=== PATIENT | female | born 1940 | race Caucasian/White ===

== ENCOUNTER 2025-09-13 21:57 | Inpatient (IN) | payer MEDICARE, SELFPAY ==
--- NOTE | ~2025-09-13 | XR_ITS ---
EXAMINATION: XR chest 2V, 09/14/2025 12:12 [place] HISTORY: Right lobe opacity, possible pneumonia COMPARISON: No comparisons available. Technique: 2 views obtained. Findings: Mild pulmonary venous congestion. There are small basilar infiltrates and effusions. No pneumothorax. Mild cardiomegaly. Moderate hiatal hernia. Bony thorax no acute abnormality. Impression: CHF. Early basilar pneumonia suspected. The findings appear slightly progressed compared to the previous exam Reviewed, dictated and finalized at location P. MARSHAL Impression: CHF. Early basilar pneumonia suspected. The findings appear slightly progressed compared to the previous exam
--- NOTE | ~2025-09-13 | XR_ITS ---
Examination: XR chest 1V portable Clinical History: cough, weakness Comparison: None Technique: Portable AP Findings: Cardiac silhouette mildly enlarged Subtle patchy airspace opacity right base. Trace blunting right CP angle. No acute bony abnormality. IMPRESSION: 1. Probable airspace disease right lower lobe. Consider PA and lateral films with deep inspiration. Reviewed, dictated and finalized at location R. CER LIEUTENANT IMPRESSION: 1. Probable airspace disease right lower lobe. Consider PA and lateral films w ith deep inspiration.
--- NOTE | ~2025-09-13 | CT_ITS ---
CT HEAD NON-CONTRAST Clinical History: ams Comparison: None Technique: Unenhanced axial images skull base to vertex Coronal, sagittal reformats CT images acquired with automatic exposure control for dose reduction DLP: 605 mGy-cm Findings: Age-related atrophy. Chronic white matter microvascular ischemic changes. Sulci, ventricles: Unremarkable. No intracerebral hemorrhage. No evidence acute territorial infarct. No mass effect, midline shift. Bony calvarium intact. Visualized paranasal sinuses: Small fluid right maxillary. Mastoid air cells: Clear. IMPRESSION: 1. No acute intracranial findings. Reviewed, dictated and finalized at location R. TECH
[2025-09-13 22:06] VITALS: BP 133/111; PULSE 67; RESP 20; TEMP 36.4; O2SAT 98
[2025-09-14] VITALS (12 sets, daily range): BP systolic 118–163; BP diastolic 69–95; PULSE 60–85; RESP 13–20; TEMP 36.7–37.7; O2SAT 95–100; BMI 34.0
--- NOTE | 2025-09-14 00:25 | ECG_ITS ---
Test Date: 2025-09-14 00:51:48 Measurements Intervals [place] Rate: 63 P: 76 MS: 166 QRS: 26 QRSD: 78 T: 49 QT: 402 QTc: 412 Interpretive Statements SINUS RHYTHM WITH SINUS ARRHYTHMIA No previous ECG available for comparison Electronically Signed On 09-14-2025 09:32:41 CHECKING DEPARTMENT SUPERVISOR by Thee Calle M.D.
[2025-09-14 00:48] LABS: Hematocrit 35.7 % (37.0-47.0); Hemoglobin 11.4 g/dL (12.0-15.0); Immature Granulocyte Percent A 0.4 % (0-0.5); Lymphocytes Absolute Auto 0.90 K/mm3 (0.9-3.2); Mean Corpuscular HGB Conc 31.9 g/dl (32-36); Mean Corpuscular Hemoglobin 29.4 pg (26-34); Mean Corpuscular Volume 92.0 fl (80-100); Nucleated Red Blood Cells Absolute Auto 0.000 K/mm3 (0.0-0.012); Nucleated Red Blood Cells Perc 0.0 % (0.0-0.2); Platelet Count Result 287 k/mm3 (150-375); Red Blood Count 3.88 M/mm3 (4.2-5.4); White Blood Count 7.0 K/mm3 (4.5-10.0)
[2025-09-14 01:05] LABS: Alanine Aminotransferase 23 U/L (6-35); Albumin Level 4.1 g/dL (3.5-5.1); Alkaline Phosphatase 65 U/L (38-126); Anion Gap 8 mmol/L (4-12); Aspartate Amino Transferase 27 U/L (14-36); Bilirubin,Total 1.0 mg/dL (0.2-1.3); Blood Urea Nitrogen 18 mg/dL (7-17); Calcium 9.3 mg/dL (8.4-10.2); Carbon Dioxide 27 mmol/L (22-30); Chloride 102 mmol/L (98-107); Estimated Glomerular Filt Rate 59; Glucose 92 mg/dL (65-110); Potassium 3.7 mmol/L (3.4-5.0); Sodium 137 mmol/L (137-145); Total Protein 7.1 g/dL (6.3-8.2)
[2025-09-14 01:21] LABS: Add Urine Microscopic? YES; Appearance Urine Clear (Clear); Glucose Urine UA Negative (Negative); Influenza A QL RT-PCR Negative (Negative); Influenza B QL RT-PCR Negative (Negative); Leukocyte Esterase Ur 1+ LEU/UL (Negative); Need Manual Microscopic Reviewed; Nitrate Urine Negative (Negative); Non Pathogenic Casts 0-2; RSV RNA, RT-PCR Negative (Negative); SARS-CoV-2 RNA PCR Positive (Negative); Specific Grav Ur 1.015 (1.001-1.035)
--- OUTSIDE RECORDS SUMMARY | 2025-09-14 01:29 | XMS_ITS | Data Portability ---
Author Organization [facility] [place] [employer] [facility] Address [address] [place] [address] Assessment No assessment recorded. Plan of Treatment Reminders Order Date Submit Date Provider Last Modified By Organization Details Last Modified Time Details Appointments None recorded. Lab None recorded. Referral None recorded. Procedures None recorded. Surgeries None recorded. Imaging None recorded. Medication Orders ceftriaxon e 1 gram solution for injection 2018 [email or web address] Not available 9 16:32:27 Celestone Soluspan 6 mg/mL suspension for injection 2018 [place] Not available 9 16:32:28 cefuroxime axetil 250 mg tablet 2018 019 INTERFACE [id number], [address], [address], 9 15:01:03 ofloxacin 0.3 % ear drops 2018 019 INTERFACE [id number], [address], [address], 9 15:34:46 Patient TargetsNo targets recorded. Patient Instructions Encounter Date Encounter Id Patient Instructions Last Modified By Organization Details Last Modified Time 11/07/2019 [id number] Rocephin 1 gm IM . Celestone 12 mg IM. Ceftin 250 mg bid x 10 days- start tomorrow. F/u if not better. Not available 11/07/2019 15:01:45 Reason for Referral None Reported. Medical Equipment None Reported. Medications Name Sig Start Date Stop Date Status Note LastModified by Organization Details LastModified Time furosemide 40 mg tablet 11/07 completed Not Available Not Available Not Available atorvastati n 40 mg tablet active Not Available Not Available Not Available cefuroxime axetil 250 mg tablet Take 1 tablet every 12 hours by oral route. 2018 active Not Available Not Available Not Avai lable atorvastati n 20 mg tablet 11/07 completed Not Available Not Available Not Available clindamycin HCl 300 mg capsule 11/07 completed Not Available Not Available Not Available hydrocodone 5 mg-acetamin ophen 325 mg tablet 11/07 completed Not Available Not Available Not Available Celestone Soluspan 6 mg/mL suspension for injection Take 12 mg by injection route. 2018 active Not Available Not Available Not Avai lable ciprofloxac in 500 mg tablet 11/07 completed Not Available Not Available Not Available ceftriaxone 1 gram solution for injection Take 1 g by injection route. 2018 active Not Available Not Available Not Avai lable ofloxacin 0.3 % ear drops INSTILL 5 DROPS INTO AFFECTED EAR(S) BY OTIC ROUTE BID 2018 active Not Available Not Available Not Avai lable levothyroxi ne 150 mcg tablet active Not Available Not Available Not Available omeprazole 20 mg capsule,del ayed release active Not Available Not Available Not Available mupirocin 2 % topical ointment 11/07 completed Not Available Not Available Not Available levofloxaci n 500 mg tablet 11/07 completed Not Available Not Available Not Available letrozole 2.5 mg tablet active Not Available Not Available Not Available celecoxib 100 mg capsule active Not Available Not Available Not Available losartan 100 mg-hydrochl orothiazide 12.5 mg tablet active Not Available Not Available Not Available calcium every day active Not Available Not Av ailable Not Available ferrous sulfate 325 mg every day 11/07 completed Not Available Not Available Not Available Adult Multivitami n (w-lutein) every day active Not Available Not Available Not Available Baxdela 450 mg tablet 11/07 completed Not Available Not Available Not Available Vitals Date Recorded Body weight Body mass index (BMI) Body height Body temperature Heart rate Systolic And Diastolic Provider Name and Address Organization Details Last Updated DateTime 9 09874.9 2 g 35.5 kg/m2 157.48 cm 98.1 [degF] 76 /min 122/76 mm[Hg] Erika Bliss [facility], [facility] 9 14:45:08 Social History None recorded. Functional Status None recorded. Mental Status None recorded. Family History Nothing Reported. Medical History No medical history recorded. Gynecological HistoryNo gynecological history recorded. Obstetrics History GPAL:G 0 P 0 0 0 0 Past Encounters Encounter ID Performer Location Encounter Start Date Encounter Closed Date Diagnosis/Indication Diagnosis SNOMED-CT Code Diagnosis ICD10 Code Diagnosis IMO Codes Diagnosis Note [id number] Sayda gonzalez NP, S Main Office [address] [place] [phone] 11/07/2019 14:11:57 11/17/2019 17:30:27 Upper respiratory infection 01746230 J06.9 Acute uppe r respiratory infection 10760717 J06.9 Health Concerns Section Related Observation LastModified by Organization Detai ls LastModified Time None Recorded Concern Status LastModified by Organization Details LastModified Time None Recorded Advance Directives Directive None Recorded Payers Insurance Date Sequence Insurance Name Policy Number Policy Romano Covered Member ID Romano Member ID Guarantor Name 11/17/2019 2 [employer] (MEDICARE SUPPLEMENT) Aditi Pepe [id number] Aditi Pepe 10/19/2021 1 [place] Aditi Pepe [id number] Aditi Pepe Notes Date Note Type Note Provider Name and Address Organization Details Recorded Time 11/07/2019 text/html Pt c/o cough and congestion for the past few days. Nose is runny. Cough is nonproductive. No fever. Sayda Ibarra NP, [address] [place] [address], [phone], [facility], [facility]. 11/07/2019 15:34:53 OBGyn Episode No OBEpisode recorded.
--- OUTSIDE RECORDS SUMMARY | 2025-09-14 01:29 | XMS_ITS | Data Portability ---
Author Organization MELCHOR ZAMUDIO [facility] Address [address] [place] [address] Care Team Providers Care Cement Handler Name Role Phone JAMES HEARN Primary Care Provider Assessment No assessment recorded. Plan of Treatment Reminders Order Date Submit Date Provider Last Modified By Organization Details Last Modified Time Details Appointments None recorded. Lab None recorded. Referral None recorded. Procedures None recorded. Surgeries None recorded. Imaging None recorded. Medication Orders omeprazole 20 mg capsule,del ayed release 2024 025 [facility], [address] [place] [address], Suite [facility], [place], [place], [id number], 5 11:14:29 ferrous sulfate 325 mg (65 mg iron) tablet,yadira yed release 2024 025 [facility], [address] [place] [address], Suite [facility], [place], [place], [id number], 5 11:14:29 Patient TargetsNo targets recorded. Patient InstructionsNo instructions recorded. Reason for Referral None Reported. Results Created Date Observation Date Name Description Value Unit Range Abnormal Flag Note LastModifiedBy Organization Detail LastModifiedTime Result Notes None recorded. Problems Name Problem SNOMED Code Status Onset Date Resolution Date Notes Provider Name and Address Organization Details Recorded Time History of total knee arthroplast y 7972806192136 Active MELCHOR Azar [facility] & [place] 3 13:28:42 History of surgery [id number] MELCHOR Cazares - [facility] - & [place] 3 13:28:42 Gastroesoph ageal reflux disease 413889104 Active Rosa M Collier null, [place] - [facility] - & [place] 3 13:28:42 Malignant neoplasm of breast 310790457 Active Rosa M Collier null, [place] - [facility] - & [place] 3 13:28:42 Arthritis 8253307 Active Rosa M Collier null, [place] - [facility] - & [place] 3 13:28:42 Hypertensiv e disorder 30501383 Active Rosa M Collier null, [place] - [facility] - & 3 13:28:42 Hypothyroid ism 22001103 Active Rosa M Collier null, [place] - [facility] - & 3 13:28:42 Diabetes mellitus 98506357 Active Rosa M Collier null, [place] - [facility] - & [place] 3 13:28:42 Polyp of colon 19450747 Active 2022 RASHAWN HERNANDEZ NP [address], [address], [place] - [facility] - [facility] & [place] 5 11:07:06 Hiatal hernia 11278567 Active 2022 RASHAWN HERNANDEZ NP [address], [address], [place] - [facility] - [facility] & [place] 5 11:07:42 Iron deficiency anemia 42578528 Active 2022 RASHAWN HERNANDEZ NP [address], [address], [place] - [facility] - [facility] & [place] 5 11:08:02 Pain of right ankle joint 8090226210284 9106 Active 2022 Marcia Gargus null, [place] - [facility] - & [place] 3 10:29:37 Pain in right foot 6161509685650 07 Active 2022 Rosa M Collier null, [place] - [facility] - [facility] & [place] 3 11:30:51 Sprain of shoulder rotator cuff 389249804730 Active 2022 Katie Augustine NP, [address] [place] [address], [address], [place] - [facility] - [place] & [place] 3 11:47:49 Onychomycos is 749169877 Active 2022 Rosa M Collier null, [place] - [facility] - [facility] & [place] 3 12:51:20 Dystrophia unguium 34036430 Active 2022 Rosa M Collier null, [place] - [facility] - [facility] & [place] 3 12:51:20 Foot callus 827766476 Active 2022 Rosa M Collier null, [place] - [facility] - [facility] & [place] 3 12:51:20 Pain of toe of left foot 0440675744430 08 Active 2022 Rosa M Collier null, [place] - [facility] - [facility] & [place] 3 12:51:20 Tenosynovit is of right foot 2609921967286 105 Active 2022 Rosa M Collier null, [place] - [facility] - [facility] & [place] 3 12:51:20 Diverticulo sis of colon without diverticuli tis 589022731 Active 2024 RASHAWN HERNANDEZ NP [facility] [address], [place], [address], [place] - [facility] - [place] & [place] 5 11:07:18 Constipatio n 83379156 Active 2024 RASHAWN HERNANDEZ NP [facility] [address], [address], [place] - [facility] - [place] & [place] 5 11:09:23 Problem Notes Documentation Provider Name and Address Organization Details Recorded Time Consult Note : [place] [address] CONSULTATION NOTE PATIENT: ADITI PEPE ROOM #: N.309-[address]: James Hearn DO UNIT #: [id number] DATE OF ADMISSION: 05/03/[address]: Christophe Clark MD CONSULTING PHYSICIAN: Christophe Clark MD REFERRING PHYSICIAN: Dr. Hearn DATE OF CONSULTATION: 05/04/2025 REASON FOR CONSULTATION: Increased BUN/creatinine. HISTORY OF PRESENT ILLNESS: The patient is an 84-year-old female with past medical history of hypertension and arthritis. The patient is status post fall with change in mental status with acute blood-loss anemia. Hemoglobin down to 6.5 g/dL. LABORATORY DATA: Creatinine 1.3 from 1, baseline creatinine 1 to 1.4 mg/dL. GFR 41 mL/minute by MDRD. CK level of 1541. The patient is confused. SOCIAL HISTORY: No smoking or ethanol use. FAMILY HISTORY: No hypertension or diabetes. REVIEW OF SYSTEMS: Unable. The patient is confused. PHYSICAL EXAMINATION: VITAL SIGNS: Temperature 97.3, heart rate 77, respiratory rate 18, blood pressure 124/77, saturation 97% on room air. HEENT: Normocephalic. Atraumatic. Pupils are equal, round, and reactive to light. Extraocular movements/muscles intact. Lids are normal. Anicteric sclerae. Conjunctivae clear. Nares patent. Oropharynx clear. Moist mucous membranes. Normal dentition. Tympanic membranes are clear. External auditory canals are normal. NECK: Supple, no lymphadenopathy noted. No thyromegaly. No jugular venous distention. LUNGS: Rales and rhonchi bilaterally. CARDIOVASCULAR: Regular rate and rhythm. No S3, no rubs. No carotid bruits. 1/6 systolic murmur in left sternal border. ABDOMEN: Positive bowel sounds. Soft, nontender, nondistended. No masses, hepatosplenomegaly or tenderness. No hernias noted. EXTREMITIES: 2+ pedal pulses. Normal range of motion. No clubbing or PATIENT: ADITI PEPE UNIT #: [id number] cyanosis. Trace edema in bilateral lower extremities. BACK: No costovertebral angle tenderness. SKIN: No rashes, lesions or ulcerations noted. LYMPHATICS: No axillary lymphadenopathy. NEUROLOGIC: No focal deficits. Cranial nerves 2-12 intact. Sensation intact. Deep tendon reflexes intact bilateral lower extremities. Has 5/5 bilateral strength in upper and lower extremities. PSYCHIATRIC: Confused. ASSESSMENT AND PLAN: 1. Acute blood-loss anemia, rule out hematoma. CT of abdomen and pelvis. If needed, surgical evaluation. Transfuse as needed packed red blood cells, tranexamic acid. 2. Rhabdomyolysis. IV fluids. Follow CK level. 3. Inqka-pz-nayuynk renal failure. Close monitoring of renal parameters. If condition worsens, transfer to step-down/ICU. Consult 5. DICTATED BY: Christophe Clark MD EP/MODL /[id number] at 1254 CC'ed Logic: Ordering Provider: SAADIA SALINAS Attending Provider: ARIS BOYLE Consulting Provider: ARIS BOYLE; GADIEL CABRERA; SAADIA SALINAS Admitting Provider: ARIS Damico [place] [facility] 05/05/2025 14:14:12 Strings Teacher Consult Note : [place] [address] CARDIOLOGY CONSULTATION PATIENT: ADITI PEPE DATE OF : 42 UNIT#: [id number] ADMIT DATE: 05/03/25 ATTENDING PHYSICIAN: James Hearn DO DICTATING PROVIDER: Augusta Hidalgo MD SERVICE DATE: 05/05/25 (Please note that portions of this note were completed with a voice recognition program. Efforts were made to edit the dictation but occasionally words are mis-transcribed.) Cardiology Consultation Date of Admission: 05/03/25 Date of Initial Consultation: 05/05/25 Referring Provider: DR. HEARN Reason for Consult: CARDIAC CLEARANCE FOR COLONOSCOPY Source of History: MEDICAL RECORDS History of Present Illness: patient was an 84-year-old female with noted history hypertension dyslipidemia hypothyroidism remote history of anemia degenerative arthritis osteoporosis and remote history of breast cancer. Presents to the hospital for reasons of mental status changes. Apparently sustained a fall subsequent EMS contacted in regard to such was brought to the ER accordingly. Family had visualized that the patient had fallen on camera and subsequently called for EMS services. Timeframe series of events leading up to the rather limited at this time. Cardiac Risk Profile: Yes Hypercholseteremia:, Yes Hypertension: Cardiac Specific Problems: PAROXYSMAL ATRIAL FIBRILLATION HYPERTENSION, HIGH CHOLESTEROL, STRESS, OBESITY Past Medical History: HYPERTENSION, HIGH CHOLESTEROL, STRESS, OBESITY Home Medications: Home Medications: LEVOTHYROXINE (LEVOXYL) 175 MCG PO DAILY OMEPRAZOLE (PRILOSEC) 20 MG PO DAILY ATORVASTATIN (LIPITOR) 40 MG PO DAILY LOSARTAN (COZAAR) 25 MG PO DAILY@0800 FAMOTIDINE (PEPCID) 20 MG PO BID Allergies: Coded Allergies: No Known Allergies (05/05/25) Review of Systems: PLEASE REFER TO THE HISTORY OF PRESENT ILLNESS WHEN I TALKED TO THE PATIENT AND ASK HER QUESTION FOR ALMOST EVERY QUESTION SHE ANSWERS I DO NOT KNOW SO SHE HAS NOT A GOOD HISTORIAN AND I CAN NOT OBTAIN REVIEW OF SYSTEMS Physical Exam: Last Documented Vital Signs: Temp: 97.3 Pulse: 100 Resp: 15 B/P: 126/83 O2 Sat: 97 84-YEAR-OLD FEMALE ALERT AWAKE ORIENTED AND RESPONDS TO ALL QUESTIONS BUT ONLY ANSWER SHE GIVES HIS I DO NOT KNOW HEENT UNREMARKABLE NECK SUPPLE EXAMINATION OF HEART REVEALS S1 AND S2 IRREGULARLY IRREGULAR DO NOT HEAR ANY MURMUR EXAMINATION OF LUNGS REVEALED REDUCED AIR ENTRY EXTREMITIES UNREMARKABLE ON ADMISSION THE RHYTHM STRIP SHOWS SINUS RHYTHM, I DO NOT HAVE THE 12 LEAD EKG IN THE CHART IT WAS PROBABLY DONE IN THE EMERGENCY ROOM TODAY THE RHYTHM STRIP SHOWS ATRIAL FIBRILLATION Lab Results: I have personally reviewed and interpreted the results of the following diagnostic testing. Laboratory Tests: 05/05 Chemistry Sodium (137 - 145 mmol/L) 135 *L Potassium (3.5 - 5.1 mmol/L) 3.0 *L Chloride (98 - 107 mmol/L) 106 Carbon Dioxide (22 - 30 mmol/L) 22 Anion Gap (5.0 - 15.0 mmol/L) 9.4 BUN (7 - 17 mg/dL) 9 Creatinine (0.52 - 1.04 mg/dL) 0.80 Est GFR (CKD-EPI 2020) (mL/min) 73 Whole Blood BUN/Creat (7.0 - 25.0) 11.8 Glucose (74 - 106 mg/dL) 104 Calcium (8.4 - 10.2 mg/dL) 8.2 *L Corrected Calcium (8.4 - 10.2 mg/dL) 8.8 Phosphorus (2.5 - 4.5 mg/dL) 2.3 *L Magnesium (1.6 - 2.3 mg/dL) 1.4 *L Total Bilirubin (0.2 - 1.3 mg/dL) 1.3 AST (14 - 36 UNITS/L) 33 ALT (9 - 52 UNITS/L) 24 Total Alk Phosphatase (53 - 141 UNITS/L) 55 Serum Total Protein (6.3 - 8.2 gm/dL) 6.2 *L Albumin (3.5 - 5.0 g/dL) 3.2 *L Hematology WBC (4.8 - 10.8 X10 3/uL) 8.2 RBC (4.20 - 5.40 x10 6/uL) 4.70 Hgb (12.0 - 16.0 g/dL) 10.4 *L Hct (37.0 - 47.0 %) 33.8 *L MCV (81.0 - 99.0 fL) 71.9 *L MCH (27.0 - 31.0 pg) 22.1 *L MCHC (33.0 - 37.0 g/dL) 30.8 *L RDW (36.4 - 46.3 fL) 56.3 *H Plt Count (130 - 400 x10 3/uL) 356 MPV (7.4 - 10.4 fL) 9.7 [place] % (Auto) (2.0 - 6.0 %) 12.7 *H Eos % (Auto) (2.0 - 3.0 %) 1.9 *L Baso % (Auto) (0.0 - 1.0 %) 0.4 Nucleat RBC Rel Count (0.0 - 0.2 %) 0.0 Neut # (Auto) (1.8 - 7.8 X10 3/uL) 5.82 Lymph # (Auto) (1.0 - 4.8 x10 3/uL) 1.13 [place] # (Auto) (0.0 - 0.8 x10 3/uL) 1.04 *H Eos # (Auto) (0.0 - 0.5 x10 3/uL) 0.16 Baso # (Auto) (0.0 - 0.2 x10 3/uL) 0.03 Absolute Nucleated RBC (0.00 - 0.012 X10 3/uL) 0.00 Immature Gran % (0.0 - 2.0 %) 0.5 Neutrophils % (39.0 - 77.0 %) 70.8 Lymphocytes % (23.0 - 45.0 %) 13.7 *L Immature Gran # (0.00 - 0.10 x10 3/uL) 0.04 Urines Ur Random Creatinine (mg/dL) 30.5 U Random Total Protein (0 - 12 mg/dL) 29 *H Ur Random Sodium (30 - 90 mmol/L) 65 Ur Random Potassium (mmol/L) 12.6 Ur Random Chloride (24 - 255 mmol/L) 77 Ur Random Urea Nitrogn (mg/dL) 293 Imaging Results: WHILE SHE WAS IN SINUS RHYTHM ON ADMISSION PATIENT IS NOW IN ATRIAL FIBRILLATION Assessment: All of the cardiology problems are listed above: However the following specific cardiac problems were addresses and treated during the hospital medical decision making. Cardiac Specific Problem: 1. PAROXYSMAL ATRIAL FIBRILLATION.PATIENT DOES NOT HAVE ANY HISTORY OF ATRIAL FIBRILLATION IN THE PAST. THIS IS A NEW ONSET OF ATRIAL FIBRILLATION 2. HISTORY OF SYNCOPE ETIOLOGY UNCLEAR, PATIENT CAN NOT DESCRIBE ANYTHING 3. ANEMIA 4. PREOP CLEARANCE FOR COLONOSCOPY 5. CURRENTLY PATIENT DOES NOT HAVE ANY SYMPTOMS OF ANGINA, ACUTE HEART FAILURE OR ACUTE CARDIAC ARRHYTHMIA EXCEPT PAROXYSMAL ATRIAL FIBRILLATION WHICH IS EASILY TREATABLE. Discussion/Data Reviewed: Diagnostic/Therapeutic Procedures Ordered: Management Options Selcted: NO CONTRAINDICATION NOTED TO PROCEED WITH COLONOSCOPY I WILL GET A ECHOCARDIOGRAM ON HER I WILL START HER ON BETA BLOCKERS TO SEE IF WE CAN SLOW DOWN AND KEEP HER IN SINUS RHYTHM I WILL FOLLOW HER WITH YOU Level of Service: C4 at 1549 ADITI PEPE : 42 Report #: [id number] CC'ed Logic: Ordering Provider: RUSTAM AKHTAR Attending Provider: ARIS BOYLE Consulting Provider: ARIS BOYLE; GADIEL CABRERA; RUSTAM AKHTAR; SAADIA SALINAS Admitting Provider: [facility] [place] [facility] & [place] 05/06/2025 12:40:44 Roof Shingler Consult Note : [place] [address] CONSULTATION NOTE PATIENT: ADITI PEPE ROOM #: N.309-[address]: James Hearn DO UNIT #: [id number] DATE OF ADMISSION: 05/03/[address]: Jaycee Matthew MD CONSULTING PHYSICIAN: Jaycee Matthew MD REFERRING PHYSICIAN: NONE DATE OF CONSULTATION: 05/04/2025 REASON FOR CONSULTATION: Anemia. HISTORY OF PRESENT ILLNESS: The patient is an 84-year-old female patient who apparently fell at home. Cannot recall if before the fall she felt weak or lightheaded. At the time of consultation, she complains only for neck pain. Otherwise, she feels fine. Denies abdominal pain. Denies nausea or vomiting. Denies difficulty of swallowing or painful swallowing. Denies seeing any blood or black tarry stools recently. PAST MEDICAL HISTORY: Positive for: 1. Breast cancer. 2. Hypothyroidism. 3. Hypertension. 4. Arthritis. 5. GERD. 6. Diabetes mellitus. SURGICAL HISTORY: Positive for right breast lumpectomy and total knee replacement. ALLERGIES: To no known medications. MEDICATIONS: Home medications are atorvastatin, famotidine, levothyroxine, losartan and omeprazole. SOCIAL HISTORY: She does not smoke. VITAL SIGNS: Temperature is 97.5, heart rate 83, respiratory rate 18, blood pressure 126/64 mmHg. REVIEW OF SYSTEMS: GENERAL: Denies lightheadedness and dizziness. VISUAL: Negative for visual changes. PATIENT: ADITI PEPE UNIT #: [id number] HEAD, EARS NOSE AND THROAT: Negative for throat pain and congestion. CARDIAC: Negative for chest pain and palpitation. RESPIRATORY: Negative for shortness of breath and cough. GASTROINTESTINAL: Negative for abdominal pain. Denies coffee-grounds emesis. Denies hematemesis. GENITOURINARY: Negative for burning and frequency upon urination. MUSCULOSKELETAL: Negative for new onset of joint problems. SKIN: Negative for new onset of skin rash. NEUROLOGIC: Negative for new onset of focal weakness and sensory deficits. PHYSICAL EXAMINATION: GENERAL: The patient is comfortably sitting in a chair. HEAD, EARS, NOSE AND THROAT: She has pale anemic conjunctiva. The nostrils are dry. NECK: Supple. Thyroid: is not palpable. CARDIAC: S1, S2 with regular rate and rhythm. LUNGS: Clear. ABDOMEN: Soft, nontender, nondistended. Good bowel sounds. JOINTS: Without deformity. SKIN: Good turgor. PSYCHIATRIC: Awake, alert and oriented x3. LABORATORY DATA: WBC count 10.7, hematocrit 33.5, but her lowest hematocrit was 23.3 requiring 2 unit blood transfusion. Her MCV is low at 73, platelet count 369. INR is 1.6. Sodium is 135, potassium 3.3, BUN of 19 down from 26, creatinine normalized. Her iron level is low at 30, TIBC is normal at 353, ferritin is 12.8, it is low normal level. Liver Enzymes: Total bilirubin is normal. AST is 51, ALT is 27, alkaline phosphatase is 64. BNP is 481, albumin 3.6. Procalcitonin is normal. CRP is elevated. Her Creatine kinase is elevated suggesting the patient has undergoing rhabdomyolysis. For better medications, she is getting tranexamic acid, Lasix, potassium chloride, Protonix, half normal saline and anti-alcohol. Pelvic CT showed stool in the rectum. Lumbar spine showed degenerative changes. Brain CT showed no acute intracranial abnormality. ASSESSMENT AND PLAN: In summary, the patient with anemia, which is iron deficient requiring blood transfusion without obvious evidence of GI tract hemorrhage, but she fell at home and required 2 units of blood transfusion. Right now, she is recovering from rhabdomyolysis. Her kidney functions have been improving with conservative care. I do believe that this patient should undergo an EGD if she would be safe. Her colonoscopy was in 2022, which showed diverticular disease and some colon polyps. In the endoscopy, other than a hiatal hernia, found no further abnormalities. Her pathology showed hyperplastic and tubular adenoma polyps. So in summary, the patient with iron deficiency anemia requiring blood transfusion, recurrent fall recently. We will proceed with an EGD if she is agreeable and cleared by primary care doctor. PATIENT: ADITI PEPE UNIT #: [id number] DICTATED BY: Jaycee Matthew MD AT/MODL /[id number] at 1224 CC'ed Logic: Ordering Provider: ARGELIA LANE Attending Provider: ARIS BOYLE Consulting Provider: ARIS BOYLE; GADIEL CABRERA; RUSTAM AKHTAR; SAADIA SALINAS Admitting Provider: ARIS Mai [facility] & [place] 05/07/2025 16:51:18 Progress Note : [place] [address] PROGRESS NOTE PATIENT: ADITI PEPE DATE OF : 42 UNIT#: [id number] ADMIT DATE: 05/03/25 ATTENDING PHYSICIAN: James Hearn DO DICTATING PROVIDER: Augusta Hidalgo MD SERVICE DATE: 05/08/25 (Please note that portions of this note were completed with a voice recognition program. Efforts were made to edit the dictations but occasionally words are mis-transcribed.) Cardiology Progress Note SUBJECTIVE: The patient is feeling better Cardiac Risk CARDIAC RISK FACTORS: HYPERTENSION, HIGH CHOLESTEROL, STRESS, OBESITY, OTHER Physical Examination VITAL SIGNS: Vital Signs: Result Date Time Pulse Ox 97 05/08 0721 B/P 146/74 05/08 0721 O2 Delivery RA 05/08 0721 Temp 98.3 05/08 0721 Pulse 93 05/08 0721 Resp 18 05/08 0721 CURRENT MEDICATIONS: Current Hospital Medications: Bisacodyl 20 MG 1200 PO (DC) Chlorhexidine Gluconate 1 EACH CHG BATH DAILY TOPICAL Ethyl Alcohol 1 AMP BID NASAL Levothyroxine Sodium 150 MCG 0600 PO Lidocaine HCl 0 .STK-MED ONE .ROUTE (DC) Lidocaine HCl 4 ML .STK-MED ONE INJ (DC) Metoprolol Tartrate 25 MG BID PO Pantoprazole Sodium 40 MG DAILY IV Polyethylene Glycol 255 GM 1400 PO (DC) Polyvinyl Alcohol 1 DROP Q4H PRN PRN EACH EYE (CKD) Propofol 200 MG .STK-MED ONE IV (DC) Ropinirole HCl 0.25 MG BEDTIME PO Tizanidine HCl 2 MG TID PRN PRN PO PHYSICAL EXAM: 84-YEAR-OLD FEMALE ALERT AWAKE ORIENTED AND RESPONDS TO ALL QUESTIONS BUT ONLY ANSWER SHE GIVES HIS I DO NOT KNOW HEENT UNREMARKABLE NECK SUPPLE EXAMINATION OF HEART REVEALS S1 AND S2 IRREGULARLY IRREGULAR DO NOT HEAR ANY MURMUR EXAMINATION OF LUNGS REVEALED REDUCED AIR ENTRY EXTREMITIES UNREMARKABLE ON ADMISSION THE RHYTHM STRIP SHOWS SINUS RHYTHM, I DO NOT HAVE THE 12 LEAD EKG IN THE CHART IT WAS PROBABLY DONE IN THE EMERGENCY ROOM TODAY THE RHYTHM STRIP SHOWS ATRIAL FIBRILLATION TELEMETRY/EKG UNTERPRETATION: Atrial fibrillation LABORATORY DATA: Hematology: 05/08 250 Hematology WBC (4.8 - 10.8 X10 3/uL) 7.1 RBC (4.20 - 5.40 x10 6/uL) 4.88 Hgb (12.0 - 16.0 g/dL) 10.8 *L Hct (37.0 - 47.0 %) 35.5 *L Plt Count (130 - 400 x10 3/uL) 440 *H Chemistry: 05/08 250 Chemistry Sodium (137 - 145 mmol/L) 134 *L Potassium (3.5 - 5.1 mmol/L) 3.5 Chloride (98 - 107 mmol/L) 103 Carbon Dioxide (22 - 30 mmol/L) 22 Anion Gap (5.0 - 15.0 mmol/L) 12.8 BUN (7 - 17 mg/dL) 7 Creatinine (0.52 - 1.04 mg/dL) 0.90 Est GFR (CKD-EPI 2020) (mL/min) 63 Whole Blood BUN/Creat (7.0 - 25.0) 7.5 Glucose (74 - 106 mg/dL) 105 Calcium (8.4 - 10.2 mg/dL) 8.8 Corrected Calcium (8.4 - 10.2 mg/dL) 9.4 Phosphorus (2.5 - 4.5 mg/dL) 3.4 Magnesium (1.6 - 2.3 mg/dL) 1.6 Total Bilirubin (0.2 - 1.3 mg/dL) 0.7 AST (14 - 36 UNITS/L) 25 ALT (9 - 52 UNITS/L) 21 Total Alk Phosphatase (53 - 141 UNITS/L) 65 NT-Pro-B Natriuret Pep (0 - 450 pg/mL) 3230 *H Serum Total Protein (6.3 - 8.2 gm/dL) 6.5 Albumin (3.5 - 5.0 g/dL) 3.2 *L Procalcitonin (0.00 - 0.50 ng/mL) 0.057 DIAGNOSES: 1. PAROXYSMAL ATRIAL FIBRILLATION.PATIENT DOES NOT HAVE ANY HISTORY OF ATRIAL FIBRILLATION IN THE PAST. THIS IS A NEW ONSET OF ATRIAL FIBRILLATION 2. HISTORY OF SYNCOPE ETIOLOGY UNCLEAR, PATIENT CAN NOT DESCRIBE ANYTHING 3. ANEMIA 4. PREOP CLEARANCE FOR COLONOSCOPY 5. CURRENTLY PATIENT DOES NOT HAVE ANY SYMPTOMS OF ANGINA, ACUTE HEART FAILURE OR ACUTE CARDIAC ARRHYTHMIA EXCEPT PAROXYSMAL ATRIAL FIBRILLATION WHICH IS EASILY TREATABLE. CONCLUSIONS RECOMMENDATIONS: Patient is having endoscopy today Since this is the 1st episode of atrial fibrillation and because of GI bleed we cannot give her blood thinners I feel the best approach will be to do a SUSANA cardioversion, especially since he is having a colonoscopy this morning she will be under general anesthesia and need to be easy to do and the cardioversion immediately after endoscopy I have discussed with the patient at length have discussed with her about the reason for cardioversion, I have discussed with her about treatment alternatives of SUSANA and cardioversion she understands and wants to proceed with it I have also called her daughter Marcia her number is [phone] I have also explained to her the reason for cardioversion and also explained to her the risk benefit and alternatives. She also agreed to proceed and the Wellness verbal consent SUSANA and cardioversion will be done after colonoscopy Level of Service Level of Service: v5 at 0958 ADITI PEPE : 42 Report #: [id number] CC'ed Logic: Ordering Provider: RUSTAM AKHTAR Attending Provider: ARIS BOYLE Consulting Provider: ARIS BOYLE; GADIEL CABRERA; RUSTAM AKHTAR; SAADIA SALINAS Admitting [facility]: [facility]/08/2025 16:27:37 [facility] [address] PROGRESS NOTE PATIENT: ADITI PEPE DATE OF : 42 UNIT#: [id number] ADMIT DATE: 05/03/25 ATTENDING PHYSICIAN: James Hearn DO DICTATING PROVIDER: Augusta Hidalgo MD SERVICE DATE: 05/09/25 (Please note that portions of this note were completed with a voice recognition program. Efforts were made to edit the dictations but occasionally words are mis-transcribed.) Cardiology Progress Note SUBJECTIVE: The patient is feeling better Cardiac Risk CARDIAC RISK FACTORS: HYPERTENSION, HIGH CHOLESTEROL, STRESS, OBESITY, OTHER Physical Examination VITAL SIGNS: Vital Signs: Result Date Time B/P 122/69 05/09 0835 Pulse 69 05/09 0835 Pulse Ox 96 05/09 0832 O2 Delivery RA 05/09 0832 Temp 97.7 05/09 0832 Resp 12 05/09 0832 CURRENT MEDICATIONS: Current Hospital Medications: Chlorhexidine Gluconate 1 EACH CHG BATH DAILY TOPICAL Ethyl Alcohol 1 AMP BID NASAL Levothyroxine Sodium 50 MCG 0600 PO (UNV) Levothyroxine Sodium 150 MCG 0600 PO (DC) Metoprolol Tartrate 25 MG BID PO Pantoprazole Sodium 40 MG DAILY IV Polycarbophil 1 TAB BID PO (CKD) Polyvinyl Alcohol 1 DROP Q4H PRN PRN EACH EYE (CKD) Ropinirole HCl 0.25 MG BEDTIME PO Tizanidine HCl 2 MG TID PRN PRN PO PHYSICAL EXAM: GENERAL: well developed and well-nourished, in no amount of generalized distress; is an active participant in this examination HEENT: PERRLA, hearing appears normal, conjunctiva and lids are normal, ears and nose appear normal NECK: no thyromegaly, no JVD, trachea is in the midline CARDIOVASCULAR: PMI is in the left midline clavicular position, normal S1 and S2. No S3 or S4 PULMONARY: No respiratory distress; ABDOMEN: soft, non-tender, no rebound, no hepatomegaly or splenomegaly MUSCULOSKELETAL: prone/supine, digits and nails are without clubbing or cyanosis EXTREMITIES: without clubbing, cyanosis, or edema NEUROLOGICAL: cranial nerves II-XII normal SKIN: turgor normal, no rash PSYCHIATRIC: normal mood and affect, alert and oriented x 3, judgment and insight appear appropriate TELEMETRY/EKG UNTERPRETATION: EKGS REVEALED SINUS RHYTHM LABORATORY DATA: Hematology: 05/09 0245 Hematology WBC (4.8 - 10.8 X10 3/uL) 7.7 RBC (4.20 - 5.40 x10 6/uL) 4.23 Hgb (12.0 - 16.0 g/dL) 9.5 *L Hct (37.0 - 47.0 %) 31.1 *L Plt Count (130 - 400 x10 3/uL) 411 *H Chemistry: 05/09 0245 Chemistry Sodium (137 - 145 mmol/L) 134 *L Potassium (3.5 - 5.1 mmol/L) 3.5 Chloride (98 - 107 mmol/L) 101 Carbon Dioxide (22 - 30 mmol/L) 24 Anion Gap (5.0 - 15.0 mmol/L) 13.1 BUN (7 - 17 mg/dL) 14 Creatinine (0.52 - 1.04 mg/dL) 1.20 *H Est GFR (CKD-EPI 2020) (mL/min) 45 Whole Blood BUN/Creat (7.0 - 25.0) 11.8 Glucose (74 - 106 mg/dL) 138 *H Calcium (8.4 - 10.2 mg/dL) 8.5 Corrected Calcium (8.4 - 10.2 mg/dL) 9.3 Phosphorus (2.5 - 4.5 mg/dL) 3.4 Magnesium (1.6 - 2.3 mg/dL) 1.6 Total Bilirubin (0.2 - 1.3 mg/dL) 0.4 AST (14 - 36 UNITS/L) 20 ALT (9 - 52 UNITS/L) 19 Total Alk Phosphatase (53 - 141 UNITS/L) 55 NT-Pro-B Natriuret Pep (0 - 450 pg/mL) 1220 *H Serum Total Protein (6.3 - 8.2 gm/dL) 6.0 *L Albumin (3.5 - 5.0 g/dL) 3.0 *L Procalcitonin (0.00 - 0.50 ng/mL) 0.077 DIAGNOSES: 1. PAROXYSMAL ATRIAL FIBRILLATION.PATIENT DOES NOT HAVE ANY HISTORY OF ATRIAL FIBRILLATION IN THE PAST. THIS IS A NEW ONSET OF ATRIAL FIBRILLATION 2. HISTORY OF SYNCOPE ETIOLOGY UNCLEAR, PATIENT CAN NOT DESCRIBE ANYTHING 3. ANEMIA 4. PREOP CLEARANCE FOR COLONOSCOPY 5. CURRENTLY PATIENT DOES NOT HAVE ANY SYMPTOMS OF ANGINA, ACUTE HEART FAILURE OR ACUTE CARDIAC ARRHYTHMIA EXCEPT PAROXYSMAL ATRIAL FIBRILLATION WHICH IS EASILY TREATABLE. CONCLUSIONS RECOMMENDATIONS: 1. PATIENT HAD COLONOSCOPY YESTERDAY AND THEN I DID THE CARDIOVERSION AND PATIENT WAS CONVERTED INTO NORMAL SINUS RHYTHM 2. SINCE THIS WAS THE 1ST EPISODE OF ATRIAL FIBRILLATION, I DO NOT FEEL THAT SHE REALLY NEEDS ANTICOAGULATION AT THIS POINT 3. WE WILL FOLLOW HER AN OUTPATIENT AND ON DISCHARGE I WILL PUT A 15 DAY HOLTER MONITOR ON HER. I WILL SEE HER BACK IN OFFICE IN ABOUT 6-8 WEEKS AND THEN IF THERE IS RECURRENT ATRIAL FIBRILLATION THEN WE MAY CONSIDER ELIQUIS 2.5 MG B.I.D. 3. ALSO I FEEL PATIENT IS ON HIGHER THAN NEEDED DOSE OF LEVOTHYROXINE AT 150 MICS PER DAY THIS IS CAUSING HER TSH TO BE SIGNIFICANTLY LOW AND HER T4 LEVELS ARE IN UPPER LIMITS OF NORMAL CLOSE TO 10. IN MY OPINION IF WE CAN KEEP HER SUSANA 4 AROUND 5 THAT IS GOOD ENOUGH HER TSH IS 0.012 THIS IS SIGNIFICANTLY LOW WE CAN KEEP THESE AROUND 3 OR 4 THAT WILL BE OKAY I HAVE DECREASED HER LEVOTHYROXINE FROM 150 MICS DAILY TO 50 MG DAILY AND I AM RECOMMENDING TO FOLLOW HER T4 AND TSH IN 3-4 WEEKS AND THEN NEEDED Level of Service Level of Service: V5 at 1123 ADITI PEPE : 42 Report #: [id number] CC'ed Logic: Ordering Provider: RUSTAM AKHTAR Attending Provider: ARIS BOYLE Consulting Provider: ARIS BOYLE; GADIEL CABRERA; RUSTAM AKHTAR; SAADIA SALINAS Admitting Provider: ARIS Villanueva [facility] 05/11/2025 15:11:29 Progress Note : [place] [address] PROGRESS NOTE PATIENT: ADITI PEPE DATE OF : 42 UNIT#: [id number] ADMIT DATE: 05/03/25 ATTENDING PHYSICIAN: James Hearn DO DICTATING PROVIDER: Augusta Hidalgo MD SERVICE DATE: 05/10/25 (Please note that portions of this note were completed with a voice recognition program. Efforts were made to edit the dictations but occasionally words are mis-transcribed.) Cardiology Progress Note SUBJECTIVE: NO COMPLAINTS Cardiac Risk CARDIAC RISK FACTORS: HYPERTENSION, HIGH CHOLESTEROL, STRESS, OBESITY, OTHER Physical Examination VITAL SIGNS: Vital Signs: Result Date Time B/P 156/84 05/10 0841 Pulse 70 05/10 0841 Pulse Ox 97 05/10 808 O2 Delivery RA 05/10 808 Temp 98.0 05/10 0808 Resp 16 05/10 08 CURRENT MEDICATIONS: Current Hospital Medications: Chlorhexidine Gluconate 1 EACH CHG BATH DAILY TOPICAL Ethyl Alcohol 1 AMP BID NASAL Ferrous Sulfate 325 MG BID PO Levothyroxine Sodium 50 MCG 0600 PO Levothyroxine Sodium 150 MCG 0600 PO (DC) Metoprolol Tartrate 25 MG BID PO Olmesartan 10 MG DAILY PO Pantoprazole Sodium 40 MG DAILY IV Polycarbophil 1 TAB BID PO (CKD) Polyvinyl Alcohol 1 DROP Q4H PRN PRN EACH EYE (CKD) Ropinirole HCl 0.25 MG BEDTIME PO Tizanidine HCl 2 MG TID PRN PRN PO PHYSICAL EXAM: GENERAL: well developed and well-nourished, in no amount of generalized distress; is an active participant in this examination HEENT: PERRLA, hearing appears normal, conjunctiva and lids are normal, ears and nose appear normal NECK: no thyromegaly, no JVD, trachea is in the midline CARDIOVASCULAR: PMI is in the left midline clavicular position, normal S1 and S2. No S3 or S4 PULMONARY: No respiratory distress; ABDOMEN: soft, non-tender, no rebound, no hepatomegaly or splenomegaly MUSCULOSKELETAL: prone/supine, digits and nails are without clubbing or cyanosis EXTREMITIES: without clubbing, cyanosis, or edema NEUROLOGICAL: cranial nerves II-XII normal SKIN: turgor normal, no rash PSYCHIATRIC: normal mood and affect, alert and oriented x 3, judgment and insight appear appropriate TELEMETRY/EKG UNTERPRETATION: NORMAL SINUS RHYTHM LABORATORY DATA: Hematology: 05/10 238 Hematology WBC (4.8 - 10.8 X10 3/uL) 7.8 RBC (4.20 - 5.40 x10 6/uL) 4.20 Hgb (12.0 - 16.0 g/dL) 9.3 *L Hct (37.0 - 47.0 %) 30.8 *L Plt Count (130 - 400 x10 3/uL) 401 *H Chemistry: 05/10 238 Chemistry Sodium (137 - 145 mmol/L) 137 Potassium (3.5 - 5.1 mmol/L) 4.0 Chloride (98 - 107 mmol/L) 104 Carbon Dioxide (22 - 30 mmol/L) 24 Anion Gap (5.0 - 15.0 mmol/L) 12.7 BUN (7 - 17 mg/dL) 15 Creatinine (0.52 - 1.04 mg/dL) 1.10 *H Est GFR (CKD-EPI 2020) (mL/min) 50 Whole Blood BUN/Creat (7.0 - 25.0) 13.0 Glucose (74 - 106 mg/dL) 109 *H Calcium (8.4 - 10.2 mg/dL) 9.0 Corrected Calcium (8.4 - 10.2 mg/dL) 9.7 Phosphorus (2.5 - 4.5 mg/dL) 3.6 Magnesium (1.6 - 2.3 mg/dL) 1.8 Total Bilirubin (0.2 - 1.3 mg/dL) 0.5 AST (14 - 36 UNITS/L) 20 ALT (9 - 52 UNITS/L) 19 Total Alk Phosphatase (53 - 141 UNITS/L) 57 NT-Pro-B Natriuret Pep (0 - 450 pg/mL) 492 *H Serum Total Protein (6.3 - 8.2 gm/dL) 6.2 *L Albumin (3.5 - 5.0 g/dL) 3.1 *L Procalcitonin (0.00 - 0.50 ng/mL) 0.067 DIAGNOSES: 1. PAROXYSMAL ATRIAL FIBRILLATION.PATIENT DOES NOT HAVE ANY HISTORY OF ATRIAL FIBRILLATION IN THE PAST. THIS IS A NEW ONSET OF ATRIAL FIBRILLATION, NOW SHE IS IN NORMAL SINUS RHYTHM AFTER CARDIOVERSION 2. HISTORY OF SYNCOPE ETIOLOGY UNCLEAR, PATIENT CAN NOT DESCRIBE ANYTHING 3. ANEMIA CONCLUSIONS RECOMMENDATIONS: PATIENT IS CLINICALLY STABLE POSSIBLE THERE IS NO NEED FOR ANTICOAGULATION PATIENT CAN BE DISCHARGED FROM CARDIAC POINT OF VIEW WHENEVER OKAY WITH PRIMARY SERVICE Level of Service Level of Service: V4 at ADITI PALACIOS : 41 Report #: [id number] CC'ed Logic: Ordering Provider: RUSTAM AKHTAR Attending Provider: ARIS BOYLE Consulting Provider: ARIS BOYLE; GADIEL CABRERA; RUSTAM AKHTAR; SAADIA SALINAS Admitting Provider: ARIS [facility] & [place] 05/11/2025 15:09:09 Procedures Surgical History Date Name Laterality Status Provider Name and Address Organization Details Recorded Time 5 Nail Debridement completed Jenny Elly [place] [facility] & [place] 06/16/2025 14:30:28 4 Nail Debridement completed Jenny Elly [place] [facility] [place] & [place] 10/23/2024 12:03:19 4 Nail Debridement [place] Jenny Elly [place] [facility] [place] & [place] 07/23/2024 12:07:47 4 Nail Debridement completed Jenny Elly [place] [facility] [place] & [place] 04/23/2024 12:26:36 4 Nail Debridement completed Jenny Elly [place] [facility] [place] & [place] 01/23/2024 12:02:17 3 Nail Debridement completed Rosa M Collier [place] - [facility] - [facility] & [place] 10/24/2023 12:51:17 3 Nail Debridement completed Jenny Elly [place] [facility] & [place] 07/25/2023 12:54:35 3 Colonoscopy completed Paula ROCHE - [facility] - [facility] & [place] 06/15/2023 10:54:35 3 EGD/Endoscopy completed Paula Soto [place] - [facility] - [facility] & [place] 06/15/2023 10:54:42 3 Nail Debridement completed Maribeth Garnica DPM [address], [address], [place] - [facility] - [facility] & [place] 04/24/2023 13:57:06 Colonoscopy completed Paula ROCHE - [facility] - [facility] & [place] 04/02/2023 14:08:27 total knee replacement completed Shaylee ROCHE - [facility] - [facility] & [place] 10/19/2022 09:24:30 ligation of fallopian tube completed Shaylee ROCHE - [facility] - [facility] & [place] 10/19/2022 09:24:39 Cataract Surgery completed Shaylee ROCHE [facility] 10/19/2022 09:24:48 procedure on eyelid completed Shayleeapoorva Daiford [place] [facility] & [place] 10/19/2022 09:24:59 procedure on shoulder completed Shayleeapoorva Daiford [place] & [place] 10/19/2022 09:25:14 Imaging Results None recorded. Procedure Notes None recorded. Medical Equipment None Reported. Allergies No known drug allergies Medications Name Sig Start Date Stop Date Status Note LastModified by Organization Details LastModified Time celecoxib 200 mg capsule 200 mg by oral route. 03/10 completed Not Available Not Available Not Available amoxicillin 500 mg capsule TAKE 4 CAPSULES BY MOUTH 1 HOUR PRIOR TO DENTAL APPOINTME NT 04/02 completed Not Available Not Available Not Available Miralax 17 gram/dose oral powder Take 238 gms in 64 oz Gatorade or other clear sports drink as directed in colonosco py prep instructi ons. 06/15 completed Not Available Not Available Not Available atorvastati n 40 mg tablet 40 mg by oral route. active Not Available Not Available No t Available levothyroxi ne 175 mcg tablet active Not Available Not Available Not Available nystatin 100,000 unit/mL oral suspension SWISH AND SWALLOW 5ML BY MOUTH 4 TIMES A DAY 04/02 completed Not Available Not Available Not Available cefuroxime axetil 250 mg tablet TAKE 1 TABLET BY MOUTH TWICE A DAY 04/02 completed Not Available Not Available Not Available Depo-Medrol 40 mg/mL suspension for injection right subacromi al injection 2022 active Not Available Not Available Not Avai lable hydrocodone 5 mg-acetamin ophen 325 mg tablet 10/19 completed Not Available Not Available Not Available meloxicam 15 mg tablet TAKE 1 TABLET BY MOUTH EVERY DAY active Not Available Not Available No t Available pantoprazol e 20 mg tablet,yadira yed release TAKE 1 TABLET BY MOUTH EVERY DAY 06/10 completed Not Available Not Available Not Available meloxicam 7.5 mg tablet 15 mg by oral route. 03/07 completed Not Available Not Available Not Available famotidine 20 mg tablet 20 mg by oral route. active Not Available Not Available No t Available ropinirole 0.25 mg tablet Take 1 tablet 3 times a day by oral route. active Not Available Not Available No t Available ferrous sulfate 325 mg (65 mg iron) tablet Take 325 mg by oral route. 04/24 completed Not Available Not Available Not Available losartan 25 mg tablet 25 mg by oral route. active Not Available Not Available No t Available omeprazole 20 mg capsule,del ayed release Take 1 capsule by oral route. 2024 active Not Available Not Available Not Avai lable levothyroxi ne 200 mcg tablet TAKE 1 TABLET BY MOUTH EVERY DAY active Not Available Not Available No t Available nystatin 100,000 unit/gram topical powder APPLY 1 APPLICATI ON 4 TIMES A DAY 04/02 completed Not Available Not Available Not Available cefuroxime axetil 500 mg tablet TAKE 1 TABLET BY MOUTH TWICE A DAY 04/02 completed Not Available Not Available Not Available letrozole 2.5 mg tablet Take 2.5 mg by oral route. 07/26 completed Not Available Not Available Not Available methylpredn isolone 4 mg tablets in a dose pack TAKE 6 TABLETS ON DAY 1 DIRECTED ON PACKAGE AND DECREASE BY 1 TAB EACH DAY FOR A TOTAL OF 6 DAYS 10/19 completed Not Available Not Available Not Available ferrous sulfate 325 mg (65 mg iron) tablet,yadira yed release Take 1 tablet by oral route. 2024 active Not Available Not Available Not Avai lable celecoxib 100 mg capsule 100 mg by oral route. 04/02 completed Not Available Not Available Not Available diazepam 5 mg tablet 1 TABLET 1 HOUR PRIOR TO MRI, TAKE 1 TABLET 15 MINS PRIOR TO MRI NEED ACCOUNTS OFFICER 10/19 completed Not Available Not Available Not Available losartan 100 mg-hydrochl orothiazide 12.5 mg tablet 04/02 completed Not Available Not Available Not Available Fiber Laxative (ca polycarbo) active Not Available Not Available N ot Available Tylenol active Not Available Not Avail able Not Available diclofenac 1 % topical gel APPLY 2 GRAMS TO THE AFFECTED AREA(S) BY TOPICAL ROUTE 4 TIMES PER DAY active Not Available Not Available No t Available Vitals Date Recorded Body height Body mass index (BMI) Body weight Systolic And Diastolic Provider Name and Address Organization Details Last Updated DateTime 04/23/2024 162.56 cm 36 kg/m2 50910.4 g 126/74 mm[Hg] [facility] [place] 04/23/2024 12:26:49 Date Recorded Body height Heart rate Systolic And Diastolic Provider Name and Address Organization Details Last Updated DateTime 06/10/2025 162.56 cm 62 /min 123/79 mm[Hg] Farrah Solorio [facility] & [place] 06/10/2025 10:19:34 Date Recorded Body height Systolic And Diastolic Provider Name and Address Organization Details Last Updated DateTime 06/16/2025 162.56 cm 120/68 mm[Hg] Jenny Solorio [facility] & [place] 06/16/2025 14:30:57 Date Recorded Body height Body mass index (BMI) Body weight Systolic And Diastolic Provider Name and Address Organization Details Last Updated DateTime 07/23/2024 162.56 cm 36 kg/m2 20355.4 g 128/72 mm[Hg] Jenny Solorio [facility] & [place] 07/23/2024 12:08:06 Date Recorded Body height Body mass index (BMI) Body weight Systolic And Diastolic Provider Name and Address Organization Details Last Updated DateTime 10/23/2024 162.56 cm 36 kg/m2 98566.4 g 126/72 mm[Hg] Jenny ROCHE [facility] & [place] 10/23/2024 12:03:34 Social History None recorded. Functional Status Question Answer Note LastModified by Organizat ion Details LastModified Time Do you use any illicit or recreational drugs? No [email or web address] Information not available 04/02/2023 What is your level of alcohol consumption? Occasional [email or web address] Information not available 04/02/2023 Mental Status None recorded. Family History Relationship Description Onset Age of this Age Resolved Age Notes LastModified by Organization Details LastModified Time Father Blood coagulation disorder [email or web address] Not available 06/2022 09:23:40 Father Family member [email or web address] Not available 06/2022 09:23:49 Mother Family member [email or web address] Not available 06/2022 09:23:49 Notes:Neg for family HX of R A, lupus, bone tumors, bleeding disorders, or serious anesthesia reactions Medical History Condition Response Hyperlipidemia Y Bleeding Disorder Y Cancer Y Arthritis Y Hypertension Y Hypothyroidism Y GERD/Reflux Y Gynecological HistoryNo gynecological history recorded. Obstetrics History GPAL:G 0 P 0 0 0 0 Immunizations Vaccine Type Date Status Note Provider Carl castillo and Address Organization Details Recorded Time COVID-19, mRNA, LNP-S, PF, 100 mcg/0.5mL dose or 50 mcg/0.25mL dose 01/10/2021 completed Paula kasper, [place] - [facility] - [place] & [place] 04/02/2023 14:07:24 COVID-19, mRNA, LNP-S, PF, 100 mcg/0.5mL dose or 50 mcg/0.25mL dose 09/13/2021 completed Paula kasper [place] - [facility] & [place] 04/02/2023 14:07:28 COVID-19, mRNA, LNP-S, PF, 100 mcg/0.5mL dose or 50 mcg/0.25mL dose 02/08/2021 completed Paula kasper [place] - [facility] & [place] 04/02/2023 14:07:32 Past Encounters Encounter ID Performer Location Encounter Start Date Encounter Closed Date Diagnosis/Indication Diagnosis SNOMED-CT Code Diagnosis ICD10 Code Diagnosis IMO Codes Diagnosis Note [id number] Ck Cruz MD [facility] [address] [place] [address] 10/19/2022 09:02:45 10/19/2022 10:09:12 Closed blow out fracture of orbital floor 85403133 S02.30XA patient examined CT scan of the face was reviewed with her. Patient with minimally displaced right orbital floor fracture no evidence of entrapment no diplopia or other visual disturbanc e patient instructed not to blow nose for another week or so will follow-up as needed Facial laceration 986035 008 S01.81XA patient examined wound is healing nicely sutures removed today [id number] RASHAWN HERNANDEZ NP [facility] [address] [facility] [address] [place] [address] 04/02/2023 14:01:04 04/02/2023 14:38:32 Iron deficiency anemia 81630388 D50.9 The patient to be scheduled for colonoscop y. The risks and benefits were discussed with the patient and a signed consent was obtained. The patient was advised on daily medication management prior to procedure. The patient is to be scheduled for EGD(with possible biopsy and dilatation ). The risks and benefits were discussed with the patient and a signed consent was obtained. The patient was advised on daily medication management prior to procedure. Gastroesop hageal reflux disease without esophagitis 942062546 K21.9 Scheduled for EGDContinu e omeprazole and advised on correct way to take itContinue Pepcid and advised to take at bedtime [id number] OSMANY Velez Dr, DPM [facility] [address] [place] [address] [address] [place] [address] 04/24/2023 11:35:16 04/24/2023 13:02:00 Onychomycosis 554110476 B35.1 Dystrophia unguium 82606 009 L60.3 Pain of to e of right foot 1537709695 57151 M79.674 Pain of to e of left foot 5346285872 73405 M79.675 Foot callus 008154003 L8 4 History of amputation of lesser toe 818408365 Z89.422 Ingrowing nail 940519328 L60.0 [id number] RASHAWN HERNANDEZ NP [facility] [address] [place] [address] [address] [place] [address] 06/15/2023 10:39:45 06/15/2023 11:23:00 Polyp of colon 87049458 K63.5 Repeat colonoscop y in 3 years if health allows Start polyp prevention -handout discussed and given to her today Hiatal hernia 49054349 K 44.9 Advised to avoid eating 2-3 hours before bed and to sleep with head of bed elevated. Iron defic iency anemia 83751687 D50.9 Continue to follow PCP and oncologist Advised if blood counts are not stable may need endoscopic capsule. She verbalized understand ing. [id number] MD Dr [facility] [address] [facility] [address] [place] [address] 07/26/2023 10:48:33 07/26/2023 11:58:16 Sprain of shoulder rotator cuff 8860353163 04 S43.421A I think at minimum she has sprained the rotator cuff. She states it feels like it did when it was torn. I have offered her injection but she would like to proceed with MRI to see if there is a recurrent tear. We will proceed with MRI and go from there. [id number] OSM[address] V[address]z Dr [facility] [address] [place] [address] [address] [place] [address] 07/25/2023 11:31:52 07/25/2023 12:59:06 Onychomycosis 432635376 B35.1 Dystrophia unguium 66877 009 L60.3 Pain of to e of left foot 1055920662 54547 M79.675 Foot callus 418946205 L8 4 History of amputation of lesser toe 999073372 Z89.422 Pain in right foot 79356 64579 33138 M79.671 Tenosynovi tis of right foot 0542633933 790116 M65.[id number] [facility] [address] [place] [address] [address] [place] [address] 08/23/2023 10:45:07 08/23/2023 14:22:05 Strain of rotator cuff of shoulder 381201193 S46.011D [id number] OSMANY Velez Dr [facility] [address] [place] [address] [address] [place] [address] 10/24/2023 12:00:48 10/24/2023 12:55:54 Pain in right foot 0038143893 07049 M79.671 Onychomycosis 736366326 B35.1 Dystrophia unguium 46189 009 L60.3 Pain of to e of left foot 1011612760 05595 M79.675 Foot callus 096301694 L8 4 History of amputation of lesser toe 763708480 Z89.422 [id number] Munira Bobo, BUSINESS PROCESS REPRESENTATIVE, S Dr Maribeth Garnica [facility] [address] [place] [address] [address] [place] [address] 01/23/2024 11:58:10 01/23/2024 12:25:59 Onychomycosis 381078585 B35.1 Debridemen t of nails 1-5 bilateral in length and thickness was performed today without incident using nail nippers. Pt tolerated well. Nails were then filed with an electric ink grinder to smooth all edges. Pain in right foot 70566 79047 08878 M79.671 Pain of to e of left foot 9114328338 69000 M79.675 Foot callus 399679575 L8 4 Debridemen t of lesion per exam was performed using a 15 blade. Removal of callus and epidermis was performed. Pt tolerated well. History of amputation of lesser toe 390461759 Z89.963 [id number] Munira Bobo NP, S Dr Maribeth Garnica [facility] [address] [place] [address] 04/23/2024 11:59:56 04/23/2024 12:49:51 Onychomycosis 618859016 B35.1 Debridemen t of nails 1-5 bilateral in length and thickness was performed today without incident using nail nippers. Pt tolerated well. Nails were then filed with an electric ink grinder to smooth all edges. Pain in right foot 58584 28470 33406 M79.671 Pain of to e of left foot 1850840516 29788 M79.675 Foot callus 114466827 L8 4 Debridemen t of lesion per exam was performed using a 15 blade. Removal of callus and epidermis was performed. Pt tolerated well. History of amputation of lesser toe 864720244 Z89.354 [id number] Munira Bobo NP, S Dr Maribeth Garnica [facility] [address] [place] [address] 07/23/2024 11:59:03 07/23/2024 12:30:29 Onychomycosis 678014617 B35.1 Debridemen t of nails 1-5 bilateral in length and thickness was performed today without incident using nail nippers. Pt tolerated well. Nails were then filed with an electric ink grinder to smooth all edges. Pain in right foot 38535 25802 78726 M79.671 Pain of to e of left foot 4815967788 97039 M79.675 Foot callus 390834232 L8 4 Debridemen t of lesion per exam was performed using a 15 blade. Removal of callus and epidermis was performed. Pt tolerated well. History of amputation of lesser toe 530918414 Z89.916 [id number] Munira Bobo NP, S Dr Maribeth Garnica D[facility] [address] [facility] [address] [place] [address] 10/23/2024 11:48:42 10/23/2024 12:50:28 Onychomycosis 434646730 B35.1 Debridemen t of nails 1-5 bilateral in length and thickness was performed today without incident using nail nippers. Pt tolerated well. Nails were then filed with an electric ink grinder to smooth all edges. Pain in right foot 02276 16422 05188 M79.671 Pain of to e of left foot 7400084971 66170 M79.675 Foot callus 810795531 L8 4 Debridemen t of lesion per exam was performed using a 15 blade. Removal of callus and epidermis was performed. Pt tolerated well. metatarsal pad placed in shoe for callus offloading History of amputation of lesser toe 076021581 Z89.993 [id number] RASHAWN HERNANDEZ NP [facility] [address] [facility] [address] [place] [address] 06/10/2025 10:03:30 06/10/2025 11:10:11 Polyp of colon 33110850 K63.5 44673807 Advised d/t age no need for repeat colonoscop y screenings but if symptoms arise another one may be needed at that time Diverticul osis of colon without diverticulitis 424635004 K57.30 8826 Orders written to stop fiber tablet and start fiber powder 1 Tbsp daily in am Hiatal hernia 47994524 K 44.9 [id number] Orders written to continue omeprazole and on correct way to take it Iron defic iency anemia 94537904 D50.9 [id number] Orders written to monitor H&H per PCP's recommenda tions If blood counts drop/no stable may need to consider endoscopic capsule F/U here as needed Constipation 05124575 K5 9.00 [id number] Orders written to stop fiber tablet and start fiber powder 1 Tbsp daily in am Orders written to give miralax 1 capful daily in pm as needed [id number] Munira Bobo, BUSINESS PROCESS REPRESENTATIVE, S Dr Maribeth Garnica D[facility] [address] [place] [address] 06/16/2025 14:10:14 06/16/2025 14:46:25 Onychomycosis 851276574 B35.1 Debridemen t of nails 1-5 right, 1, 3,5 left in length and thickness was performed today without incident using nail nippers. Pt tolerated well. Nails were then filed with an electric ink grinder to smooth all edges. Pain in right foot 22048 29700 06036 M79.671 Pain of to e of left foot 5675094189 73741 M79.675 Foot callus [id number] L8 4 Debridemen t of lesion per exam was performed using a 15 blade. Removal of callus and epidermis was performed. Pt tolerated well. metatarsal pad placed in shoe for callus offloading History of amputation of lesser toe [id number] Z89.422 Peripheral vascular disease [id number] I73.9 [id number] Continue to inspect feet daily, don't walk barefoot around the house and wear good supportive shoes, pt understand s Health Concerns Section Related Observation LastModified by Organization Detai ls LastModified Time None Recorded Concern Status LastModified by Organization Details LastModified Time None Recorded Advance Directives Directive None Recorded Payers Insurance Date Sequence Insurance Name Policy Number Policy Romano Covered Member ID Romano Member ID Guarantor Name 05/07/2025 1 [employer] (MEDICARE REPLACEMENT/A DVANTAGE - HMO) [id number] Aditi Pepe [id number] Aditi Pepe 05/23/2023 2 [employer] F Aditi Pepe [id number] Aditi Pepe 05/11/2023 1 [employer] (MEDICARE REPLACEMENT/A DVANTAGE - HMO) [id number] Aditi Pepe [id number] Aditi Pepe 06/21/2025 1 [employer] (MEDICARE REPLACEMENT/A DVANTAGE - O) Aditi Pepe [id number] Aditi Pepe 05/06/2025 1 [place] Aditi Pepe [id number] Aditi ePpe 05/06/2025 2 [place] (MEDICARE SUPPLEMENT) Aditi Pepe [id number] Aditi Pepe 05/06/2025 1 [employer] (MEDICARE REPLACEMENT/A DVANTAGE - PPO) Aditi Pepe [id number] Aditi Pepe 06/10/2025 2 *SELF PAY* Aditi Pepe [id number] Aditi Pepe 04/23/2024 1 UNSPECIFIED REMIT PAYOR Aditi Pepe Notes Date Note Type Note Provider Name and Address Organization Details Recorded Time 04/23/2024 text/html Ms. Pepe is here today for her 3 month nail care and callus follow up. She complains of elongated thickened toenails with mild pain from her shoes. Her last PCP visit was 4 weeks ago. She would like to discuss treatment today. Munira Bobo NP, [address] [place] [address], [phone], [facility] [place] 04/24/2024 15:31:24 07/23/2024 text/html Ms. Pepe is here today for her 3 month nail care and callus follow up. She complains of elongated thickened toenails with mild pain from her shoes. Her last PCP visit was 2 days ago. Munira Bobo NP, [address] [place] [address], [place], [phone], [facility] [place] 07/23/2024 12:35:16 10/23/2024 text/html Ms. Pepe is here today for her 3 month nail care and callus follow up. She complains of elongated thickened toenails with mild pain from her shoes. Her last PCP visit was 2 months ago. Munira Bobo NP, [address] [place] [address], [phone], [facility] [place] 10/23/2024 15:33:48 06/10/2025 text/html Ms. Pepe presents for hospital f/u. She was hospitalized from 05/03/25-05/11/25 and seen in consultation by Dr. Matthew for anemia. Her hgb dropped to 6.5 and she had to have 2 units of blood and hgb improved to 10.1. Hgb was 9.7 and hct 32.4 at time of discharge(05/11/25). She resides at [facility] and records sent with her today show on 06/01/25 hgb was 10.0 and hct 38.9. She had an EGD while in the hospital(05/05/25) that found large hiatal hernia with superficial ulcers but no active bleeding was evident; no biopsies taken d/t elevated INR. She had a colonoscopy on 05/08/25 that found multiple colon polyp that were removed, diverticulosis without evidence of diverticulitis, internal hemorrhoids and skin tags but no active bleeding evident; path c/w tubular adenoma and hyperplastic polyps. She notes today that she is well and denies any GI c/o other than some constipation that she has had for a long time. RASHAWN HERNANDEZ NP [address], [phone], [facility] [place] 06/10/2025 11:15:16 06/16/2025 text/html Ms. Pepe is here today for a nail care/ toenail fungus and callus appointment. She complains of elongated and thickened toenails with mild pain from her shoes. She complains of pain with her left callus today. Her last PCP visit was 2-3 weeks ago. Munira Bobo NP, [address] [address], [place], [phone], [facility] [place] 06/16/2025 15:11:08 OBGyn Episode No OBEpisode recorded.
[2025-09-14] MEDS: LACTATED RINGERS 1,000 ML 999 ML IV CONT (01:32)
--- NOTE | 2025-09-14 02:04 | ED_ITS ---
HPI - General Adult General Chief complaint: Urogenital-Female Stated complaint: DECREASED URINARY OUTPUT,COUGH URI Time Seen by Provider: 09/14/25 01:10 History of Present Illness HPI narrative: 84-year-old female with history of hypertension, hypothyroidism on levothyroxine. Patient presents to the emergency department with generalized weakness altered mental status and decreased urinary output. Patient lives at a assisted living/memory care facility and has been there for quite some time after being hospitalized in [place] for acute anemia being treated with iron infusions. Patient presents to the emergency department today accompanied by her daughter. Daughter found the patient altered at the rehab facility not and answering questions appropriately and had a foul-smelling urine. She was not having any slurred speech or lateralizing deficits but was barely able to walk as she was so weak. This quickly got better according to the daughter who is at bedside and now she is able to answer questions appropriately but still profoundly weak. No speech deficits, lateralizing deficits of nausea, vomiting but she did endorse a headache. Unclear last known well but she states that she has not been feeling well these last few days with a cough, weakness and concern for decreased urinary output recently. Related Data Home Medications ?Medication ?Instructions ?Recorded ?Confirmed ?Last Taken ?Type acetaminophen 325 mg capsule 650 mg PO Q6H PRN fever o r pain 09/14/25 09/14/25 Unknown History atorvastatin 40 mg tablet (Lipitor) 40 mg PO HS 09/14/25 Unknown History diclofenac sodium 1 % topical gel 1 g topical TID PRN pain 09/14/25 09/14/25 Unknown History famotidine 20 mg tablet 20 mg PO BID 09/14/25 Unknown History ferrous sulfate 325 mg (65 mg 325 mg PO BID 09/14/25 1 11/14/24 Unknown History iron) tablet (FeroSul) guaifenesin 100 mg/5 mL oral 200 mg PO Q6H PRN cough 1 11/14/24 09/14/25 Unknown History liquid (Mucus-Chest Congestion) levothyroxine 50 mcg tablet 50 mcg PO DAILY 09/14/25 1 11/14/24 Unknown History (Levo-T) metoprolol tartrate 25 mg tablet 25 mg PO BID 09/14/25 09/14/25 Unknown History olmesartan 5 mg tablet 10 mg PO DAILY 09/14/2525 Unknown History omeprazole 20 mg capsule,delayed 20 mg PO DAILY 09/14/25 Unknown History release ondansetron 4 mg disintegrating 4 mg PO Q6H PRN nausea and vomiting 09/14/25 09/14/25 Unknown History tablet polyethylene glycol 3350 17 17 g PO HS PRN constipatio n 09/14/25 09/14/25 Unknown History gram/dose oral powder (ClearLax) ropinirole 0.25 mg tablet 0.25 mg PO HS 09/14/2509/14 Unknown History Allergies Allergy/AdvReac Type Severity Reaction Status Date / Time No Known Allergies Allergy Verified 09/14/25 04:26 Review of Systems 2 Review of Systems: As reviewed above in [facility] Family History Family History (Updated 09/14/25 @ 04:48 by Josephine Hawthorne RN) Mother Dementia Breast cancer Cerebrovascular accident Father Pulmonary embolism Son FRANCISCO (obstructive sleep apnea) Daughter FRANCISCO (obstructive sleep apnea) Social History Social History Smoking status: Never smoker Alcohol intake: never Substance use: never Spiritual care concerns: No Exam 2 Narrative: GENERAL: Global weakness appreciated and requiring significant assistance to move in the stretcher and into the bed. Awake and answering questions without any slurring. HEAD: Normocephalic and atraumatic EYES: [PERRLA and EOMI.] ENT: Nares clear, no rhinorrhea or epistaxis. Mucous membranes moist. NECK: Supple. CHEST: [Clear to auscultation. No respiratory distress.] HEART: [Regular rate and rhythm]. No murmur heard. [Normal peripheral pulses.] ABDOMEN: [Soft, nondistended], [nontender], [No rigidity or guarding] EXTREMITIES: Normal range of motion. No extremity edema SKIN: Warm, dry, no rash. No decubitus ulcers. NEURO: Global weakness appreciated but she is moving all extremities equally without any lateralizing deficits. No facial asymmetry or slurring speech. Answering all questions appropriately awake alert oriented x3. Sensation intact throughout face arms and legs. No ataxia. PSYCH: [Normal mood and affect.] Course Vital Signs Vital signs: Vital Signs Temperature 36.4 C 09/13/25 22:06 Pulse Rate 67 09/13/25 22:06 Respiratory Rate 20 09/13/25 22:06 Blood Pressure 133/111 H 09/13/25 22:06 Pulse Oximetry 98 09/13/25 22:06 Temperature 36.9 C 09/14/25 05:52 Pulse Rate 75 09/14/25 05:52 Respiratory Rate 18 09/14/25 05:52 Blood Pressure 118/84 09/14/25 05:52 Pulse Oximetry 98 09/14/25 05:52 Medical Decision Making MDM Narrative Medical decision making narrative: 84-year-old female with history of hypertension, hypothyroidism on levothyroxine. Patient presents to the emergency department with generalized weakness altered mental status and decreased urinary output. Patient lives at a assisted living/memory care facility and has been there for quite some time after being hospitalized in [place] for acute anemia being treated with iron infusions. Patient presents to the emergency department today accompanied by her daughter. Daughter found the patient altered at the rehab facility not and answering questions appropriately and had a foul-smelling urine. She was not having any slurred speech or lateralizing deficits but was barely able to walk as she was so weak. This quickly got better according to the daughter who is at bedside and now she is able to answer questions appropriately but still profoundly weak. No speech deficits, lateralizing deficits of nausea, vomiting but she did endorse a headache. Unclear last known well but she states that she has not been feeling well these last few days with a cough, weakness and concern for decreased urinary output recently. Global weakness appreciated but she is moving all extremities equally without any lateralizing deficits. No facial asymmetry or slurring speech. Answering all questions appropriately awake alert oriented x3. Sensation intact throughout face arms and legs. Patient is hemodynamically stable without any tachycardia, fever, hypoxemia. She is warm to the touch however. Normal blood pressure. Patient is profoundly weak requiring significant assistance to get around in the stretcher from the wheelchair and even rolling her for examination and placing and external urinary catheter. Coughing infrequently throughout the examination. Suspicion presently is for urinary tract infection, dehydration with decreased urinary output, electrolyte imbalances, kidney injury, infectious pathology such as pneumonia or COVID. Laboratory studies, urinalysis obtained, CT of the head and chest x-ray obtained. Patient given fluids. Laboratory studies reveal several things including COVID positive, evidence of UTI with 4+ bacteria, elevated BUN likely dehydrated she has had minimal output with even L of fluid she has had minimal output. States she feels dehydrated. CT of the head unremarkable. Chest x-ray rather unremarkable. Vital signs are hemodynamically stable. Discussed options with the family given her profound weakness and 2 different infections that she would benefit from admission overnight with fluids antibiotics and PT and OT evaluation for safe disposition home. Patient's family comfortable with the plan and I spoke to the hospitalist who is in agreement. Patient placed on a [facility] bed at this time. Medical Records Medical records reviewed: Yes I reviewed the external patient's medical records. Vital Signs Vital Signs: Vital Signs Temperature 36.4 C 09/13/25 22:06 Pulse Rate 67 09/13/25 22:06 Respiratory Rate 20 09/13/25 22:06 Blood Pressure 133/111 H 09/13/25 22:06 Pulse Oximetry 98 09/13/25 22:06 Temperature 36.9 C 09/14/25 05:52 Pulse Rate 75 09/14/25 05:52 Respiratory Rate 18 09/14/25 05:52 Blood Pressure 118/84 09/14/25 05:52 Pulse Oximetry 98 09/14/25 05:52 Lab Data Lab results reviewed: Yes I reviewed the patient's lab results. 09/14/25 00:35 09/14/25 00:35 Labs: Lab Results 09/14/25 Range/Units 00:35 WBC 7.0 (4.5-10.0) K/mm3 RBC 3.88 L (4.2-5.4) M/mm3 Hgb 11.4 L (12.0-15.0) g/dL Hct 35.7 L (37.0-47.0) % MCV 92.0 (80-100) fl MCH 29.4 (26-34) pg MCHC 31.9 L (32-36) g/dl RDW 17.2 H (11.5-14.5) % Plt Count 287 (150-375) k/mm3 MPV 9.7 (7.4-10.4) fl Immature Gran % (Auto) 0.4 (0-0.5) % Neut % (Auto) 70.3 (45.5-73.1) % Lymph % (Auto) 12.9 L (18.3-44.2) % [place] % (Auto) 15.3 H (2.6-8.5) % Eos % (Auto) 0.7 (0-4.4) % Baso % (Auto) 0.4 (0.2-1.2) % Lymph # (Auto) 0.90 (0.9-3.2) K/mm3 [place] # (Auto) 1.1 H (0.1-0.6) K/mm3 Eos # (Auto) 0.1 (0-0.3) K/mm3 Baso # (Auto) 0.0 (0.0-0.1) K/mm3 Abs Immat Gran (auto) 0.03 (0.00-0.031) K/mm3 Absolute Neuts (auto) 4.9 (1.3-6.7) K/mm3 Absolute Nucleated RBC 0.000 (0.0-0.012) K/mm3 Nucleated RBC % 0.0 (0.0-0.2) % Sodium 137 (137-145) mmol/L Potassium 3.7 (3.4-5.0) mmol/L Chloride 102 (98-107) mmol/L Carbon Dioxide 27 (22-30) mmol/L Anion Gap 8 (4-12) mmol/L BUN 18 H (7-17) mg/dL Creatinine 0.91 (0.7-1.0) mg/dL Estim Creat Clear Calc Not Reportable Estimated GFR 59 (59 - ) Glucose 92 (65-110) mg/dL Calcium 9.3 (8.4-10.2) mg/dL Total Bilirubin 1.0 (0.2-1.3) mg/dL AST 27 (14-36) U/L ALT 23 (6-35) U/L Alkaline Phosphatase 65 (38-126) U/L Total Protein 7.1 (6.3-8.2) g/dL Albumin 4.1 (3.5-5.1) g/dL Urine Color Yellow (Yellow) Urine Appearance Clear (Clear) Urine pH 6.0 (5.0-9.0) Ur Specific [place] 1.015 (1.001-1.035) Urine Protein Negative (Negative) mg/dL Urine Glucose (UA) Negative (Negative) mg/dL Urine Ketones Negative (Negative) mg/dL Ur Blood (Man) Negative (Negative) Urine Nitrate Negative (Negative) Urine Bilirubin Negative (Negative) Urine Urobilinogen 1.0 (<2.0) mg/dL Add Ur Microanalysis Reviewed Leukocyte Esterase Rfl 1+ H (Negative) KARL/UL Urine RBC 0-2 (0-2) /hpf Urine WBC 0-5 (0-3) /hpf Ur Squamous Epith Cells None seen (Few) /hpf Urine Bacteria 4+ H /hpf Urine Casts 0-2 Influenza A (RT-PCR) Negative (Negative) Influenza B (RT-PCR) Negative (Negative) RSV (RT-PCR) Negative (Negative) SARS-CoV-2 RNA (RT-PCR) Positive A (Negative) Imaging Data Attestation: I personally reviewed and interpreted this imaging study as follows: My impression: No acute intracranial findings. Discharge Plan Discharge Clinical Impression: Urinary tract infection, COVID, Generalized weakness, Dehydration Patient Disposition: Still a Patient Condition: Stable Time of Disposition: 02:36
[2025-09-14] MEDS: cefTRIAXone 1 GM in SODIUM CHLORIDE 0.9% IV 50 ML 100 ML IVPB (02:51)
[2025-09-14] MEDS: REMDESIVIR 200 MG/NS 250 ML 200 MG/250 ML BAG 250 MG IVPB (03:49)
[2025-09-14] MEDS: LACTATED RINGERS 1,000 ML 125 ML IV CONT (03:50)
--- NOTE | 2025-09-14 04:02 | ADMGEN ---
This patient, Aditi Pepe, was admitted to [facility] Surg Room 329-01. Patient/family oriented to hospital policies and general routines including ID bracelet, bed and alarms, visiting hours, pain management, procedures, bathroom and other care routines, personal items, smoking policy, room service/diet, and visiting hours. Information on how to activate the Rapid Response Team has been discussed. Patient/Family are encouraged to report perceived risks to care and to ask questions if they do not understand what they are told or what they should do.
--- NOTE | 2025-09-14 06:19 | PM.IMHP ---
H&P: HPI History of Present Illness Date/Time: 09/14/25 06:19 Chief Complaint: Weakness Narrative: 84-year-old female with PMH hypertension, hypothyroidism, who resides at [facility] locally brought in by EMS to [facility] ER on 09/13/2025. Family states the patient has been very weak for a day, has had low urine output. Daughter thinks she may have a UTI. Patient reports she has had a dry cough for about 3-4 days. ER evaluation demonstrates a profoundly weak female with hemodynamic stability without any lateralizing or focal deficits. Hemoglobin 11.4, serum creatinine 0.91. COVID PCR positive. Urinalysis abnormal with leukocyte esterase positive in 4+ bacteria. Chest x-ray with probable airspace disease and right lower lobe. CT head without any acute findings. Patient was given ceftriaxone 1 g IV x1, remdesivir 200 mg IV x1, lactated Ringer's 1 L. Review of Systems Review of Systems: All systems reviewed & are unremarkable except as noted in HPI and below (Subjective) [facility] Family History Family History (Updated 09/14/25 @ 04:48 by Josephine Hawthorne RN) Mother Dementia Breast cancer Cerebrovascular accident Father Pulmonary embolism Son FRANCISCO (obstructive sleep apnea) Daughter FRANCISCO (obstructive sleep apnea) Social History Social History Smoking status: Never smoker Alcohol intake: never Substance use: never Spiritual care concerns: No Meds Home Medications and Allergies Home Medications ?Medication ?Instructions ?Recorded ?Confirmed ?Type acetaminophen 325 mg capsule 650 mg PO Q6H PRN fever or pain 09/14/25 09/14/25 History atorvastatin 40 mg tablet (Lipitor) 40 mg PO HS 09/14/25 09/14/25 History diclofenac sodium 1 % topical gel 1 g topical TID PRN pain 09/14/25 09/14/25 History famotidine 20 mg tablet 20 mg PO BID 09/14/25 09/14/25 History ferrous sulfate 325 mg (65 mg 325 mg PO BID 09/14/25 09/14/25 History iron) tablet (FeroSul) guaifenesin 100 mg/5 mL oral 200 mg PO Q6H PRN cough 09/14/25 09/14/25 History liquid (Mucus-Chest Congestion) levothyroxine 50 mcg tablet 50 mcg PO DAILY 09/14/25 09/14/25 History (Levo-T) metoprolol tartrate 25 mg tablet 25 mg PO BID 09/14/25 09/14/25 History olmesartan 5 mg tablet 10 mg PO DAILY 09/14/25 09/14/25 History omeprazole 20 mg capsule,delayed 20 mg PO DAILY 09/14/25 09/14/25 History release ondansetron 4 mg disintegrating 4 mg PO Q6H PRN nausea and vomiting 09/14/25 09/14/25 History tablet polyethylene glycol 3350 17 17 g PO HS PRN constipation 09/14/25 09/14/25 History gram/dose oral powder (ClearLax) ropinirole 0.25 mg tablet 0.25 mg PO HS 09/14/25 09/14/25 History Allergies Allergy/AdvReac Type Severity Reaction Status Date / Time No Known Allergies Allergy Verified 09/14/25 04:26 Vital Signs Vital Signs - 24 hr 09/13/25 22:06 09/14/25 00:07 09/14/25 00:15 Temperature 97.6 F Pulse Rate 67 73 66 Respiratory Rate 20 20 15 Blood Pressure 133/111 H 139/86 154/69 H Pulse Oximetry 98 100 99 09/14/25 00:48 09/14/25 01:32 09/14/25 01:45 Temperature Pulse Rate 62 60 Respiratory Rate 20 18 13 Blood Pressure 156/72 H 163/95 H Pulse Oximetry 97 97 09/14/25 02:37 09/14/25 05:52 Temperature 98.5 F Pulse Rate 72 75 Respiratory Rate 18 18 Blood Pressure 149/80 H 118/84 Pulse Oximetry 97 98 Exam Const: General: comfortable and no acute distress Other: Appears fatigued, A&O x2, reported to be baseline. Eyes: Pupils: Equal, round and reactive pupils present Neck: Neck: supple Resp: Effort & Inspection: normal respiratory effort Auscultation: clear to auscultation bilaterally Other: Actively coughing no sputum production Cardio: Rate: regular rate Rhythm: regular rhythm GI: Inspection: non-distended GI Palp: Yes Soft to palpation Neuro: Motor exam (neuro): 5/5 motor strength present throughout Extrem: General: no edema H&P: Results Labs Labs: Short CBC 09/14/25 Range/Units 00:35 WBC 7.0 (4.5-10.0) K/mm3 Hgb 11.4 L (12.0-15.0) g/dL Hct 35.7 L (37.0-47.0) % Plt Count 287 (150-375) k/mm3 BMP 09/14/25 00:35 Sodium 137 Potassium 3.7 Chloride 102 Carbon Dioxide 27 BUN 18 H Creatinine 0.91 Glucose 92 Calcium 9.3 Liver Function 09/14/25 Range/Units 00:35 Total Bilirubin 1.0 (0.2-1.3) mg/dL AST 27 (14-36) U/L ALT 23 (6-35) U/L Alkaline Phosphatase 65 (38-126) U/L Albumin 4.1 (3.5-5.1) g/dL Urine 09/14/25 Range/Units 00:35 Urine Color Yellow (Yellow) Urine Appearance Clear (Clear) Urine pH 6.0 (5.0-9.0) Ur Specific [place] 1.015 (1.001-1.035) Urine Protein Negative (Negative) mg/dL Urine Glucose (UA) Negative (Negative) mg/dL Assessment and Plan Assessment and plan (1) COVID: Code(s): U07.1 - COVID-19 Status: Acute (2) Generalized weakness: Code(s): R53.1 - Weakness Status: Acute (3) Urinary tract infection: Code(s): N39.0 - Urinary tract infection, site not specified Status: Acute (4) Dehydration: Code(s): E86.0 - Dehydration Status: Acute Plan Patient presents with profound weakness due to UTI and COVID pneumonia/bronchitis. PT/OT evaluations. Maintenance fluids. Fall precautions, ambulate with assistance. Received ceftriaxone. Follow urine culture. In the setting of COVID pneumonia/bronchitis and immobility, start Lovenox 40 mg subQ Q 24 hours. Monitor for progression of COVID syndrome. She has dry cough. Saturating well on room air. Droplet precautions. Remdesivir protocol. We discussed the risks versus benefits of medications and adverse effects. Chest x-ray demonstrates probable airspace disease in the right lower lobe. Will obtain a two view chest x-ray to get a better picture of focal pneumonia need for further investigation and antibiotics in addition to ceftriaxone. Patient wishes to be full code. Hospitalist MIPS Advance Care Plan I have confirmed that the patient's Advanced Care Plan is present, code status is documented, or surrogate decision maker is listed in patient medical record.: Yes Medication Reconciliation I have utilized all available resources to obtain, update and review the patients current medications (includes all prescriptions, OTC, herbals, cannabis, and nutritional supplements).: Yes
[2025-09-14] MEDS: ENOXAPARIN 40 MG/0.4 ML SYRINGE SUB-Q (08:17)
--- NOTE | 2025-09-14 09:04 | PM.IMPN ---
Progress Note: A&P Assessment and Plan (1) COVID: Code(s): U07.1 - COVID-19 Status: Acute Assessment and Plan: Patient presents with profound weakness due to UTI and COVID pneumonia/bronchitis. Monitor for progression of COVID syndrome. She has dry cough. Saturating well on room air. Droplet precautions. Remdesivir protocol. We discussed the risks versus benefits of medications and adverse effects. Chest x-ray demonstrates probable airspace disease in the right lower lobe. Will obtain a two view chest x-ray to get a better picture of focal pneumonia need for further investigation and antibiotics in addition to ceftriaxone. 11.3: CXR 2V: Confirms CHF & basilar PNA: Impression: CHF. Early basilar pneumonia suspected. The findings appear slightly progressed compared to the previous exam (2) Generalized weakness: Code(s): R53.1 - Weakness Status: Acute Assessment and Plan: Potentially due to COVID / PNA (3) Urinary tract infection: Code(s): N39.0 - Urinary tract infection, site not specified Status: Acute Assessment and Plan: Received ceftriaxone. Follow urine culture. (4) Dehydration: Code(s): E86.0 - Dehydration Status: Acute Assessment and Plan: IVF 75ml/hr (5) Community acquired bilateral lower lobe pneumonia: Code(s): J18.9 - Pneumonia, unspecified organism Status: Acute Assessment and Plan: Confirms CHF & basilar PNA: Impression: CHF. Early basilar pneumonia suspected. The findings appear slightly progressed compared to the previous exam -Pt already on ceftriaxone for UTI, started Azithromycin today -Lungs sound clear -IS ordered Plan PT/OT evaluations. Maintenance fluids 75ml/hr. Fall precautions, ambulate with assistance. In the setting of COVID pneumonia/bronchitis and immobility, start Lovenox 40 mg subQ Q 24 hours. Patient wishes to be full code. Time Spent With Patient Time: 35 Subjective Date/time seen: 09/14/25 1242 Interval history: Pt lying comfortably in bed upon my arrival to her room. Pt is oriented x4 today which mild difficulty telling me the name of the facility that she resides at. She denies weakness however does report a constant dry cough. Denies any urinary sx. Review of Systems Review of Systems: All systems reviewed & are unremarkable except as noted in HPI and below (Subjective) Exam Const: General: comfortable and no acute distress Other: A&O x4, reported baseline is oriented x2 Eyes: Pupils: Equal, round and reactive pupils present Neck: Neck: supple Resp: Effort & Inspection: normal respiratory effort Auscultation: clear to auscultation bilaterally Other: No cough upon my exam with deep breathing Cardio: Rate: regular rate Rhythm: regular rhythm GI: Inspection: non-distended Neuro: Cranial nerves: Yes Equal, round and reactive pupils present Motor exam (neuro): Normal motor muscle tone present throughout Sensory Exam: normal sensation Extrem: General: edema (trace) Psych: Mental Status: mental status grossly normal Affect: normal affect Objective Data Vital Signs Vital Signs: Vital Signs - 24 hr 09/13/25 22:06 09/14/25 00:07 09/14/25 00:15 Temperature 97.6 F Pulse Rate 67 73 66 Respiratory Rate 20 20 15 Blood Pressure 133/111 H 139/86 154/69 H Pulse Oximetry 98 100 99 Oxygen Delivery 09/14/25 00:48 09/14/25 01:32 09/14/25 01:45 Temperature Pulse Rate 62 60 Respiratory Rate 20 18 13 Blood Pressure 156/72 H 163/95 H Pulse Oximetry 97 97 Oxygen Delivery 09/14/25 02:37 09/14/25 04:30 09/14/25 05:52 Temperature 98.5 F Pulse Rate 72 75 Respiratory Rate 18 18 Blood Pressure 149/80 H 118/84 Pulse Oximetry 97 98 Oxygen Delivery Room Air Intake/Output Intake/Output: Intake & Output 09/11/25 09/12/25 09/13/25 09/14/25 23:59 23:59 22:59 23:59 Intake Total 1050 Output Total 50 Balance 1000 Meds/Results Medications: Active Medications Generic Name Dose Route Start Last Admin Trade Name Freq PRN Reason Stop Dose Admin Acetaminophen 650 mg 09/14/25 02:37 Acetaminophen 325 Mg Tablet PO Q4H PRN Mild Pain (1-3) or Fever Enoxaparin Sodium 40 mg 09/14/25 09:00 09/14/25 08:17 Enoxaparin 40 Mg/0.4 Ml Syringe SUB-Q 40 mg DAILY SILVIO Administration Lactated Ringer's 1,000 mls @ 125 mls/hr 09/14/25 02:40 09/14/25 03:50 Lr - Lactated Ringers Iv IV CONT 125 mls/hr .Q8H SILVIO Administration Remdesivir 100 mg in 250 mls @ 250 mls/hr 09/15/25 10:00 IVPB 09/18/25 10:59 Q24H SILVIO Ondansetron HCl 4 mg 09/14/25 02:37 Ondansetron Inj 4 Mg/2 Ml Vial IV PUSH Q4H PRN Nausea Radiology Results: ITS Impressions Chest X-Ray 09/14/25 05:55 IMPRESSION: 1. Probable airspace disease right lower lobe. Consider PA and lateral films with deep inspiration. Head CT 09/14/25 05:56 IMPRESSION: 1. No acute intracranial findings. Labs Labs: Laboratory Results - last 24 hr 09/14/25 00:35 WBC 7.0 RBC 3.88 L Hgb 11.4 L Hct 35.7 L MCV 92.0 MCH 29.4 MCHC 31.9 L RDW 17.2 H Plt Count 287 MPV 9.7 Immature Gran % (Auto) 0.4 Neut % (Auto) 70.3 Lymph % (Auto) 12.9 L [place] % (Auto) 15.3 H Eos % (Auto) 0.7 Baso % (Auto) 0.4 Lymph # (Auto) 0.90 [place] # (Auto) 1.1 H Eos # (Auto) 0.1 Baso # (Auto) 0.0 Abs Immat Gran (auto) 0.03 Absolute Neuts (auto) 4.9 Absolute Nucleated RBC 0.000 Nucleated RBC % 0.0 Sodium 137 Potassium 3.7 Chloride 102 Carbon Dioxide 27 Anion Gap 8 BUN 18 H Creatinine 0.91 Estim Creat Clear Calc Not Reportable Estimated GFR 59 Glucose 92 Calcium 9.3 Total Bilirubin 1.0 AST 27 ALT 23 Alkaline Phosphatase 65 Total Protein 7.1 Albumin 4.1 Urine Color Yellow Urine Appearance Clear Urine pH 6.0 Ur Specific [place] 1.015 Urine Protein Negative Urine Glucose (UA) Negative Urine Ketones Negative Ur Blood (Man) Negative Urine Nitrate Negative Urine Bilirubin Negative Urine Urobilinogen 1.0 Add Ur Microanalysis Reviewed Leukocyte Esterase Rfl 1+ H Urine RBC 0-2 Urine WBC 0-5 Ur Squamous Epith Cells None seen Urine Bacteria 4+ H Urine Casts 0-2 Influenza A (RT-PCR) Negative Influenza B (RT-PCR) Negative RSV (RT-PCR) Negative SARS-CoV-2 RNA (RT-PCR) Positive A Quality VTE Prophylaxis VTE prophylaxis: pharmacologic ordered
[2025-09-14] MEDS: METOPROLOL TARTRATE 25 MG TABLET PO ×2 (11:18→20:57)
[2025-09-14] MEDS: OLMESARTAN MEDOXOMIL 10 MG TABLET PO (11:18)
[2025-09-14] MEDS: PANTOPRAZOLE 40 MG TABLET PO (11:28)
[2025-09-14] MEDS: AZITHROMYCIN IV 500 MG in SODIUM CHLORIDE 0.9% IV 250 ML IVPB (14:04)
[2025-09-14] MEDS: LACTATED RINGERS 1,000 ML 75 ML IV CONT (14:05)
[2025-09-14] MEDS: ACETAMINOPHEN 325 MG TABLET 650 MG PO (14:05)
[2025-09-14] MEDS: FERROUS SULFATE 325 MG TABLET BY MOUTH (16:04)
[2025-09-14] MEDS: ATORVASTATIN 40 MG TABLET PO (20:57)
[2025-09-14] MEDS: FAMOTIDINE 20 MG TABLET PO (20:58)
[2025-09-15] VITALS (7 sets, daily range): BP systolic 145–166; BP diastolic 62–74; PULSE 67–73; RESP 16–18; TEMP 36.3–36.7; O2SAT 96–99
[2025-09-15] MEDS: LACTATED RINGERS 1,000 ML 75 ML IV CONT ×2 (02:22→17:37)
[2025-09-15 05:56] LABS: Hematocrit 32.8 % (37.0-47.0); Hemoglobin 10.2 g/dL (12.0-15.0); Mean Corpuscular HGB Conc 31.1 g/dl (32-36); Mean Corpuscular Hemoglobin 29.1 pg (26-34); Mean Corpuscular Volume 93.7 fl (80-100); Platelet Count Result 245 k/mm3 (150-375); Red Blood Count 3.50 M/mm3 (4.2-5.4); White Blood Count 3.5 K/mm3 (4.5-10.0)
[2025-09-15] MEDS: LEVOTHYROXINE SODIUM 88 MCG TABLET PO (05:58)
[2025-09-15 06:26] LABS: Alanine Aminotransferase 21 U/L (6-35); Albumin Level 3.4 g/dL (3.5-5.1); Alkaline Phosphatase 48 U/L (38-126); Anion Gap 5 mmol/L (4-12); Aspartate Amino Transferase 28 U/L (14-36); Bilirubin,Total 0.7 mg/dL (0.2-1.3); Blood Urea Nitrogen 16 mg/dL (7-17); Calcium 8.4 mg/dL (8.4-10.2); Carbon Dioxide 25 mmol/L (22-30); Chloride 105 mmol/L (98-107); Estimated CRCL calculation 47 ml/min; Estimated Glomerular Filt Rate > 60; Glucose 81 mg/dL (65-110); Potassium 3.4 mmol/L (3.4-5.0); Sodium 135 mmol/L (137-145); Total Protein 6.3 g/dL (6.3-8.2)
[2025-09-15 06:38] LABS: Anisocytosis 1+; Band Neutrophils Percent 3 % (0-6); Basophils Absolute Manual 0.03 K/mm3 (0.0-0.1); Basophils Percent Manual 1 % (0-1); Burr Cells 2+; Eosinophils Absolute Manual 0.03 K/mm3 (0.02-0.50); Eosinophils Percent Manual 1 % (0-4); Lymphocytes Absolute Manual 0.84 K/mm3 (1.1-4.5); Lymphocytes Percent Manual 24 % (18-44); Monocytes Absolute Manual 0.35 K/mm3 (0.1-0.90); Monocytes Percent Manual 10 % (3-9); Neutrophils Absolute Manual 2.24 K/mm3 (1.3-6.7); Neutrophils Percent Manual 61 % (46-73); Schistocytes None Seen; Smudge Cells PRESENT; Total Cells Counted 100
--- NOTE | 2025-09-15 07:53 | P.PNIM_ITS ---
Progress Note: A&P Assessment and Plan (1) COVID: Code(s): U07.1 - COVID-19 Status: Acute Assessment and Plan: Patient presents with profound weakness due to UTI and COVID pneumonia/bronchitis. Monitor for progression of COVID syndrome. She has dry cough. Saturating well on room air. Droplet precautions. Remdesivir protocol. We discussed the risks versus benefits of medications and adverse effects. Chest x-ray demonstrates probable airspace disease in the right lower lobe. Will obtain a two view chest x-ray to get a better picture of focal pneumonia need for further investigation and antibiotics in addition to ceftriaxone. 09/14: CXR 2V: Confirms CHF & basilar PNA: Impression: CHF. Early basilar pneumonia suspected. The findings appear slightly progressed compared to the previous exam 09/15: Continues to deny weakness, SOB -Continue Remdesivir (2) Generalized weakness: Code(s): R53.1 - Weakness Status: Acute Assessment and Plan: Potentially due to COVID / PNA 09/15: Pt continues to deny weakness -Continue to work with PT/OT (3) Urinary tract infection: Code(s): N39.0 - Urinary tract infection, site not specified Status: Acute Assessment and Plan: Received ceftriaxone. Follow urine culture. (4) Dehydration: Code(s): E86.0 - Dehydration Status: Acute Assessment and Plan: IVF 75ml/hr, continue to encourage pt to eat and drink (5) Community acquired bilateral lower lobe pneumonia: Code(s): J18.9 - Pneumonia, unspecified organism Status: Acute Assessment and Plan: 09/14: Confirms CHF & basilar PNA: Impression: CHF. Early basilar pneumonia suspected. The findings appear slightly progressed compared to the previous exam -Pt already on ceftriaxone for UTI, started Azithromycin today -Lungs sound clear -IS ordered 09/15: Continues to deny SOB, CP. Continues to report dry cough. -No leukocytosis, will continue to monitor -Continue abx -IS at the bedside. Plan PT/OT evaluations. Maintenance fluids 75ml/hr. Fall precautions, ambulate with assistance. In the setting of COVID pneumonia/bronchitis and immobility, start Lovenox 40 mg subQ Q 24 hours. Patient wishes to be full code. Time Spent With Patient Time: 35 Subjective Date/time seen: 09/15/25 1017 Interval history: Pt lying comfortably in bed upon my arrival to her room. 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 Continues to deny weakness, SOB, or any other issues besides the dry cough that she has had. Pt resides in a memory care unit. Review of Systems Review of Systems: All systems reviewed & are unremarkable except as noted in HPI and below (Subjective) ROS unobtainable: Yes unobtainable due to mental status Exam Const: General: comfortable and no acute distress Other: A&O x2, cooperative HENMT: Face/Nose/Sinus: Normal nares present Mouth: Yes moist mucous membranes Eyes: General: appearance normal, both eyes and all related structures Sc nina: sclerae normal Neck: Neck: supple Resp: Effort & Inspection: normal respiratory effort Auscultation: clear to auscultation bilaterally Other: No cough upon my exam with deep breathing Cardio: Rate: regular rate Rhythm: regular rhythm GI: Inspection: non-distended Skin: General skin exam: normal color and no rashes or lesions noted Neuro: Motor exam (neuro): Normal motor muscle tone present throughout Sensory Exam: normal sensation Extrem: General: edema (trace) Psych: Mental Status: mental status grossly normal Affect: normal affect Objective Data Vital Signs Vital Signs: Vital Signs - 24 hr 09/14/25 11:18 09/14/25 13:03 09/14/25 13:23 Temperature Pulse Rate 80 Respiratory Rate Blood Pressure Pulse Oximetry Oxygen Delivery Room Air Room Air Fraction of Inspired Oxygen 09/14/25 14:00 09/14/25 14:15 09/14/25 20:56 Temperature 98.1 F 99.8 F H Pulse Rate 85 80 68 Respiratory Rate 18 14 Blood Pressure 128/79 162/95 H Pulse Oximetry 99 98 95 Oxygen Delivery Autopap Fraction of Inspired Oxygen 21 09/14/25 20:57 09/15/25 05:00 Temperature 98.1 F Pulse Rate 68 67 Respiratory Rate 18 Blood Pressure 154/74 H Pulse Oximetry 99 Oxygen Delivery Fraction of Inspired Oxygen Intake/Output Intake/Output: Intake & Output 09/12/25 09/13/25 09/14/25 09/15/25 23:59 22:59 23:59 23:59 Intake Total 2780 921.2 Output Total 50 Balance 2730 921.2 Meds/Results Medications: Active Medications Generic Name Dose Route Start Last Admin Trade Name Freq PRN Reason Stop Dose Admin Acetaminophen 650 mg 09/14/25 09:55 09/14/25 14:05 Acetaminophen 325 Mg Tablet PO 650 mg Q6H PRN Administration fever or pain Atorvastatin Calcium 40 mg 09/14/25 21:00 09/14/25 20:57 Atorvastatin 40 Mg Tablet PO 40 mg HS SILVIO Administration Diclofenac Sodium 1 applic 09/14/25 09:55 Diclofenac Sodium 1% 100 Gm Gel (*Bkc) TOPICAL TID PRN Pain Enoxaparin Sodium 40 mg 09/14/25 09:00 09/14/25 08:17 Enoxaparin 40 Mg/0.4 Ml Syringe SUB-Q 40 mg DAILY SILVIO Administration Famotidine 20 mg 09/14/25 21:00 09/14/25 20:58 Famotidine 20 Mg Tablet PO 20 mg Q12HR SILVIO Administration Ferrous Sulfate 325 mg 09/15/25 09:00 Ferrous Sulfate 325 Mg Tablet PO DAILY SILVIO Guaifenesin 200 mg 09/14/25 09:55 Guaifenesin 200 Mg/10 Ml Udc PO Q6H PRN Cough Lactated Ringer's 1,000 mls @ 75 mls/hr 09/14/25 02:40 09/15/25 02:22 Lr - Lactated Ringers Iv IV CONT 75 mls/hr .[id number] SILVIO Administration Remdesivir 100 mg in 250 mls @ 250 mls/hr 09/15/25 10:00 IVPB 09/18/25 10:59 Q24H SILVIO Azithromycin 500 mg/ Sodium 250 mls @ 250 mls/hr 09/14/25 14:00 09/14/25 15:04 Chloride IVPB 09/18/25 14:59 Infused Q24H SILVIO Infusion Ibuprofen 600 mg 09/14/25 15:35 Ibuprofen 600 Mg Tablet PO Q6H PRN Cramping Levothyroxine Sodium 88 mcg 09/15/25 06:30 09/15/25 05:58 Levothyroxine Sodium 88 Mcg Tablet PO 88 mcg DAILY@0630 SILVIO Administration Metoprolol Tartrate 25 mg 09/14/25 11:00 09/14/25 20:57 Metoprolol Tartrate 25 Mg Tablet PO 25 mg Q12HR SILVIO Administration Olmesartan 10 mg 09/14/25 11:00 09/14/25 11:18 Olmesartan Medoxomil 10 Mg Tablet PO 10 mg DAILY SILVIO Administration Ondansetron HCl 4 mg 09/14/25 02:37 Ondansetron Inj 4 Mg/2 Ml Vial IV PUSH Q4H PRN Nausea Ondansetron HCl 4 mg 09/14/25 09:55 Ondansetron Hcl Odt 4 Mg Tablet PO Q6H PRN Nausea And Vomiting Pantoprazole Sodium 40 mg 09/14/25 09:00 09/14/25 11:28 Pantoprazole 40 Mg Tablet PO 40 mg QAM SILVIO Administration Polyethylene Glycol 17 gm 09/14/25 09:55 Polyethylene Glycol 3350 17 Gm Powd.Pack PO HS PRN Constipation Ropinirole HCl 0.25 mg 09/14/25 21:00 09/14/25 20:57 Ropinirole Hcl 0.25 Mg Tablet PO 0.25 mg HS SILVIO Administration Radiology Results: ITS Impressions Head CT 09/14/25 05:56 IMPRESSION: 1. No acute intracranial findings. Chest X-Ray 09/14/25 12:22 Impression: CHF. Early basilar pneumonia suspected. The findings appear slightly progressed compared to the previous exam Labs Labs: Laboratory Results - last 24 hr 09/15/25 05:31 WBC 3.5 L RBC 3.50 L Hgb 10.2 L Hct 32.8 L MCV 93.7 MCH 29.1 MCHC 31.1 L RDW 17.2 H Plt Count 245 MPV 9.7 Immature Gran % (Auto) Not Reportable Neut % (Auto) Not Reportable Lymph % (Auto) Not Reportable [place] % (Auto) Not Reportable Eos % (Auto) Not Reportable Baso % (Auto) Not Reportable Lymph # (Auto) Not Reportable [place] # (Auto) Not Reportable Eos # (Auto) Not Reportable Baso # (Auto) Not Reportable Abs Immat Gran (auto) Not Reportable Absolute Neuts (auto) Not Reportable Absolute Nucleated RBC Not Reportable Total Counted 100 Neutrophils % (Manual) 61 Band Neutrophils % 3 Lymphocytes % (Manual) 24 Monocytes % (Manual) 10 H Eosinophils % (Manual) 1 Basophils % (Manual) 1 Nucleated RBC % Not Reportable Abs Neuts (Manual) 2.24 Abs Lymphs (Manual) 0.84 L Abs Monocytes (Manual) 0.35 Absolute Eos (Manual) 0.03 Abs Basophils (Manual) 0.03 Atypical Lymphocytes Present Smudge Cells Present Platelet Estimate Adequate Anisocytosis 1+ [place] Cells 2+ Schistocytes None seen Sodium 135 L Potassium 3.4 Chloride 105 Carbon Dioxide 25 Anion Gap 5 BUN 16 Creatinine 0.82 Estim Creat Clear Calc 47 Estimated GFR > 60 Glucose 81 Calcium 8.4 Total Bilirubin 0.7 AST 28 ALT 21 Alkaline Phosphatase 48 Total Protein 6.3 Albumin 3.4 L Quality VTE Prophylaxis VTE prophylaxis: pharmacologic ordered
[2025-09-15] MEDS: ENOXAPARIN 40 MG/0.4 ML SYRINGE SUB-Q (08:49)
[2025-09-15] MEDS: OLMESARTAN MEDOXOMIL 10 MG TABLET PO (08:50)
[2025-09-15] MEDS: PANTOPRAZOLE 40 MG TABLET PO (08:50)
[2025-09-15] MEDS: FAMOTIDINE 20 MG TABLET PO ×2 (08:50→21:33)
[2025-09-15] MEDS: METOPROLOL TARTRATE 25 MG TABLET PO ×2 (08:50→21:33)
[2025-09-15] MEDS: FERROUS SULFATE 325 MG TABLET PO (08:50)
[2025-09-15] MEDS: REMDESIVIR 100 MG/NS 250 ML 100 MG/250 ML BAG 250 MG IVPB (10:09)
[2025-09-15] MEDS: AZITHROMYCIN IV 500 MG in SODIUM CHLORIDE 0.9% IV 250 ML IVPB (13:39)
[2025-09-15] MEDS: ATORVASTATIN 40 MG TABLET PO (21:33)
[2025-09-16] VITALS (7 sets, daily range): BP systolic 146–180; BP diastolic 68–120; PULSE 67–80; RESP 16; TEMP 36.2–37.2; O2SAT 95–99
[2025-09-16] MEDS: LEVOTHYROXINE SODIUM 88 MCG TABLET PO (06:00)
[2025-09-16] MEDS: ONDANSETRON INJ 4 MG/2 ML VIAL IV PUSH (06:22)
[2025-09-16 06:37] LABS: Hematocrit 33.3 % (37.0-47.0); Hemoglobin 10.8 g/dL (12.0-15.0); Immature Granulocyte Percent A 0.4 % (0-0.5); Lymphocytes Absolute Auto 1.14 K/mm3 (0.9-3.2); Mean Corpuscular HGB Conc 32.4 g/dl (32-36); Mean Corpuscular Hemoglobin 29.4 pg (26-34); Mean Corpuscular Volume 90.7 fl (80-100); Nucleated Red Blood Cells Absolute Auto 0.000 K/mm3 (0.0-0.012); Nucleated Red Blood Cells Perc 0.0 % (0.0-0.2); Platelet Count Result 268 k/mm3 (150-375); Red Blood Count 3.67 M/mm3 (4.2-5.4); White Blood Count 5.1 K/mm3 (4.5-10.0)
[2025-09-16 06:48] LABS: INR 1.3; Prothrombin Time 16.6 Seconds (11.1-14.7)
[2025-09-16 07:00] LABS: Alanine Aminotransferase 18 U/L (6-35); Albumin Level 3.6 g/dL (3.5-5.1); Alkaline Phosphatase 51 U/L (38-126); Anion Gap 7 mmol/L (4-12); Aspartate Amino Transferase 27 U/L (14-36); Bilirubin,Total 0.6 mg/dL (0.2-1.3); Blood Urea Nitrogen 16 mg/dL (7-17); Calcium 8.6 mg/dL (8.4-10.2); Carbon Dioxide 25 mmol/L (22-30); Chloride 104 mmol/L (98-107); Estimated CRCL calculation 46 ml/min; Estimated Glomerular Filt Rate > 60; Glucose 94 mg/dL (65-110); Potassium 3.7 mmol/L (3.4-5.0); Sodium 136 mmol/L (137-145); Total Protein 6.5 g/dL (6.3-8.2)
[2025-09-16] MEDS: OLMESARTAN MEDOXOMIL 10 MG TABLET PO (08:43)
[2025-09-16] MEDS: FAMOTIDINE 20 MG TABLET PO ×2 (08:43→21:04)
[2025-09-16] MEDS: PANTOPRAZOLE 40 MG TABLET PO (08:43)
[2025-09-16] MEDS: ENOXAPARIN 40 MG/0.4 ML SYRINGE SUB-Q (08:44)
[2025-09-16] MEDS: METOPROLOL TARTRATE 25 MG TABLET PO ×2 (08:44→21:04)
[2025-09-16] MEDS: LACTATED RINGERS 1,000 ML 75 ML IV CONT (08:45)
[2025-09-16] MEDS: FERROUS SULFATE 325 MG TABLET PO (08:46)
[2025-09-16] MEDS: REMDESIVIR 100 MG/NS 250 ML 100 MG/250 ML BAG 250 MG IVPB (10:07)
--- NOTE | 2025-09-16 11:45 | PCOTNOTE ---
Attempted to see Patient, with PT at this time. Will try back at a later time.
--- NOTE | 2025-09-16 13:00 | PCOTNOTE ---
Atempted again this P.M. Patient states, not feeling well today, did therapy already, no more today.
[2025-09-16] MEDS: AZITHROMYCIN IV 500 MG in SODIUM CHLORIDE 0.9% IV 250 ML IVPB (13:31)
--- NOTE | 2025-09-16 13:41 | PM.IMPN ---
Progress Note: A&P Assessment and Plan (1) COVID: Code(s): U07.1 - COVID-19 Status: Acute Assessment and Plan: Patient presents with profound weakness due to UTI and COVID pneumonia/bronchitis. Monitor for progression of COVID syndrome. She has dry cough. Saturating well on room air. Droplet precautions. Remdesivir protocol. We discussed the risks versus benefits of medications and adverse effects. Chest x-ray demonstrates probable airspace disease in the right lower lobe. Will obtain a two view chest x-ray to get a better picture of focal pneumonia need for further investigation and antibiotics in addition to ceftriaxone. 09/14: CXR 2V: Confirms CHF & basilar PNA: Impression: CHF. Early basilar pneumonia suspected. The findings appear slightly progressed compared to the previous exam 09/15: Continues to deny weakness, SOB -Continue Remdesivir 09/16 Discontinue the remdesivir Not currently on any oxygen Saturations 95 and above Trend saturations (2) Generalized weakness: Code(s): R53.1 - Weakness Status: Acute Assessment and Plan: Potentially due to COVID / PNA 09/15: Pt continues to deny weakness -Continue to work with PT/OT 09/16 Continue to work with PT and OT Likely need staff on discharge (3) Urinary tract infection: Code(s): N39.0 - Urinary tract infection, site not specified Status: Acute Assessment and Plan: Received ceftriaxone. Follow urine culture. Growth noted on culture results Change antibiotics to susceptibilities (4) Dehydration: Code(s): E86.0 - Dehydration Status: Acute Assessment and Plan: IVF 75ml/hr, continue to encourage pt to eat and drink BUN creatinine 16/0.84 To most likely discontinue fluids (5) Community acquired bilateral lower lobe pneumonia: Code(s): J18.9 - Pneumonia, unspecified organism Status: Acute Assessment and Plan: 09/14: Confirms CHF & basilar PNA: Impression: CHF. Early basilar pneumonia suspected. The findings appear slightly progressed compared to the previous exam -Pt already on ceftriaxone for UTI, started Azithromycin today -Lungs sound clear -IS ordered 09/15: Continues to deny SOB, CP. Continues to report dry cough. -No leukocytosis, will continue to monitor -Continue abx -IS at the bedside. 09/16 Continue azithromycin at this time with the ceftriaxone Breathing status is stable Trend saturation Adjust therapy as indicated Plan PT and OT to evaluate Full code Time Spent With Patient Time: 53 minutes Subjective Date/time seen: 09/16/25 13:41 Interval history: 09/16/2025 Currently patient is lying in bed. Patient states she is in her she feels today. She is eating her breakfast and doing okay. She just states she is short of breath and she also states she has had a cough which she states the cough is been pretty significant 09/15/2025 Pt lying comfortably in bed upon my arrival to her room. 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 Continues to deny weakness, SOB, or any other issues besides the dry cough that she has had. 09/14/2025 84-year-old female with PMH hypertension, hypothyroidism, who resides at [facility] locally brought [facility] 09[facility]. Family states the patient has been very weak for a day, has had low urine output. Daughter thinks she may have a UTI. Patient reports she has had a dry cough for about 3-4 days. ER evaluation demonstrates a profoundly weak female with hemodynamic stability without any lateralizing or focal deficits. Hemoglobin 11.4, serum creatinine 0.91. COVID PCR positive. Urinalysis abnormal with leukocyte esterase positive in 4+ bacteria. Chest x-ray with probable airspace disease and right lower lobe. CT head without any acute findings. Patient was given ceftriaxone 1 g IV x1, remdesivir 200 mg IV x1, lactated Ringer's 1 L. Review of Systems Review of Systems: All systems reviewed & are unremarkable except as noted in HPI and below Exam Narrative: Const: General: comfortab le and no acute di stress Other: A &O x2, cooperative HENMT: Face/Nose/Sinus: N ormal nares presen t Mouth: Yes mois t mucous membranes Eyes: General: appearanc e normal, both eye s and all related structures Sclera : sclerae normal Neck: Neck: supple Resp: Effort & Inspectio n: normal respirat ory effort Auscul tation: clear to a uscultation bilate rally Other: No cough upon my exa m with deep breath ing Cardio: Rate: regular rate Rhythm: regular rhythm GI: Inspection: non-di stended Skin: General skin exam: normal color and no rashes or lesio ns noted Neuro: Motor exam (neuro) : Normal motor mus marvin tone present t hroughout Sensory Exam: normal sens ation Extrem: General: edema (tr ponce) Psych: Mental Status: men peter status grossly normal Affect: n ormal affect Objective Data Vital Signs Vital Signs: Vital Signs - 24 hr 09/15/25 14:00 09/15/25 20:00 09/15/25 20:49 Temperature 97.3 F L 97.6 F Pulse Rate 73 69 69 Respiratory Rate 16 18 18 Blood Pressure 145/71 H 166/62 H Pulse Oximetry 99 98 98 Oxygen Delivery Room Air Fraction of Inspired Oxygen 21 09/15/25 21:33 09/16/25 06:00 09/16/25 06:29 Temperature 98.9 F Pulse Rate 69 77 Respiratory Rate Blood Pressure 180/120 H 160/90 H Pulse Oximetry 96 Oxygen Delivery Fraction of Inspired Oxygen 09/16/25 08:44 Temperature Pulse Rate 80 Respiratory Rate Blood Pressure Pulse Oximetry Oxygen Delivery Fraction of Inspired Oxygen Intake/Output Intake/Output: Intake & Output 09/13/25 09/14/25 09/15/25 09/16/25 22:59 23:59 23:59 23:59 Intake Total 2780 3428.7 1559 Output Total 50 1600 1300 Balance 2730 1828.7 259 Meds/Results Medications: Active Medications Generic Name Dose Route Start Last Admin Trade Name Freq PRN Reason Stop Dose Admin Acetaminophen 650 mg 09/14/25 09:55 09/14/25 14:05 Acetaminophen 325 Mg Tablet PO 650 mg Q6H PRN Administration fever or pain Atorvastatin Calcium 40 mg 09/14/25 21:00 09/15/25 21:33 Atorvastatin 40 Mg Tablet PO 40 mg HS SILVIO Administration Diclofenac Sodium 1 applic 09/14/25 09:55 Diclofenac Sodium 1% 100 Gm Gel (*Bkc) TOPICAL TID PRN Pain Enoxaparin Sodium 40 mg 09/14/25 09:00 09/16/25 08:44 Enoxaparin 40 Mg/0.4 Ml Syringe SUB-Q 40 mg DAILY SILVIO Administration Famotidine 20 mg 09/14/25 21:00 09/16/25 08:43 Famotidine 20 Mg Tablet PO 20 mg Q12HR SILVIO Administration Ferrous Sulfate 325 mg 09/15/25 09:00 09/16/25 08:46 Ferrous Sulfate 325 Mg Tablet PO 325 mg DAILY SILVIO Administration Guaifenesin 200 mg 09/14/25 09:55 Guaifenesin 200 Mg/10 Ml Udc PO Q6H PRN Cough Lactated Ringer's 1,000 mls @ 75 mls/hr 09/14/25 02:40 09/16/25 08:45 Lr - Lactated Ringers Iv IV CONT 75 mls/hr .[id number] SILVIO Administration Remdesivir 100 mg in 250 mls @ 250 mls/hr 09/15/25 10:00 09/16/25 10:07 IVPB 09/18/25 10:59 250 mls/hr Q24H SILVIO Administration Azithromycin 500 mg/ Sodium 250 mls @ 250 mls/hr 09/14/25 14:00 09/16/25 13:31 Chloride IVPB 09/18/25 14:59 250 mls/hr Q24H SILVIO Administration Ibuprofen 600 mg 09/14/25 15:35 Ibuprofen 600 Mg Tablet PO Q6H PRN Cramping Levothyroxine Sodium 88 mcg 09/15/25 06:30 09/16/25 06:00 Levothyroxine Sodium 88 Mcg Tablet PO 88 mcg DAILY@0630 SILVIO Administration Metoprolol Tartrate 25 mg 09/14/25 11:00 09/16/25 08:44 Metoprolol Tartrate 25 Mg Tablet PO 25 mg Q12HR SILVIO Administration Olmesartan 10 mg 09/14/25 11:00 09/16/25 08:43 Olmesartan Medoxomil 10 Mg Tablet PO 10 mg DAILY SILVIO Administration Ondansetron HCl 4 mg 09/14/25 02:37 09/16/25 06:22 Ondansetron Inj 4 Mg/2 Ml Vial IV PUSH 4 mg Q4H PRN Administration Nausea Ondansetron HCl 4 mg 09/14/25 09:55 Ondansetron Hcl Odt 4 Mg Tablet PO Q6H PRN Nausea And Vomiting Pantoprazole Sodium 40 mg 09/14/25 09:00 09/16/25 08:43 Pantoprazole 40 Mg Tablet PO 40 mg QAM SILVIO Administration Polyethylene Glycol 17 gm 09/14/25 09:55 Polyethylene Glycol 3350 17 Gm Powd.Pack PO HS PRN Constipation Ropinirole HCl 0.25 mg 09/14/25 21:00 09/15/25 21:33 Ropinirole Hcl 0.25 Mg Tablet PO 0.25 mg HS SILVIO Administration Radiology Results: ITS Impressions Head CT 09/14/25 05:56 IMPRESSION: 1. No acute intracranial findings. Chest X-Ray 09/14/25 12:22 Impression: CHF. Early basilar pneumonia suspected. The findings appear slightly progressed compared to the previous exam Labs Labs: Laboratory Results - last 24 hr 09/16/25 06:19 WBC 5.1 RBC 3.67 L Hgb 10.8 L Hct 33.3 L MCV 90.7 MCH 29.4 MCHC 32.4 RDW 16.8 H Plt Count 268 MPV 9.9 Immature Gran % (Auto) 0.4 Neut % (Auto) 60.5 Lymph % (Auto) 22.4 [place] % (Auto) 11.8 H Eos % (Auto) 4.3 Baso % (Auto) 0.6 Lymph # (Auto) 1.14 [place] # (Auto) 0.6 Eos # (Auto) 0.2 Baso # (Auto) 0.0 Abs Immat Gran (auto) 0.02 Absolute Neuts (auto) 3.1 Absolute Nucleated RBC 0.000 Nucleated RBC % 0.0 PT 16.6 H INR 1.3 Sodium 136 L Potassium 3.7 Chloride 104 Carbon Dioxide 25 Anion Gap 7 BUN 16 Creatinine 0.84 Estim Creat Clear Calc 46 Estimated GFR > 60 Glucose 94 Calcium 8.6 Total Bilirubin 0.6 AST 27 ALT 18 Alkaline Phosphatase 51 Total Protein 6.5 Albumin 3.6 Quality VTE Prophylaxis VTE prophylaxis: pharmacologic ordered Hospitalist MIPS Advance Care Plan I have confirmed that the patient's Advanced Care Plan is present, code status is documented, or surrogate decision maker is listed in patient medical record.: Yes
[2025-09-16] MEDS: ATORVASTATIN 40 MG TABLET PO (21:04)
[2025-09-17 06:00] VITALS: BP 177/67; PULSE 66; RESP 16; TEMP 37; O2SAT 93
[2025-09-17] MEDS: LEVOTHYROXINE SODIUM 88 MCG TABLET PO (06:30)
[2025-09-17 06:32] LABS: Hematocrit 36.3 % (37.0-47.0); Hemoglobin 11.3 g/dL (12.0-15.0); Immature Granulocyte Percent A 0.2 % (0-0.5); Lymphocytes Absolute Auto 1.09 K/mm3 (0.9-3.2); Mean Corpuscular HGB Conc 31.1 g/dl (32-36); Mean Corpuscular Hemoglobin 29.0 pg (26-34); Mean Corpuscular Volume 93.1 fl (80-100); Nucleated Red Blood Cells Absolute Auto 0.000 K/mm3 (0.0-0.012); Nucleated Red Blood Cells Perc 0.0 % (0.0-0.2); Platelet Count Result 250 k/mm3 (150-375); Red Blood Count 3.90 M/mm3 (4.2-5.4); White Blood Count 4.7 K/mm3 (4.5-10.0)
[2025-09-17 07:00] LABS: Alanine Aminotransferase 15 U/L (6-35); Albumin Level 3.5 g/dL (3.5-5.1); Alkaline Phosphatase 51 U/L (38-126); Anion Gap 8 mmol/L (4-12); Aspartate Amino Transferase 23 U/L (14-36); Bilirubin,Total 0.7 mg/dL (0.2-1.3); Blood Urea Nitrogen 13 mg/dL (7-17); Calcium 8.8 mg/dL (8.4-10.2); Carbon Dioxide 24 mmol/L (22-30); Chloride 104 mmol/L (98-107); Estimated CRCL calculation 47 ml/min; Estimated Glomerular Filt Rate > 60; Glucose 89 mg/dL (65-110); Magnesium 1.8 mg/dL (1.6-2.3); Potassium 4.1 mmol/L (3.4-5.0); Sodium 136 mmol/L (137-145); Total Protein 6.3 g/dL (6.3-8.2)
--- NOTE | 2025-09-17 09:02 | P.PNIM_ITS ---
Progress Note: A&P Assessment and Plan (1) Community acquired bilateral lower lobe pneumonia: Code(s): J18.9 - Pneumonia, unspecified organism Status: Acute Assessment and Plan: 09/14: Confirms CHF & basilar PNA: Antibiotics de-escalated to Augmentin and azithromycin (2) COVID: Code(s): U07.1 - COVID-19 Status: Acute Assessment and Plan: Monitor for progression of COVID syndrome. Droplet precautions. Remdesivir protocol. . Chest x-ray demonstrates probable airspace disease in the right lower lobe. . Confirms CHF & basilar PNA: Discontinue the remdesivir Not currently on any oxygen Saturations 95 and above Trend saturations (3) Generalized weakness: Code(s): R53.1 - Weakness Status: Acute Assessment and Plan: Potentially due to COVID / PNA Continue to work with PT and OT Case management working on discharge plan (4) Urinary tract infection: Code(s): N39.0 - Urinary tract infection, site not specified Status: Acute Assessment and Plan: Received ceftriaxone. Follow urine culture. Growth noted on culture results On oral Augmentin and azithromycin (5) Dehydration: Code(s): E86.0 - Dehydration Status: Acute Assessment and Plan: Improved Discontinue fluids Encourage oral intake Plan PT and OT to evaluate Full code Lab holiday Time Spent With Patient Time with patient: Greater than 35 minutes Subjective Date/time seen: 09/17/25 09:02 Interval history: 84-year-old female with PMH hypertension, hypothyroidism, who resides at [facility] locally brought in by EMS to [facility] ER on 09/13/2025 presents with extreme weakness found to have a UTI COVID. Patient has a complaints at this time she is medically ready for discharge, case management updated Review of Systems Review of Systems: 12 systems were reviewed and are negativ e except for as per HPI. Exam Narrative: General: well appearing, appears stated age. HEENT: normocephalic, atraumatic. Mucous membranes moist. EOMI, PERRLA, bilateral sclera anicteric, no conjunctival injection. Neck supple without JVD, lymphadenopathy, or bruit. Respiratory: clear bilaterally. No rales/rhonic/wheezes. Cardiovascular: Regular rate and rhythm, normal S1-S2. No murmurs, rubs, or clicks. PMI is nondisplaced, capillary refill less than 3 second. Abdomen: Soft, round, no pulsatile masses, nondistended and nontender. No rebound, no guarding. Bowel sounds present to all four quadrants. No high pitch or tinkling sounds, resonant to percussion. Extremities: No cyanosis, clubbing, or edema present. Pulses are palpable 2/2. Active ROM to all four extremities. Neuro: Alert and orientated x 4. PERRLA. Cranial nerves 2-12 intact without focal deficit. Skin: Warm, dry, and intact, without rash, erythema, or lesion. Psych: pleasant, cooperative, normal speech, normal affect, no hallucinations, no dysarthia Objective Data Vital Signs Vital Signs: Vital Signs - 24 hr 09/16/25 14:00 09/16/25 20:00 09/16/25 21:04 Temperature 97.2 F L Pulse Rate 74 67 69 Respiratory Rate 16 16 Blood Pressure 149/78 H Pulse Oximetry 99 95 Oxygen Delivery Room Air Fraction of Inspired Oxygen 21 09/16/25 22:00 09/17/25 06:00 Temperature 97.9 F 98.6 F Pulse Rate 67 66 Respiratory Rate 16 16 Blood Pressure 146/68 H 177/67 H Pulse Oximetry 95 93 Oxygen Delivery Fraction of Inspired Oxygen Intake/Output Intake/Output: Intake & Output 09/14/25 09/15/25 09/16/25 09/17/25 23:59 23:59 23:59 23:59 Intake Total 2780 3428.7 2353 270 Output Total 50 1600 1550 1225 Balance 2730 1828.7 803 -955 Meds/Results Medications: Active Medications Generic Name Dose Route Start Last Admin Trade Name Freq PRN Reason Stop Dose Admin Acetaminophen 650 mg 09/14/25 09:55 09/14/25 14:05 Acetaminophen 325 Mg Tablet PO 650 mg Q6H PRN Administration fever or pain Amoxicillin/Clavulanate Potassium 1 tablet 09/16/25 21:00 09/16/25 21:04 Amoxicillin/Clavulanate K 875-125 Mg Tab PO 09/21/25 09:01 1 tablet Q12HR SILVIO Administration Atorvastatin Calcium 40 mg 09/14/25 21:00 09/16/25 21:04 Atorvastatin 40 Mg Tablet PO 40 mg HS SILVIO Administration Azithromycin 500 mg 09/17/25 09:00 Azithromycin 500 Mg Tablet PO 09/18/25 09:01 DAILY SILVIO Diclofenac Sodium 1 applic 09/14/25 09:55 Diclofenac Sodium 1% 100 Gm Gel (*Bkc) TOPICAL TID PRN Pain Enoxaparin Sodium 40 mg 09/14/25 09:00 09/16/25 08:44 Enoxaparin 40 Mg/0.4 Ml Syringe SUB-Q 40 mg DAILY SILVIO Administration Famotidine 20 mg 09/14/25 21:00 09/16/25 21:04 Famotidine 20 Mg Tablet PO 20 mg Q12HR SILVIO Administration Ferrous Sulfate 325 mg 09/15/25 09:00 09/16/25 08:46 Ferrous Sulfate 325 Mg Tablet PO 325 mg DAILY SILVIO Administration Guaifenesin 200 mg 09/14/25 09:55 Guaifenesin 200 Mg/10 Ml Udc PO Q6H PRN Cough Ibuprofen 600 mg 09/14/25 15:35 Ibuprofen 600 Mg Tablet PO Q6H PRN Cramping Levothyroxine Sodium 88 mcg 09/15/25 06:30 09/17/25 06:30 Levothyroxine Sodium 88 Mcg Tablet PO 88 mcg DAILY@0630 SILVIO Administration Metoprolol Tartrate 25 mg 09/14/25 11:00 09/16/25 21:04 Metoprolol Tartrate 25 Mg Tablet PO 25 mg Q12HR SILVIO Administration Olmesartan 10 mg 09/14/25 11:00 09/16/25 08:43 Olmesartan Medoxomil 10 Mg Tablet PO 10 mg DAILY SILVIO Administration Ondansetron HCl 4 mg 09/14/25 02:37 09/16/25 06:22 Ondansetron Inj 4 Mg/2 Ml Vial IV PUSH 4 mg Q4H PRN Administration Nausea Ondansetron HCl 4 mg 09/14/25 09:55 Ondansetron Hcl Odt 4 Mg Tablet PO Q6H PRN Nausea And Vomiting Pantoprazole Sodium 40 mg 09/14/25 09:00 09/16/25 08:43 Pantoprazole 40 Mg Tablet PO 40 mg QAM SILVIO Administration Polyethylene Glycol 17 gm 09/14/25 09:55 Polyethylene Glycol 3350 17 Gm Powd.Pack PO HS PRN Constipation Ropinirole HCl 0.25 mg 09/14/25 21:00 09/16/25 21:04 Ropinirole Hcl 0.25 Mg Tablet PO 0.25 mg HS SILVIO Administration Radiology Results: ITS Impressions Head CT 09/14/25 05:56 IMPRESSION: 1. No acute intracranial findings. Chest X-Ray 09/14/25 12:22 Impression: CHF. Early basilar pneumonia suspected. The findings appear slightly progressed compared to the previous exam Labs Labs: Laboratory Results - last 24 hr 09/17/25 06:03 WBC 4.7 RBC 3.90 L Hgb 11.3 L Hct 36.3 L MCV 93.1 MCH 29.0 MCHC 31.1 L RDW 16.6 H Plt Count 250 MPV 9.8 Immature Gran % (Auto) 0.2 Neut % (Auto) 57.7 Lymph % (Auto) 23.4 [place] % (Auto) 12.7 H Eos % (Auto) 5.4 H Baso % (Auto) 0.6 Lymph # (Auto) 1.09 [place] # (Auto) 0.6 Eos # (Auto) 0.3 Baso # (Auto) 0.0 Abs Immat Gran (auto) 0.01 Absolute Neuts (auto) 2.7 Absolute Nucleated RBC 0.000 Nucleated RBC % 0.0 Sodium 136 L Potassium 4.1 Chloride 104 Carbon Dioxide 24 Anion Gap 8 BUN 13 Creatinine 0.82 Estim Creat Clear Calc 47 Estimated GFR > 60 Glucose 89 Calcium 8.8 Magnesium 1.8 Total Bilirubin 0.7 AST 23 ALT 15 Alkaline Phosphatase 51 Total Protein 6.3 Albumin 3.5 Quality VTE Prophylaxis VTE prophylaxis: pharmacologic ordered
[2025-09-17 09:09] VITALS: PULSE 82
[2025-09-17] MEDS: AZITHROMYCIN 500 MG TABLET PO (09:09)
[2025-09-17] MEDS: METOPROLOL TARTRATE 25 MG TABLET PO ×2 (09:09→22:11)
[2025-09-17] MEDS: FERROUS SULFATE 325 MG TABLET PO (09:10)
[2025-09-17] MEDS: OLMESARTAN MEDOXOMIL 10 MG TABLET PO (09:10)
[2025-09-17] MEDS: ENOXAPARIN 40 MG/0.4 ML SYRINGE SUB-Q (09:10)
[2025-09-17] MEDS: PANTOPRAZOLE 40 MG TABLET PO (09:10)
[2025-09-17] MEDS: FAMOTIDINE 20 MG TABLET PO ×2 (09:11→22:11)
[2025-09-17 13:49] VITALS: BP 141/82; PULSE 61; RESP 16; TEMP 36.7; O2SAT 96
[2025-09-17 21:22] VITALS: BP 161/68; PULSE 72; RESP 16; TEMP 36.5; O2SAT 95
[2025-09-17 22:11] VITALS: PULSE 74
[2025-09-17] MEDS: ATORVASTATIN 40 MG TABLET PO (22:11)
[2025-09-18 06:00] VITALS: BP 141/85; PULSE 89; RESP 16; TEMP 36.6; O2SAT 94
[2025-09-18] MEDS: LEVOTHYROXINE SODIUM 88 MCG TABLET PO (06:17)
[2025-09-18 07:46] LABS: Hematocrit 41.4 % (37.0-47.0); Hemoglobin 13.2 g/dL (12.0-15.0); Immature Granulocyte Percent A 0.2 % (0-0.5); Lymphocytes Absolute Auto 1.30 K/mm3 (0.9-3.2); Mean Corpuscular HGB Conc 31.9 g/dl (32-36); Mean Corpuscular Hemoglobin 28.8 pg (26-34); Mean Corpuscular Volume 90.4 fl (80-100); Nucleated Red Blood Cells Absolute Auto 0.000 K/mm3 (0.0-0.012); Nucleated Red Blood Cells Perc 0.0 % (0.0-0.2); Platelet Count Result 325 k/mm3 (150-375); Red Blood Count 4.58 M/mm3 (4.2-5.4); White Blood Count 5.4 K/mm3 (4.5-10.0)
--- NOTE | 2025-09-18 07:55 | P.PNIM_ITS ---
Progress Note: A&P Assessment and Plan (1) Community acquired bilateral lower lobe pneumonia: Code(s): J18.9 - Pneumonia, unspecified organism Status: Acute Assessment and Plan: 09/14: Confirms CHF & basilar PNA: Antibiotics de-escalated to Augmentin and azithromycin (2) COVID: Code(s): U07.1 - COVID-19 Status: Acute Assessment and Plan: Monitor for progression of COVID syndrome. Droplet precautions. Remdesivir protocol. . Chest x-ray demonstrates probable airspace disease in the right lower lobe. . Confirms CHF & basilar PNA: Discontinue the remdesivir Not currently on any oxygen Saturations 95 and above Trend saturations (3) Generalized weakness: Code(s): R53.1 - Weakness Status: Acute Assessment and Plan: Potentially due to COVID / PNA Continue to work with PT and OT Case management working on discharge plan (4) Urinary tract infection: Code(s): N39.0 - Urinary tract infection, site not specified Status: Acute Assessment and Plan: Received ceftriaxone. Follow urine culture. Growth noted on culture results On oral Augmentin and azithromycin (5) Dehydration: Code(s): E86.0 - Dehydration Status: Acute Assessment and Plan: Improved Discontinue fluids Encourage oral intake Plan 84-year-old female with PMH hypertension, hypothyroidism, who resides at [facility] locally brought in by EMS to [facility] ER on 09/13/2025 presents with extreme weakness found to have a UTI COVID. Patient has a complaints at this time she is medically ready for discharge, case management working on discharge plan with family Full code Time Spent With Patient Time: 53 minutes Subjective Date/time seen: 09/18/25 13:10 Interval history: VSS. Feeling ok. Urine culture grew Aerococcus urinae Discharge pending placement REASON FOR HOSPITALIZATION 84-year-old female with PMH hypertension, hypothyroidism, who resides at [facility] locally brought in by EMS to [facility] ER on 09/13/2025 presents with extreme weakness found to have a UTI COVID. Patient has a complaints at this time she is medically ready for discharge, case management updated Review of Systems Review of Systems: 12 systems were reviewed and are negativ e except for as per HPI. All systems reviewed & are unremarkable except as noted in HPI and below ROS unobtainable: Yes unobtainable due to mental status Exam Narrative: General: well appearing, appears stated age. HEENT: normocephalic, atraumatic. Mucous membranes moist. EOMI, PERRLA, bi lateral sclera anicteric, no conjunctival injection. Neck supple without JVD, lymphadenopathy, or bruit. Respiratory: clear bilaterally. No rales/rhonic/wheezes. Cardiovascular: Regular rate and rhythm, normal S1-S2. No murmurs, rubs, or clicks. PMI is nondisplaced, capillary refill less than 3 second. Abdomen: Soft, round, no pulsatile masses, nondistended and nontender. No rebound, no guarding. Bowel sounds present to all four quadrants. No high pitch or tinkling sounds, resonant to percussion. Extremities: No cyanosis, clubbing, or edema present. Pulses are palpable 2/2. Active ROM to all four extremities. Neuro: Alert and orientated x 4. PERRLA. Cranial nerves 2-12 intact without focal deficit. Skin: Warm, dry, and intact, without rash, erythema, or lesion. Psych: pleasant, cooperative, normal speech, normal affect, no hallucinations, no dysarthia Objective Data Vital Signs Vital Signs: Vital Signs - 24 hr 09/17/25 09:09 09/17/25 13:49 09/17/25 21:22 Temperature 98.1 F 97.7 F Pulse Rate 82 61 72 Respiratory Rate 16 16 Blood Pressure 141/82 H 161/68 H Pulse Oximetry 96 95 09/17/25 22:11 09/18/25 06:00 Temperature 97.8 F Pulse Rate 74 89 Respiratory Rate 16 Blood Pressure 141/85 H Pulse Oximetry 94 Intake/Output Intake/Output: Intake & Output 09/15/25 09/16/25 09/17/25 09/18/25 23:59 23:59 23:59 23:59 Intake Total 3428.7 2353 1730 100 Output Total 1600 1550 2625 1950 Balance 1828.7 803 895 1850 Meds/Results Medications: Active Medications Generic Name Dose Route Start Last Admin Trade Name Jaradq PRN Reason Stop Dose Admin Acetaminophen 650 mg 09/14/25 09:55 09/14/25 14:05 Acetaminophen 325 Mg Tablet PO 650 mg Q6H PRN Administration fever or pain Amoxicillin/Clavulanate Potassium 1 tablet 09/16/25 21:00 09/17/25 22:11 Amoxicillin/Clavulanate K 875-125 Mg Tab PO 09/21/25 09:01 1 tablet Q12HR SILVIO Administration Atorvastatin Calcium 40 mg 09/14/25 21:00 09/17/25 22:11 Atorvastatin 40 Mg Tablet PO 40 mg HS SILVIO Administration Azithromycin 500 mg 09/17/25 09:00 09/17/25 09:09 Azithromycin 500 Mg Tablet PO 09/18/25 09:01 500 mg DAILY SILVIO Administration Diclofenac Sodium 1 applic 09/14/25 09:55 Diclofenac Sodium 1% 100 Gm Gel (*Bkc) TOPICAL TID PRN Pain Enoxaparin Sodium 40 mg 09/14/25 09:00 09/17/25 09:10 Enoxaparin 40 Mg/0.4 Ml Syringe SUB-Q 40 mg DAILY SILVIO Administration Famotidine 20 mg 09/14/25 21:00 09/17/25 22:11 Famotidine 20 Mg Tablet PO 20 mg Q12HR SILVIO Administration Ferrous Sulfate 325 mg 09/15/25 09:00 09/17/25 09:10 Ferrous Sulfate 325 Mg Tablet PO 325 mg DAILY SILVIO Administration Guaifenesin 200 mg 09/14/25 09:55 Guaifenesin 200 Mg/10 Ml Udc PO Q6H PRN Cough Ibuprofen 600 mg 09/14/25 15:35 Ibuprofen 600 Mg Tablet PO Q6H PRN Cramping Levothyroxine Sodium 88 mcg 09/15/25 06:30 09/18/25 06:17 Levothyroxine Sodium 88 Mcg Tablet PO 88 mcg DAILY@0630 [facility] Administration Metoprolol Tartrate 25 mg 09/14/25 11:00 09/17/25 22:11 Metoprolol Tartrate 25 Mg Tablet PO 25 mg Q12HR SILVIO Administration Olmesartan 10 mg 09/14/25 11:00 09/17/25 09:10 Olmesartan Medoxomil 10 Mg Tablet PO 10 mg DAILY [facility] Administration Ondansetron HCl 4 mg 09/14/25 02:37 09/16/25 06:22 Ondansetron Inj 4 Mg/2 Ml Vial IV PUSH 4 mg Q4H PRN Administration Nausea Ondansetron HCl 4 mg 09/14/25 09:55 Ondansetron Hcl Odt 4 Mg Tablet PO Q6H PRN Nausea And Vomiting Pantoprazole Sodium 40 mg 09/14/25 09:00 09/17/25 09:10 Pantoprazole 40 Mg Tablet PO 40 mg QAM SILVIO Administration Polyethylene Glycol 17 gm 09/14/25 09:55 Polyethylene Glycol 3350 17 Gm Powd.Pack PO HS PRN Constipation Ropinirole HCl 0.25 mg 09/14/25 21:00 09/17/25 22:12 Ropinirole Hcl 0.25 Mg Tablet PO 0.25 mg HS SILVIO Administration Radiology Results: ITS Impressions Head CT 09/14/25 05:56 IMPRESSION: 1. No acute intracranial findings. Chest X-Ray 09/14/25 12:22 Impression: CHF. Early basilar pneumonia suspected. The findings appear slightly progressed compared to the previous exam Quality VTE Prophylaxis VTE prophylaxis: pharmacologic ordered
[2025-09-18 08:06] LABS: Alanine Aminotransferase 17 U/L (6-35); Albumin Level 3.9 g/dL (3.5-5.1); Alkaline Phosphatase 63 U/L (38-126); Anion Gap 7 mmol/L (4-12); Aspartate Amino Transferase 25 U/L (14-36); Bilirubin,Total 0.7 mg/dL (0.2-1.3); Blood Urea Nitrogen 9 mg/dL (7-17); Calcium 8.8 mg/dL (8.4-10.2); Carbon Dioxide 25 mmol/L (22-30); Chloride 104 mmol/L (98-107); Estimated CRCL calculation 50 ml/min; Estimated Glomerular Filt Rate > 60; Glucose 99 mg/dL (65-110); Potassium 3.4 mmol/L (3.4-5.0); Sodium 136 mmol/L (137-145); Total Protein 7.3 g/dL (6.3-8.2)
[2025-09-18 08:30] LABS: INR 1.3; Prothrombin Time 16.0 Seconds (11.1-14.7)
[2025-09-18] MEDS: FERROUS SULFATE 325 MG TABLET PO (09:35)
[2025-09-18] MEDS: METOPROLOL TARTRATE 25 MG TABLET PO ×2 (09:35→21:14)
[2025-09-18] MEDS: OLMESARTAN MEDOXOMIL 10 MG TABLET PO (09:35)
[2025-09-18] MEDS: ENOXAPARIN 40 MG/0.4 ML SYRINGE SUB-Q (09:35)
[2025-09-18] MEDS: FAMOTIDINE 20 MG TABLET PO ×2 (09:35→21:14)
[2025-09-18] MEDS: PANTOPRAZOLE 40 MG TABLET PO (09:35)
[2025-09-18] MEDS: AZITHROMYCIN 500 MG TABLET PO (09:35)
[2025-09-18 14:00] VITALS: BP 139/91; PULSE 87; RESP 19; TEMP 36.3; O2SAT 97
[2025-09-18] MEDS: ATORVASTATIN 40 MG TABLET PO (21:13)
[2025-09-18 21:14] VITALS: PULSE 68
[2025-09-18 22:00] VITALS: BP 164/87; PULSE 76; RESP 18; TEMP 36.5; O2SAT 93
[2025-09-19] MEDS: LEVOTHYROXINE SODIUM 88 MCG TABLET PO (05:38)
[2025-09-19 06:00] VITALS: BP 150/76; PULSE 67; RESP 16; TEMP 36.6; O2SAT 94
[2025-09-19 07:47] LABS: Hematocrit 37.6 % (37.0-47.0); Hemoglobin 11.8 g/dL (12.0-15.0); Immature Granulocyte Percent A 0.2 % (0-0.5); Lymphocytes Absolute Auto 1.29 K/mm3 (0.9-3.2); Mean Corpuscular HGB Conc 31.4 g/dl (32-36); Mean Corpuscular Hemoglobin 28.5 pg (26-34); Mean Corpuscular Volume 90.8 fl (80-100); Nucleated Red Blood Cells Absolute Auto 0.000 K/mm3 (0.0-0.012); Nucleated Red Blood Cells Perc 0.0 % (0.0-0.2); Platelet Count Result 319 k/mm3 (150-375); Red Blood Count 4.14 M/mm3 (4.2-5.4); White Blood Count 5.0 K/mm3 (4.5-10.0)
[2025-09-19 08:06] LABS: Alanine Aminotransferase 16 U/L (6-35); Albumin Level 3.5 g/dL (3.5-5.1); Alkaline Phosphatase 60 U/L (38-126); Anion Gap 8 mmol/L (4-12); Aspartate Amino Transferase 22 U/L (14-36); Bilirubin,Total 0.7 mg/dL (0.2-1.3); Blood Urea Nitrogen 19 mg/dL (7-17); Calcium 8.7 mg/dL (8.4-10.2); Carbon Dioxide 26 mmol/L (22-30); Chloride 104 mmol/L (98-107); Estimated CRCL calculation 42 ml/min; Estimated Glomerular Filt Rate 58; Glucose 93 mg/dL (65-110); Potassium 3.3 mmol/L (3.4-5.0); Sodium 138 mmol/L (137-145); Total Protein 6.5 g/dL (6.3-8.2)
[2025-09-19 08:32] VITALS: PULSE 70
[2025-09-19] MEDS: METOPROLOL TARTRATE 25 MG TABLET PO ×2 (08:32→20:00)
[2025-09-19] MEDS: FAMOTIDINE 20 MG TABLET PO ×2 (08:32→19:59)
[2025-09-19] MEDS: FERROUS SULFATE 325 MG TABLET PO (08:33)
[2025-09-19] MEDS: PANTOPRAZOLE 40 MG TABLET PO (08:33)
[2025-09-19] MEDS: OLMESARTAN MEDOXOMIL 10 MG TABLET PO (08:33)
[2025-09-19] MEDS: ENOXAPARIN 40 MG/0.4 ML SYRINGE SUB-Q (08:36)
--- NOTE | 2025-09-19 10:07 | P.PNIM_ITS ---
Progress Note: A&P Assessment and Plan (1) Community acquired bilateral lower lobe pneumonia: Code(s): J18.9 - Pneumonia, unspecified organism Status: Acute Assessment and Plan: 09/14: Confirms CHF & basilar PNA: Antibiotics de-escalated to Augmentin and azithromycin (2) COVID: Code(s): U07.1 - COVID-19 Status: Acute Assessment and Plan: Monitor for progression of COVID syndrome. Droplet precautions. Remdesivir protocol. . Chest x-ray demonstrates probable airspace disease in the right lower lobe. . Confirms CHF & basilar PNA: Discontinue the remdesivir Not currently on any oxygen Saturations 95 and above Trend saturations (3) Generalized weakness: Code(s): R53.1 - Weakness Status: Acute Assessment and Plan: Potentially due to COVID / PNA Continue to work with PT and OT Case management working on discharge plan (4) Urinary tract infection: Code(s): N39.0 - Urinary tract infection, site not specified Status: Acute Assessment and Plan: Received ceftriaxone. Follow urine culture. Growth noted on culture results On oral Augmentin and azithromycin (5) Dehydration: Code(s): E86.0 - Dehydration Status: Acute Assessment and Plan: Improved Discontinue fluids Encourage oral intake Plan 84-year-old female with PMH hypertension, hypothyroidism, who resides at [facility] locally brought in by EMS to [facility] ER on 09/13/2025 presents with extreme weakness found to have a UTI COVID. Patient has a complaints at this time she is medically ready for discharge, case management working on discharge plan with family Full code Time Spent With Patient Time: 49 minutes Subjective Date/time seen: 09/19/25 10:07 Interval history: VSS. Potassium 20meq for 3.3 No new complaints. Discharge pending placement REASON FOR HOSPITALIZATION 84-year-old female with PMH hypertension, hypothyroidism, who resides at [facility] locally brought in by EMS to [facility] ER on 09/13/2025 presents with extreme weakness found to a UTI COVID. Patient has a complaints at this time she is medically ready for discharge, case management updated Exam Narrative: General: well appearing, appears stated age. HEENT: normocephalic, atraumatic. Mucous membranes moist. EOMI, PERRLA, bilateral sclera anicteric, no conjunctival injection. Neck supple without JVD, lymphadenopathy, or bruit. Respiratory: clear bilaterally. No rales/rhonic/wheezes. Cardiovascular: Regular rate and rhythm, normal S1-S2. No murmurs, rubs, or clicks. PMI is nondisplaced, capillary refill less than 3 second. Abdomen: Soft, round, no pulsatile masses, nondistended and nontender. No rebound, no guarding. Bowel sounds present to all four quadrants. No high pitch or tinkling sounds, resonant to percussion. Extremities: No cyanosis, clubbing, or edema present. Pulses are palpable 2/2. Active ROM to all four extremities. Neuro: Alert and orientated x 4. PERRLA. Cranial nerves 2-12 intact without focal deficit. Skin: Warm, dry, and intact, without rash, erythema, or lesion. Psych: pleasant, cooperative, normal speech, normal affect, no hallucinations, no dysarthia Objective Data Vital Signs Vital Signs: Vital Signs - 24 hr 09/18/25 14:00 09/18/25 20:00 09/18/25 21:14 Temperature 97.3 F L Pulse Rate 87 68 Respiratory Rate 19 Blood Pressure 139/91 H Pulse Oximetry 97 Oxygen Delivery Room Air Fraction of Inspired Oxygen 09/18/25 22:00 09/19/25 06:00 09/19/25 08:32 Temperature 97.7 F 97.9 F Pulse Rate 76 67 70 Respiratory Rate 18 16 Blood Pressure 164/87 H 150/76 H Pulse Oximetry 93 94 Oxygen Delivery Fraction of Inspired Oxygen 09/19/25 08:45 Temperature Pulse Rate Respiratory Rate Blood Pressure Pulse Oximetry Oxygen Delivery Room Air Fraction of Inspired Oxygen 21 Intake/Output Intake/Output: Intake & Output 09/16/25 09/17/25 09/18/25 09/19/25 23:59 23:59 23:59 23:59 Intake Total 2353 1730 700 210 Output Total 1550 2625 1950 Balance 803 -895 -1250 210 Meds/Results Medications: Active Medications Generic Name Dose Route Start Last Admin Trade Name Freq PRN Reason Stop Dose Admin Acetaminophen 650 mg 09/14/25 09:55 09/14/25 14:05 Acetaminophen 325 Mg Tablet PO 650 mg Q6H PRN Administration fever or pain Amoxicillin/Clavulanate Potassium 1 tablet 09/16/25 21:00 09/19/25 08:36 Amoxicillin/Clavulanate K 875-125 Mg Tab PO 09/21/25 09:01 1 tablet Q12HR SILVIO Administration Atorvastatin Calcium 40 mg 09/14/25 21:00 09/18/25 21:13 Atorvastatin 40 Mg Tablet PO 40 mg HS SILVIO Administration Diclofenac Sodium 1 applic 09/14/25 09:55 Diclofenac Sodium 1% 100 Gm Gel (*Bkc) TOPICAL TID PRN Pain Enoxaparin Sodium 40 mg 09/14/25 09:00 09/19/25 08:36 Enoxaparin 40 Mg/0.4 Ml Syringe SUB-Q 40 mg DAILY SILVIO Administration Famotidine 20 mg 09/14/25 21:00 09/19/25 08:32 Famotidine 20 Mg Tablet PO 20 mg Q12HR SILVIO Administration Ferrous Sulfate 325 mg 09/15/25 09:00 09/19/25 08:33 Ferrous Sulfate 325 Mg Tablet PO 325 mg DAILY SILVIO Administration Guaifenesin 200 mg 09/14/25 09:55 Guaifenesin 200 Mg/10 Ml Udc PO Q6H PRN Cough Ibuprofen 600 mg 09/14/25 15:35 Ibuprofen 600 Mg Tablet PO Q6H PRN Cramping Levothyroxine Sodium 88 mcg 09/15/25 06:30 09/19/25 05:38 Levothyroxine Sodium 88 Mcg Tablet PO 88 mcg DAILY@0630 SILVIO Administration Metoprolol Tartrate 25 mg 09/14/25 11:00 09/19/25 08:32 Metoprolol Tartrate 25 Mg Tablet PO 25 mg Q12HR SILVIO Administration Olmesartan 10 mg 09/14/25 11:00 09/19/25 08:33 Olmesartan Medoxomil 10 Mg Tablet PO 10 mg DAILY [facility] Administration Ondansetron HCl 4 mg 09/14/25 02:37 09/16/25 06:22 Ondansetron Inj 4 Mg/2 Ml Vial IV PUSH 4 mg Q4H PRN Administration Nausea Ondansetron HCl 4 mg 09/14/25 09:55 Ondansetron Hcl Odt 4 Mg Tablet PO Q6H PRN Nausea And Vomiting Pantoprazole Sodium 40 mg 09/14/25 09:00 09/19/25 08:33 Pantoprazole 40 Mg Tablet PO 40 mg QAM SILVIO Administration Polyethylene Glycol 17 gm 09/14/25 09:55 Polyethylene Glycol 3350 17 Gm Powd.Pack PO HS PRN Constipation Ropinirole HCl 0.25 mg 09/14/25 21:00 09/18/25 21:14 Ropinirole Hcl 0.25 Mg Tablet PO 0.25 mg HS SILVIO Administration Radiology Results: ITS Impressions Head CT 09/14/25 05:56 IMPRESSION: 1. No acute intracranial findings. Chest X-Ray 09/14/25 12:22 Impression: CHF. Early basilar pneumonia suspected. The findings appear slightly progressed compared to the previous exam Labs Labs: Laboratory Results - last 24 hr 09/19/25 06:40 WBC 5.0 RBC 4.14 L Hgb 11.8 L Hct 37.6 MCV 90.8 MCH 28.5 MCHC 31.4 L RDW 16.0 H Plt Count 319 MPV 10.2 Immature Gran % (Auto) 0.2 Neut % (Auto) 57.2 Lymph % (Auto) 25.7 [place] % (Auto) 12.7 H Eos % (Auto) 3.6 Baso % (Auto) 0.6 Lymph # (Auto) 1.29 [place] # (Auto) 0.6 Eos # (Auto) 0.2 Baso # (Auto) 0.0 Abs Immat Gran (auto) 0.01 Absolute Neuts (auto) 2.9 Absolute Nucleated RBC 0.000 Nucleated RBC % 0.0 Sodium 138 Potassium 3.3 L Chloride 104 Carbon Dioxide 26 Anion Gap 8 BUN 19 H D Creatinine 0.93 Estim Creat Clear Calc 42 Estimated GFR 58 L Glucose 93 Calcium 8.7 Total Bilirubin 0.7 AST 22 ALT 16 Alkaline Phosphatase 60 Total Protein 6.5 Albumin 3.5 Hospitalist MIPS Advance Care Plan I have confirmed that the patient's Advanced Care Plan is present, code status is documented, or surrogate decision maker is listed in patient medical record.: Yes Medication Reconciliation I have utilized all available resources to obtain, update and review the patients current medications (includes all prescriptions, OTC, herbals, cannabis, and nutritional supplements).: Yes
[2025-09-19] MEDS: POTASSIUM CHLORIDE 20 MEQ ER TABLET PO (10:50)
[2025-09-19 14:00] VITALS: BP 147/85; PULSE 75; RESP 17; TEMP 36.2; O2SAT 94
[2025-09-19 19:53] VITALS: BP 147/91; PULSE 74; RESP 16; TEMP 36.1; O2SAT 93
[2025-09-19] MEDS: ATORVASTATIN 40 MG TABLET PO (19:59)
[2025-09-19] MEDS: ACETAMINOPHEN 325 MG TABLET 650 MG PO (20:00)
[2025-09-20] MEDS: LEVOTHYROXINE SODIUM 88 MCG TABLET PO (05:38)
[2025-09-20 06:00] VITALS: BP 161/73; PULSE 60; RESP 14; TEMP 36.5; O2SAT 96
[2025-09-20 07:26] LABS: Hematocrit 37.9 % (37.0-47.0); Hemoglobin 11.9 g/dL (12.0-15.0); Immature Granulocyte Percent A 0.2 % (0-0.5); Lymphocytes Absolute Auto 1.44 K/mm3 (0.9-3.2); Mean Corpuscular HGB Conc 31.4 g/dl (32-36); Mean Corpuscular Hemoglobin 28.5 pg (26-34); Mean Corpuscular Volume 90.7 fl (80-100); Nucleated Red Blood Cells Absolute Auto 0.000 K/mm3 (0.0-0.012); Nucleated Red Blood Cells Perc 0.0 % (0.0-0.2); Platelet Count Result 328 k/mm3 (150-375); Red Blood Count 4.18 M/mm3 (4.2-5.4); White Blood Count 5.4 K/mm3 (4.5-10.0)
[2025-09-20 07:46] LABS: Alanine Aminotransferase 16 U/L (6-35); Albumin Level 3.6 g/dL (3.5-5.1); Alkaline Phosphatase 60 U/L (38-126); Anion Gap 6 mmol/L (4-12); Aspartate Amino Transferase 24 U/L (14-36); Bilirubin,Total 0.6 mg/dL (0.2-1.3); Blood Urea Nitrogen 19 mg/dL (7-17); Calcium 8.6 mg/dL (8.4-10.2); Carbon Dioxide 24 mmol/L (22-30); Chloride 107 mmol/L (98-107); Estimated CRCL calculation 43 ml/min; Estimated Glomerular Filt Rate 59; Glucose 94 mg/dL (65-110); Potassium 3.4 mmol/L (3.4-5.0); Sodium 137 mmol/L (137-145); Total Protein 6.7 g/dL (6.3-8.2)
[2025-09-20 08:51] VITALS: PULSE 76
[2025-09-20] MEDS: FAMOTIDINE 20 MG TABLET PO ×2 (08:51→21:48)
[2025-09-20] MEDS: PANTOPRAZOLE 40 MG TABLET PO (08:51)
[2025-09-20] MEDS: METOPROLOL TARTRATE 25 MG TABLET PO ×2 (08:51→21:48)
[2025-09-20] MEDS: FERROUS SULFATE 325 MG TABLET PO (08:51)
[2025-09-20] MEDS: ENOXAPARIN 40 MG/0.4 ML SYRINGE SUB-Q (08:51)
[2025-09-20] MEDS: OLMESARTAN MEDOXOMIL 10 MG TABLET PO (08:51)
[2025-09-20 14:00] VITALS: BP 132/80; PULSE 66; RESP 17; TEMP 36.3; O2SAT 97
[2025-09-20] MEDS: ATORVASTATIN 40 MG TABLET PO (21:48)
[2025-09-20 21:54] VITALS: BP 147/77; PULSE 82; RESP 18; TEMP 36.2; O2SAT 96
[2025-09-21 04:55] VITALS: BP 151/69; PULSE 78; RESP 16; TEMP 36.3; O2SAT 98
[2025-09-21] MEDS: LEVOTHYROXINE SODIUM 88 MCG TABLET PO (06:05)
[2025-09-21 06:47] LABS: Hematocrit 39.3 % (37.0-47.0); Hemoglobin 12.1 g/dL (12.0-15.0); Immature Granulocyte Percent A 0.4 % (0-0.5); Lymphocytes Absolute Auto 1.43 K/mm3 (0.9-3.2); Mean Corpuscular HGB Conc 30.8 g/dl (32-36); Mean Corpuscular Hemoglobin 28.1 pg (26-34); Mean Corpuscular Volume 91.2 fl (80-100); Nucleated Red Blood Cells Absolute Auto 0.000 K/mm3 (0.0-0.012); Nucleated Red Blood Cells Perc 0.0 % (0.0-0.2); Platelet Count Result 360 k/mm3 (150-375); Red Blood Count 4.31 M/mm3 (4.2-5.4); White Blood Count 6.7 K/mm3 (4.5-10.0)
[2025-09-21 07:11] LABS: Alanine Aminotransferase 16 U/L (6-35); Albumin Level 3.7 g/dL (3.5-5.1); Alkaline Phosphatase 63 U/L (38-126); Anion Gap 7 mmol/L (4-12); Aspartate Amino Transferase 31 U/L (14-36); Bilirubin,Total 0.7 mg/dL (0.2-1.3); Blood Urea Nitrogen 18 mg/dL (7-17); Calcium 8.9 mg/dL (8.4-10.2); Carbon Dioxide 24 mmol/L (22-30); Chloride 104 mmol/L (98-107); Estimated CRCL calculation 42 ml/min; Estimated Glomerular Filt Rate 57; Glucose 89 mg/dL (65-110); Potassium 3.7 mmol/L (3.4-5.0); Sodium 135 mmol/L (137-145); Total Protein 6.8 g/dL (6.3-8.2)
[2025-09-21 09:07] VITALS: PULSE 76
[2025-09-21] MEDS: FERROUS SULFATE 325 MG TABLET PO (09:07)
[2025-09-21] MEDS: PANTOPRAZOLE 40 MG TABLET PO (09:07)
[2025-09-21] MEDS: METOPROLOL TARTRATE 25 MG TABLET PO ×2 (09:07→21:14)
[2025-09-21] MEDS: FAMOTIDINE 20 MG TABLET PO ×2 (09:07→21:14)
[2025-09-21] MEDS: ENOXAPARIN 40 MG/0.4 ML SYRINGE SUB-Q (09:07)
[2025-09-21] MEDS: OLMESARTAN MEDOXOMIL 10 MG TABLET PO (09:07)
--- NOTE | 2025-09-21 11:15 | PCOTNOTE ---
Attempted, Thien refused to participate at this time. Patient verbalized not right now, maybe later , I don't feel good.
--- NOTE | 2025-09-21 13:06 | P.PNIM_ITS ---
Progress Note: A&P Assessment and Plan (1) Community acquired bilateral lower lobe pneumonia: Code(s): J18.9 - Pneumonia, unspecified organism Status: Acute Assessment and Plan: 09/14: Confirms CHF & basilar PNA: Antibiotics de-escalated to Augmentin and azithromycin completed azithromyacin. Today is last dose for augmentin. (2) COVID: Code(s): U07.1 - COVID-19 Status: Acute Assessment and Plan: Monitor for progression of COVID syndrome. Droplet precautions. Remdesivir protocol. . Chest x-ray demonstrates probable airspace disease in the right lower lobe. . Confirms CHF & basilar PNA: Discontinue the remdesivir Not currently on any oxygen Saturations 95 and above Trend saturations remains on ra (3) Generalized weakness: Code(s): R53.1 - Weakness Status: Acute Assessment and Plan: Potentially due to COVID / PNA Continue to work with PT and OT Case management working on discharge plan working with PT/OT (4) Urinary tract infection: Code(s): N39.0 - Urinary tract infection, site not specified Status: Acute Assessment and Plan: Received ceftriaxone. Follow urine culture. Growth noted on culture results On oral Augmentin and azithromycin completed antibiotics (5) Dehydration: Code(s): E86.0 - Dehydration Status: Acute Assessment and Plan: Improved Discontinue fluids Encourage oral intake Plan 84-year-old female with PMH hypertension, hypothyroidism, who resides at [facility] locally brought in by EMS to [facility] ER on 09/13/2025 presents with extreme weakness found to have a UTI COVID. Patient has a complaints at this time she is medically ready for discharge, case management working on discharge plan with family Full code Subjective Date/time seen: 09/21/25 13:06 Interval history: REASON FOR HOSPITALIZATION 84-year-old female with PMH hypertension, hypothyroidism, who resides at [facility] locally brought in by EMS to [facility] ER on 09/13/2025 presents with extreme weakness found to a UTI COVID. Patient has a complaints at this time she is medically ready for discharge, case management following. NO chest pain, no n/d. Remains pleasantly confused Review of Systems Review of Systems: 12 systems were reviewed and are negativ e except for as per HPI. All systems reviewed & are unremarkable except as noted in HPI and below ROS unobtainable: Yes unobtainable due to mental status Exam Narrative: General: well appearing, appears stated age. HEENT: normocephalic, atraumatic. Mucous membranes moist. EOMI, PERRLA, bilateral sclera anicteric, no conjunctival injection. Neck supple without JVD, lymphadenopathy, or bruit. Respiratory: clear bilaterally. No rales/rhonic/wheezes. Cardiovascular: Regular rate and rhythm, normal S1-S2. No murmurs, rubs, or cl icks. PMI is nondisplaced, capillary refill less than 3 second. Abdomen: Soft, round, no pulsatile masses, nondistended and nontender. No rebound, no guarding. Bowel sounds present to all four quadrants. No high pitch or tinkling sounds, resonant to percussion. Extremities: No cyanosis, clubbing, or edema present. Pulses are palpable 2/2. Active ROM to all four extremities. Neuro: Alert and orientated x 4. PERRLA. Cranial nerves 2-12 intact without focal deficit. Skin: Warm, dry, and intact, without rash, erythema, or lesion. Psych: pleasant, cooperative, normal speech, normal affect, no hallucinations, no dysarthia Const: General: comfortable and no acute distress Other: A&O x2, cooperative HENMT: Face/Nose/Sinus: Normal nares present Mouth: Yes moist mucous membranes Eyes: General: appearance normal, both eyes and all related structures Sclera: sclerae normal Pupils: Equal, round and reactive pupils present Neck: Neck: supple Resp: Effort & Inspection: normal respiratory effort Auscultation: clear to auscultation bilaterally Other: No cough upon my exam with deep breathing Cardio: Rate: regular rate Rhythm: regular rhythm GI: Inspection: non-distended Skin: General skin exam: normal color and no rashes or lesions noted Neuro: Cranial nerves: Yes Equal, round and reactive pupils present Motor exam (neuro): 5/5 motor strength present throughout and Normal motor muscle tone present throughout Sensory Exam: normal sensation Extrem: General: edema (trace) Psych: Mental Status: mental status grossly normal Affect: normal affect Objective Data Vital Signs Vital Signs: Vital Signs - 24 hr 09/20/25 14:00 09/20/25 21:54 09/21/25 04:55 Temperature 97.3 F L 97.1 F L 97.3 F L Pulse Rate 66 82 78 Respiratory Rate 17 18 16 Blood Pressure 132/80 147/77 H 151/69 H Pulse Oximetry 97 96 98 09/21/25 09:07 Temperature Pulse Rate 76 Respiratory Rate Blood Pressure Pulse Oximetry Intake/Output Intake/Output: Intake & Output 09/18/25 09/19/25 09/20/25 09/21/25 23:59 23:59 23:59 23:59 Intake Total 011 936 5087 120 Output Total 1950 950 100 Balance -1250 450 670 20 Meds/Results Medications: Active Medications Generic Name Dose Route Start Last Admin Trade Name Freq PRN Reason Stop Dose Admin Acetaminophen 650 mg 09/14/25 09:55 09/19/25 20:00 Acetaminophen 325 Mg Tablet PO 650 mg Q6H PRN Administration fever or pain Atorvastatin Calcium 40 mg 09/14/25 21:00 09/20/25 21:48 Atorvastatin 40 Mg Tablet PO 40 mg HS SILVIO Administration Diclofenac Sodium 1 applic 09/14/25 09:55 Diclofenac Sodium 1% 100 Gm Gel (*Bkc) TOPICAL TID PRN Pain Enoxaparin Sodium 40 mg 09/14/25 09:00 09/21/25 09:07 Enoxaparin 40 Mg/0.4 Ml Syringe SUB-Q 40 mg DAILY SILVIO Administration Famotidine 20 mg 09/14/25 21:00 09/21/25 09:07 Famotidine 20 Mg Tablet PO 20 mg Q12HR SILVIO Administration Ferrous Sulfate 325 mg 09/15/25 09:00 09/21/25 09:07 Ferrous Sulfate 325 Mg Tablet PO 325 mg DAILY SILVIO Administration Guaifenesin 200 mg 09/14/25 09:55 Guaifenesin 200 Mg/10 Ml Udc PO Q6H PRN Cough Ibuprofen 600 mg 09/14/25 15:35 Ibuprofen 600 Mg Tablet PO Q6H PRN Cramping Levothyroxine Sodium 88 mcg 09/15/25 06:30 09/21/25 06:05 Levothyroxine Sodium 88 Mcg Tablet PO 88 mcg DAILY@0630 SILVIO Administration Metoprolol Tartrate 25 mg 09/14/25 11:00 09/21/25 09:07 Metoprolol Tartrate 25 Mg Tablet PO 25 mg Q12HR SILVIO Administration Olmesartan 10 mg 09/14/25 11:00 09/21/25 09:07 Olmesartan Medoxomil 10 Mg Tablet PO 10 mg DAILY SILVIO Administration Ondansetron HCl 4 mg 09/14/25 02:37 09/16/25 06:22 Ondansetron Inj 4 Mg/2 Ml Vial IV PUSH 4 mg Q4H PRN Administration Nausea Ondansetron HCl 4 mg 09/14/25 09:55 Ondansetron Hcl Odt 4 Mg Tablet PO Q6H PRN Nausea And Vomiting Pantoprazole Sodium 40 mg 09/14/25 09:00 09/21/25 09:07 Pantoprazole 40 Mg Tablet PO 40 mg QAM SILVIO Administration Polyethylene Glycol 17 gm 09/14/25 09:55 Polyethylene Glycol 3350 17 Gm Powd.Pack PO HS PRN Constipation Ropinirole HCl 0.25 mg 09/14/25 21:00 09/20/25 21:48 Ropinirole Hcl 0.25 Mg Tablet PO 0.25 mg HS SILVIO Administration Radiology Results: ITS Impressions Head CT 09/14/25 05:56 IMPRESSION: 1. No acute intracranial findings. Chest X-Ray 09/14/25 12:22 Impression: CHF. Early basilar pneumonia suspected. The findings appear slightly progressed compared to the previous exam Labs Labs: Laboratory Results - last 24 hr 09/21/25 05:54 WBC 6.7 RBC 4.31 Hgb 12.1 Hct 39.3 MCV 91.2 MCH 28.1 MCHC 30.8 L RDW 15.7 H Plt Count 360 MPV 9.7 Immature Gran % (Auto) 0.4 Neut % (Auto) 61.2 Lymph % (Auto) 21.4 [place] % (Auto) 11.8 H Eos % (Auto) 4.8 H Baso % (Auto) 0.4 Lymph # (Auto) 1.43 [place] # (Auto) 0.8 H Eos # (Auto) 0.3 Baso # (Auto) 0.0 Abs Immat Gran (auto) 0.03 Absolute Neuts (auto) 4.1 Absolute Nucleated RBC 0.000 Nucleated RBC % 0.0 Sodium 135 L Potassium 3.7 Chloride 104 Carbon Dioxide 24 Anion Gap 7 BUN 18 H Creatinine 0.94 Estim Creat Clear Calc 42 Estimated GFR 57 L Glucose 89 Calcium 8.9 Total Bilirubin 0.7 AST 31 ALT 16 Alkaline Phosphatase 63 Total Protein 6.8 Albumin 3.7 Quality VTE Prophylaxis VTE prophylaxis: pharmacologic ordered
--- NOTE | 2025-09-21 13:10 | P.PNIM_ITS ---
Progress Note: A&P Assessment and Plan (1) Community acquired bilateral lower lobe pneumonia: Code(s): J18.9 - Pneumonia, unspecified organism Status: Acute Assessment and Plan: 09/14: Confirms CHF & basilar PNA: Antibiotics de-escalated to Augmentin and azithromycin (2) COVID: Code(s): U07.1 - COVID-19 Status: Acute Assessment and Plan: Monitor for progression of COVID syndrome. Droplet precautions. Remdesivir protocol. Chest x-ray demonstrates probable airspace disease in the right lower lobe. . Confirms CHF & basilar PNA: Discontinue the remdesivir Not currently on any oxygen Saturations 95 and above Trend saturations (3) Generalized weakness: Code(s): R53.1 - Weakness Status: Acute Assessment and Plan: Potentially due to COVID / PNA Continue to work with PT and OT Case management working on discharge plan (4) Urinary tract infection: Code(s): N39.0 - Urinary tract infection, site not specified Status: Acute Assessment and Plan: Received ceftriaxone. Follow urine culture. Growth noted on culture results On oral Augmentin and azithromycin (5) Dehydration: Code(s): E86.0 - Dehydration Status: Acute Assessment and Plan: Improved Discontinue fluids Encourage oral intake Plan 84-year-old female with PMH hypertension, hypothyroidism, who resides at [facility] locally brought in by EMS to [facility] ER on 09/13/2025 presents with extreme weakness found to have a UTI COVID. Patient has a complaints at this time she is medically ready for discharge, case management working on discharge plan with family Full code Time Spent With Patient Time: 36 minutes Subjective Date/time seen: 09/20/25 17:35 Interval history: VSS. No overnight events or changes. Discharge pending placement Pleasantly confused. REASON FOR HOSPITALIZATION 84-year-old female with PMH hypertension, hypothyroidism, who resides at [facility] locally brought in by EMS to [facility] ER on 09/13/2025 presents with extreme weakness found to a UTI COVID. Patient has a complaints at this time she is medically ready for discharge, pending case management Review of Systems Review of Systems: 12 systems were reviewed and are negativ e except for as per HPI. All systems reviewed & are unremarkable except as noted in HPI and below ROS unobtainable: Yes unobtainable due to mental status Exam Narrative: General: well appearing, appears stated age. HEENT: normocephalic, atraumatic. Mucous membranes moist. EOMI, PERRLA, bilateral sclera anicteric, no conjunctival injection. Neck supple without JVD, lymphadenopathy, or bruit. Respiratory: clear bilaterally. No rales/rhonic/wheezes. Cardiovascular: Regular rate and rhythm, normal S1-S2. No murmurs, rubs, or clicks. PMI is nondisplaced, capillary refill less than 3 second. Abdomen: Soft, round, no pulsatile masses, nondistended and nontender. No rebound, no guarding. Bowel sounds present to all four quadrants. No high pitch or tinkling sounds, resonant to percussion. Extremities: No cyanosis, clubbing, or edema present. Pulses are palpable 2/2. Active ROM to all four extremities. Neuro: Alert and orientated x 1. PERRLA. Cranial nerves 2-12 intact without focal deficit. Skin: Warm, dry, and intact, without rash, erythema, or lesion. Psych: pleasant, cooperative, normal speech, normal affect, no hallucinations, no dysarthia Objective Data Vital Signs Vital Signs: Vital Signs - 24 hr 09/20/25 14:00 09/20/25 21:54 09/21/25 04:55 Temperature 97.3 F L 97.1 F L 97.3 F L Pulse Rate 66 82 78 Respiratory Rate 17 18 16 Blood Pressure 132/80 147/77 H 151/69 H Pulse Oximetry 97 96 98 09/21/25 09:07 Temperature Pulse Rate 76 Respiratory Rate Blood Pressure Pulse Oximetry Intake/Output Intake/Output: Intake & Output 09/18/25 09/19/25 09/20/25 09/21/25 23:59 23:59 23:59 23:59 Intake Total 908 467 2915 120 Output Total 1950 950 100 Balance -1250 450 670 20 Meds/Results Medications: Active Medications Generic Name Dose Route Start Last Admin Trade Name Freq PRN Reason Stop Dose Admin Acetaminophen 650 mg 09/14/25 09:55 09/19/25 20:00 Acetaminophen 325 Mg Tablet PO 650 mg Q6H PRN Administration fever or pain Atorvastatin Calcium 40 mg 09/14/25 21:00 09/20/25 21:48 Atorvastatin 40 Mg Tablet PO 40 mg HS SILVIO Administration Diclofenac Sodium 1 applic 09/14/25 09:55 Diclofenac Sodium 1% 100 Gm Gel (*Bkc) TOPICAL TID PRN Pain Enoxaparin Sodium 40 mg 09/14/25 09:00 09/21/25 09:07 Enoxaparin 40 Mg/0.4 Ml Syringe SUB-Q 40 mg DAILY SILVIO Administration Famotidine 20 mg 09/14/25 21:00 09/21/25 09:07 Famotidine 20 Mg Tablet PO 20 mg Q12HR SILVIO Administration Ferrous Sulfate 325 mg 09/15/25 09:00 09/21/25 09:07 Ferrous Sulfate 325 Mg Tablet PO 325 mg DAILY SILVIO Administration Guaifenesin 200 mg 09/14/25 09:55 Guaifenesin 200 Mg/10 Ml Udc PO Q6H PRN Cough Ibuprofen 600 mg 09/14/25 15:35 Ibuprofen 600 Mg Tablet PO Q6H PRN Cramping Levothyroxine Sodium 88 mcg 09/15/25 06:30 09/21/25 06:05 Levothyroxine Sodium 88 Mcg Tablet PO 88 mcg DAILY@0630 SILVIO Administration Metoprolol Tartrate 25 mg 09/14/25 11:00 09/21/25 09:07 Metoprolol Tartrate 25 Mg Tablet PO 25 mg Q12HR SILVIO Administration Olmesartan 10 mg 09/14/25 11:00 09/21/25 09:07 Olmesartan Medoxomil 10 Mg Tablet PO 10 mg DAILY SILVIO Administration Ondansetron HCl 4 mg 09/14/25 02:37 09/16/25 06:22 Ondansetron Inj 4 Mg/2 Ml Vial IV PUSH 4 mg Q4H PRN Administration Nausea Ondansetron HCl 4 mg 09/14/25 09:55 Ondansetron Hcl Odt 4 Mg Tablet PO Q6H PRN Nausea And Vomiting Pantoprazole Sodium 40 mg 09/14/25 09:00 09/21/25 09:07 Pantoprazole 40 Mg Tablet PO 40 mg QAM SILVIO Administration Polyethylene Glycol 17 gm 09/14/25 09:55 Polyethylene Glycol 3350 17 Gm Powd.Pack PO HS PRN Constipation Ropinirole HCl 0.25 mg 09/14/25 21:00 09/20/25 21:48 Ropinirole Hcl 0.25 Mg Tablet PO 0.25 mg HS SILVIO Administration Radiology Results: ITS Impressions Head CT 09/14/25 05:56 IMPRESSION: 1. No acute intracranial findings. Chest X-Ray 09/14/25 12:22 Impression: CHF. Early basilar pneumonia suspected. The findings appear slightly progressed compared to the previous exam Labs Labs: Laboratory Results - last 24 hr 09/21/25 05:54 WBC 6.7 RBC 4.31 Hgb 12.1 Hct 39.3 MCV 91.2 MCH 28.1 MCHC 30.8 L RDW 15.7 H Plt Count 360 MPV 9.7 Immature Gran % (Auto) 0.4 Neut % (Auto) 61.2 Lymph % (Auto) 21.4 [place] % (Auto) 11.8 H Eos % (Auto) 4.8 H Baso % (Auto) 0.4 Lymph # (Auto) 1.43 [place] # (Auto) 0.8 H Eos # (Auto) 0.3 Baso # (Auto) 0.0 Abs Immat Gran (auto) 0.03 Absolute Neuts (auto) 4.1 Absolute Nucleated RBC 0.000 Nucleated RBC % 0.0 Sodium 135 L Potassium 3.7 Chloride 104 Carbon Dioxide 24 Anion Gap 7 BUN 18 H Creatinine 0.94 Estim Creat Clear Calc 42 Estimated GFR 57 L Glucose 89 Calcium 8.9 Total Bilirubin 0.7 AST 31 ALT 16 Alkaline Phosphatase 63 Total Protein 6.8 Albumin 3.7 Quality VTE Prophylaxis VTE prophylaxis: pharmacologic ordered Hospitalist MIPS Advance Care Plan I have confirmed that the patient's Advanced Care Plan is present, code status is documented, or surrogate decision maker is listed in patient medical record.: Yes Medication Reconciliation I have utilized all available resources to obtain, update and review the patients current medications (includes all prescriptions, OTC, herbals, cannabis, and nutritional supplements).: Yes
--- NOTE | 2025-09-21 13:47 | PCNWS ---
Weekly nutritional screen. Patient is tolerating current regular diet with adequate intake at 50-75%. No weight loss reported. No nutritional recommendations at this time.
[2025-09-21 14:42] VITALS: BP 135/68; PULSE 69; RESP 16; TEMP 36.2; O2SAT 97
[2025-09-21 20:00] VITALS: PULSE 69; RESP 16; O2SAT 97
[2025-09-21 20:55] VITALS: BP 148/70; PULSE 67; RESP 16; TEMP 36.3; O2SAT 100
[2025-09-21] MEDS: ATORVASTATIN 40 MG TABLET PO (21:14)
[2025-09-22 05:20] VITALS: BP 150/67; PULSE 66; RESP 16; TEMP 36.6; O2SAT 99
[2025-09-22] MEDS: LEVOTHYROXINE SODIUM 88 MCG TABLET PO (05:32)
[2025-09-22 06:07] LABS: Hematocrit 40.7 % (37.0-47.0); Hemoglobin 12.9 g/dL (12.0-15.0); Immature Granulocyte Percent A 0.3 % (0-0.5); Lymphocytes Absolute Auto 1.43 K/mm3 (0.9-3.2); Mean Corpuscular HGB Conc 31.7 g/dl (32-36); Mean Corpuscular Hemoglobin 28.5 pg (26-34); Mean Corpuscular Volume 89.8 fl (80-100); Nucleated Red Blood Cells Absolute Auto 0.000 K/mm3 (0.0-0.012); Nucleated Red Blood Cells Perc 0.0 % (0.0-0.2); Platelet Count Result 366 k/mm3 (150-375); Red Blood Count 4.53 M/mm3 (4.2-5.4); White Blood Count 7.5 K/mm3 (4.5-10.0)
[2025-09-22 06:33] LABS: Alanine Aminotransferase 15 U/L (6-35); Albumin Level 3.9 g/dL (3.5-5.1); Alkaline Phosphatase 74 U/L (38-126); Anion Gap 7 mmol/L (4-12); Aspartate Amino Transferase 23 U/L (14-36); Bilirubin,Total 0.9 mg/dL (0.2-1.3); Blood Urea Nitrogen 16 mg/dL (7-17); Calcium 9.1 mg/dL (8.4-10.2); Carbon Dioxide 25 mmol/L (22-30); Chloride 102 mmol/L (98-107); Estimated CRCL calculation 39 ml/min; Estimated Glomerular Filt Rate 53; Glucose 91 mg/dL (65-110); Potassium 3.9 mmol/L (3.4-5.0); Sodium 134 mmol/L (137-145); Total Protein 7.3 g/dL (6.3-8.2)
[2025-09-22 09:51] VITALS: PULSE 76
[2025-09-22] MEDS: FAMOTIDINE 20 MG TABLET PO ×2 (09:51→20:35)
[2025-09-22] MEDS: OLMESARTAN MEDOXOMIL 10 MG TABLET PO (09:51)
[2025-09-22] MEDS: FERROUS SULFATE 325 MG TABLET PO (09:51)
[2025-09-22] MEDS: METOPROLOL TARTRATE 25 MG TABLET PO ×2 (09:51→20:35)
[2025-09-22] MEDS: PANTOPRAZOLE 40 MG TABLET PO (09:51)
[2025-09-22] MEDS: ENOXAPARIN 40 MG/0.4 ML SYRINGE SUB-Q (09:51)
--- NOTE | 2025-09-22 13:27 | P.PNIM_ITS ---
Progress Note: A&P Assessment and Plan (1) Community acquired bilateral lower lobe pneumonia: Code(s): J18.9 - Pneumonia, unspecified organism Status: Acute (2) COVID: Code(s): U07.1 - COVID-19 Status: Acute Plan Community-acquired pneumonia -patient bibasilar pneumonia -chest x-ray showing bibasilar pneumonia 09/14/25 -antibiotics completed Augmentin azithromycin --PT/OT consulted for debility COVID-19 -off remdesivir, continue supportive care -off isolation Chronic conditions -dementia: Lives in Memory Care Unit awaiting disposition -RLS: requip -bowel regimen: miralax -GERD: Protonix, Pepcid -essential hypertension: olmesartan, metoprolol -hypothyroidism: levothyroxine -HLD: statin -supplements: Ferrous sulfate Diet: Regular diet DVT prophylaxis: Lovenox Code status: full code Disposition: Memory care unit? Patient medically stable for discharge Time Spent With Patient Time: 35 minutes Subjective Date/time seen: 09/22/25 13:27 Interval history: Patient seen examined. She is doing well no new complaints. Patient has fever, chills, nausea vomiting, diarrhea. We are awaiting discharge to memory care unit. She is medically stable. Review of Systems Review of Systems: 10 point ROS complete, negative other th an what is specified in HPI. Exam Narrative: - GENERAL: Pleasant elderly woman in No acute distress. Well-nourished. - EYES: EOMI. Anicteric. - HENT: Moist mucous membranes. Edentul ous - LUNGS: Clear to auscultation bilateral ly, no wheezing, rhonchi, or rales. - CARDIOVASCULAR: Regular rate and rhyth m. - ABDOMEN: Soft, non-tender and non-dist ended. - EXTREMITIES: No edema. Peripheral puls es 2+. - NEUROLOGIC: No focal neurological defi cits. CN II-XII grossly intact. - PSYCHIATRIC: Awake, Alert. Appropriate mood and affect. Objective Data Vital Signs Vital Signs: Vital Signs - 24 hr 09/21/25 14:42 09/21/25 20:00 09/21/25 20:55 Temperature 36.2 C L 36.3 C L Pulse Rate 69 69 67 Respiratory Rate 16 16 16 Blood Pressure 135/68 148/70 H Pulse Oximetry 97 97 100 Oxygen Delivery Room Air Fraction of Inspired Oxygen 21 11/25 05:20 09/22/25 09:51 09/22/25 09:51 Temperature 36.6 C Pulse Rate 66 76 Respiratory Rate 16 Blood Pressure 150/67 H Pulse Oximetry 99 Oxygen Delivery Room Air Fraction of Inspired Oxygen Intake/Output Intake/Output: Intake & Output 09/19/25 09/20/25 09/21/25 09/22/25 23:59 23:59 23:59 23:59 Intake Total 450 1620 1060 360 Output Total 950 1000 200 Balance 450 670 60 160 Meds/Results Medications: Active Medications Generic Name Dose Route Start Last Admin Trade Name Freq PRN Reason Stop Dose Admin Acetaminophen 650 mg 09/14/25 09:55 09/19/25 20:00 Acetaminophen 325 Mg Tablet PO 650 mg Q6H PRN Administration fever or pain Atorvastatin Calcium 40 mg 09/14/25 21:00 09/21/25 21:14 Atorvastatin 40 Mg Tablet PO 40 mg HS SILVIO Administration Diclofenac Sodium 1 applic 09/14/25 09:55 Diclofenac Sodium 1% 100 Gm Gel (*Bkc) TOPICAL TID PRN Pain Enoxaparin Sodium 40 mg 09/14/25 09:00 09/22/25 09:51 Enoxaparin 40 Mg/0.4 Ml Syringe SUB-Q 40 mg DAILY SILVIO Administration Famotidine 20 mg 09/14/25 21:00 09/22/25 09:51 Famotidine 20 Mg Tablet PO 20 mg Q12HR SILVIO Administration Ferrous Sulfate 325 mg 09/15/25 09:00 09/22/25 09:51 Ferrous Sulfate 325 Mg Tablet PO 325 mg DAILY SILVIO Administration Guaifenesin 200 mg 09/14/25 09:55 Guaifenesin 200 Mg/10 Ml Udc PO Q6H PRN Cough Ibuprofen 600 mg 09/14/25 15:35 Ibuprofen 600 Mg Tablet PO Q6H PRN Cramping Levothyroxine Sodium 88 mcg 09/15/25 06:30 09/22/25 05:32 Levothyroxine Sodium 88 Mcg Tablet PO 88 mcg DAILY@0630 SILVIO Administration Metoprolol Tartrate 25 mg 09/14/25 11:00 09/22/25 09:51 Metoprolol Tartrate 25 Mg Tablet PO 25 mg Q12HR SILVIO Administration Olmesartan 10 mg 09/14/25 11:00 09/22/25 09:51 Olmesartan Medoxomil 10 Mg Tablet PO 10 mg DAILY SILVIO Administration Ondansetron HCl 4 mg 09/14/25 02:37 09/16/25 06:22 Ondansetron Inj 4 Mg/2 Ml Vial IV PUSH 4 mg Q4H PRN Administration Nausea Ondansetron HCl 4 mg 09/14/25 09:55 Ondansetron Hcl Odt 4 Mg Tablet PO Q6H PRN Nausea And Vomiting Pantoprazole Sodium 40 mg 09/14/25 09:00 09/22/25 09:51 Pantoprazole 40 Mg Tablet PO 40 mg QAM SILVIO Administration Polyethylene Glycol 17 gm 09/14/25 09:55 Polyethylene Glycol 3350 17 Gm Powd.Pack PO HS PRN Constipation Ropinirole HCl 0.25 mg 09/14/25 21:00 09/21/25 21:14 Ropinirole Hcl 0.25 Mg Tablet PO 0.25 mg HS SILVIO Administration Radiology Results: ITS Impressions Head CT 09/14/25 05:56 IMPRESSION: 1. No acute intracranial findings. Chest X-Ray 09/14/25 12:22 Impression: CHF. Early basilar pneumonia suspected. The findings appear slightly progressed compared to the previous exam Labs Labs: Laboratory Results - last 24 hr 09/22/25 05:28 WBC 7.5 RBC 4.53 Hgb 12.9 Hct 40.7 MCV 89.8 MCH 28.5 MCHC 31.7 L RDW 15.3 H Plt Count 366 MPV 9.8 Immature Gran % (Auto) 0.3 Neut % (Auto) 66.0 Lymph % (Auto) 19.1 [place] % (Auto) 10.9 H Eos % (Auto) 3.2 Baso % (Auto) 0.5 Lymph # (Auto) 1.43 [place] # (Auto) 0.8 H Eos # (Auto) 0.2 Baso # (Auto) 0.0 Abs Immat Gran (auto) 0.02 Absolute Neuts (auto) 5.0 Absolute Nucleated RBC 0.000 Nucleated RBC % 0.0 Sodium 134 L Potassium 3.9 Chloride 102 Carbon Dioxide 25 Anion Gap 7 BUN 16 Creatinine 1.00 Estim Creat Clear Calc 39 Estimated GFR 53 L Glucose 91 Calcium 9.1 Total Bilirubin 0.9 AST 23 ALT 15 Alkaline Phosphatase 74 Total Protein 7.3 Albumin 3.9 Hospitalist [facility] Advance Care Plan I have confirmed that the patient's Advanced Care Plan is present, code status is documented, or surrogate decision maker is listed in patient medical record.: Yes Medication Reconciliation I have utilized all available resources to obtain, update and review the patients current medications (includes all prescriptions, OTC, herbals, cannabis, and nutritional supplements).: Yes
[2025-09-22 14:00] VITALS: BP 106/83; PULSE 75; RESP 16; TEMP 35.9; O2SAT 96
[2025-09-22] MEDS: ACETAMINOPHEN 325 MG TABLET 650 MG PO (17:22)
--- NOTE | 2025-09-22 17:59 | PC.NURSE ---
Daughter at bedside requesting another Head CT as she feels patient is leaning to the right in the bed. RN assessed patient. 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 RN called hospitalist Davy and told him about the families request and RN's assessment. Davy stated we will continue to monitor as patient worked with therapy today and lab work is normal.
[2025-09-22 20:35] VITALS: BP 116/49; PULSE 79; RESP 16; TEMP 36.2; O2SAT 98
[2025-09-22] MEDS: ATORVASTATIN 40 MG TABLET PO (20:35)
[2025-09-23] VITALS (7 sets, daily range): BP systolic 112–138; BP diastolic 42–111; PULSE 63–94; RESP 14–17; TEMP 36.2–36.6; O2SAT 95–98
[2025-09-23] MEDS: LEVOTHYROXINE SODIUM 88 MCG TABLET PO (05:09)
[2025-09-23] MEDS: FERROUS SULFATE 325 MG TABLET PO (09:42)
[2025-09-23] MEDS: OLMESARTAN MEDOXOMIL 10 MG TABLET PO (09:42)
[2025-09-23] MEDS: PANTOPRAZOLE 40 MG TABLET PO (09:43)
[2025-09-23] MEDS: FAMOTIDINE 20 MG TABLET PO ×2 (09:43→21:50)
[2025-09-23] MEDS: METOPROLOL TARTRATE 25 MG TABLET PO ×2 (09:47→21:49)
[2025-09-23] MEDS: ENOXAPARIN 40 MG/0.4 ML SYRINGE SUB-Q (09:48)
[2025-09-23] MEDS: ACETAMINOPHEN 325 MG TABLET 650 MG PO (11:22)
--- NOTE | 2025-09-23 13:01 | P.PNIM_ITS ---
Progress Note: A&P Assessment and Plan (1) Generalized weakness: Code(s): R53.1 - Weakness Status: Acute Plan Community-acquired pneumonia -patient bibasilar pneumonia -chest x-ray showing bibasilar pneumonia 09/14/25 -antibiotics completed Augmentin azithromycin -PT/OT consulted for debility COVID-19 -off remdesivir, continue supportive care -off isolation Chronic conditions -dementia: Lives in Memory Care Unit awaiting disposition -RLS: requip -bowel regimen: miralax -GERD: Protonix, Pepcid -essential hypertension: olmesartan, metoprolol -hypothyroidism: levothyroxine -HLD: statin -supplements: Ferrous sulfate Diet: Regular diet DVT prophylaxis: Lovenox Code status: full code Disposition: Memory care unit previously, Patient medically stable for discharge. plan to send to swing bed Time Spent With Patient Time: 35 minutes Subjective Date/time seen: 09/23/25 13:01 Interval history: Patient seen examined. She is doing well no new complaints. Patient has fever, chills, nausea vomiting diarrhea. She appears to be more awake today than yeste rday. Still awaiting discharge. Review of Systems Review of Systems: 10 point ROS complete, negative other th an what is specified in HPI. Exam Narrative: - GENERAL: Pleasant elderly woman in no acute distress - EYES: EOMI. Anicteric. - HENT: Moist mucous membranes. Edentul ous - LUNGS: Clear to auscultation bilateral ly - CARDIOVASCULAR: Regular rate and rhyth m. - EXTREMITIES: No edema. Peripheral puls es 2+. - NEUROLOGIC: No focal neurological defi cits. CN II-XII grossly intact. - PSYCHIATRIC: Awake, Alert. Appropriate mood and flat affect. Objective Data Vital Signs Vital Signs: Vital Signs - 24 hr 09/22/25 14:00 09/22/25 20:00 09/22/25 20:35 Temperature 35.9 C L 36.2 C L Pulse Rate 75 79 Respiratory Rate 16 16 Blood Pressure 106/83 116/49 L Pulse Oximetry 96 98 Oxygen Delivery Room Air 09/23/25 05:09 09/23/25 08:30 09/23/25 09:47 Temperature 36.4 C Pulse Rate 63 88 Respiratory Rate 14 Blood Pressure 132/60 Pulse Oximetry 95 Oxygen Delivery Room Air Intake/Output Intake/Output: Intake & Output 09/20/25 09/21/25 09/22/25 09/23/25 23:59 23:59 23:59 23:59 Intake Total 1620 1060 960 240 Output Total 950 1000 600 250 Balance 670 60 360 -10 Meds/Results Medications: Active Medications Generic Name Dose Route Start Last Admin Trade Name Freq PRN Reason Stop Dose Admin Acetaminophen 650 mg 09/14/25 09:55 09/23/25 11:22 Acetaminophen 325 Mg Tablet PO 650 mg Q6H PRN Administration fever or pain Atorvastatin Calcium 40 mg 09/14/25 21:00 09/22/25 20:35 Atorvastatin 40 Mg Tablet PO 40 mg HS SILVIO Administration Diclofenac Sodium 1 applic 09/14/25 09:55 Diclofenac Sodium 1% 100 Gm Gel (*Bkc) TOPICAL TID PRN Pain Enoxaparin Sodium 40 mg 09/14/25 09:00 09/23/25 09:48 Enoxaparin 40 Mg/0.4 Ml Syringe SUB-Q 40 mg DAILY SILVIO Administration Famotidine 20 mg 09/14/25 21:00 09/23/25 09:43 Famotidine 20 Mg Tablet PO 20 mg Q12HR SILVIO Administration Ferrous Sulfate 325 mg 09/15/25 09:00 09/23/25 09:42 Ferrous Sulfate 325 Mg Tablet PO 325 mg DAILY SILVIO Administration Guaifenesin 200 mg 09/14/25 09:55 Guaifenesin 200 Mg/10 Ml Udc PO Q6H PRN Cough Ibuprofen 600 mg 09/14/25 15:35 Ibuprofen 600 Mg Tablet PO Q6H PRN Cramping Levothyroxine Sodium 88 mcg 09/15/25 06:30 09/23/25 05:09 Levothyroxine Sodium 88 Mcg Tablet PO 88 mcg DAILY@0630 SILVIO Administration Metoprolol Tartrate 25 mg 09/14/25 11:00 09/23/25 09:47 Metoprolol Tartrate 25 Mg Tablet PO 25 mg Q12HR SILVIO Administration Olmesartan 10 mg 09/14/25 11:00 09/23/25 09:42 Olmesartan Medoxomil 10 Mg Tablet PO 10 mg DAILY SILVIO Administration Ondansetron HCl 4 mg 09/14/25 02:37 09/16/25 06:22 Ondansetron Inj 4 Mg/2 Ml Vial IV PUSH 4 mg Q4H PRN Administration Nausea Ondansetron HCl 4 mg 09/14/25 09:55 Ondansetron Hcl Odt 4 Mg Tablet PO Q6H PRN Nausea And Vomiting Pantoprazole Sodium 40 mg 09/14/25 09:00 09/23/25 09:43 Pantoprazole 40 Mg Tablet PO 40 mg QAM SILVIO Administration Polyethylene Glycol 17 gm 09/14/25 09:55 Polyethylene Glycol 3350 17 Gm Powd.Pack PO HS PRN Constipation Ropinirole HCl 0.25 mg 09/14/25 21:00 09/22/25 20:35 Ropinirole Hcl 0.25 Mg Tablet PO 0.25 mg HS SILVIO Administration Radiology Results: ITS Impressions Head CT 09/14/25 05:56 IMPRESSION: 1. No acute intracranial findings. Chest X-Ray 09/14/25 12:22 Impression: CHF. Early basilar pneumonia suspected. The findings appear slightly progressed compared to the previous exam
[2025-09-23] MEDS: ATORVASTATIN 40 MG TABLET PO (21:49)
[2025-09-24 05:33] VITALS: BP 145/76; PULSE 66; RESP 17; TEMP 35.7; O2SAT 97
[2025-09-24] MEDS: LEVOTHYROXINE SODIUM 88 MCG TABLET PO (06:02)
[2025-09-24 08:25] VITALS: PULSE 74
[2025-09-24] MEDS: FERROUS SULFATE 325 MG TABLET PO (08:25)
[2025-09-24] MEDS: ENOXAPARIN 40 MG/0.4 ML SYRINGE SUB-Q (08:25)
[2025-09-24] MEDS: PANTOPRAZOLE 40 MG TABLET PO (08:25)
[2025-09-24] MEDS: OLMESARTAN MEDOXOMIL 10 MG TABLET PO (08:25)
[2025-09-24] MEDS: METOPROLOL TARTRATE 25 MG TABLET PO ×2 (08:25→21:12)
[2025-09-24] MEDS: FAMOTIDINE 20 MG TABLET PO ×2 (08:26→21:12)
--- NOTE | 2025-09-24 11:40 | P.PNIM_ITS ---
Progress Note: A&P Assessment and Plan (1) Generalized weakness: Code(s): R53.1 - Weakness Status: Acute Plan Community-acquired pneumonia -patient bibasilar pneumonia -chest x-ray showing bibasilar pneumonia 09/14/25 -antibiotics completed Augmentin azithromycin -PT/OT consulted for debility COVID-19 -off remdesivir, continue supportive care -off isolation Chronic conditions -dementia: Lives in Memory Care Unit awaiting disposition -RLS: requip -bowel regimen: miralax -GERD: Protonix, Pepcid -essential hypertension: olmesartan, metoprolol -hypothyroidism: levothyroxine -HLD: statin -supplements: Ferrous sulfate Diet: Regular diet DVT prophylaxis: Lovenox Code status: full code Disposition: Memory care unit previously, Patient medically stable for discharge. plan to send to swing bed. no change to plan awaiting insurance authorization Time Spent With Patient Time: 20 minutes Subjective Date/time seen: 09/24/25 11:40 Interval history: Patient seen examined patient is doing well no new complaints. Patient is fever, chills, nausea vomiting diarrhea. Awaiting placement. Medically stable for discharge. Review of Systems Review of Systems: 10 point ROS complete, negative other th an what is specified in HPI. Exam Narrative: - GENERAL: Pleasant elderly woman in no acute distress - EYES: EOMI. Anicteric. - HENT: Moist mucous membranes. Edentul ous - LUNGS: Clear to auscultation bilateral ly - CARDIOVASCULAR: Regular rate and rhyth m. - NEUROLOGIC: No focal neurological defi cits. - PSYCHIATRIC: Appropriate mood and flat affect. Objective Data Vital Signs Vital Signs: Vital Signs - 24 hr 09/23/25 14:00 09/23/25 20:00 09/23/25 20:30 Temperature 36.2 C L 36.6 C Pulse Rate 72 89 94 Respiratory Rate 16 17 17 Blood Pressure 112/42 L 138/111 H Pulse Oximetry 98 98 98 Oxygen Delivery Room Air Fraction of Inspired Oxygen 21 09/23/25 21:49 09/23/25 22:18 09/24/25 05:33 Temperature 35.7 C L Pulse Rate 89 66 Respiratory Rate 17 Blood Pressure 132/99 H 145/76 H Pulse Oximetry 97 Oxygen Delivery Fraction of Inspired Oxygen 09/24/25 08:25 Temperature Pulse Rate 74 Respiratory Rate Blood Pressure Pulse Oximetry Oxygen Delivery Fraction of Inspired Oxygen Intake/Output Intake/Output: Intake & Output 09/21/25 09/22/25 09/23/25 09/24/25 23:59 23:59 23:59 23:59 Intake Total 1060 960 970 468 Output Total 1000 600 400 650 Balance 60 360 570 -182 Meds/Results Medications: Active Medications Generic Name Dose Route Start Last Admin Trade Name Freq PRN Reason Stop Dose Admin Acetaminophen 650 mg 09/14/25 09:55 09/23/25 11:22 Acetaminophen 325 Mg Tablet PO 650 mg Q6H PRN Administration fever or pain Atorvastatin Calcium 40 mg 09/14/25 21:00 09/23/25 21:49 Atorvastatin 40 Mg Tablet PO 40 mg HS SILVIO Administration Diclofenac Sodium 1 applic 09/14/25 09:55 Diclofenac Sodium 1% 100 Gm Gel (*Bkc) TOPICAL TID PRN Pain Enoxaparin Sodium 40 mg 09/14/25 09:00 09/24/25 08:25 Enoxaparin 40 Mg/0.4 Ml Syringe SUB-Q 40 mg DAILY SILVIO Administration Famotidine 20 mg 09/14/25 21:00 09/24/25 08:26 Famotidine 20 Mg Tablet PO 20 mg Q12HR SILVIO Administration Ferrous Sulfate 325 mg 09/15/25 09:00 09/24/25 08:25 Ferrous Sulfate 325 Mg Tablet PO 325 mg DAILY SILVIO Administration Guaifenesin 200 mg 09/14/25 09:55 Guaifenesin 200 Mg/10 Ml Udc PO Q6H PRN Cough Ibuprofen 600 mg 09/14/25 15:35 Ibuprofen 600 Mg Tablet PO Q6H PRN Cramping Levothyroxine Sodium 88 mcg 09/15/25 06:30 09/24/25 06:02 Levothyroxine Sodium 88 Mcg Tablet PO 88 mcg DAILY@0630 SILVIO Administration Metoprolol Tartrate 25 mg 09/14/25 11:00 09/24/25 08:25 Metoprolol Tartrate 25 Mg Tablet PO 25 mg Q12HR SILVIO Administration Olmesartan 10 mg 09/14/25 11:00 09/24/25 08:25 Olmesartan Medoxomil 10 Mg Tablet PO 10 mg DAILY SILVIO Administration Ondansetron HCl 4 mg 09/14/25 02:37 09/16/25 06:22 Ondansetron Inj 4 Mg/2 Ml Vial IV PUSH 4 mg Q4H PRN Administration Nausea Ondansetron HCl 4 mg 09/14/25 09:55 Ondansetron Hcl Odt 4 Mg Tablet PO Q6H PRN Nausea And Vomiting Pantoprazole Sodium 40 mg 09/14/25 09:00 09/24/25 08:25 Pantoprazole 40 Mg Tablet PO 40 mg QAM SILVIO Administration Polyethylene Glycol 17 gm 09/14/25 09:55 Polyethylene Glycol 3350 17 Gm Powd.Pack PO HS PRN Constipation Ropinirole HCl 0.25 mg 09/14/25 21:00 09/23/25 21:50 Ropinirole Hcl 0.25 Mg Tablet PO 0.25 mg HS SILVIO Administration Radiology Results: ITS Impressions Head CT 09/14/25 05:56 IMPRESSION: 1. No acute intracranial findings. Chest X-Ray 09/14/25 12:22 Impression: CHF. Early basilar pneumonia suspected. The findings appear slightly progressed compared to the previous exam
[2025-09-24 14:00] VITALS: BP 108/62; PULSE 74; RESP 18; TEMP 36.6; O2SAT 97
[2025-09-24] MEDS: ACETAMINOPHEN 325 MG TABLET 650 MG PO (19:32)
[2025-09-24 20:08] VITALS: BP 109/53; PULSE 74; RESP 16; TEMP 36.2; O2SAT 96
[2025-09-24] MEDS: ATORVASTATIN 40 MG TABLET PO (21:12)
[2025-09-25 04:21] VITALS: BP 114/47; PULSE 61; RESP 16; TEMP 36.2; O2SAT 95
[2025-09-25] MEDS: LEVOTHYROXINE SODIUM 88 MCG TABLET PO (06:21)
[2025-09-25 08:45] VITALS: PULSE 67
[2025-09-25] MEDS: METOPROLOL TARTRATE 25 MG TABLET PO ×2 (08:45→21:28)
[2025-09-25] MEDS: ENOXAPARIN 40 MG/0.4 ML SYRINGE SUB-Q (08:45)
[2025-09-25] MEDS: PANTOPRAZOLE 40 MG TABLET PO (08:47)
[2025-09-25] MEDS: FAMOTIDINE 20 MG TABLET PO ×2 (08:47→21:28)
[2025-09-25] MEDS: FERROUS SULFATE 325 MG TABLET PO (08:47)
[2025-09-25] MEDS: OLMESARTAN MEDOXOMIL 10 MG TABLET PO (08:57)
[2025-09-25 09:00] VITALS: BP 114/53
--- NOTE | 2025-09-25 12:21 | P.PNIM_ITS ---
Progress Note: A&P Assessment and Plan (1) Generalized weakness: Code(s): R53.1 - Weakness Status: Acute Plan Community-acquired pneumonia -patient bibasilar pneumonia -chest x-ray showing bibasilar pneumonia 09/14/25 -antibiotics completed Augmentin azithromycin -PT/OT consulted for debility Straw colored urine -will check UA -will encourage to drink water COVID-19 -off remdesivir, continue supportive care -off isolation Chronic conditions -dementia: Lives in Memory Care Unit awaiting disposition -RLS: requip -bowel regimen: miralax -GERD: Protonix, Pepcid -essential hypertension: olmesartan, metoprolol -hypothyroidism: levothyroxine (family states she is due to have it rechecked to adjust her dose, checking TSH) -HLD: statin -supplements: Ferrous sulfate Diet: Regular diet DVT prophylaxis: Lovenox Code status: full code Disposition: Memory care unit previously, Patient medically stable for discharge. plan to send to swing bed. no change to plan awaiting insurance au thorization Social: Daughter Maude Time Spent With Patient Time: 35 minutes Subjective Date/time seen: 09/25/25 12:21 Review of Systems Review of Systems: 10 point ROS complete, negative other th an what is specified in HPI. Exam Narrative: - GENERAL: Pleasant elderly woman in no acute distress - EYES: EOMI - HENT: Moist mucous membranes. Edentul ous - LUNGS: Clear to auscultation bilateral ly - CARDIOVASCULAR: Regular rate and rhyth m. - NEUROLOGIC: No focal neurological defi cits. - PSYCHIATRIC: Appropriate mood and flat affect. Objective Data Vital Signs Vital Signs: Vital Signs - 24 hr 09/24/25 14:00 09/24/25 20:00 09/24/25 20:08 Temperature 36.6 C 36.2 C L Pulse Rate 74 74 Respiratory Rate 18 16 Blood Pressure 108/62 109/53 L Pulse Oximetry 97 96 Oxygen Delivery Room Air 09/25/25 04:21 09/25/25 08:00 09/25/25 08:45 Temperature 36.2 C L Pulse Rate 61 67 Respiratory Rate 16 Blood Pressure 114/47 L Pulse Oximetry 95 Oxygen Delivery Room Air 09/25/25 09:00 Temperature Pulse Rate Respiratory Rate Blood Pressure 114/53 L Pulse Oximetry Oxygen Delivery Intake/Output Intake/Output: Intake & Output 09/22/25 09/23/25 09/24/25 09/25/25 23:59 23:59 23:59 23:59 Intake Total 960 970 926 758 Output Total 600 400 730 200 Balance 360 570 196 558 Meds/Results Medications: Active Medications Generic Name Dose Route Start Last Admin Trade Name Freq PRN Reason Stop Dose Admin Acetaminophen 650 mg 09/14/25 09:55 09/24/25 19:32 Acetaminophen 325 Mg Tablet PO 650 mg Q6H PRN Administration fever or pain Atorvastatin Calcium 40 mg 09/14/25 21:00 09/24/25 21:12 Atorvastatin 40 Mg Tablet PO 40 mg HS SILVIO Administration Diclofenac Sodium 1 applic 09/14/25 09:55 Diclofenac Sodium 1% 100 Gm Gel (*Bkc) TOPICAL TID PRN Pain Enoxaparin Sodium 40 mg 09/14/25 09:00 09/25/25 08:45 Enoxaparin 40 Mg/0.4 Ml Syringe SUB-Q 40 mg DAILY SILVIO Administration Famotidine 20 mg 09/14/25 21:00 09/25/25 08:47 Famotidine 20 Mg Tablet PO 20 mg Q12HR SILVIO Administration Ferrous Sulfate 325 mg 09/15/25 09:00 09/25/25 08:47 Ferrous Sulfate 325 Mg Tablet PO 325 mg DAILY SILVIO Administration Guaifenesin 200 mg 09/14/25 09:55 Guaifenesin 200 Mg/10 Ml Udc PO Q6H PRN Cough Ibuprofen 600 mg 09/14/25 15:35 Ibuprofen 600 Mg Tablet PO Q6H PRN Cramping Levothyroxine Sodium 88 mcg 09/15/25 06:30 09/25/25 06:21 Levothyroxine Sodium 88 Mcg Tablet PO 88 mcg DAILY@0630 SILVIO Administration Metoprolol Tartrate 25 mg 09/14/25 11:00 09/25/25 08:45 Metoprolol Tartrate 25 Mg Tablet PO 25 mg Q12HR SILVIO Administration Olmesartan 10 mg 09/14/25 11:00 09/25/25 08:57 Olmesartan Medoxomil 10 Mg Tablet PO 10 mg DAILY SILVIO Administration Ondansetron HCl 4 mg 09/14/25 02:37 09/16/25 06:22 Ondansetron Inj 4 Mg/2 Ml Vial IV PUSH 4 mg Q4H PRN Administration Nausea Ondansetron HCl 4 mg 09/14/25 09:55 Ondansetron Hcl Odt 4 Mg Tablet PO Q6H PRN Nausea And Vomiting Pantoprazole Sodium 40 mg 09/14/25 09:00 09/25/25 08:47 Pantoprazole 40 Mg Tablet PO 40 mg QAM SILVIO Administration Polyethylene Glycol 17 gm 09/14/25 09:55 Polyethylene Glycol 3350 17 Gm Powd.Pack PO HS PRN Constipation Ropinirole HCl 0.25 mg 09/14/25 21:00 09/24/25 21:12 Ropinirole Hcl 0.25 Mg Tablet PO 0.25 mg HS SILVIO Administration Radiology Results: ITS Impressions Head CT 09/14/25 05:56 IMPRESSION: 1. No acute intracranial findings. Chest X-Ray 09/14/25 12:22 Impression: CHF. Early basilar pneumonia suspected. The findings appear slightly progressed compared to the previous exam
[2025-09-25] MEDS: ACETAMINOPHEN 325 MG TABLET 650 MG PO (13:11)
[2025-09-25 13:59] VITALS: BP 114/59; PULSE 69; RESP 19; TEMP 36.2; O2SAT 98
--- NOTE | 2025-09-25 18:52 | PC.NURSE ---
This RN, Edwina Johnson, has reviewed documentation by LISA Kent, for [id number] 09/25/25 and agree with the findings.
[2025-09-25 20:23] VITALS: BP 145/61; PULSE 69; RESP 18; TEMP 36.3; O2SAT 97
[2025-09-25] MEDS: ATORVASTATIN 40 MG TABLET PO (21:28)
[2025-09-26 04:37] VITALS: BP 123/47; PULSE 75; RESP 14; TEMP 36.6; O2SAT 96
[2025-09-26] MEDS: LEVOTHYROXINE SODIUM 88 MCG TABLET PO (05:37)
[2025-09-26 08:14] LABS: Add Urine Microscopic? YES; Appearance Urine Cloudy (Clear); Glucose Urine UA Negative (Negative); Leukocyte Esterase Ur 2+ LEU/UL (Negative); Need Manual Microscopic Reviewed; Nitrate Urine Negative (Negative); Non Pathogenic Casts 0-2; Specific Grav Ur 1.023 (1.001-1.035)
[2025-09-26 08:38] LABS: Hematocrit 39.3 % (37.0-47.0); Hemoglobin 12.5 g/dL (12.0-15.0); Immature Granulocyte Percent A 0.2 % (0-0.5); Lymphocytes Absolute Auto 1.50 K/mm3 (0.9-3.2); Mean Corpuscular HGB Conc 31.8 g/dl (32-36); Mean Corpuscular Hemoglobin 28.9 pg (26-34); Mean Corpuscular Volume 90.8 fl (80-100); Nucleated Red Blood Cells Absolute Auto 0.000 K/mm3 (0.0-0.012); Nucleated Red Blood Cells Perc 0.0 % (0.0-0.2); Platelet Count Result 400 k/mm3 (150-375); Red Blood Count 4.33 M/mm3 (4.2-5.4); White Blood Count 10.5 K/mm3 (4.5-10.0)
[2025-09-26 08:57] LABS: Alanine Aminotransferase 12 U/L (6-35); Albumin Level 3.8 g/dL (3.5-5.1); Alkaline Phosphatase 74 U/L (38-126); Anion Gap 3 mmol/L (4-12); Aspartate Amino Transferase 22 U/L (14-36); Bilirubin,Total 0.7 mg/dL (0.2-1.3); Blood Urea Nitrogen 21 mg/dL (7-17); Calcium 9.3 mg/dL (8.4-10.2); Carbon Dioxide 25 mmol/L (22-30); Chloride 105 mmol/L (98-107); Estimated CRCL calculation 39 ml/min; Estimated Glomerular Filt Rate 52; Glucose 92 mg/dL (65-110); Potassium 4.5 mmol/L (3.4-5.0); Sodium 133 mmol/L (137-145); Total Protein 7.2 g/dL (6.3-8.2)
[2025-09-26 09:28] LABS: Thyroid Stimulating Hormone Reflex 3.330 uIU/mL (0.465-4.68)
[2025-09-26 09:41] VITALS: PULSE 75
[2025-09-26] MEDS: METOPROLOL TARTRATE 25 MG TABLET PO ×2 (09:41→20:40)
[2025-09-26] MEDS: OLMESARTAN MEDOXOMIL 10 MG TABLET PO (09:41)
[2025-09-26] MEDS: PANTOPRAZOLE 40 MG TABLET PO (09:41)
[2025-09-26] MEDS: FERROUS SULFATE 325 MG TABLET PO (09:41)
[2025-09-26] MEDS: ENOXAPARIN 40 MG/0.4 ML SYRINGE SUB-Q (09:41)
[2025-09-26] MEDS: FAMOTIDINE 20 MG TABLET PO ×2 (09:41→20:40)
--- NOTE | 2025-09-26 11:13 | P.PNIM_ITS ---
Progress Note: A&P Assessment and Plan (1) Generalized weakness: Code(s): R53.1 - Weakness Status: Acute (2) Failure to thrive: Status: Acute Plan Failure to thrive in adult -patient has poor p.o. intake and creatinine slowly up trending from 0.94 to 1.02 -patient encouraged to drink water -using IV fluids to maintain renal function is not appropriate long-term plan -patient is failing to thrive and hospice is likely appropriate considering her dementia. she is decompensating with her poor PO intake, she does not have energy for activity Asymptomatic bacteriuria -urinalysis with 4+ bacteria. Patient had already completed a course of antibiotics. 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 -patient denies any frequency, dysuria, any urinary symptoms at all -will encourage to drink water COVID-19 -off remdesivir, continue supportive care -off isolation Community-acquired pneumonia, resolved -patient bibasilar pneumonia -chest x-ray showing bibasilar pneumonia 09/14/25 -antibiotics completed Augmentin azithromycin -PT/OT consulted for debility Chronic conditions -dementia: Lives in Memory Care Unit awaiting disposition -RLS: requip -bowel regimen: miralax -GERD: Protonix, Pepcid -essential hypertension: olmesartan, metoprolol -hypothyroidism: levothyroxine -HLD: statin -supplements: Ferrous sulfate Diet: Regular diet DVT prophylaxis: Lovenox Code status: full code Disposition: Memory care unit previously, Patient medically stable for discharge. plan to send to swing bed. no change to plan awaiting insurance authorization Social: Shiv Santoro Time Spent With Patient Time: 35 minutes Subjective Date/time seen: 09/26/25 11:13 Interval history: Patient seen examined. She is asymptomatic. Patient denies fever, chills, nausea vomiting and diarrhea. Labs are stable. Patient has poor p.o. intake. Urinalysis with bacteria, recently completed antibiotic course with augmentin and azithromycin. She is likely has bacteria colonized in bladder. Patient is afebrile and does not appear to have any acute infection. Her p.o. intake is minimal which is likely leading to her failure to thrive and cloudy urine. Signs of dehydration with rising Cr and urine become straw colored. Review of Systems Review of Systems: 10 point ROS complete, negative other th an what is specified in HPI. Exam Narrative: - GENERAL: Pleasant elderly woman in no acute distress - EYES: EOMI - HENT: Moist mucous membranes. Edentul ous - LUNGS: Clear to auscultation bilateral ly - CARDIOVASCULAR: Regular rate and rhyth m. - NEUROLOGIC: No focal neurological defi cits. - PSYCHIATRIC: Appropriate mood and flat affect. Objective Data Vital Signs Vital Signs: Vital Signs - 24 hr 09/25/25 13:59 09/25/25 20:23 09/26/25 04:37 Temperature 36.2 C L 36.3 C L 36.6 C Pulse Rate 69 69 75 Respiratory Rate 19 18 14 Blood Pressure 114/59 L 145/61 H 123/47 L Pulse Oximetry 98 97 96 09/26/25 09:41 Temperature Pulse Rate 75 Respiratory Rate Blood Pressure Pulse Oximetry Intake/Output Intake/Output: Intake & Output 09/23/25 09/24/25 09/25/25 09/26/25 23:59 23:59 23:59 23:59 Intake Total 970 926 958 478 Output Total 400 730 500 400 Balance 570 196 458 78 Meds/Results Medications: Active Medications Generic Name Dose Route Start Last Admin Trade Name Freq PRN Reason Stop Dose Admin Acetaminophen 650 mg 09/14/25 09:55 09/25/25 13:11 Acetaminophen 325 Mg Tablet PO 650 mg Q6H PRN Administration fever or pain Atorvastatin Calcium 40 mg 09/14/25 21:00 09/25/25 21:28 Atorvastatin 40 Mg Tablet PO 40 mg HS SILVIO Administration Diclofenac Sodium 1 applic 09/14/25 09:55 Diclofenac Sodium 1% 100 Gm Gel (*Bkc) TOPICAL TID PRN Pain Enoxaparin Sodium 40 mg 09/14/25 09:00 09/26/25 09:41 Enoxaparin 40 Mg/0.4 Ml Syringe SUB-Q 40 mg DAILY SILVIO Administration Famotidine 20 mg 09/14/25 21:00 09/26/25 09:41 Famotidine 20 Mg Tablet PO 20 mg Q12HR SILVIO Administration Ferrous Sulfate 325 mg 09/15/25 09:00 09/26/25 09:41 Ferrous Sulfate 325 Mg Tablet PO 325 mg DAILY SILVIO Administration Guaifenesin 200 mg 09/14/25 09:55 Guaifenesin 200 Mg/10 Ml Udc PO Q6H PRN Cough Ibuprofen 600 mg 09/14/25 15:35 Ibuprofen 600 Mg Tablet PO Q6H PRN Cramping Levothyroxine Sodium 88 mcg 09/15/25 06:30 09/26/25 05:37 Levothyroxine Sodium 88 Mcg Tablet PO 88 mcg DAILY@0630 SILVIO Administration Metoprolol Tartrate 25 mg 09/14/25 11:00 09/26/25 09:41 Metoprolol Tartrate 25 Mg Tablet PO 25 mg Q12HR SILVIO Administration Olmesartan 10 mg 09/14/25 11:00 09/26/25 09:41 Olmesartan Medoxomil 10 Mg Tablet PO 10 mg DAILY SILVIO Administration Ondansetron HCl 4 mg 09/14/25 02:37 09/16/25 06:22 Ondansetron Inj 4 Mg/2 Ml Vial IV PUSH 4 mg Q4H PRN Administration Nausea Ondansetron HCl 4 mg 09/14/25 09:55 Ondansetron Hcl Odt 4 Mg Tablet PO Q6H PRN Nausea And Vomiting Pantoprazole Sodium 40 mg 09/14/25 09:00 09/26/25 09:41 Pantoprazole 40 Mg Tablet PO 40 mg QAM SILVIO Administration Polyethylene Glycol 17 gm 09/14/25 09:55 Polyethylene Glycol 3350 17 Gm Powd.Pack PO HS PRN Constipation Ropinirole HCl 0.25 mg 09/14/25 21:00 09/25/25 21:28 Ropinirole Hcl 0.25 Mg Tablet PO 0.25 mg HS SILVIO Administration Radiology Results: ITS Impressions Head CT 09/14/25 05:56 IMPRESSION: 1. No acute intracranial findings. Chest X-Ray 09/14/25 12:22 Impression: CHF. Early basilar pneumonia suspected. The findings appear slightly progressed compared to the previous exam Labs Labs: Laboratory Results - last 24 hr 09/26/25 09/26/25 07:29 08:28 WBC 10.5 H RBC 4.33 Hgb 12.5 Hct 39.3 MCV 90.8 MCH 28.9 MCHC 31.8 L RDW 14.7 H Plt Count 400 H MPV 9.6 Immature Gran % (Auto) 0.2 Neut % (Auto) 73.8 H Lymph % (Auto) 14.3 L [place] % (Auto) 9.0 H Eos % (Auto) 2.1 Baso % (Auto) 0.6 Lymph # (Auto) 1.50 [place] # (Auto) 0.9 H Eos # (Auto) 0.2 Baso # (Auto) 0.1 Abs Immat Gran (auto) 0.02 Absolute Neuts (auto) 7.7 H Absolute Nucleated RBC 0.000 Nucleated RBC % 0.0 Sodium 133 L Potassium 4.5 Chloride 105 Carbon Dioxide 25 Anion Gap 3 L BUN 21 H Creatinine 1.02 H Estim Creat Clear Calc 39 Estimated GFR 52 L Glucose 92 Calcium 9.3 Total Bilirubin 0.7 AST 22 ALT 12 Alkaline Phosphatase 74 Total Protein 7.2 Albumin 3.8 TSH (Reflex) 3.330 Urine Color Yellow Urine Appearance Cloudy H Urine pH 6.5 Ur Specific Dresser 1.023 Urine Protein Negative Urine Glucose (UA) Negative Urine Ketones Negative Ur Blood (Man) 2+ H Urine Nitrate Negative Urine Bilirubin Negative Urine Urobilinogen 1.0 Ur Leukocyte Esterase 2+ H Add Ur Microanalysis Reviewed Urine RBC 51-100 H Urine WBC 6-10 H Ur Squamous Epith Cells Occasional Urine Bacteria 4+ H Urine Casts 0-2 Urine Mucus Present
[2025-09-26 13:44] VITALS: BMI 10.0
[2025-09-26 14:00] VITALS: BP 139/63; PULSE 71; RESP 14; TEMP 36.2; O2SAT 100
[2025-09-26 19:57] VITALS: BP 147/71; PULSE 85; RESP 16; TEMP 36.6; O2SAT 95
[2025-09-26] MEDS: ATORVASTATIN 40 MG TABLET PO (20:40)
[2025-09-26] MEDS: ACETAMINOPHEN 325 MG TABLET 650 MG PO (20:41)
[2025-09-27 04:47] VITALS: BP 141/77; PULSE 61; RESP 16; TEMP 36.2; O2SAT 98
[2025-09-27] MEDS: LEVOTHYROXINE SODIUM 88 MCG TABLET PO (06:15)
[2025-09-27] MEDS: PANTOPRAZOLE 40 MG TABLET PO (08:39)
[2025-09-27 08:40] VITALS: BP 125/62; PULSE 74; O2SAT 99
[2025-09-27] MEDS: METOPROLOL TARTRATE 25 MG TABLET PO ×2 (08:40→20:56)
[2025-09-27] MEDS: FERROUS SULFATE 325 MG TABLET PO (08:43)
[2025-09-27] MEDS: ENOXAPARIN 40 MG/0.4 ML SYRINGE SUB-Q (08:43)
[2025-09-27] MEDS: OLMESARTAN MEDOXOMIL 10 MG TABLET PO (08:43)
[2025-09-27] MEDS: FAMOTIDINE 20 MG TABLET PO ×2 (08:43→20:56)
--- NOTE | 2025-09-27 12:43 | P.PNIM_ITS ---
Progress Note: A&P Assessment and Plan (1) Generalized weakness: Code(s): R53.1 - Weakness Status: Acute (2) Failure to thrive: Status: Acute Plan Failure to thrive in adult -patient has poor p.o. intake and creatinine slowly up trending from 0.94 to 1.02 -patient encouraged to drink water -using IV fluids to maintain renal function is not appropriate long-term plan -patient is failing to thrive and hospice is likely appropriate considering her dementia. she is decompensating with her poor PO intake, she does not have energy for activity. She is in good spirits with family, more awake and alert Asymptomatic bacteriuria -urinalysis with 4+ bacteria. Patient had already completed a course of antibiotics. 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 -patient denies any frequency, dysuria, any urinary symptoms at all -will encourage to drink water -no antibiotics indicated COVID-19 -off remdesivir, continue supportive care -off isolation -asymptomatic Community-acquired pneumonia, resolved -patient bibasilar pneumonia -chest x-ray showing bibasilar pneumonia 09/14/25 -antibiotics completed Augmentin azithromycin -PT/OT consulted for debility Chronic conditions -dementia: Lives in Memory Care Unit awaiting disposition -RLS: requip -bowel regimen: miralax -GERD: Protonix, Pepcid -essential hypertension: olmesartan, metoprolol -hypothyroidism: levothyroxine -HLD: statin -supplements: Ferrous sulfate Diet: Regular diet DVT prophylaxis: Lovenox Code status: full code Disposition: Memory care unit previously, Patient medically stable for discharge. plan to send to swing bed. no change to plan awaiting insurance authorization Social: Daughter Maude Time Spent With Patient Time: 35 minutes Subjective Date/time seen: 09/27/25 12:43 Interval history: Patient seen and examined. She is in good spirits with family bedside. Patient denies fever, chills, nausea vomiting diarrhea. Urine is appearing more clear despite no antibiotics. Urine culture pending. Review of Systems Review of Systems: 10 point ROS complete, negative other th an what is specified in HPI. Exam Narrative: - GENERAL: Pleasant elderly woman in no acute distress - EYES: EOMI - HENT: Moist mucous membranes. Edentul ous - LUNGS: Clear to auscultation bilateral ly - CARDIOVASCULAR: Regular rate and rhyth m. - NEUROLOGIC: No focal neurological defi cits. - PSYCHIATRIC: Appropriate mood and flat affect. Objective Data Vital Signs Vital Signs: Vital Signs - 24 hr 09/26/25 14:00 09/26/25 19:57 09/26/25 20:00 Temperature 36.2 C L 36.6 C Pulse Rate 71 85 Respiratory Rate 14 16 Blood Pressure 139/63 147/71 H Pulse Oximetry 100 95 Oxygen Delivery Room Air 09/27/25 04:47 09/27/25 08:40 09/27/25 08:40 Temperature 36.2 C L Pulse Rate 61 74 Respiratory Rate 16 Blood Pressure 141/77 H Pulse Oximetry 98 Oxygen Delivery Room Air 09/27/25 08:40 Temperature Pulse Rate 74 Respiratory Rate Blood Pressure 125/62 Pulse Oximetry 99 Oxygen Delivery Intake/Output Intake/Output: Intake & Output 09/24/25 09/25/25 09/26/25 09/27/25 23:59 23:59 23:59 23:59 Intake Total 926 958 598 240 Output Total 730 500 400 700 Balance 196 458 198 -460 Meds/Results Medications: Active Medications Generic Name Dose Route Start Last Admin Trade Name Freq PRN Reason Stop Dose Admin Acetaminophen 650 mg 09/14/25 09:55 09/26/25 20:41 Acetaminophen 325 Mg Tablet PO 650 mg Q6H PRN Administration fever or pain Atorvastatin Calcium 40 mg 09/14/25 21:00 09/26/25 20:40 Atorvastatin 40 Mg Tablet PO 40 mg HS SILVIO Administration Diclofenac Sodium 1 applic 09/14/25 09:55 Diclofenac Sodium 1% 100 Gm Gel (*Bkc) TOPICAL TID PRN Pain Enoxaparin Sodium 40 mg 09/14/25 09:00 09/27/25 08:43 Enoxaparin 40 Mg/0.4 Ml Syringe SUB-Q 40 mg DAILY SILVIO Administration Famotidine 20 mg 09/14/25 21:00 09/27/25 08:43 Famotidine 20 Mg Tablet PO 20 mg Q12HR SILVIO Administration Ferrous Sulfate 325 mg 09/15/25 09:00 09/27/25 08:43 Ferrous Sulfate 325 Mg Tablet PO 325 mg DAILY SILVIO Administration Guaifenesin 200 mg 09/14/25 09:55 Guaifenesin 200 Mg/10 Ml Udc PO Q6H PRN Cough Ibuprofen 600 mg 09/14/25 15:35 Ibuprofen 600 Mg Tablet PO Q6H PRN Cramping Levothyroxine Sodium 88 mcg 09/15/25 06:30 09/27/25 06:15 Levothyroxine Sodium 88 Mcg Tablet PO 88 mcg DAILY@0630 SILVIO Administration Metoprolol Tartrate 25 mg 09/14/25 11:00 09/27/25 08:40 Metoprolol Tartrate 25 Mg Tablet PO 25 mg Q12HR SILVIO Administration Olmesartan 10 mg 09/14/25 11:00 09/27/25 08:43 Olmesartan Medoxomil 10 Mg Tablet PO 10 mg DAILY SILVIO Administration Ondansetron HCl 4 mg 09/14/25 02:37 09/16/25 06:22 Ondansetron Inj 4 Mg/2 Ml Vial IV PUSH 4 mg Q4H PRN Administration Nausea Ondansetron HCl 4 mg 09/14/25 09:55 Ondansetron Hcl Odt 4 Mg Tablet PO Q6H PRN Nausea And Vomiting Pantoprazole Sodium 40 mg 09/14/25 09:00 09/27/25 08:39 Pantoprazole 40 Mg Tablet PO 40 mg QAM SILVIO Administration Polyethylene Glycol 17 gm 09/14/25 09:55 Polyethylene Glycol 3350 17 Gm Powd.Pack PO HS PRN Constipation Ropinirole HCl 0.25 mg 09/14/25 21:00 09/26/25 20:41 Ropinirole Hcl 0.25 Mg Tablet PO 0.25 mg HS SILVIO Administration Radiology Results: ITS Impressions Head CT 09/14/25 05:56 IMPRESSION: 1. No acute intracranial findings. Chest X-Ray 09/14/25 12:22 Impression: CHF. Early basilar pneumonia suspected. The findings appear slightly progressed compared to the previous exam
[2025-09-27 14:00] VITALS: BP 123/82; PULSE 78; RESP 16; TEMP 36.4; O2SAT 97
[2025-09-27] MEDS: ACETAMINOPHEN 325 MG TABLET 650 MG PO (20:55)
[2025-09-27] MEDS: ATORVASTATIN 40 MG TABLET PO (20:56)
[2025-09-27 21:03] VITALS: BP 126/56; PULSE 80; RESP 18; TEMP 36.6; O2SAT 95
[2025-09-28 05:13] VITALS: BP 131/62; PULSE 68; RESP 18; TEMP 36.1; O2SAT 98
[2025-09-28] MEDS: LEVOTHYROXINE SODIUM 88 MCG TABLET PO (05:58)
[2025-09-28 09:21] VITALS: PULSE 68
[2025-09-28] MEDS: METOPROLOL TARTRATE 25 MG TABLET PO ×2 (09:21→20:30)
[2025-09-28] MEDS: ENOXAPARIN 40 MG/0.4 ML SYRINGE SUB-Q (09:21)
[2025-09-28] MEDS: OLMESARTAN MEDOXOMIL 10 MG TABLET PO (09:22)
[2025-09-28] MEDS: FERROUS SULFATE 325 MG TABLET PO (09:22)
[2025-09-28] MEDS: PANTOPRAZOLE 40 MG TABLET PO (09:22)
[2025-09-28] MEDS: FAMOTIDINE 20 MG TABLET PO ×2 (09:22→20:30)
--- NOTE | 2025-09-28 10:26 | P.PNIM_ITS ---
Progress Note: A&P Assessment and Plan (1) Generalized weakness: Code(s): R53.1 - Weakness Status: Acute (2) Failure to thrive: Status: Acute Plan Failure to thrive in adult -patient has poor p.o. intake and creatinine slowly up trending from 0.94 to 1.02 -patient encouraged to drink water, urine is getting darker -using IV fluids to maintain renal function is not appropriate long-term plan, will hydrate by PO intake -patient is failing to thrive and hospice is appropriate considering her dementia, patient and family are not ready for hospice. She is in good spirits with family, more awake and alert. patient will benefit from more physical therapy to get back to her functional status a month ago. Asymptomatic bacteriuria -urinalysis with 4+ bacteria. Patient had already completed a course of antibiotics. 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 -patient denies any frequency, dysuria, any urinary symptoms at all -no antibiotics indicated COVID-19 -off remdesivir, continue supportive care -off isolation -asymptomatic Community-acquired pneumonia, resolved -patient bibasilar pneumonia -chest x-ray showing bibasilar pneumonia 09/14/25 -antibiotics completed Augmentin azithromycin -PT/OT consulted for debility Chronic conditions -dementia: Lives in Memory Care Unit awaiting disposition -RLS: requip -bowel regimen: miralax -GERD: Protonix, Pepcid -essential hypertension: olmesartan, metoprolol -hypothyroidism: levothyroxine -HLD: statin -supplements: Ferrous sulfate Diet: Regular diet DVT prophylaxis: Lovenox Code status: full code Disposition: Memory care unit previously, Patient medically stable for discharge. plan to send to swing bed. no change to plan awaiting insurance authorization Social: Daughter Maude Time Spent With Patient Time: 20 minutes Subjective Date/time seen: 09/28/25 10:26 Interval history: Patient seen and examined. She is doing well with no new complaints. Patient denies fever, chills, nausea vomiting diarrhea. Family bedside. Review of Systems Review of Systems: 10 point ROS complete, negative other th an what is specified in HPI. Exam Narrative: - GENERAL: Pleasant elderly woman in no acute distress - EYES: EOMI - HENT: Moist mucous membranes. Edentul ous - LUNGS: Clear to auscultation bilateral ly - CARDIOVASCULAR: Regular rate and rhyth m. - : purewick on, urine is yellow but d arker - NEUROLOGIC: No focal neurological defi cits. - PSYCHIATRIC: Appropriate mood and flat affect. Objective Data Vital Signs Vital Signs: Vital Signs - 24 hr 09/27/25 14:00 09/27/25 20:00 09/27/25 21:03 Temperature 36.4 C L 36.6 C Pulse Rate 78 80 Respiratory Rate 16 18 Blood Pressure 123/82 126/56 L Pulse Oximetry 97 95 Oxygen Delivery Room Air 09/28/25 05:13 09/28/25 09:21 Temperature 36.1 C L Pulse Rate 68 68 Respiratory Rate 18 Blood Pressure 131/62 Pulse Oximetry 98 Oxygen Delivery Intake/Output Intake/Output: Intake & Output 09/25/25 09/26/25 09/27/25 09/28/25 23:59 23:59 23:59 23:59 Intake Total 958 598 718 120 Output Total 500 400 900 300 Balance 458 198 -182 -180 Meds/Results Medications: Active Medications Generic Name Dose Route Start Last Admin Trade Name Freq PRN Reason Stop Dose Admin Acetaminophen 650 mg 09/14/25 09:55 09/27/25 20:55 Acetaminophen 325 Mg Tablet PO 650 mg Q6H PRN Administration fever or pain Atorvastatin Calcium 40 mg 09/14/25 21:00 09/27/25 20:56 Atorvastatin 40 Mg Tablet PO 40 mg HS SILVIO Administration Diclofenac Sodium 1 applic 09/14/25 09:55 Diclofenac Sodium 1% 100 Gm Gel (*Bkc) TOPICAL TID PRN Pain Enoxaparin Sodium 40 mg 09/14/25 09:00 09/28/25 09:21 Enoxaparin 40 Mg/0.4 Ml Syringe SUB-Q 40 mg DAILY SILVIO Administration Famotidine 20 mg 09/14/25 21:00 09/28/25 09:22 Famotidine 20 Mg Tablet PO 20 mg Q12HR SILVIO Administration Ferrous Sulfate 325 mg 09/15/25 09:00 09/28/25 09:22 Ferrous Sulfate 325 Mg Tablet PO 325 mg DAILY SILVIO Administration Guaifenesin 200 mg 09/14/25 09:55 Guaifenesin 200 Mg/10 Ml Udc PO Q6H PRN Cough Ibuprofen 600 mg 09/14/25 15:35 Ibuprofen 600 Mg Tablet PO Q6H PRN Cramping Levothyroxine Sodium 88 mcg 09/15/25 06:30 09/28/25 05:58 Levothyroxine Sodium 88 Mcg Tablet PO 88 mcg DAILY@0630 SILVIO Administration Metoprolol Tartrate 25 mg 09/14/25 11:00 09/28/25 09:21 Metoprolol Tartrate 25 Mg Tablet PO 25 mg Q12HR SILVIO Administration Olmesartan 10 mg 09/14/25 11:00 09/28/25 09:22 Olmesartan Medoxomil 10 Mg Tablet PO 10 mg DAILY SILVIO Administration Ondansetron HCl 4 mg 09/14/25 02:37 09/16/25 06:22 Ondansetron Inj 4 Mg/2 Ml Vial IV PUSH 4 mg Q4H PRN Administration Nausea Ondansetron HCl 4 mg 09/14/25 09:55 Ondansetron Hcl Odt 4 Mg Tablet PO Q6H PRN Nausea And Vomiting Pantoprazole Sodium 40 mg 09/14/25 09:00 09/28/25 09:22 Pantoprazole 40 Mg Tablet PO 40 mg QAM SILVIO Administration Polyethylene Glycol 17 gm 09/14/25 09:55 Polyethylene Glycol 3350 17 Gm Powd.Pack PO HS PRN Constipation Ropinirole HCl 0.25 mg 09/14/25 21:00 09/27/25 20:56 Ropinirole Hcl 0.25 Mg Tablet PO 0.25 mg HS SILVIO Administration Radiology Results: ITS Impressions Head CT 09/14/25 05:56 IMPRESSION: 1. No acute intracranial findings. Chest X-Ray 09/14/25 12:22 Impression: CHF. Early basilar pneumonia suspected. The findings appear slightly progressed compared to the previous exam
--- NOTE | 2025-09-28 11:27 | PCNWS ---
Weekly nutritional screen. Patient is tolerating current Regular diet with adequate intake 50-75% most all meals. No weight loss reported. No nutritional recommendations at this time.
[2025-09-28 14:00] VITALS: BP 119/55; PULSE 72; RESP 16; TEMP 36.6; O2SAT 97
[2025-09-28 20:19] VITALS: BP 109/43; PULSE 73; RESP 18; TEMP 36.9; O2SAT 98
[2025-09-28 20:30] VITALS: PULSE 66
[2025-09-28] MEDS: ATORVASTATIN 40 MG TABLET PO (20:30)
[2025-09-28] MEDS: ACETAMINOPHEN 325 MG TABLET 650 MG PO (20:40)
[2025-09-29 04:56] VITALS: BP 153/88; PULSE 71; RESP 16; TEMP 36.6; O2SAT 95
[2025-09-29] MEDS: LEVOTHYROXINE SODIUM 88 MCG TABLET PO (06:01)
[2025-09-29 08:55] VITALS: PULSE 76
[2025-09-29] MEDS: PANTOPRAZOLE 40 MG TABLET PO (08:55)
[2025-09-29] MEDS: METOPROLOL TARTRATE 25 MG TABLET PO ×2 (08:55→20:58)
[2025-09-29] MEDS: FERROUS SULFATE 325 MG TABLET PO (08:55)
[2025-09-29] MEDS: OLMESARTAN MEDOXOMIL 10 MG TABLET PO (08:55)
[2025-09-29] MEDS: FAMOTIDINE 20 MG TABLET PO ×2 (08:55→20:58)
[2025-09-29] MEDS: ENOXAPARIN 40 MG/0.4 ML SYRINGE SUB-Q (08:55)
--- NOTE | 2025-09-29 13:24 | P.PNIM_ITS ---
Progress Note: A&P Assessment and Plan (1) Generalized weakness: Code(s): R53.1 - Weakness Status: Acute (2) Failure to thrive: Status: Acute Plan Failure to thrive in adult -patient has poor p.o. intake and creatinine slowly up trending from 0.94 to 1.02 -patient encouraged to drink water, urine is getting darker -using IV fluids to maintain renal function is not appropriate long-term plan, will hydrate by PO intake -patient is failing to thrive and hospice is appropriate considering her dementia, patient and family are not ready for hospice. She is in good spirits with family, more awake and alert. patient will benefit from more physical therapy to get back to her functional status a month ago. Asymptomatic bacteriuria -urinalysis with 4+ bacteria. Patient had already completed a course of antibiotics. 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 -patient denies any frequency, dysuria, any urinary symptoms at all -no antibiotics indicated COVID-19 -off remdesivir, continue supportive care -off isolation -asymptomatic Community-acquired pneumonia, resolved -patient bibasilar pneumonia -chest x-ray showing bibasilar pneumonia 09/14/25 -antibiotics completed Augmentin azithromycin -PT/OT consulted for debility Chronic conditions -dementia: Lives in Memory Care Unit awaiting disposition -RLS: requip -bowel regimen: miralax -GERD: Protonix, Pepcid -essential hypertension: olmesartan, metoprolol -hypothyroidism: levothyroxine -HLD: statin -supplements: Ferrous sulfate Diet: Regular diet DVT prophylaxis: Lovenox Code status: full code Disposition: Memory care unit previously, Patient medically stable for discharge. plan to send to swing bed. no change to plan awaiting insurance authorization Social: Shiv Santoro Subjective Date/time seen: 09/29/25 13:24 Interval history: No acute events overnight. Resting well Review of Systems Review of Systems: 10 point ROS complete, negative other th an what is specified in HPI. All systems reviewed & are unremarkable except as noted in HPI and below ROS unobtainable: Yes unobtainable due to mental status Exam Narrative: - GENERAL: Pleasant elderly woman in no acute distress - EYES: EOMI - HENT: Moist mucous membranes. Edentul ous - LUNGS: Clear to auscultation bilateral ly - CARDIOVASCULAR: Regular rate and rhyth m. - : purewick on, urine is yellow but d arker - NEUROLOGIC: No focal neurological defi cits. - PSYCHIATRIC: Appropriate mood and flat affect. Const: General: comfortable and no acute distress Other: A&O x2, cooperative HENMT: Face/Nose/Sinus: Normal nares present Mouth: Yes moist mucous membranes Eyes: General: appearance normal, both eyes and all related structures Sclera: sclerae normal Pupils: Equal, round and reactive pupils present Neck: Neck: supple Resp: Effort & Inspection: normal respiratory effort Auscultation: clear to auscultation bilaterally Other: No cough upon my exam with deep breathing Cardio: Rate: regular rate Rhythm: regular rhythm GI: Inspection: non-distended Skin: General skin exam: normal color and no rashes or lesions noted Neuro: Cranial nerves: Yes Equal, round and reactive pupils present Motor exam (neuro): 5/5 motor strength present throughout and Normal motor muscle tone present throughout Sensory Exam: normal sensation Extrem: General: edema (trace) Psych: Mental Status: mental status grossly normal Affect: normal affect Objective Data Vital Signs Vital Signs: Vital Signs - 24 hr 09/28/25 13:39 09/28/25 14:00 09/28/25 20:00 Temperature 97.9 F Pulse Rate 72 Respiratory Rate 16 Blood Pressure 119/55 L Pulse Oximetry 97 Oxygen Delivery Room Air Room Air 09/28/25 20:19 09/28/25 20:30 09/29/25 04:56 Temperature 98.5 F 97.8 F Pulse Rate 73 66 71 Respiratory Rate 18 16 Blood Pressure 109/43 L 153/88 H Pulse Oximetry 98 95 Oxygen Delivery 09/29/25 08:55 Temperature Pulse Rate 76 Respiratory Rate Blood Pressure Pulse Oximetry Oxygen Delivery Intake/Output Intake/Output: Intake & Output 09/26/25 09/27/25 09/28/25 09/29/25 23:59 23:59 23:59 23:59 Intake Total 397 074 2089 180 Output Total 117 161 1980 450 Balance 198 -182 188 -270 Meds/Results Medications: Active Medications Generic Name Dose Route Start Last Admin Trade Name Freq PRN Reason Stop Dose Admin Acetaminophen 650 mg 09/14/25 09:55 09/28/25 20:40 Acetaminophen 325 Mg Tablet PO 650 mg Q6H PRN Administration fever or pain Atorvastatin Calcium 40 mg 09/14/25 21:00 09/28/25 20:30 Atorvastatin 40 Mg Tablet PO 40 mg HS SILVIO Administration Diclofenac Sodium 1 applic 09/14/25 09:55 Diclofenac Sodium 1% 100 Gm Gel (*Bkc) TOPICAL TID PRN Pain Enoxaparin Sodium 40 mg 09/14/25 09:00 09/29/25 08:55 Enoxaparin 40 Mg/0.4 Ml Syringe SUB-Q 40 mg DAILY SILVIO Administration Famotidine 20 mg 09/14/25 21:00 09/29/25 08:55 Famotidine 20 Mg Tablet PO 20 mg Q12HR SILVIO Administration Ferrous Sulfate 325 mg 09/15/25 09:00 09/29/25 08:55 Ferrous Sulfate 325 Mg Tablet PO 325 mg DAILY SILVIO Administration Guaifenesin 200 mg 09/14/25 09:55 Guaifenesin 200 Mg/10 Ml Udc PO Q6H PRN Cough Ibuprofen 600 mg 09/14/25 15:35 Ibuprofen 600 Mg Tablet PO Q6H PRN Cramping Levothyroxine Sodium 88 mcg 09/15/25 06:30 09/29/25 06:01 Levothyroxine Sodium 88 Mcg Tablet PO 88 mcg DAILY@0630 [facility] Administration Metoprolol Tartrate 25 mg 09/14/25 11:00 09/29/25 08:55 Metoprolol Tartrate 25 Mg Tablet PO 25 mg Q12HR SILVIO Administration Olmesartan 10 mg 09/14/25 11:00 09/29/25 08:55 Olmesartan Medoxomil 10 Mg Tablet PO 10 mg DAILY SILVIO Administration Ondansetron HCl 4 mg 09/14/25 02:37 09/16/25 06:22 Ondansetron Inj 4 Mg/2 Ml Vial IV PUSH 4 mg Q4H PRN Administration Nausea Ondansetron HCl 4 mg 09/14/25 09:55 Ondansetron Hcl Odt 4 Mg Tablet PO Q6H PRN Nausea And Vomiting Pantoprazole Sodium 40 mg 09/14/25 09:00 09/29/25 08:55 Pantoprazole 40 Mg Tablet PO 40 mg QAM SILVIO Administration Polyethylene Glycol 17 gm 09/14/25 09:55 Polyethylene Glycol 3350 17 Gm Powd.Pack PO HS PRN Constipation Ropinirole HCl 0.25 mg 09/14/25 21:00 09/28/25 20:31 Ropinirole Hcl 0.25 Mg Tablet PO 0.25 mg HS SILVIO Administration Radiology Results: ITS Impressions Head CT 09/14/25 05:56 IMPRESSION: 1. No acute intracranial findings. Chest X-Ray 09/14/25 12:22 Impression: CHF. Early basilar pneumonia suspected. The findings appear slightly progressed compared to the previous exam Quality VTE Prophylaxis VTE prophylaxis: pharmacologic ordered Hospitalist [facility] Advance Care Plan I have confirmed that the patient's Advanced Care Plan is present, code status is documented, or surrogate decision maker is listed in patient medical record.: Yes Medication Reconciliation I have utilized all available resources to obtain, update and review the patients current medications (includes all prescriptions, OTC, herbals, cannabis, and nutritional supplements).: Yes
[2025-09-29 13:42] LABS: Hematocrit 40.1 % (37.0-47.0); Hemoglobin 12.7 g/dL (12.0-15.0); Mean Corpuscular HGB Conc 31.7 g/dl (32-36); Mean Corpuscular Hemoglobin 29.1 pg (26-34); Mean Corpuscular Volume 92.0 fl (80-100); Platelet Count Result 421 k/mm3 (150-375); Red Blood Count 4.36 M/mm3 (4.2-5.4); White Blood Count 5.6 K/mm3 (4.5-10.0)
[2025-09-29 13:53] LABS: Alanine Aminotransferase 16 U/L (6-35); Albumin Level 4.0 g/dL (3.5-5.1); Alkaline Phosphatase 74 U/L (38-126); Anion Gap 8 mmol/L (4-12); Aspartate Amino Transferase 26 U/L (14-36); Bilirubin,Total 0.3 mg/dL (0.2-1.3); Blood Urea Nitrogen 22 mg/dL (7-17); Calcium 9.3 mg/dL (8.4-10.2); Carbon Dioxide 25 mmol/L (22-30); Chloride 102 mmol/L (98-107); Estimated CRCL calculation 34 ml/min; Estimated Glomerular Filt Rate 44; Glucose 120 mg/dL (65-110); Potassium 4.8 mmol/L (3.4-5.0); Sodium 135 mmol/L (137-145); Total Protein 7.5 g/dL (6.3-8.2)
[2025-09-29 13:57] VITALS: BP 118/66; PULSE 75; RESP 18; TEMP 36.5; O2SAT 98
[2025-09-29 20:00] VITALS: PULSE 82; RESP 16; O2SAT 97
[2025-09-29 20:25] VITALS: BP 125/62; PULSE 82; RESP 16; TEMP 36.7; O2SAT 97
[2025-09-29 20:58] VITALS: PULSE 82
[2025-09-29] MEDS: ATORVASTATIN 40 MG TABLET PO (21:19)
[2025-09-30 05:51] VITALS: BP 127/75; PULSE 70; RESP 16; TEMP 36.5; O2SAT 98
[2025-09-30] MEDS: LEVOTHYROXINE SODIUM 88 MCG TABLET PO (05:58)
[2025-09-30 08:18] LABS: Hematocrit 40.2 % (37.0-47.0); Hemoglobin 12.8 g/dL (12.0-15.0); Mean Corpuscular HGB Conc 31.8 g/dl (32-36); Mean Corpuscular Hemoglobin 28.7 pg (26-34); Mean Corpuscular Volume 90.1 fl (80-100); Platelet Count Result 435 k/mm3 (150-375); Red Blood Count 4.46 M/mm3 (4.2-5.4); White Blood Count 4.9 K/mm3 (4.5-10.0)
[2025-09-30 08:34] VITALS: PULSE 84
[2025-09-30] MEDS: FERROUS SULFATE 325 MG TABLET PO (08:34)
[2025-09-30] MEDS: FAMOTIDINE 20 MG TABLET PO (08:34)
[2025-09-30] MEDS: ENOXAPARIN 40 MG/0.4 ML SYRINGE SUB-Q (08:34)
[2025-09-30] MEDS: METOPROLOL TARTRATE 25 MG TABLET PO (08:34)
[2025-09-30] MEDS: OLMESARTAN MEDOXOMIL 10 MG TABLET PO (08:34)
[2025-09-30] MEDS: PANTOPRAZOLE 40 MG TABLET PO (08:34)
[2025-09-30 09:00] LABS: Alanine Aminotransferase 16 U/L (6-35); Albumin Level 3.9 g/dL (3.5-5.1); Alkaline Phosphatase 67 U/L (38-126); Anion Gap 9 mmol/L (4-12); Aspartate Amino Transferase 26 U/L (14-36); Bilirubin,Total 0.5 mg/dL (0.2-1.3); Blood Urea Nitrogen 30 mg/dL (7-17); Calcium 9.3 mg/dL (8.4-10.2); Carbon Dioxide 23 mmol/L (22-30); Chloride 102 mmol/L (98-107); Estimated CRCL calculation 39 ml/min; Estimated Glomerular Filt Rate 52; Glucose 91 mg/dL (65-110); Potassium 4.6 mmol/L (3.4-5.0); Sodium 134 mmol/L (137-145); Total Protein 7.3 g/dL (6.3-8.2)
--- NOTE | 2025-09-30 09:03 | P.PNIM_ITS ---
Progress Note: A&P Assessment and Plan (1) Generalized weakness: Code(s): R53.1 - Weakness Status: Acute (2) Failure to thrive: Status: Acute Plan Failure to thrive in adult -patient has poor p.o. intake and creatinine slowly up trending from 0.94 to 1.02 -patient encouraged to drink water, urine is getting darker -using IV fluids to maintain renal function is not appropriate long-term plan, will hydrate by PO intake -patient is failing to thrive and hospice is appropriate considering her dementia, patient and family are not ready for hospice. She is in good spirits with family, more awake and alert. patient will benefit from more physical therapy to get back to her functional status a month ago. Asymptomatic bacteriuria -urinalysis with 4+ bacteria. Patient had already completed a course of antibiotics. 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 -patient denies any frequency, dysuria, any urinary symptoms at all -no antibiotics indicated COVID-19 -off remdesivir, continue supportive care -off isolation -asymptomatic Community-acquired pneumonia, resolved -patient bibasilar pneumonia -chest x-ray showing bibasilar pneumonia 09/14/25 -antibiotics completed Augmentin azithromycin -PT/OT consulted for debility Chronic conditions -dementia: Lives in Memory Care Unit awaiting disposition -RLS: requip -bowel regimen: miralax -GERD: Protonix, Pepcid -essential hypertension: olmesartan, metoprolol -hypothyroidism: levothyroxine -HLD: statin -supplements: Ferrous sulfate Diet: Regular diet DVT prophylaxis: Lovenox Code status: full code Disposition: Memory care unit previously, Patient medically stable for discharge. plan to send to swing bed. no change to plan awaiting insurance authorization Social: Shiv Santoro Subjective Date/time seen: 09/30/25 09:03 Interval history: Acute events overnight. Review of Systems Review of Systems: 10 point ROS complete, negative other th an what is specified in HPI. All systems reviewed & are unremarkable except as noted in HPI and below ROS unobtainable: Yes unobtainable due to mental status Exam Narrative: - GENERAL: Pleasant elderly woman in no acute distress - EYES: EOMI - HENT: Moist mucous membranes. Edentul ous - LUNGS: Clear to auscultation bilateral ly - CARDIOVASCULAR: Regular rate and rhyth m. - : purewick on, urine is yellow but d arker - NEUROLOGIC: No focal neurological defi cits. - PSYCHIATRIC: Appropriate mood and flat affect. Const: General: comfortable and no acute distress Other: A&O x2, cooperative HENMT: Face/Nose/Sinus: Normal nares present Mouth: Yes moist mucous me mbranes Eyes: General: appearance normal, both eyes and all related structures Sclera: sclerae normal Pupils: Equal, round and reactive pupils present Neck: Neck: supple Resp: Effort & Inspection: normal respiratory effort Auscultation: clear to auscultation bilaterally Other: No cough upon my exam with deep breathing Cardio: Rate: regular rate Rhythm: regular rhythm GI: Inspection: non-distended Skin: General skin exam: normal color and no rashes or lesions noted Neuro: Cranial nerves: Yes Equal, round and reactive pupils present Motor exam (neuro): 5/5 motor strength present throughout and Normal motor muscle tone present throughout Sensory Exam: normal sensation Extrem: General: edema (trace) Psych: Mental Status: mental status grossly normal Affect: normal affect Objective Data Vital Signs Vital Signs: Vital Signs - 24 hr 09/29/25 13:57 09/29/25 20:00 09/29/25 20:25 Temperature 97.7 F 98.0 F Pulse Rate 75 82 82 Respiratory Rate 18 16 16 Blood Pressure 118/66 125/62 Pulse Oximetry 98 97 97 Oxygen Delivery Room Air Fraction of Inspired Oxygen 21 09/29/25 20:58 09/30/25 05:51 09/30/25 08:34 Temperature 97.7 F Pulse Rate 82 70 84 Respiratory Rate 16 Blood Pressure 127/75 Pulse Oximetry 98 Oxygen Delivery Fraction of Inspired Oxygen Intake/Output Intake/Output: Intake & Output 09/27/25 09/28/25 09/29/25 09/30/25 23:59 23:59 23:59 23:59 Intake Total 718 1288 037 554 Output Total 900 2697 263 700 Balance -182 438 -928 -702 Meds/Results Medications: Active Medications Generic Name Dose Route Start Last Admin Trade Name Freq PRN Reason Stop Dose Admin Acetaminophen 650 mg 09/14/25 09:55 09/28/25 20:40 Acetaminophen 325 Mg Tablet PO 650 mg Q6H PRN Administration fever or pain Atorvastatin Calcium 40 mg 09/14/25 21:00 09/29/25 21:19 Atorvastatin 40 Mg Tablet PO 40 mg HS SILVIO Administration Diclofenac Sodium 1 applic 09/14/25 09:55 Diclofenac Sodium 1% 100 Gm Gel (*Bkc) TOPICAL TID PRN Pain Enoxaparin Sodium 40 mg 09/14/25 09:00 09/30/25 08:34 Enoxaparin 40 Mg/0.4 Ml Syringe SUB-Q 40 mg DAILY SILVIO Administration Famotidine 20 mg 09/14/25 21:00 09/30/25 08:34 Famotidine 20 Mg Tablet PO 20 mg Q12HR SILVIO Administration Ferrous Sulfate 325 mg 09/15/25 09:00 09/30/25 08:34 Ferrous Sulfate 325 Mg Tablet PO 325 mg DAILY SILVIO Administration Guaifenesin 200 mg 09/14/25 09:55 Guaifenesin 200 Mg/10 Ml Udc PO Q6H PRN Cough Ibuprofen 600 mg 09/14/25 15:35 Ibuprofen 600 Mg Tablet PO Q6H PRN Cramping Levothyroxine Sodium 88 mcg 09/15/25 06:30 09/30/25 05:58 Levothyroxine Sodium 88 Mcg Tablet PO 88 mcg DAILY@0630 SILVIO Administration Metoprolol Tartrate 25 mg 09/14/25 11:00 09/30/25 08:34 Metoprolol Tartrate 25 Mg Tablet PO 25 mg Q12HR SILVIO Administration Olmesartan 10 mg 09/14/25 11:00 09/30/25 08:34 Olmesartan Medoxomil 10 Mg Tablet PO 10 mg DAILY SILVIO Administration Ondansetron HCl 4 mg 09/14/25 02:37 09/16/25 06:22 Ondansetron Inj 4 Mg/2 Ml Vial IV PUSH 4 mg Q4H PRN Administration Nausea Ondansetron HCl 4 mg 09/14/25 09:55 Ondansetron Hcl Odt 4 Mg Tablet PO Q6H PRN Nausea And Vomiting Pantoprazole Sodium 40 mg 09/14/25 09:00 09/30/25 08:34 Pantoprazole 40 Mg Tablet PO 40 mg QAM SILVIO Administration Polyethylene Glycol 17 gm 09/14/25 09:55 Polyethylene Glycol 3350 17 Gm Powd.Pack PO HS PRN Constipation Ropinirole HCl 0.25 mg 09/14/25 21:00 09/29/25 20:58 Ropinirole Hcl 0.25 Mg Tablet PO 0.25 mg HS SILVIO Administration Radiology Results: ITS Impressions Head CT 09/14/25 05:56 IMPRESSION: 1. No acute intracranial findings. Chest X-Ray 09/14/25 12:22 Impression: CHF. Early basilar pneumonia suspected. The findings appear slightly progressed compared to the previous exam Labs Labs: Laboratory Results - last 24 hr 09/29/25 09/30/25 13:37 07:41 WBC 5.6 4.9 RBC 4.36 4.46 Hgb 12.7 12.8 Hct 40.1 40.2 MCV 92.0 90.1 MCH 29.1 28.7 MCHC 31.7 L 31.8 L RDW 14.5 14.4 Plt Count 421 H 435 H MPV 9.2 9.6 Sodium 135 L 134 L Potassium 4.8 4.6 Chloride 102 102 Carbon Dioxide 25 23 Anion Gap 8 9 BUN 22 H 30 H Creatinine 1.17 H 1.02 H Estim Creat Clear Calc 34 39 Estimated GFR 44 L 52 L Glucose 120 H 91 Calcium 9.3 9.3 Total Bilirubin 0.3 0.5 AST 26 26 ALT 16 16 Alkaline Phosphatase 74 67 Total Protein 7.5 7.3 Albumin 4.0 3.9 Quality VTE Prophylaxis VTE prophylaxis: pharmacologic ordered Hospitalist [facility] Advance Care Plan I have confirmed that the patient's Advanced Care Plan is present, code status is documented, or surrogate decision maker is listed in patient medical record.: Yes Medication Reconciliation I have utilized all available resources to obtain, update and review the patients current medications (includes all prescriptions, OTC, herbals, cannabis, and nutritional supplements).: Yes
[2025-09-30] MEDS: ACETAMINOPHEN 325 MG TABLET 650 MG PO (13:02)
[2025-09-30 14:00] VITALS: BP 105/56; PULSE 72; RESP 16; TEMP 35.9; O2SAT 100
--- NOTE | 2025-09-30 18:10 | P.DS_ITS ---
DS: Admitting Diagnosis Discharge Date 09/30/2025 Admitting Diagnosis Weakness DS: Discharge Diagnosis Discharge Diagnosis (1) Generalized weakness: Code(s): R53.1 - Weakness Status: Acute (2) Failure to thrive: Status: Acute Plan Please refer to hospital course for brief summary DS: Summary Hospital Course Hospital Course: 84-year-old female with PMH hypertension, hypothyroidism, who resides at Memory Care Unit locally brought in by EMS to [facility] ER on 09/13/2025. Family states the patient has been very weak for a day, has had low urine output. Patient had a prolonged hospitalization. I assumed care 09/29/2025 Patient has been treated for following conditionFailure to thrive in adult -patient has poor p.o. intake and creatinine slowly up trending from 0.94 to 1.02 -patient encouraged to drink water, urine is getting darker -encouraged oral hydration -patient is failing to thrive and hospice is appropriate considering her dementia, patient and family are not ready for hospice. She is in good spirits with family, more awake and alert. patient will benefit from more physical therapy to get back to her functional status a month ago. Asymptomatic bacteriuria -urinalysis with 4+ bacteria. Patient had already completed a course of antibiotics. 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 -patient denies any frequency, dysuria, any urinary symptoms at all -no antibiotics indicated COVID-19 -off remdesivir, continue supportive care -off isolation -asymptomatic Community-acquired pneumonia, resolved -patient bibasilar pneumonia -chest x-ray showing bibasilar pneumonia 09/14/25 -antibiotics completed Augmentin azithromycin -PT/OT consulted for debility Chronic conditions -dementia: Lives in Memory Care Unit awaiting disposition -RLS: requip -bowel regimen: miralax -GERD: Protonix, Pepcid -essential hypertension: olmesartan, metoprolol -hypothyroidism: levothyroxine -HLD: statin -supplements: Ferrous sulfate On the day of discharge, the patient was seen and examined. Vital signs were stable. Physical exam were stable and labs were reviewed at length. Discharge instructions, medications, and follow-up appointments were discussed with the patient at length and all day questions were answered. ER warnings were given. Status at Discharge Cognitive/behavioral status at discharge: Stable Time Spent with Patient Time attestation: Total time spent providing and/or coordinating discharge services: 45 minute Exam Narrative: - GENERAL: Pleasant elderly woman in no acute distress - EYES: EOMI - HENT: Moist mucous membranes. Edentul ous - LUNGS: Clear to auscultation bilateral ly - CARDIOVASCULAR: Regular rate and rhyth m. - : purewick on, urine is yellow but d arker - NEUROLOGIC: No focal neurological defi cits. - PSYCHIATRIC: Appropriate mood and flat affect. Const: General: comfortable and no acute distress Other: A&O x2, cooperative HENMT: Face/Nose/Sinus: Normal nares present Mouth: Yes moist mucous membranes Eyes: General: appearance normal, both eyes and all related structures Sclera: sclerae normal Pupils: Equal, round and reactive pupils present Neck: Neck: supple Resp: Effort & Inspection: normal respiratory effort Auscultation: clear to auscultation bilaterally Other: No cough upon my exam with deep breathing Cardio: Rate: regular rate Rhythm: regular rhythm GI: Inspection: non-distended Skin: General skin exam: normal color and no rashes or lesions noted Neuro: Cranial nerves: Yes Equal, round and reactive pupils present Motor exam (neuro): 5/5 motor strength present throughout and Normal motor muscle tone present throughout Sensory Exam: normal sensation Extrem: General: edema (trace) Psych: Mental Status: mental status grossly normal Affect: normal affect DS: Data Data Completed and Pending Labs on day of discharge: Labs from last 24 hours 09/30/25 07:41 WBC 4.9 RBC 4.46 Hgb 12.8 Hct 40.2 MCV 90.1 MCH 28.7 MCHC 31.8 L RDW 14.4 Plt Count 435 H MPV 9.6 Sodium 134 L Potassium 4.6 Chloride 102 Carbon Dioxide 23 Anion Gap 9 BUN 30 H Creatinine 1.02 H Estim Creat Clear Calc 39 Estimated GFR 52 L Glucose 91 Calcium 9.3 Total Bilirubin 0.5 AST 26 ALT 16 Alkaline Phosphatase 67 Total Protein 7.3 Albumin 3.9 Preliminary micro results at discharge 09/26/25 07:29 Urine Culture - Preliminary Urine Clean Catch Escherichia Coli Imaging Radiologist's impression: ITS Impressions Chest X-Ray 09/14/25 05:55 IMPRESSION: 1. Probable airspace disease right lower lobe. Consider PA and lateral films with deep inspiration. Head CT 09/14/25 05:56 IMPRESSION: 1. No acute intracranial findings. Chest X-Ray 09/14/25 12:22 Impression: CHF. Early basilar pneumonia suspected. The findings appear slightly progressed compared to the previous exam Discharge Plan Discharge Attending physician on discharge: Dhaval Horn Consulting providers: Marcia Barakat; Omayra Mcclendon Discharging Clinician: Dhaval Horn Anticipated Discharge Date/Time: 09/30/25 18:14 Patient Disposition: NH Detention/Asst Living Activity: as tolerated Diet: as tolerated Discharge Instructions: Care Coordination: Patient to have [facility] resume services at discharge. They can be reached at [phone] if you have any questions; they will contact you to schedule their visits. RN Please fax discharge instructions to [phone]. Patient Instructions: Antibiotic Form Patient Language: Malawian Stand Alone Forms: General Discharge Information Follow-up/Referrals: UNKNOWN,DOCTOR [Primary Care Provider] Discharge Medications: Continued acetaminophen 325 mg capsule 650 mg PO Q6H PRN (Reason: fever or pain) ropinirole 0.25 mg tablet 0.25 mg PO HS ondansetron 4 mg tablet,disintegrating 4 mg PO Q6H PRN (Reason: nausea and vomiting) omeprazole 20 mg capsule,delayed release(DR/EC) 20 mg PO DAILY olmesartan 5 mg tablet 10 mg PO DAILY polyethylene glycol 3350 [ClearLax] 17 gram/dose powder 17 g PO HS PRN (Reason: constipation) metoprolol tartrate 25 mg tablet 25 mg PO BID levothyroxine [Levo-T] 50 mcg tablet 88 mcg PO DAILY ferrous sulfate [FeroSul] 325 mg (65 mg iron) tablet 325 mg PO BID famotidine 20 mg tablet 20 mg PO BID atorvastatin [Lipitor] 40 mg tablet 40 mg PO HS guaifenesin [Mucus-Chest Congestion] 100 mg/5 mL liquid 200 mg PO Q6H PRN (Reason: cough) diclofenac sodium 1 % gel 1 g topical TID PRN (Reason: pain) Rx Instructions: apply to single elbow, wrist or hand; for hand includes palm/fingers/back of hand Date of admission: 09/15/25 10:17 Primary Care Provider: UNKNOWN,DOCTOR Admitting Provider: Rosa Caal Attending physician on admission: Rosa Caal Condition: Stable
== END 2025-09-30 18:23 | disposition swing bed (61) | DRG 177 ==
LOC: ANHED 09-14 02:36 → ANH3MEDSUR 09-14 03:38
PROVIDERS: Registered Nurse; Student in an Organized Health Care Education/Training Program; Admitting Provider General Practice; Emergency Provider Student in an Organized Health Care Education/Training Program; Visit Provider General Practice
DX: U07.1 COVID-19 (principal); J18.9 Pneumonia, unspecified organism; N39.0 Urinary tract infection, site not specified; D50.9 Iron deficiency anemia, unspecified; E03.9 Hypothyroidism, unspecified; E86.0 Dehydration; I50.9 Heart failure, unspecified; I11.0 Hypertensive heart disease with heart failure; F03.90 Unspecified dementia, unspecified severity, without behavioral disturbance, psychotic disturbance, mood disturbance, and anxiety; G25.81 Restless legs syndrome; K21.9 Gastro-esophageal reflux disease without esophagitis; E78.5 Hyperlipidemia, unspecified; R62.7 Adult failure to thrive; B96.89 Other specified bacterial agents as the cause of diseases classified elsewhere; Z68.34 Body mass index [BMI] 34.0-34.9, adult
CPT/HCPCS: 36415; 70450; 71045; 71046; 80053; 81001; 83735; 84443; 85025; 85027; 85610; 87086; 87186; 87637; 93005; 96361; 96365; 96367; 96372; 97110; 97116; 97162; 97164; 97166; 97168; 97530; 97535; 99285; A9270; G0378; J0248; J0360; J0456; J0696; J1644; J1650; J2405; J7050; J7120

== ENCOUNTER 2025-09-30 19:16 | Inpatient (IN) | payer MEDICARE, SELFPAY ==
--- OUTSIDE RECORDS SUMMARY | 2018-01-10 06:05 | XMS_ITS | Encounter Summary ---
[facility] Address [address] [place] [address] Care Team Providers Care Degreasing Solution Reclaimer Name Role Phone Darrin Post MD PhD Primary Care Provider Jose Guadalupe segura Encounter Details Date Type Department Care Team (Late st Contact Info) Description 01/10/2018 6:05 AM ACCOUNTING INTERN Hospital Encounter [facility] [address] [place] [phone] Social History Tobacco Use Types Packs/Day Years Used Date Smoking Tobacco: Never Smokeless Tobacco: Never Alcohol Use Standard Drinks/Week Comments No 0 (1 standard drink = 0.6 oz pur e alcohol) PHQ-2 Answer Date Recorded Retired PHQ-9: Brief Depression Severity Measure Score 0 05/02/2023 Abuse Screen Answer Date Recorded Unsafe at Home or Work/School Not on file Feels Threatened by Someone? Not on file Does Anyone Keep You from Co ntacting Others or Doint Things Outside the Home? Not on file 05/02/2024 Physical Sign of Abuse Present Not on file 0 05/02/2024 Housing Stability Answer Date Recorded Current Living Arrangements Not on file 08/12 Potentially Unsafe Housing Conditions Not on dain e 08/22/2023 Family and Community Support Answer Ankit e Recorded Help with Day-to-Day Activities Not on file 08/22/2023 Lonely or Isolated Not on file 08/22/2023 Employment Answer Date Recorded Do you want help finding or keeping work or a brandon b? Not on file 08/22/2023 Disabilities Answer Date Recorded Concentrating, Remembering, or Making Decisions Difficulty Not on file 08/22/2023 Doing Errands Independently Difficulty Not on fi le 08/22/2023 Education Answer Date Recorded Help with school or training? Not on file Preferred Language Not on file 08/22/2023 PHQ-2 Answer Date Recorded Retired PHQ-9: Brief Depression Severity Measure Score 0 05/02/2023 Comments No Sex and Gender Information Value Date Recorded Sex Assigned at Not on file Legal Sex Female 8:09 AM EDT Gender Identity Not on file Sexual Orientation Not on file documented as of this encounter Plan of Treatment Not on file documented as of this encounter Visit Diagnoses Not on filedocumented in this encounter Additional Health Concerns Infection Onset Date Last Indicated Resolved Time COVID Screen (preop/placement) 07/13/2020 07/19/2020 07/20/2020 7:27 AM EDT COVID Screen (preop/placement) 11/17/2020 11/20/2020 11/20/2020 5:30 PM EST COVID Screen (preop/placement) 03/02/2021 03/07/2021 03/07/2021 4:09 PM EDT documented as of this encounter Care Teams Degreasing Solution Reclaimer Relationship Specialty Start Date End Date Darrin Post MD PhD PCP - General Endocrinology 11/23/17 05/09/22 documented as of this encounter
--- OUTSIDE RECORDS SUMMARY | 2018-02-11 10:58 | XMS_ITS | Encounter Summary ---
[facility] [address] [place] [address] Care Team Providers Care Instrument And Controls Technician Name Role Phone Darrin Post MD PhD Primary Care Provider Jose Guadalupe segura Encounter Details Date Type Department Care Team (Late st Contact Info) Description 02/11/2018 11:58 AM CDT Hospital Encounter [facility] RAD ONC [address] [place] [phone] Social History Tobacco Use Types Packs/Day [...] documented as of this encounter Care Teams Instrument And Controls Technician Relationship Specialty Start Date End Date Darrin Post MD PhD PCP - General Endocrinology 11/23/17 05/09/22 documented as of this encounter
--- OUTSIDE RECORDS SUMMARY | 2018-04-12 05:10 | XMS_ITS | Encounter Summary ---
[facility] [address] [place] [address] Care Team Providers Care Nail Technician Name Role Phone Darrin Post MD PhD Primary Care Provider Jose Guadalupe segura Encounter Details Date Type Department Care Team (Late st Contact Info) Description 04/12/2018 6:10 AM CDT Hospital Encounter [facility] RAD ONC [address] [place] [phone] Social History Tobacco Use Types Packs/Day [...] documented as of this encounter Care Teams Nail Technician Relationship Specialty Start Date End Date Darrin Post MD PhD PCP - General Endocrinology 11/23/17 05/09/22 documented as of this encounter
--- OUTSIDE RECORDS SUMMARY | 2018-10-17 08:28 | XMS_ITS | Encounter Summary ---
[facility] [address] [place] [address] Care Team Providers Care Trip Motor Operator Name Role Phone Darrin Post MD PhD Primary Care Provider Jose Guadalupe segura Encounter Details Date Type Department Care Team (Late st Contact Info) Description 10/17/2018 8:28 AM EARTH SCIENCE TEACHER Hospital Encounter [facility] RAD ONC [address] [place] [phone] Social History Tobacco Use Types Packs/Day [...] documented as of this encounter Care Teams Trip Motor Operator Relationship Specialty Start Date End Date Darrin Post MD PhD PCP - General Endocrinology 11/23/17 05/09/22 documented as of this encounter
--- OUTSIDE RECORDS SUMMARY | 2019-04-17 05:05 | XMS_ITS | Encounter Summary ---
[facility] [address] [place] [address] Care Team Providers Care Retort Condenser Attendant Name Role Phone Darrin Post MD PhD Primary Care Provider Jose Guadalupe segura Encounter Details Date Type Department Care Team (Late st Contact Info) Description 04/17/2019 6:05 AM CDT Hospital Encounter [facility] RAD ONC [address] [place] [phone] Social History Tobacco Use Types Packs/Day [...] documented as of this encounter Care Teams Retort Condenser Attendant Relationship Specialty Start Date End Date Darrin Post MD PhD PCP - General Endocrinology 11/23/17 05/09/22 documented as of this encounter
--- OUTSIDE RECORDS SUMMARY | 2020-04-15 05:30 | XMS_ITS | Encounter Summary ---
[facility] [address] [place] [address] Care Team Providers Care Graphic Production Artist Name Role Phone Darrin Post MD PhD Primary Care Provider Jose Guadalupe segura Encounter Details Date Type Department Care Team (Late st Contact Info) Description 04/15/2020 6:30 AM CDT Hospital Encounter [facility] RAD ONC [address] [place] [phone] Social History Tobacco Use Types Packs/Day [...] documented as of this encounter Care Teams Graphic Production Artist Relationship Specialty Start Date End Date Darrin Post MD PhD PCP - General Endocrinology 11/23/17 05/09/22 documented as of this encounter
[2025-09-30 19:35] VITALS: BMI 31.3
--- NOTE | 2025-09-30 19:43 | ADMGEN ---
This patient, Aditi Pepe, was admitted to 2nd Floor Room 207-1. Patient/family oriented to hospital policies and general routines including ID bracelet, bed and alarms, visiting hours, pain management, procedures, bathroom and other care routines, personal items, smoking policy, room service/diet, and visiting hours. Information on how to activate the Rapid Response Team has been discussed. Patient/Family are encouraged to report perceived risks to care and to ask questions if they do not understand what they are told or what they should do.
[2025-09-30 19:44] VITALS: O2SAT 96
[2025-09-30] MEDS: ATORVASTATIN 40 MG TABLET PO (21:42)
[2025-09-30 23:23] VITALS: BP 93/42; PULSE 74; RESP 18; TEMP 36.9; O2SAT 96
--- OUTSIDE RECORDS SUMMARY | 2025-10-01 01:46 | XMS_ITS | Encounter Summary ---
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
--- OUTSIDE RECORDS SUMMARY | 2025-10-01 01:46 | XMS_ITS | Encounter Summary ---
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
--- OUTSIDE RECORDS SUMMARY | 2025-10-01 01:46 | XMS_ITS | Patient Health Record ---
Author Organization [facility] Address [address] [place] [id number] Care Team Providers Care Nutritional Services Director Name Role Phone MRS. [place] Primary Care Provider [phone] DR. LORA HAAS Unavailable [phone] EMMA STOVALL Unavailable [phone] Allergies No Known Allergies Reason For Referral Reason Cognitive decline Diagnosis 1 Cognitive decline (R 41.89) Referral Organization [facility] Referring Provider First Name EMMA Referring Provider Last Name WILMAN Referring Provider Speciality Family Med icine Referred Provider Specialty Speech and l roslynge therapist Referral Priority Routine Medications Medication SIG (Take, Route, Frequency, Duration) Notes Start Date End Date Status Olmesartan Medoxomil 5 MG Tablet 1 tablet Orally daily Active Ondansetron HCl 4 MG Tablet 1 tablet Orally every 8 hours; Duration: 30 days As needed 07/31/2025 Active Omeprazole 20 MG Capsule Delayed Release 1 capsule 1/2 to 1 hour before morning meal Orally Once a day Active rOPINIRole HCl 0.25 MG Tablet 1 tablet 1 to 3 hours before bedtime Orally Once a day Active Atorvastatin Calcium 40 MG Tablet 1 tablet Orally Once a day Active Iron 325 MG Tablet 1 tablet Orally at bedtime; Duration: 30 days 08/17/2025 Active ClearLax 17 GM/SCOOP Powder as directed Orally daily Active Acetaminophen 325 MG Tablet 2 tablet as needed Orally every 6 hrs Active Ferrous Sulfate 325 (65 Fe) MG Tablet 1 tablet Orally twice a day Active Diclofenac Sodium 1 % Gel as directed Externally 3 times a day As needed Active Brianda-Tussin 100 MG/5ML Syrup 10 mL as ne eded Orally every 6 hours Active Fiber 625 MG Tablet 1 tablet Orally twic e a day Active Metoprolol Tartrate 25 MG Tablet 1 tablet with food Orally Twice a day Active Levothyroxine Sodium 88 MCG Tablet 1 tablet in the morning on an empty stomach Orally Once a day; Duration: 30 days Active Immunizations Vaccine Route Administration Date Status Comme nts Influenza, unspecified formulation Unknown 08/12/2025 A dministered Social History Tobacco Use: Social History Observation Description Date Details (start date - stop date) Former Smoker NA - NA Social History Drug/Alcohol: Social Info Question Answer Notes Drugs Have you used drugs other than those for medical reasons in the past 12 months? No AUDIT-C (Standard) Did you have a drink containing alcohol in the past year? No Points 0 Interpretation Negative Tobacco Use: Social Info Question Answer Notes Tobacco Control (Standard) Tobacco use: Former smoker Problems Problem Type SNOMED Code ICD Code Onset Dates Problem Status W/U Status Risk Notes Problem Iron deficiency anemia (40704078) Iron deficiency anemia, unspecified (D50.9) Active confirmed Problem Hypothyroidism (99491344) Hypothyroidism, unspecified (E03.9) Active confirmed Problem Osteoarthritis (545232965) Osteoarthritis, unspecified osteoarthritis type, unspecified site (M19.90) Active confirmed Problem Hyperlipidemia (96717366) Hyperlipidemia (E78.5) Active confirmed Problem Gastroesophageal reflux disease (008533988) GERD without esophagitis (K21.9) Active confirmed Problem Restless legs syndrome (93046522) Restless leg syndrome (G25.81) Active confirmed Problem Essential hypertension (46701645) Hypertension, unspecified type (I10) Active confirmed Problem Constipation (22813891) Constipation (K59.00) Active confirmed Vital Signs Heart Rate 64 /min 07/30/2025 Temperature 97.6 degrees Fahrenheit 07/30/2025 Respiratory Rate 18 /min 07/30/2025 Oximetry 95 % 07/30/2025 Blood pressure diastolic 66 mm Hg 07/30/2025 Blood pressure systolic 126 mm Hg 07/30/2025 Encounters Encounter Location Date Provider Diagnosis [facility] [address] [place] [address] 07/30/2025 EMMA WILMAN Hyperlipidemia E78.5 ; Cognitive decline R41.89 ; Hypertension, unspecified type I10 ; Iron deficiency anemia, unspecified D50.9 ; Hypothyroidism, unspecified E03.9 ; Osteoarthritis, unspecified osteoarthritis type, unspecified site M19.90 ; GERD without esophagitis K21.9 ; Constipation K59.00 and Restless leg syndrome G25.81 [place] [address] 08/13/2025 EMMA STOVALL Hyperlipidemia E78.5 ; Cognitive decline R41.89 ; Hypertension, unspecified type I10 ; Iron deficiency anemia, unspecified D50.9 ; Hypothyroidism, unspecified E03.9 ; Constipation K59.00 and GERD without esophagitis K21.9 [facility] [address] [place] [address] 07/27/2025 L[place] [address] 07/29/2025 [place] [address] 08/10/2025 [place] [address] 08/11/2025 [place] [address] 08/12/2025 [place] [address] 08/13/2025 [place] [address] 09/01/2025 [place] [address] 09/14/2025 EMMA STOVALL Assessments Encounter Date Diagnosis (ICD Code) Assessment Notes Treatment Notes Treatment Clinical Notes Section Notes 08/13/2025 Hyperlipidemia (ICD-10 - E78.5) Last lipid panel 07/24/25 reveals low HDL. Stable with no adverse signs or symptoms. Continue current treatment planning and monitoring. 08/13/2025 Cognitive decline (ICD-10 - R41.89) Alert and oriented x1. No behaviors or outbursts. Stable on current treatment regimen. Continue current treatment plan and monitoring. Call place to ROXANN Santoro. Maude voiced concerns regarding patient's lab work. She states the labs were just done and sent to provider and she is questioning why they were drawn again. Appeared there was an error made and some labs were drawn again too soon. I explained to daughter and she verbalized understanding. Last CMP 07/24/25 -eGFR 45 07/30/2025 Hyperlipidemia (ICD-10 - E78.5) Last lipid panel not on file. Stable with no adverse signs or symptoms. Continue current treatment planning and monitoring. 07/30/2025 Cognitive decline (ICD-10 - R41.89) Alert and oriented x1. No behaviors or outbursts. Stable on current treatment regimen. Continue current treatment plan and monitoring. 07/30/2025 Hypertension, unspecified type (ICD-10 - I10) Blood pressure is stable and trending at goal. No complaints of adverse signs or symptoms. Well managed on current medication regimen. Continue current treatment plan and monitoring. 08/13/2025 Hypertension, unspecified type (ICD-10 - I10) Blood pressure is stable and trending at goal. No complaints of adverse signs or symptoms. Well managed on current medication regimen. Continue current treatment plan and monitoring. 07/30/2025 Iron deficiency anemia, unspecified (ICD-10 - D50.9) No CBC or iron panel on file. Daughter reports PCP brittney labs a few weeks ago. She states she will try to get labs sent to provider. No complaints at this time. Daughter reports baseline hemoglobin is around 10. Continue current treatment plan and monitoring. 08/13/2025 Iron deficiency anemia, unspecified (ICD-10 - D50.9) Last CBC 07/24/25 reveals H/H -11.5/36.3 and last iron panel 08/06/25-WNL. Daughter does report patient complaints of constipation. She has previously discontinued iron due to constipation. 08/13/2025 Hypothyroidism, unspecified (ICD-10 - E03.9) Last TSH 08/06/25-17.46, last T3 07/24/25-WNL. Daughter reports patient was previously on 200 mcg of levothyroxine and since her hospital stay in the end of April, she has been on 50 mcg. She is concerned her levels may not be stable. Recently increased levothyroxine to 88 mcg. Attempting to obtain medication doses from admission. Spoke with senior payroll administrator Maru and she will talk with pharmacy to see if these records can be obtained 07/30/2025 Hypothyroidism, unspecified (ICD-10 - E03.9) Last TSH not on file. Daughter reports patient was previously on 200 mcg of levothyroxine and since her hospital stay in the end of April, she has been on 50 mcg. She is concerned her levels may not be stable. She did have a lab drawn at her PCP approximately two weeks ago. Daughter will try to have labs sent to provider. Continue current treatment plan at this time. 07/30/2025 Osteoarthritis, unspecified osteoarthritis type, unspecified site (ICD-10 - M19.90) No complaints of pain. Stable on current regimen. Continue current treatment plan and monitoring. 08/13/2025 Constipation (ICD-10 - K59.00) Patient reports difficulty at times, but regimen is effective. Stable on current treatment plan. Continue current treatment plan and monitoring. Decrease iron to daily to improve symptoms. 08/13/2025 GERD without esophagitis (ICD-10 - K21.9) Daughter concerned regarding swallowing. [employer]BR[employer] ARTIST PHOTOGRAPHY to eval and treat. No labs ordered on this visit. 07/30/2025 GERD without esophagitis (ICD-10 - K21.9) No complaints or concerns at this time. Stable on current medication regimen. Continue current treatment plan and monitoring. 07/30/2025 Constipation (ICD-10 - K59.00) Patient reports difficulty at times, but regimen is effective. Stable on current treatment plan. Continue current treatment plan and monitoring. 07/30/2025 Restless leg syndrome (ICD-10 - G25.81) Patient reports symptoms at times but not every day. She states they are mostly at night. Stable on current medication regimen. Continue current treatment plan and monitoring. 08/13/2025 Other Continue current treatment plan. Staff to continue to monitor and report any changes. Patient education provided and questions/concern s addressed. Follow up in 3 months unless necessary sooner. 07/30/2025 Other Continue current treatment plan. Staff to continue to monitor and report any changes. Patient education provided and questions/concern s addressed. Follow up in 3 months unless necessary sooner. Plan Of Treatment Pending Test Test Name Order Date Iron and TIBC 07/31/2025 TSH 07/31/2025 Future Test Test Name Order Date Iron, Serum 07/31/2025 TSH 07/31/2025 Lipid Panel 07/31/2025 Comp. Metabolic Panel (14) 07/31/2025 CBC 07/31/2025 Insurance Providers Payer Name Payer Address Payer Phone Subscriber Number Group Number Insured Name Patient Relationship to Insured Coverage Start Date Coverage End Date [facility] [address] [address] [place] [phone] [id number] Aditi Pepe Self - patient is the insured Medical (General) History Medical History History ICD Code hyperlipidemia pain GERD constipation hypothyroidism hypertension RLS Surgical History Surgery Date(Month/Year) NO PREVIOUS SURGERIES
--- OUTSIDE RECORDS SUMMARY | 2025-10-01 01:46 | XMS_ITS | Clinical Summary ---
Author Organization [facility] Address [address] [place] [address] Care Team Providers Care Stone Hand Name Role Phone DhirajJames Luis Primary Care Provider + Allergies No known active allergies Medications atorvastatin (LIPITOR) 40 MG tablet Take 1 tablet by mouth Daily. Active omeprazole (priLOSEC) 20 MG capsule Take 1 capsule by mouth Daily. Active Noble-3 Fatty Acids (FISH OIL) 500 MG capsule capsule Take 1 capsule by mouth Daily With Breakfast. Active calcium citrate-vitamin d (CITRACAL) 200-250 MG-UNIT tablet tablet Take 1 tablet by mouth Daily. Active vitamin C (ASCORBIC ACID) 250 MG tablet Take 4 tablets by mouth Daily. Active Multiple Vitamins-Minera ls (MULTIVITAMIN WITH MINERALS) tablet tablet Take 1 tablet by mouth Daily. Active Biotin 65251 MCG tablet Take 1 tablet by mouth Daily. Active losartan-hydroc hlorothiazide (HYZAAR) 100-25 MG per tablet Take 1 tablet by mouth Daily. Active NON FORMULARY Take 1 capsule by mouth Daily. - RESERVATROL - Active celecoxib (CeleBREX) 100 MG capsule Take 1 capsule by mouth Daily. 0 Active Cinnamon 500 MG capsule Take 1 capsule by mouth Daily. Active levothyroxine (SYNTHROID, LEVOTHROID) 150 MCG tablet Take 1 tablet by mouth Daily. 0 Active ferrous sulfate 325 (65 FE) MG tablet Take 1 tablet by mouth Daily With Breakfast. 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 Breast cancer Mother Paget's diseas e Breast cancer Paternal Aunt No Known Problems Paternal Grandmother No Known Problems Sister No Known Problems Son BRCA 1/2 Neg Hx Endometrial cancer Neg Hx Ovarian cancer Neg Hx Relation Name Status Comments Brother Alive Child 1 Alive Child 2 Alive Child 3 Alive Child 4 Alive Daughter Father Grandchild Alive Maternal Aunt Maternal Grandmother Mother Paternal Aunt Paternal Grandmother Sister Alive Son Social History Tobacco Use Types Packs/Day Years Used Date Smoking Tobacco: Never Smokeless Tobacco: Never Tobacco Cessation:Counseling Given: No Alcohol Use Standard Drinks/Week Comments No 0 [...] on file Sexual Orientation Not on file Last Filed Vital Signs Vital Sign Reading Time Taken Comments Blood Pressure 142/70 05/02/2023 11:14 AM CDT Pulse 76 05/02/2023 11:14 AM CDT Temperature 36.2 C (97.2 F) 05/02/2023 11:14 AM CDT Respiratory Rate 18 05/02/2023 11:14 AM CDT Oxygen Saturation 90% 05/02/2023 11:14 AM CDT Inhaled Oxygen Concentration - - Weight 92.4 kg (203 lb 9.6 oz) 05/02/2023 11:14 AM CDT Height 159.8 cm (5' 2.9) 05/02/2023 11:14 AM CD T Body Mass Index 36.18 05/02/2023 11:14 AM CDT Plan of Treatment Health Maintenance Due Date Last Done Comments TDAP/TD VACCINES (1 - Tdap) 1960 Pneumococcal Vaccine 50+ (1 of 1 - PCV) 1991 ZOSTER VACCINE (2 of 3) 12/07/2009 10/12/2009 RSV Vaccine - Adults (1 - 1- dose 75+ series) 2016 ANNUAL WELLNESS VISIT 12/11/2017 DXA SCAN 10/16/2024 10/16/2022, 12/0 11/2019, 03/19/2018 INFLUENZA VACCINE 06/12/2025 09/14/2022, , 08/29/2022, Additional history exists COVID-19 Vaccine (5 2024- 6 season) 2025 08/29/2022, 09/13/2021, 02/08/2021, Additional history exists MAMMOGRAM Discontinued 05/11/2023, 04/13, 06/06/2021, Additional history exists Medical Devices Implanted Type Area Solutions Sales Consultant Device Identifier Shelf Expiration Date Model / Serial / Lot Cmt Bone Simplex/P Full Dose 10/Pk - [id number] Implanted:Qty : 2 on 07/21/2020 by Jared Montiel MD at [facility] Implant Left: Knee KYLE MAURICE 03/03/2022 [id number] / / [id number] Pat Triath Asym X3 9x29mm - [id number] Implanted:Qty : 1 on 07/21/2020 by Jared Montiel MD at [facility] Implant Left: Knee KYLE MAURICE 04/04/2025 [id number] / / [id number] Baseplt Tib Triath Ts No3 - [id number] Implanted:Qty : 1 on 07/21/2020 by Jared Montiel MD at [facility] Implant Left: Knee KYLE MAURICE 01/06/2029 [id number] / / [id number] Comp Fem Triath Ps Cmt No4 Lt - [id number] Implanted:Qty : 1 on 07/21/2020 by Jared Montiel MD at [facility] Implant Left: Knee KYLE MAURICE 08/20/2024 [id number] / / [id number] Insrt Tib/Kn Triathlon Ps X3 Nmbr3 9mm - [id number] Implanted:Qty : 1 on 07/21/2020 by Jared Montiel MD at [facility] Implant Left: Knee KYLE MAURICE 09/02/2024 [id number] / / [id number] Totl Kn Hi Demand Wildorado - [id number] Implanted:Qty : 1 on 07/21/2020 by Jared Montiel MD at [facility] Implant Left: Knee KYLE MAURICE CAPKNTOTLHI [id number] / / Sut Fw #2 W/Tpr Ndl 1/2 Cir 38in 97cm 26.5mm Luis Felipe - [id number] Implanted:Qty : 1 on 11/23/2020 by Kobe Boateng MD at [facility] Implant Left: Shoulder ARTHREX [id number] / / Sut Fibertape Tw 2 7in Wht/Blk [id number] - [id number] Implanted:Qty : 1 on 11/23/2020 by Kobe Boateng MD at [facility] Implant Left: Shoulder ARTHREX [id number] / / Sut/Anch Bioswivelock/ C Vnt 5.5x19.1mm - [id number] Implanted:Qty : 1 on 11/23/2020 by Kobe Boateng MD at [facility] Implant Left: Shoulder ARTHREX 09/11/2024 [id number] / / [id number] Sut Fw 2 Rev Cut 38in [id number] - [id number] Implanted:Qty : 1 on 03/08/2021 by Kobe Boateng MD at [facility] Implant Right: Shoulder ARTHREX 11/11/2024 [id number] / / [id number] Sut Fibertape Tw 2 7in Wht/Blk [id number] - [id number] Implanted:Qty : 1 on 03/08/2021 by Kobe Boateng MD at [facility] Implant Right: Shoulder ARTHREX 06/11/2025 [id number] / / [id number] Sut/Anch Bioswivelock/ C Vnt 5.5x19.1mm - [id number] Implanted:Qty : 1 on 03/08/2021 by Kobe Boateng MD at [facility] Implant Right: Shoulder ARTHREX 06/11/2024 [id number] / / [id number] Procedures Procedure Name Priority Date/Time Associated Diagnosis Comments MAMMO SCREENING DIGITAL TOMOSYNTHESIS BILATERAL W CAD Routine 05/11/2023 3:31 PM CDT Malignant neoplasm of lower-inner quadrant of right breast of female, 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 No mammographic evidence of malignancy. Recommend routine annual mammography. A result letter will be sent to the patient. BI-RADS CATEGORY 2: Benign findings. Management Recommendation: Routine annual mammography. This report was finalized on 05/11/2023 15:[address] Darling Villavicencio MD. Narrative 05/11/2023 3:40 PM CDT EXAM: MAMMO SCREENING DIGITAL TOMOSYNTHESIS BILATERAL W CAD- DATE: 05/11/2023 3:13 PM CDT HISTORY: screening/hx of breast cancer 5 years; C50.311-Malignant neoplasm of lower-inner quadrant of right female breast; Z17.0-Estrogen receptor positive status (ER+); N18.32-Chronic kidney disease, stage 3b; D63.1-Anemia in chronic kidney disease; Z12.31-Encounter for screening mammogram for malignant neoplasm of breast COMPARISON: 05/10/2022, 06/06/2021, 05/28/2020 FAMILY HISTORY OF BREAST CANCER: Mother and paternal aunt with history of breast cancer. Patient with a self history RIGHT breast cancer in 2018 status post lumpectomy and radiation. TECHNIQUE: Standard digital mammogram images were obtained. Computer Aided Detection was utilized. In addition, 15 low dose images were obtained in each projection. These low-dose images were reconstructed into slices and reviewed on the soft copy workstation. BREAST COMPOSITION: Category A -- The breast tissue is almost entirely fatty. FINDINGS: There are no suspicious findings. Similar posttreatment changes in the RIGHT breast. Procedure Note Darling Villavicencio MD - 07/16/2023 EXAM: MAMMO SCREENING DIGITAL TOMOSYNTHESIS BILATERAL W CAD- DATE: 05/11/2023 3:13 PM CDT HISTORY: screening/hx of breast cancer 5 years; C50.311-Malignant neoplasm of lower-inner quadrant of right female breast; Z17.0-Estrogen receptor positive status (ER+); N18.32-Chronic kidney disease, stage 3b; D63.1-Anemia in chronic kidney disease; Z12.31-Encounter for screening mammogram for malignant neoplasm of breast COMPARISON: 05/10/2022, 06/06/2021, 05/28/2020 FAMILY HISTORY OF BREAST CANCER: Mother and paternal aunt with history of breast cancer. Patient with a self history RIGHT breast cancer in 2018 status post lumpectomy and radiation. TECHNIQUE: Standard digital mammogram images were obtained. Computer Aided Detection was utilized. In addition, 15 low dose images were obtained in each projection. These low-dose images were reconstructed into slices and reviewed on the soft copy workstation. BREAST COMPOSITION: Category A -- The breast tissue is almost entirely fatty. FINDINGS: There are no suspicious findings. Similar posttreatment changes in the RIGHT breast. IMPRESSION: 1. No mammographic evidence of malignancy. Recommend routine annual mammography. A result letter will be sent to the patient. BI-RADS CATEGORY 2: Benign findings. Management Recommendation: Routine annual mammography. This report was finalized on 05/11/2023 15:[address] Darling Villavicencio MD. Javier Busby MD IMG MAMMOGRAPHY ORDERABLES Edite d Result - Final * DEXA Bone Density Axial (10/16/2022 10:53 AM COUNSELING PSYCHOLOGIST) Anatomical Region Laterality Modality Wrist, Hip, L-spine N/A Other 10/16/2022 11:0 5 AM COUNSELING PSYCHOLOGIST Impressions 10/16/2022 11:07 AM COUNSELING PSYCHOLOGIST 1. Osteopenia and increased fracture risk. This report was finalized on 10/16/2022 11:[address] Zeke Knight MD. Narrative 10/16/2022 11:07 AM COUNSELING PSYCHOLOGIST EXAMINATION: DEXA BONE DENSITY AXIAL- 10/16/2022 10:38 AM COUNSELING PSYCHOLOGIST HISTORY: osteopenia; C50.411-Malignant neoplasm of upper-outer quadrant of right female breast; M85.80-Other specified disorders of bone density and structure, unspecified site; Z78.0-Asymptomatic menopausal state The bone mineral density of the lumbar spine and left hip is obtained using DEXA technique. There is no previous study for comparison. Lumbar spine: The total mean bone mineral density lumbar spine is 1.432 g/sq cm and a T score of 1.9. The WHO classification is normal. Fracture risk is not increased. Left hip: The total mean bone mineral density left hip is 0.974 g/sq cm and a T score of -0.3. The bone mineral density of the femoral neck is 0.813 g/sq cm and a T score of -1.6. The WHO classification is osteopenia. There is increased fracture risk. Procedure Note Zeke Knight MD - 10/16/2022 EXAMINATION: DEXA BONE DENSITY AXIAL- 10/16/2022 10:38 AM COUNSELING PSYCHOLOGIST HISTORY: osteopenia; C50.411-Malignant neoplasm of upper-outer quadrant of right female breast; M85.80-Other specified disorders of bone density and structure, unspecified site; Z78.0-Asymptomatic menopausal state The bone mineral density of the lumbar spine and left hip is obtained using DEXA technique. There is no previous study for comparison. Lumbar spine: The total mean bone mineral density lumbar spine is 1.432 g/sq cm and a T score of 1.9. The WHO classification is normal. Fracture risk is not increased. Left hip: The total mean bone mineral density left hip is 0.974 g/sq cm and a T score of -0.3. The bone mineral density of the femoral neck is 0.813 g/sq cm and a T score of -1.6. The WHO classification is osteopenia. There is increased fracture risk. IMPRESSION: 1. Osteopenia and increased fracture risk. This report was finalized on 10/16/2022 11:[address] Zeke Knight MD. Javier Busby MD IM DXA ORDERABLES Final Result from Last 3 Months or Most Recently Relevant to Health Maintenance Insurance [id number] MEDIC[employer] ADVANTAGE Advance Directives Documents on File Type Date Recorded Patient Gluer And Wedger Expl anation LIVING WILL - SCAN 03/07/2021 2:37 PM SAMANTHA NG WILL, 03/07/2021 * CPR (Attempt to Resuscitate) (Latest Code Status on File) Date Activated Date Inactivated Comments 07/21/2020 6:10 PM 07/26/2020 3:04 PM Question Answer Comments Code Status (Patient has no pulse and is not breathing): CPR (Attempt to Resuscitate) Medical Interventions (Patie nt has pulse or is breathing): Full Level Of Support Discussed With: Patient Care Teams Stone Hand Relationship Specialty Start Date End Date James Hearn DO PCP - General Family Medicine 05/10/22
--- OUTSIDE RECORDS SUMMARY | 2025-10-01 01:46 | XMS_ITS | Clinical Summary ---
Author Organization [facility] Address [address] [place] [address] Care Team Providers Care Tool Planner Name Role Phone Unavailable Primary Care Provider Unavailabl e Social History Tobacco Use Types Packs/Day Years Used Date Smoking Tobacco: Never Assessed Comments Unknown Sex and Gender Information Value Date Recorded Sex Assigned at Not on file Legal Sex Female 5:45 PM CDT Gender Identity Not on file Sexual Orientation Not on file Plan of Treatment Health Maintenance Due Date Last Done Comments DTaP, Tdap and Td Vaccines ( 1 - Tdap) 1960 Pneumococcal Vaccine: 50+ Ye ars (1 of 1 - PCV) 1991 Zoster Vaccines (1 of 2) 1991 Dexa Scan (General) 2006 RSV Immunization or 60+ Years (1 - 1-dose 75+ series) 2016 COVID-19 Vaccine (2024-2 6 season) 2025 Influenza Adult (#1) 2025 Hepatitis A Vaccines Aged Out No long er eligible based on patient's age to complete this topic Meningococcal B Vaccine Aged Out No l onger eligible based on patient's age to complete this topic Meningococcal Vaccine Aged Out No fausto frandy eligible based on patient's age to complete this topic RSV Immunizations Under 20 Months Aged Out No longer eligible based on patient's age to complete this topic
--- OUTSIDE RECORDS SUMMARY | 2025-10-01 01:46 | XMS_ITS | Continuity of Care Document ---
Author Organization [facility] Management Address Renny Cardenas [facility] [address] [id number] Insurance Providers Payer Plan Claims Address Claims Phone Policy Number Group Number Relation Employer Guarantor Name Guarantor Guarantor Address Guarantor Phone *SELF PAY* [id number] Self Aditi Pepe 1940 [address] [place] [address] [facility] [place] [address] [address], [place] [address] tel:[phone] Self Aditi Pepe 1940 [address] [place] [address] Problems Condition ICD9 code ICD10 code SNOMED code Start Date End Date S tatus Rhabdomyolysis M62.82 05/12/2025 Active Muscle weakness (generalized) M62.81 07/14/2025 Active Unspecified abnormalities of gait and mobility R26.9 07/14/2025 Acti ve Cognitive communication deficit R41.841 07/14/2025 Active Acute posthemorrhagic anemia D62 05/12/2025 Active Paroxysmal atrial fibrillation I48.0 05/12/2025 Active Other osteoporosis without current pathological fracture M81.8 05/12/2025 Act huang Unspecified osteoarthritis, unspecified site M19.90 05/12/2025 Active Personal history of malignant neoplasm of breast Z85.3 05/12/2025 Active Hyperlipidemia, unspecified E78.5 05/11/2025 Active Gastro-esophageal reflux disease with esophagitis, without bleeding K21.00 05/11/2025 Active Iron deficiency anemia, unspecified D50.9 05/11/2025 Active Essential (primary) hypertension I10 05/11/2025 Active Restless legs syndrome G25.81 05/11/2025 Active Constipation, unspecified K59.00 05/11/2025 Active Hypothyroidism, unspecified E03.9 05/11/2025 Active Results Test Result Date/Time Value / Unit Interp. Refere nce Range Peripheral Smear Review[4594 515] n/a [8296881] 06/02/2025 05:28 PM See note N Peripheral Smear Review Platelets Estimate[8207582] n/a [7540835] 06/02/2025 05:28 PM See note N 0. 0 - 0.0 Platelets Estimate Manual Differential[2262998] n/a [5551642] 06/02/2025 05:28 PM See note N Manual Differential RBC Morphology[7738089] n/a [7041610] 06/02/2025 05:26 PM See note N 0. 0 - 0.0 RBC Morphology T4, Free[191567] T4, Free [546437] 06/02/2025 04:13 PM 0.7 ng/dL L 0.89 - 1.76 ng/dL LDL/HDL Ratio[6109916] LDL/HDL Ratio [2014304] 06/02/2025 03:57 PM 1.2 N 0.0 - 3.2 VLDL Cholesterol Calculated[ 657319] VLDL Cholesterol Calculated [308958] 06/02/2025 03:57 PM 13 N 5.0 - 40 .0 LDL Cholesterol Calculated ( Friedewald equation)[538691] LDL Cholesterol Calculated (Friedewald equation) [910263] 06/02/2025 03:57 PM 64 N 0.0 - 99. 0 eGFR[282788] eGFR [661481] 06/02/2025 03:57 PM 47.27 mL/min /1.73 m2 L >59.0 mL/min/1.73 m2 BUN/Creatinine Ratio[731979] BUN/Creatinine Ratio [576637] 06/02/2025 03:57 PM 21.74 ratio H 9.0 - 20.0 r atio A/G Ratio[277650] A/G Ratio [271012] 06/02/2025 03:57 PM 1.3 N 1.2 - 2.2 Globulin, Total[402706] Globulin, Total [781652] 06/02/2025 03:57 PM 2.8 N 1.5 - 4.5 AST (SGOT)[975396] AST (SGOT) [244139] 06/02/2025 03:55 PM 12 U/L N null U/L HDL Cholesterol[117951] HDL Cholesterol [334367] 06/02/2025 03:54 PM 54.1 mg/dL N 40.0 - 60.0 mg/dL Cholesterol, Total[698164] Cholesterol, Total [706400] 06/02/2025 03:54 PM 131 mg/dL N null mg/dL Bilirubin, Total[510037] Bilirubin, Total [319257] 06/02/2025 03:54 PM 0.2 mg/dL L 0.3 - 1.2 mg /dL TSH[604736] TSH [555268] 06/02/2025 03:53 PM 34.57 uIU/mL H 0 .55 - 4.78 uIU/mL Protein, Total[692364] Protein, Total [272065] 06/02/2025 03:53 PM 6.5 g/dL N 5.7 - 8.2 g/dL Alkaline Phosphatase[718997] Alkaline Phosphatase [668317] 06/02/2025 03:53 PM 67 U/L N 46.0 - 116.0 U/L Triglycerides[552724] Triglycerides [133847] 06/02/2025 03:52 PM 65 mg/dL N null mg/dL Glucose[731474] Glucose [454140] 06/02/2025 03:52 PM 87 mg/dL N 74.0 - 106.0 mg/dL Creatinine[005568] Creatinine [919945] 06/02/2025 03:52 PM 1.15 mg/dL H 0.55 - 1.02 mg/dL Blood Urea Nitrogen (BUN)[45 9286] Blood Urea Nitrogen (BUN) [898773] 06/02/2025 03:52 PM 25 mg/dL H 9.0 - 23.0 m g/dL Albumin[277631] Albumin [841619] 06/02/2025 03:51 PM 3.7 g/dL N 3.2 - 4.8 g/dL ALT (SGPT)[037148] ALT (SGPT) [467195] 06/02/2025 03:51 PM 10 U/L N 10.0 - 49.0 U/L Carbon Dioxide (ECO2)[523297 ] Carbon Dioxide (ECO2) [736340] 06/02/2025 03:47 PM 25 mmol/L N 20.0 - 31.0 mmol/L Calcium (Ca)[285251] Calcium (Ca) [915988] 06/02/2025 03:47 PM 9.5 mg/dL N 8.7 - 10.4 mg/dL Monocytes[014445] Monocytes [006924] 06/02/2025 03:42 PM 12.4 % H 3.5 - 9.0 % WBC[942336] WBC [309557] 06/02/2025 03:42 PM 7.72 x10E3/uL N 3.4 - 9.6 x10E3/uL RDW[868251] RDW [753710] 06/02/2025 03:42 PM 25.7 % binding H 12.3 - 15.4 % binding RBC[343030] RBC [660753] 06/02/2025 03:42 PM 4.32 x10^6/UL N 3.92 - 5.13 x10^6/UL Platelets[841110] Platelets [598161] 06/02/2025 03:42 PM 474 x10E3/uL H 150.0 - 450.0 x10E3/uL Neutrophils (Absolute)[29602 5] Neutrophils (Absolute) [113086] 06/02/2025 03:42 PM 4.77 x10E3/uL N 1.6 - 7.7 x1 0E3/uL Neutrophils[407581] Neutrophils [917033] 06/02/2025 03:42 PM 61.9 % N 40.0 - 75.0 % MPV[998970] MPV [032364] 06/02/2025 03:42 PM 10.2 fL N 7.2 - 12.3 fL Monocytes (Absolute)[734341] Monocytes (Absolute) [883482] 06/02/2025 03:42 PM 0.96 x10E3/uL H 0.1 - 0.9 x1 0E3/uL MCV[564597] MCV [183040] 06/02/2025 03:42 PM 90 % N 80. 0 - 100.0 % MCHC[291461] MCHC [911006] 06/02/2025 03:42 PM 25.7 g/dL L 32 .0 - 36.0 g/dL MCH[075172] MCH [400203] 06/02/2025 03:42 PM 23.1 pg L 27. 0 - 34.0 pg Lymphocytes (Absolute)[26118 8] Lymphocytes (Absolute) [107720] 06/02/2025 03:42 PM 1.64 x10E3/uL N 1.0 - 4.8 x1 0E3/uL Lymphocytes[630656] Lymphocytes [018434] 06/02/2025 03:42 PM 21.2 % N 18.0 - 42.0 % Hemoglobin[103311] Hemoglobin [400477] 06/02/2025 03:42 PM 10 g/dL L 12.0 - 16.0 g/dL Hematocrit[911363] Hematocrit [778659] 06/02/2025 03:42 PM 38.9 % N 36.0 - 46.0 % Eos (Absolute)[890203] Eos (Absolute) [961138] 06/02/2025 03:42 PM 0.21 x10E3/uL N 0.0 - 0.5 x10E3/uL Eos[050319] Eos [471691] 06/02/2025 03:42 PM 2.7 % N 1.0 - 7.0 % Basos[887881] Basos [108896] 06/02/2025 03:42 PM 0.8 % N 0 .0 - 2.0 % Baso (Absolute)[268800] Baso (Absolute) [407058] 06/02/2025 03:42 PM 0.06 x10E3/uL N 0.0 - 0.3 x1 0E3/uL Sodium (Na)[495453] Sodium (Na) [334864] 06/02/2025 03:41 PM 143 mmol/L N 136.0 - 145.0 mmol/L Potassium (K)[741724] Potassium (K) [272636] 06/02/2025 03:41 PM 4 mmol/L N 3.4 - 5.1 mmol/L Chloride (Cl)[575450] Chloride (Cl) [074728] 06/02/2025 03:41 PM 106 mmol/L N 98.0 - 107.0 mmol/L Platelets Estimate[5117306] n/a [4026622] 05/31/2025 02:28 PM See note N 0. 0 - 0.0 Platelets Estimate Manual Differential[3687627] n/a [5790631] 05/31/2025 02:28 PM See note N Manual Differential Peripheral Smear Review[4594 515] n/a [8241656] 05/31/2025 02:27 PM See note N Peripheral Smear Review RBC Morphology[8894927] n/a [5057274] 05/31/2025 02:25 PM See note N 0. 0 - 0.0 RBC Morphology eGFR[971733] eGFR [799979] 05/30/2025 05:02 PM 50.41 mL/min /1.73 m2 L >59.0 mL/min/1.73 m2 BUN/Creatinine Ratio[640321] BUN/Creatinine Ratio [656177] 05/30/2025 05:02 PM 20.18 ratio H 9.0 - 20.0 r atio A/G Ratio[896019] A/G Ratio [835769] 05/30/2025 05:02 PM 1.3 N 1.2 - 2.2 Globulin, Total[096761] Globulin, Total [623219] 05/30/2025 05:02 PM 3 N 1.5 - 4.5 Bilirubin, Total[734314] Bilirubin, Total [273880] 05/30/2025 05:01 PM 0.7 mg/dL N 0.3 - 1.2 mg /dL AST (SGOT)[196489] AST (SGOT) [968177] 05/30/2025 05:01 PM 11 U/L N null U/L ALT (SGPT)[759723] ALT (SGPT) [557785] 05/30/2025 05:00 PM 8 U/L L 10.0 - 49.0 U/L Alkaline Phosphatase[741642] Alkaline Phosphatase [959401] 05/30/2025 05:00 PM 70 U/L N 46.0 - 116.0 U/L Protein, Total[149465] Protein, Total [978047] 05/30/2025 04:59 PM 6.9 g/dL N 5.7 - 8.2 g/dL Blood Urea Nitrogen (BUN)[45 9286] Blood Urea Nitrogen (BUN) [600616] 05/30/2025 04:59 PM 22 mg/dL N 9.0 - 23.0 m g/dL Albumin[371152] Albumin [957976] 05/30/2025 04:59 PM 3.9 g/dL N 3.2 - 4.8 g/dL Glucose[151314] Glucose [943989] 05/30/2025 04:58 PM 95 mg/dL N 74.0 - 106.0 mg/dL Creatinine[705756] Creatinine [842999] 05/30/2025 04:58 PM 1.09 mg/dL H 0.55 - 1.02 mg/dL Calcium (Ca)[818282] Calcium (Ca) [263430] 05/30/2025 04:54 PM 9.8 mg/dL N 8.7 - 10.4 mg/dL Carbon Dioxide (ECO2)[475599 ] Carbon Dioxide (ECO2) [732395] 05/30/2025 04:52 PM 26 mmol/L N 20.0 - 31.0 mmol/L Monocytes[254954] Monocytes [811942] 05/30/2025 04:47 PM 9.9 % N 3.5 - 9.0 % WBC[269734] WBC [917292] 05/30/2025 04:47 PM 9.86 x10E3/uL H 3.4 - 9.6 x10E3/uL RDW[540844] RDW [407867] 05/30/2025 04:47 PM 26.4 % binding H 12.3 - 15.4 % binding RBC[264789] RBC [450346] 05/30/2025 04:47 PM 4.53 x10^6/UL N 3.92 - 5.13 x10^6/UL Platelets[557700] Platelets [589818] 05/30/2025 04:47 PM 464 x10E3/uL H 150.0 - 450.0 x10E3/uL Neutrophils (Absolute)[64370 5] Neutrophils (Absolute) [343298] 05/30/2025 04:47 PM 7.13 x10E3/uL N 1.6 - 7.7 x1 0E3/uL Neutrophils[655855] Neutrophils [631265] 05/30/2025 04:47 PM 72.4 % N 40.0 - 75.0 % MPV[633919] MPV [543156] 05/30/2025 04:47 PM 10 fL N 7.2 - 12.3 fL Monocytes (Absolute)[828901] Monocytes (Absolute) [268251] 05/30/2025 04:47 PM 0.98 x10E3/uL H 0.1 - 0.9 x1 0E3/uL MCV[358249] MCV [877641] 05/30/2025 04:47 PM 89.2 % N 80. 0 - 100.0 % MCHC[063364] MCHC [381816] 05/30/2025 04:47 PM 25.5 g/dL L 32 .0 - 36.0 g/dL MCH[944176] MCH [131978] 05/30/2025 04:47 PM 22.7 pg L 27. 0 - 34.0 pg Lymphocytes (Absolute)[49891 8] Lymphocytes (Absolute) [113363] 05/30/2025 04:47 PM 1.45 x10E3/uL N 1.0 - 4.8 x1 0E3/uL Lymphocytes[353881] Lymphocytes [188293] 05/30/2025 04:47 PM 14.7 % L 18.0 - 42.0 % Hemoglobin[910538] Hemoglobin [809553] 05/30/2025 04:47 PM 10.3 g/dL L 12.0 - 16.0 g/dL Hematocrit[244558] Hematocrit [413083] 05/30/2025 04:47 PM 40.4 % N 36.0 - 46.0 % Eos (Absolute)[540098] Eos (Absolute) [333954] 05/30/2025 04:47 PM 0.17 x10E3/uL N 0.0 - 0.5 x10E3/uL Eos[912312] Eos [209016] 05/30/2025 04:47 PM 1.7 % N 1.0 - 7.0 % Basos[902645] Basos [312078] 05/30/2025 04:47 PM 0.6 % N 0 .0 - 2.0 % Baso (Absolute)[119854] Baso (Absolute) [737647] 05/30/2025 04:47 PM 0.06 x10E3/uL N 0.0 - 0.3 x1 0E3/uL Sodium (Na)[991167] Sodium (Na) [200758] 05/30/2025 04:47 PM 140 mmol/L N 136.0 - 145.0 mmol/L Potassium (K)[966730] Potassium (K) [051726] 05/30/2025 04:47 PM 4.6 mmol/L N 3.4 - 5.1 mmol/L Chloride (Cl)[236142] Chloride (Cl) [194439] 05/30/2025 04:47 PM 105 mmol/L N 98.0 - 107.0 mmol/L Tuberculosis reaction wheal[ 83017-5] Tuberculosis reaction wheal [89067-7] 05/21/2025 10:00 AM 0 mm NEG Tuberculosis reaction wheal[ 42245-7] Tuberculosis reaction wheal [28411-8] 05/12/2025 08:50 AM 0 mm NEG Allergies, adverse reactions, alerts No known allergies and adverse reactions Immunizations Vaccine Route Date Status COVID-19 Vaccine Unassigned Route of Administration Refused Medications Medication Instructions Route Dosage Frequency Start Date Stop Date Indications Status atorvastatin 40 mg tablet (atorvastatin) 1, oral, Once A Day oral 1.0 1.0 d 2024 Hyperlipidemi a, unspecified Active Cough Syrup (guaifenesin) 100 mg/5 mL liquid (Cough Syrup (guaifenesin)) 10 ml, oral, Every 6 Hours - PRN oral 1.0 6.0 h 2024 Active diclofenac sodium 1 % gel (diclofenac sodium) 1 dose, topical, Three Times A Day - PRN, 3 times sday a day PRN for pain or soreness topical 1.0 8.0 h 2024 Active famotidine 20 mg tablet (famotidine) 1, oral, Twice A Day oral 1.0 12.0 h 2024 Gastro-esopha geal reflux disease with esophagitis, without bleeding Active ferrous sulfate 325 mg (65 mg iron) tablet,delayed release (DR/EC) (ferrous sulfate) 1, oral, Twice A Day oral 1.0 12.0 h 2024 Iron deficiency anemia, unspecified Active levothyroxine 50 mcg tablet (levothyroxine) 1, oral, Once A Day oral 1.0 1.0 d 2024 Hypothyroidis m, unspecified Active metoprolol tartrate 25 mg tablet (metoprolol tartrate) 1, oral, Twice A Day oral 1.0 12.0 h 2024 Essential (primary) hypertension Active Miralax (polyethylene glycol 3350) 17 gram powder in packet (Miralax (polyethylene glycol 3350)) 1, oral, At Bedtime - PRN oral 1.0 2024 Constipation, unspecified Active olmesartan 5 mg tablet (olmesartan) 2, oral, Once A Day oral 1.0 1.0 d 2024 Essential (primary) hypertension Active omeprazole 20 mg capsule,delayed release(DR/EC) (omeprazole) 1, oral, Once A Day oral 1.0 1.0 d 2024 Gastro-esopha geal reflux disease with esophagitis, without bleeding Active ondansetron 4 mg tablet,disinteg rating (ondansetron) 1, oral, Every 6 Hours - PRN oral 1.0 6.0 h 2024 Active ropinirole 0.25 mg tablet (ropinirole) 1, oral, At Bedtime oral 1.0 2024 Restless legs syndrome Active Triad Wound Dressing (wound dressings) - paste (Triad Wound Dressing (wound dressings)) 1 caesar, topical, As Needed, Apply to coccyx area after each incontinent episode. topical 1.0 1.0 d 2024 Active Tylenol (acetaminophen) 325 mg tablet (Tylenol (acetaminophen) ) 650mg, oral, Every 6 Hours - PRN oral 1.0 6.0 h 2024 Active hydrocodone-ponce taminophen 5-325 mg tablet (hydrocodone-ac etaminophen) 1, oral, Every 6 Hours - PRN, pain oral 1.0 6.0 h 07/03 Active Vital Signs Date Vital Result Comment 07/17/2025 10:48 AM Temperature (8310-5) 97.6 [degF] Oxygen Saturation (17824-3) 94 % Respiratory Rate (9279-1) 20 /min Heart Rate (8867-4) 85 /min Blood Pressure Systolic (8480-6) 136 mm[Hg] Blood Pressure Diastolic (8462-4) 76 mm[Hg] 07/14/2025 05:09 PM Temperature (8310-5) 97.5 [degF] Oxygen Saturation (40831-6) 91 % Respiratory Rate (9279-1) 18 /min Heart Rate (8867-4) 76 /min Blood Pressure Systolic (8480-6) 133 mm[Hg] Blood Pressure Diastolic (8462-4) 84 mm[Hg] 07/13/2025 04:37 PM Body Weight (29980-2) 169.8 [lb_av ] Body Mass Index (35106-1) 31.05 kg/m2 07/12/2025 04:42 PM Temperature (8310-5) 97.4 [degF] Oxygen Saturation (40659-0) 96 % Respiratory Rate (9279-1) 16 /min Heart Rate (8867-4) 76 /min Blood Pressure Systolic (8480-6) 116 mm[Hg] Blood Pressure Diastolic (8462-4) 52 mm[Hg] 07/08/2025 08:51 AM Temperature (8310-5) 98 [degF] Oxygen Saturation (27035-3) 91 % Respiratory Rate (9279-1) 20 /min Heart Rate (8867-4) 74 /min Blood Pressure Systolic (8480-6) 106 mm[Hg] Blood Pressure Diastolic (8462-4) 93 mm[Hg] 07/07/2025 08:50 AM Temperature (8310-5) 97.1 [degF] Oxygen Saturation (14678-9) 91 % Respiratory Rate (9279-1) 20 /min Heart Rate (8867-4) 81 /min Blood Pressure Systolic (8480-6) 133 mm[Hg] Blood Pressure Diastolic (8462-4) 74 mm[Hg] 07/06/2025 10:36 PM Temperature (8310-5) 97.4 [degF] Oxygen Saturation (75000-2) 95 % Respiratory Rate (9279-1) 16 /min Heart Rate (8867-4) 70 /min Blood Pressure Systolic (8480-6) 113 mm[Hg] Blood Pressure Diastolic (8462-4) 58 mm[Hg] 07/06/2025 08:10 AM Temperature (8310-5) 97.4 [degF] Oxygen Saturation (99367-9) 97 % Respiratory Rate (9279-1) 17 /min Heart Rate (8867-4) 82 /min Blood Pressure Systolic (8480-6) 117 mm[Hg] Blood Pressure Diastolic (8462-4) 67 mm[Hg] 07/05/2025 09:37 AM Temperature (8310-5) 97.2 [degF] Oxygen Saturation (04345-3) 96 % Respiratory Rate (9279-1) 18 /min Heart Rate (8867-4) 77 /min Blood Pressure Systolic (8480-6) 116 mm[Hg] Blood Pressure Diastolic (8462-4) 77 mm[Hg] 07/04/2025 08:25 AM Temperature (8310-5) 97.4 [degF] Oxygen Saturation (08137-5) 94 % Respiratory Rate (9279-1) 20 /min Heart Rate (8867-4) 67 /min Blood Pressure Systolic (8480-6) 125 mm[Hg] Blood Pressure Diastolic (8462-4) 73 mm[Hg] 07/03/2025 09:54 AM Temperature (8310-5) 97.1 [degF] Oxygen Saturation (73367-3) 97 % Respiratory Rate (9279-1) 20 /min Heart Rate (8867-4) 69 /min Blood Pressure Systolic (8480-6) 110 mm[Hg] Blood Pressure Diastolic (8462-4) 63 mm[Hg] 06/19/2025 10:55 AM Body Weight (94395-5) 176.4 [lb_av ] Body Mass Index (80201-3) 32.26 kg/m2 05/14/2025 05:51 PM Body Weight (35654-6) 175.8 [lb_av ] Body Mass Index (68487-9) 32.15 kg/m2 05/13/2025 02:50 PM Body Weight (97315-6) 175.4 [lb_av ] Body Mass Index (11361-8) 32.08 kg/m2 05/12/2025 11:33 AM Body Weight (69811-1) 184.2 [lb_av ] Body Mass Index (80923-2) 33.69 kg/m2 05/11/2025 08:05 PM Body Height (8302-2) 62 [in_us] 05/11/2025 07:28 PM Body Weight (55754-0) 185 [lb_av] Body Mass Index (47949-0) 33.83 kg/m2 07/18/2025 08:58 AM Temperature (8310-5) 97.2 [degF] Oxygen Saturation (50378-7) 95 % Respiratory Rate (9279-1) 20 /min Heart Rate (8867-4) 79 /min Blood Pressure Systolic (8480-6) 135 mm[Hg] Blood Pressure Diastolic (8462-4) 71 mm[Hg] 07/20/2025 08:07 AM Temperature (8310-5) 98.2 [degF] Oxygen Saturation (76548-2) 93 % Respiratory Rate (9279-1) 16 /min Heart Rate (8867-4) 71 /min Blood Pressure Systolic (8480-6) 137 mm[Hg] Blood Pressure Diastolic (8462-4) 73 mm[Hg] 07/21/2025 09:17 AM Temperature (8310-5) 97.4 [degF] Oxygen Saturation (28633-1) 95 % Respiratory Rate (9279-1) 18 /min Heart Rate (8867-4) 90 /min Blood Pressure Systolic (8480-6) 114 mm[Hg] Blood Pressure Diastolic (8462-4) 79 mm[Hg] 07/22/2025 07:30 AM Temperature (8310-5) 97.3 [degF] Oxygen Saturation (92149-8) 94 % Respiratory Rate (9279-1) 20 /min Heart Rate (8867-4) 77 /min Blood Pressure Systolic (8480-6) 117 mm[Hg] Blood Pressure Diastolic (8462-4) 66 mm[Hg] Social History No smoking Hx information available Encounters Type CPT Code Date Location Provider Indication s encounter report 05/11/2025 06:3 0 AM - 07/24/2025 02:11 PM Ulises Brown MD 01 Advance Directives Directive Description Verification Date Supporting Document(s) Other Directive
--- OUTSIDE RECORDS SUMMARY | 2025-10-01 01:46 | XMS_ITS | Encounter Summary ---
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
--- OUTSIDE RECORDS SUMMARY | 2025-10-01 01:46 | XMS_ITS | Encounter Summary ---
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
--- OUTSIDE RECORDS SUMMARY | 2025-10-01 01:46 | XMS_ITS | Data Portability ---
Author Organization [facility], [facility] Address [address] [place] [address] Assessment No assessment recorded. Plan of Treatment [...] tablet 2018 019 INTERFACE [id number], [address], [address], 9 15:01:03 ofloxacin 0.3 % ear drops 2018 019 INTERFACE [id number], [address], [address], 9 15:34:46 Patient TargetsNo targets recorded. Patient Instructions Encounter Date Encounter Id Patient Instructions Last Modified By Organization Details Last Modified Time 11/07/2019 [id number] Rocephin 1 gm IM . Celestone 12 mg IM. Ceftin 250 mg bid x 10 days- start tomorrow. F/u if not better. [email or web address] Not available 11/07/2019 15:01:45 Reason for Referral [...] Address Organization Details Last Updated DateTime 9 20930.9 2 g 35.5 kg/m2 157.48 cm 98.1 [degF] 76 /min 122/76 mm[Hg] Erika Bliss [facility], [facility] 9 14:45:08 Social History None recorded. Functional Status None recorded. Mental Status None recorded. Family History Nothing Reported. Medical History No medical history recorded. Gynecological HistoryNo gynecological history recorded. Obstetrics History GPAL:G 0 P 0 0 0 0 Past Encounters Encounter ID Performer Location Encounter Start Date Encounter Closed Date Diagnosis/Indication Diagnosis SNOMED-CT Code Diagnosis ICD10 Code Diagnosis IMO Codes Diagnosis Note [id number] Sayda gonzalez NP, S Main Office [address] [place] [phone] 11/07/2019 14:11:57 11/17/2019 17:30:27 Upper respiratory infection 05172029 J06.9 Acute uppe r respiratory infection 49853111 J06.9 Health Concerns Section Related Observation LastModified by Organization Detai ls LastModified Time None Recorded Concern Status LastModified by Organization Details LastModified Time None Recorded Advance Directives Directive None Recorded Payers Insurance Date Sequence Insurance Name Policy Number Policy Romano Covered Member ID Romano Member ID Guarantor Name 11/17/2019 2 [employer] (MEDICARE SUPPLEMENT) Aditi Pepe [id number] Aditi Pepe 10/19/2021 1 [place] Aditi Pepe [id number] Aditi Pepe Notes Date Note Type Note Provider Name and Address Organization Details Recorded Time 11/07/2019 text/html Pt c/o cough and congestion for the past few days. Nose is runny. Cough is nonproductive. No fever. Sayda Ibarra NP, S [address] [place] [address], [phone], [facility], [facility]. 11/07/2019 15:34:53 OBGyn Episode No OBEpisode recorded.
--- OUTSIDE RECORDS SUMMARY | 2025-10-01 01:47 | XMS_ITS | Encounter Summary ---
Author Organization [facility] Address [address] [place] [address] Care Team Providers Care Provider Relations Consultant Name Role Phone James Hearn DO Primary Care Provider + Encounter Details Date Type Department Care Team (Late st Contact Info) Description 01/09/2019 External CPT II FIELD SECRETARY - [facility] Social History Tobacco Use [...] documented as of this encounter Care Teams Provider Relations Consultant Relationship Specialty Start Date End Date James Hearn DO PCP - General Family Medicine 05/10/22 documented as of this encounter
--- OUTSIDE RECORDS SUMMARY | 2025-10-01 01:47 | XMS_ITS | Encounter Summary ---
Author Organization [facility] yste Address [address] [place] [address] Care Team Providers Care Personal Lines Agent Name Role Phone James Hearn DO Primary Care Provider + Reason for Visit * Reason Comments Med Refill Encounter Details Date Type Department Care Team (Late st Contact Info) Description 12/01/2020 Refill [facility]COL[facility] [address] [place] [phone] Javier Busby MD [id number] [facility] [address] [place], [place] [id number] Social History Tobacco Use Types Packs/Day Years Used Date Smoking Tobacco: Never Smokeless Tobacco: Never Alcohol Use Standard Drinks/Week Comments No 0 (1 standard drink = 0.6 oz pur e alcohol) PHQ-2 Answer Date Recorded Retired Total Score 3 09/02/2020 Comments No Sex and Gender Information Value [...] Last Indicated Resolved Time COVID Screen (preop/placement) 03/02/2021 03/07/2021 03/07/2021 4:09 PM EDT documented as of this encounter Care Teams Personal Lines Agent Relationship Specialty Start Date End Date James Hearn DO PCP - General Family Medicine 05/10/22 documented as of this encounter
[2025-10-01] MEDS: LEVOTHYROXINE SODIUM 88 MCG TABLET PO (06:45)
[2025-10-01 08:00] VITALS: BP 121/89; PULSE 100; RESP 16; TEMP 36.6; O2SAT 100
[2025-10-01 09:00] VITALS: PULSE 100
[2025-10-01] MEDS: OLMESARTAN MEDOXOMIL 10 MG TABLET PO (09:00)
[2025-10-01] MEDS: FAMOTIDINE 20 MG TABLET PO ×2 (09:00→21:03)
[2025-10-01] MEDS: METOPROLOL TARTRATE 25 MG TABLET PO ×2 (09:00→21:03)
--- NOTE | 2025-10-01 11:20 | P.HP_ITS ---
H&P: HPI History of Present Illness Date/Time: 10/01/25 11:20 Chief Complaint: Weakness Narrative: Patient is a 84-year-old female with PMH hypertension, hypothyroidism who was admitted to [facility] for physical and occupational therapy due to extended hospitalization for recent diagnosis of COVID, UTI, and generalized weakness. patient had completed her 5 day course of IV remdesivir and dexame thasone prior to arrival as well as being removed off isolation. Patient resides at [facility] however at time of discharge patient is still too weak to return and it was recommended patient go to swing bed for continued strength and endurance training. patient evaluated after admission still reporting generalized weakness but denied any chest pain, shortness breath, nausea, vomiting or any current pain, however did report some constipation. Review of Systems Review of Systems: All systems reviewed & are unremarkable except as noted in HPI and below (Subjective) PMFSH Past Medical History Medical History Restless legs syndrome GERD (gastroesophageal reflux disease) Hypertension Hypothyroidism Iron deficiency anemia HLD (hyperlipidemia) Family History Family History Mother Dementia Breast cancer Cerebrovascular accident Father Pulmonary embolism Son FRANCISCO (obstructive sleep apnea) Daughter FRANCISCO (obstructive sleep apnea) Social History Social History Smoking status: Never smoker Alcohol intake: never Substance use: never Lack of Transportation: No Lack of Food: Never True Current Housing: I Have Housing Concerned About Future Housing: No Difficulty Paying Gas/Electric Bills: No Difficulty Paying for Meds: No Currently Unemployed: No Education: Master's Degree or Higher Difficulty w/ Childcare or Family Care: No Spiritual care concerns: No Meds Home Medications and Allergies Home Medications ?Medication ?Instructions ?Recorded ?Confirmed ?Type acetaminophen 325 mg capsule 650 mg PO Q6H PRN fever o r pain 09/14/25 09/30/25 History atorvastatin 40 mg tablet (Lipitor) 40 mg PO HS 09/30/25 History diclofenac sodium 1 % topical gel 1 g topical TID PRN pain 09/14/25 09/30/25 History famotidine 20 mg tablet 20 mg PO BID 09/14/25 History ferrous sulfate 325 mg (65 mg 325 mg PO BID 09/14/25 1 11/30/24 History iron) tablet (FeroSul) guaifenesin 100 mg/5 mL oral 200 mg PO Q6H PRN cough 1 11/14/24 09/30/25 History liquid (Mucus-Chest Congestion) levothyroxine 50 mcg tablet 88 mcg PO DAILY 09/14/25 1 11/30/24 History (Levo-T) metoprolol tartrate 25 mg tablet 25 mg PO BID 09/14/25 09/30/25 History olmesartan 5 mg tablet 10 mg PO DAILY 09/14/2509/12 History omeprazole 20 mg capsule,delayed 20 mg PO DAILY 09/30/25 History release ondansetron 4 mg disintegrating 4 mg PO Q6H PRN nausea and vomiting 09/14/25 09/30/25 History tablet polyethylene glycol 3350 17 17 g PO HS PRN constipatio n 09/14/25 09/30/25 History gram/dose oral powder (ClearLax) ropinirole 0.25 mg tablet 0.25 mg PO HS 09/14/2509/30 History Allergies Allergy/AdvReac Type Severity Reaction Status Date / Time No Known Allergies Allergy Verified 09/30/25 19:51 Vital Signs Vital Signs - 24 hr 09/30/25 19:44 09/30/25 23:23 10/01/25 08:00 Temperature 98.4 F 97.9 F Pulse Rate 74 100 Respiratory Rate 18 16 Blood Pressure 93/42 L 121/89 Pulse Oximetry 96 96 100 Oxygen Delivery Room Air Room Air Room Air 10/01/25 09:00 Temperature Pulse Rate 100 Respiratory Rate Blood Pressure Pulse Oximetry Oxygen Delivery Exam Const: General: comfortable and no acute distress HENMT: Ears: TM's normal bilaterally Face/Nose/Sinus: Normal nares present Mouth: Yes moist mucous membranes Eyes: General: appearance normal, both eyes and all related structures Pupils: Equal, round and reactive pupils present Neck: Neck: supple Resp: Effort & Inspection: normal respiratory effort Auscultation: clear to auscultation bilaterally Cardio: Rate: regular rate Rhythm: regular rhythm GI: Inspection: non-distended GI Palp: Yes Soft to palpation Skin: General skin exam: normal color and no rashes or lesions noted Wounds: no wounds Other: deep tissue bruising Neuro: Speech: normal speech Motor exam (neuro): 5/5 motor strength present throughout Sensory Exam: normal sensation Other: Unable to assess gait Extrem: General: normal to inspection and no edema Psych: Mental Status: mental status grossly normal Affect: normal affect H&P: Results Labs Labs: Short CBC 09/14/25 Range/Units 00:35 WBC 7.0 (4.5-10.0) K/mm3 Hgb 11.4 L (12.0-15.0) g/dL Hct 35.7 L (37.0-47.0) % Plt Count 287 (150-375) k/mm3 BMP 09/14/25 00:35 Sodium 137 Potassium 3.7 Chloride 102 Carbon Dioxide 27 BUN 18 H Creatinine 0.91 Glucose 92 Calcium 9.3 Liver Function 09/14/25 Range/Units 00:35 Total Bilirubin 1.0 (0.2-1.3) mg/dL AST 27 (14-36) U/L ALT 23 (6-35) U/L Alkaline Phosphatase 65 (38-126) U/L Albumin 4.1 (3.5-5.1) g/dL Urine 09/14/25 Range/Units 00:35 Urine Color Yellow (Yellow) Urine Appearance Clear (Clear) Urine pH 6.0 (5.0-9.0) Ur Specific [place] 1.015 (1.001-1.035) Urine Protein Negative (Negative) mg/dL Urine Glucose (UA) Negative (Negative) mg/dL Assessment and Plan Assessment and plan (1) Physical deconditioning: Code(s): R53.81 - Other malaise Status: Acute Assessment and Plan: Patient admitted to [facility] due to extended hospitalization after treatment for COVID and UTI * PT/OT * up to chair with every meal * fall risk (2) Risk for falls: Code(s): Z91.81 - History of falling Status: Acute Assessment and Plan: * fall precautions * ambulate with assistance * PT/OT (3) Iron deficiency anemia: Code(s): D50.9 - Iron deficiency anemia, unspecified Status: Acute Assessment and Plan: * Hgb stable * continued patient's ferrous sulfate (4) Hypertension: Code(s): I10 - Essential (primary) hypertension Status: Acute Assessment and Plan: * continue patient's metoprolol and olmesartan * monitor BP per unit protocol (5) HLD (hyperlipidemia): Code(s): E78.5 - Hyperlipidemia, unspecified Status: Acute Assessment and Plan: * continue atorvastatin (6) Hypothyroidism: Code(s): E03.9 - Hypothyroidism, unspecified Status: Acute Assessment and Plan: * continue patient's levothyroxine (7) GERD (gastroesophageal reflux disease): Code(s): K21.9 - Gastro-esophageal reflux disease without esophagitis Status: Acute Assessment and Plan: * continue patient's Pepcid (8) Restless legs syndrome: Code(s): G25.81 - Restless legs syndrome Status: Acute Assessment and Plan: * continue ropinirole (9) Constipation: Code(s): K59.00 - Constipation, unspecified Status: Acute Assessment and Plan: * continue MiraLax p.r.n. * senna/ docusate HS * encourage oral hydration and activity Plan Code status: Full code per patient DVT prophylaxis: Lovenox Stress ulcer prophylaxis: Pepcid home medication PT/OT notes: SWING Disposition: patient admitted to swing bed for continued strength and endurance training with physical and occupational therapy patient is from [place] her assisted living will need to be re-evaluated prior to discharge to return. Quality VTE Prophylaxis VTE prophylaxis: pharmacologic ordered -Patient's previous records reviewed on admission -ER notes reviewed in detail on admission -discussed all findings and current treatment plan with patient/Family/POA -Consultations reviewed for recommendations -Patient's disposition for safe discharge discussed with employment case manager -radiology imaging, EKG and test results I have personally reviewed and interpreted unless otherwise specified Dictation performed by [employer] direct speech recognition software, therefore television actor variants and typographical errors may occur. Hospitalist [facility] Advance Care Plan I have confirmed that the patient's Advanced Care Plan is present, code status is documented, or surrogate decision maker is listed in patient medical record.: Yes Medication Reconciliation I have utilized all available resources to obtain, update and review the patients current medications (includes all prescriptions, OTC, herbals, cannabis, and nutritional supplements).: Yes The patient is not eligible for med reconciliation; the patient is in a emergent medical situation where delaying treatment would jeopardize the patients health.: No
[2025-10-01] MEDS: FERROUS SULFATE 325 MG TABLET BY MOUTH ×2 (12:15→16:27)
[2025-10-01] MEDS: ONDANSETRON HCL ODT 4 MG TABLET PO (14:20)
[2025-10-01 16:00] VITALS: BP 91/45; PULSE 74; RESP 17; TEMP 36.1; O2SAT 95
[2025-10-01] MEDS: ACETAMINOPHEN 325 MG TABLET 650 MG PO (16:26)
[2025-10-01 21:03] VITALS: PULSE 90
[2025-10-01] MEDS: SENNA/DOCUSATE SODIUM TABLET 1 TAB PO (21:03)
[2025-10-01] MEDS: ATORVASTATIN 40 MG TABLET PO (21:03)
[2025-10-02] VITALS: BP 104/52; PULSE 75; RESP 15; TEMP 36.3; O2SAT 97
[2025-10-02] MEDS: LEVOTHYROXINE SODIUM 88 MCG TABLET PO (05:55)
[2025-10-02 08:00] VITALS: BP 115/56; PULSE 69; RESP 18; TEMP 35.9; O2SAT 95
[2025-10-02 08:25] VITALS: PULSE 69
[2025-10-02] MEDS: OLMESARTAN MEDOXOMIL 10 MG TABLET PO (08:25)
[2025-10-02] MEDS: METOPROLOL TARTRATE 25 MG TABLET PO ×2 (08:25→21:43)
[2025-10-02] MEDS: FAMOTIDINE 20 MG TABLET PO ×2 (08:25→21:43)
[2025-10-02] MEDS: ENOXAPARIN 40 MG/0.4 ML SYRINGE SUB-Q (08:26)
[2025-10-02] MEDS: NITROFURANTOIN MONOHYD MACROCR 100 MG CAP PO ×2 (10:00→21:43)
[2025-10-02] MEDS: FERROUS SULFATE 325 MG TABLET BY MOUTH ×2 (11:19→16:13)
--- NOTE | 2025-10-02 14:51 | P.PNCROSS_ITS ---
Event Note Event Note Event Note: Patient's urinalysis shows VRE will get blood cultures to rule out any bacterem ia initiated on oral Macrobid pending final cultures.
--- NOTE | 2025-10-02 14:51 | PM.EVENT ---
Event Note Event Note Event Note: Patient's urinalysis shows VRE will get blood cultures to rule out any bacteremia initiated on oral Macrobid pending final cultures.
[2025-10-02 16:00] VITALS: BP 103/48; PULSE 83; RESP 16; TEMP 36.1; O2SAT 96
[2025-10-02 21:43] VITALS: PULSE 80
[2025-10-02] MEDS: ACETAMINOPHEN 325 MG TABLET 650 MG PO (21:43)
[2025-10-02] MEDS: SENNA/DOCUSATE SODIUM TABLET 1 TAB PO (21:43)
[2025-10-02] MEDS: ATORVASTATIN 40 MG TABLET PO (21:44)
[2025-10-03] VITALS: BP 91/40; PULSE 80; RESP 16; TEMP 36.3; O2SAT 96
[2025-10-03] MEDS: LEVOTHYROXINE SODIUM 88 MCG TABLET PO (05:41)
[2025-10-03 08:00] VITALS: BP 103/54; PULSE 73; RESP 16; TEMP 36.1; O2SAT 96
[2025-10-03] MEDS: OLMESARTAN MEDOXOMIL 10 MG TABLET PO (08:10)
[2025-10-03] MEDS: NITROFURANTOIN MONOHYD MACROCR 100 MG CAP PO ×2 (08:10→20:31)
[2025-10-03 08:11] VITALS: PULSE 73
[2025-10-03] MEDS: FAMOTIDINE 20 MG TABLET PO ×2 (08:11→20:27)
[2025-10-03] MEDS: METOPROLOL TARTRATE 25 MG TABLET PO ×2 (08:11→20:28)
[2025-10-03] MEDS: ENOXAPARIN 40 MG/0.4 ML SYRINGE SUB-Q (08:11)
[2025-10-03] MEDS: FERROUS SULFATE 325 MG TABLET BY MOUTH ×2 (11:47→16:00)
[2025-10-03] MEDS: ACETAMINOPHEN 325 MG TABLET 650 MG PO ×2 (13:33→20:27)
[2025-10-03 16:00] VITALS: BP 108/59; PULSE 66; RESP 16; TEMP 35.9; O2SAT 96
[2025-10-03 20:00] VITALS: PULSE 80; RESP 18; O2SAT 96
[2025-10-03 20:28] VITALS: PULSE 79
[2025-10-03] MEDS: ATORVASTATIN 40 MG TABLET PO (20:31)
[2025-10-03] MEDS: SENNA/DOCUSATE SODIUM TABLET 1 TAB PO (20:31)
[2025-10-04] VITALS: BP 118/60; PULSE 79; RESP 18; TEMP 36.3; O2SAT 98
[2025-10-04] MEDS: LEVOTHYROXINE SODIUM 88 MCG TABLET PO (06:20)
[2025-10-04 08:00] VITALS: BP 123/68; PULSE 70; RESP 16; TEMP 35.9; O2SAT 97
[2025-10-04 08:19] VITALS: PULSE 70
[2025-10-04] MEDS: ENOXAPARIN 40 MG/0.4 ML SYRINGE SUB-Q (08:19)
[2025-10-04] MEDS: METOPROLOL TARTRATE 25 MG TABLET PO ×2 (08:19→21:45)
[2025-10-04] MEDS: OLMESARTAN MEDOXOMIL 10 MG TABLET PO (08:19)
[2025-10-04] MEDS: FAMOTIDINE 20 MG TABLET PO ×2 (08:19→21:48)
[2025-10-04] MEDS: NITROFURANTOIN MONOHYD MACROCR 100 MG CAP PO ×2 (08:19→21:48)
--- NOTE | 2025-10-04 10:04 | P.PNIM_ITS ---
Progress Note: A&P Assessment and Plan (1) VRE (vancomycin resistant enterococcus) culture positive: Code(s): Z22.39 - Carrier of other specified bacterial diseases Status: Acute Assessment and Plan: patient's urinary culture came back with VRE from previous report she had been treated outpatient with oral antibiotic therapy and was asymptomatic during her admission at [facility]. * blood cultures pending * started patient on Macrobid p.o. * pending blood cultures if positive will consult ID * will get follow up UA * contact isolation (2) Physical deconditioning: Code(s): R53.81 - Other malaise Status: Acute Assessment and Plan: Patient admitted to [facility] due to extended hospitalization after treatment for COVID and UTI * PT/OT * up to chair with every meal * fall risk (3) Risk for falls: Code(s): Z91.81 - History of falling Status: Acute Assessment and Plan: * fall precautions * ambulate with assistance * PT/OT (4) Iron deficiency anemia: Code(s): D50.9 - Iron deficiency anemia, unspecified Status: Acute Assessment and Plan: * Hgb stable * continued patient's ferrous sulfate (5) Hypertension: Code(s): I10 - Essential (primary) hypertension Status: Acute Assessment and Plan: * continue patient's metoprolol and olmesartan * monitor BP per unit protocol (6) HLD (hyperlipidemia): Code(s): E78.5 - Hyperlipidemia, unspecified Status: Acute Assessment and Plan: * continue atorvastatin (7) Hypothyroidism: Code(s): E03.9 - Hypothyroidism, unspecified Status: Acute Assessment and Plan: * continue patient's levothyroxine (8) GERD (gastroesophageal reflux disease): Code(s): K21.9 - Gastro-esophageal reflux disease without esophagitis Status: Acute Assessment and Plan: * continue patient's Pepcid (9) Restless legs syndrome: Code(s): G25.81 - Restless legs syndrome Status: Acute Assessment and Plan: * continue ropinirole (10) Constipation: Code(s): K59.00 - Constipation, unspecified Status: Acute Assessment and Plan: * continue MiraLax p.r.n. * senna/ docusate HS * encourage oral hydration and activity Plan Code status: Full code per patient DVT prophylaxis: Lovenox Stress ulcer prophylaxis: Pepcid home medication PT/OT notes: SWING Disposition: patient admitted to swing bed for continued strength and endurance training with physical and occupational therapy patient is from [place] her assisted living will need to be re-evaluated prior to discharge to return. Time Spent With Patient Time with patient: 15 - 25 minutes Subjective Date/time seen: 10/04/25 10:04 Interval history: Patient is an 84-year-old female admitted to [facility] for continued physical and occupational therapy secondary to physically deconditioned for a extended hospitalization patient also found to UTI with VRE. 10/04/2025: Patient in bed in no acute distress and no complaints updated on UA findings. Patient denied any SP,COB, N/V, or dysuria. Review of Systems Review of Systems: All systems reviewed & are unremarkable except as noted in HPI and below (Subjective) Exam Const: General: comfortable and no acute distress HENMT: Ears: TM's normal bilaterally Face/Nose/Sinus: Normal nares present Mouth: Yes moist mucous membranes Eyes: General: appearance normal, both eyes and all related structures Pupils: Equal, round and reactive pupils present Neck: Neck: supple Resp: Effort & Inspection: normal respiratory effort Auscultation: clear to auscultation bilaterally Cardio: Rate: regular rate Rhythm: regular rhythm GI: Inspection: non-distended Skin: General skin exam: normal color and no rashes or lesions noted Wounds: no wounds Other: deep tissue bruising Neuro: Cranial nerves: Yes Equal, round and reactive pupils present Speech: normal speech Motor exam (neuro): 5/5 motor strength present throughout Sensory Exam: normal sensation Other: Unable to assess gait Extrem: General: normal to inspection and no edema Psych: Mental Status: mental status grossly normal Affect: Sad affect present Other: withdrawn Objective Data Vital Signs Vital Signs: Vital Signs - 24 hr 10/03/25 16:00 10/03/25 20:00 10/03/25 20:28 Temperature 96.6 F L Pulse Rate 66 80 79 Respiratory Rate 16 18 Blood Pressure 108/59 L Pulse Oximetry 96 96 Oxygen Delivery Room Air Room Air 10/04/25 00:00 10/04/25 08:00 10/04/25 08:00 Temperature 97.3 F L 96.7 F L Pulse Rate 79 70 70 Respiratory Rate 18 16 16 Blood Pressure 118/60 123/68 Pulse Oximetry 98 97 97 Oxygen Delivery Room Air Room Air Room Air 10/04/25 08:19 Temperature Pulse Rate 70 Respiratory Rate Blood Pressure Pulse Oximetry Oxygen Delivery Intake/Output Intake/Output: Intake & Output 10/01/25 10/02/25 10/03/25 10/04/25 23:59 23:59 23:59 23:59 Intake Total 2021 210 2914 400 Balance 6435 837 1942 400 Meds/Results Medications: Active Medications Generic Name Dose Route Start Last Admin Trade Name Freq PRN Reason Stop Dose Admin Acetaminophen 650 mg 09/30/25 19:43 10/03/25 20:27 Acetaminophen 325 Mg Tablet PO 650 mg Q6H PRN Administration fever or pain 1-3 Atorvastatin Calcium 40 mg 09/30/25 21:00 10/03/25 20:31 Atorvastatin 40 Mg Tablet PO 40 mg HS SILVIO Administration Diclofenac Sodium 1 applic 09/30/25 19:43 Diclofenac Sodium 1% 100 Gm Gel (*Bkc) TOPICAL TID PRN Pain Enoxaparin Sodium 40 mg 10/02/25 09:00 10/04/25 08:19 Enoxaparin 40 Mg/0.4 Ml Syringe SUB-Q 40 mg DAILY SILVIO Administration Famotidine 20 mg 10/01/25 09:00 10/04/25 08:19 Famotidine 20 Mg Tablet PO 20 mg Q12HR SILVIO Administration Ferrous Sulfate 325 mg 10/01/25 12:00 10/03/25 16:00 Ferrous Sulfate 325 Mg Tablet BY MOUTH 325 mg 1200,1700 SILVIO Administration Guaifenesin 200 mg 09/30/25 19:43 Guaifenesin 200 Mg/10 Ml Udc PO Q6H PRN Cough Levothyroxine Sodium 88 mcg 10/01/25 06:30 10/04/25 06:20 Levothyroxine Sodium 88 Mcg Tablet PO 88 mcg DAILY@0630 SILVIO Administration Metoprolol Tartrate 25 mg 10/01/25 09:00 10/04/25 08:19 Metoprolol Tartrate 25 Mg Tablet PO 25 mg Q12HR SILVIO Administration Nitrofurantoin Macrocrystals 100 mg 10/02/25 09:35 10/04/25 08:19 Nitrofurantoin Monohyd Macrocr 100 Mg Cap PO 100 mg Q12HR SILVIO Administration Olmesartan 10 mg 10/03/25 09:00 10/04/25 08:19 Olmesartan Medoxomil 10 Mg Tablet PO 10 mg DAILY SILVIO Administration Ondansetron HCl 4 mg 09/30/25 19:43 10/01/25 14:20 Ondansetron Hcl Odt 4 Mg Tablet PO 4 mg Q6H PRN Administration Nausea And Vomiting Polyethylene Glycol 17 gm 09/30/25 19:43 Polyethylene Glycol 3350 17 Gm Powd.Pack PO HS PRN Constipation Ropinirole HCl 0.25 mg 09/30/25 21:00 10/03/25 20:27 Ropinirole Hcl 0.25 Mg Tablet PO 0.25 mg HS SILVIO Administration Senna/Docusate Sodium 1 tab 10/01/25 21:00 10/03/25 20:31 Senna/Docusate Sodium Tablet PO 1 tab HS SILVIO Administration Quality VTE Prophylaxis VTE prophylaxis: pharmacologic ordered -Patient's previous records reviewed on admission -ER notes reviewed in detail on admission -discussed all findings and current treatment plan with patient/Family/POA -Consultations reviewed for recommendations -Patient's disposition for safe discharge discussed with rn field case manager -radiology imaging, EKG and test results I have personally reviewed and interpreted unless otherwise specified Dictation performed by [employer] direct speech recognition software, therefore overlay operator variants and typographical errors may occur. Hospitalist [facility] Advance Care Plan I have confirmed that the patient's Advanced Care Plan is present, code status is documented, or surrogate decision maker is listed in patient medical record.: Yes Medication Reconciliation I have utilized all available resources to obtain, update and review the patients current medications (includes all prescriptions, OTC, herbals, cannabis, and nutritional supplements).: Yes The patient is not eligible for med reconciliation; the patient is in a emergent medical situation where delaying treatment would jeopardize the patients health.: No
[2025-10-04] MEDS: FERROUS SULFATE 325 MG TABLET BY MOUTH ×2 (11:11→16:06)
[2025-10-04 13:54] LABS: Add Urine Microscopic? YES; Appearance Urine Clear (Clear); Glucose Urine UA Negative (Negative); Leukocyte Esterase Ur Negative LEU/UL (Negative); Nitrate Urine Positive (Negative); Specific Grav Ur 1.010 (1.010-1.020)
[2025-10-04 16:00] VITALS: BP 117/56; PULSE 70; RESP 17; TEMP 36; O2SAT 95
[2025-10-04 21:45] VITALS: PULSE 68
[2025-10-04] MEDS: SENNA/DOCUSATE SODIUM TABLET 1 TAB PO (21:45)
[2025-10-04] MEDS: ATORVASTATIN 40 MG TABLET PO (21:48)
[2025-10-05] VITALS: BP 128/60; PULSE 72; RESP 16; TEMP 36.6; O2SAT 95
[2025-10-05] MEDS: LEVOTHYROXINE SODIUM 88 MCG TABLET PO (06:28)
[2025-10-05 08:00] VITALS: BP 116/70; PULSE 63; RESP 18; TEMP 36.2; O2SAT 98
[2025-10-05] MEDS: ENOXAPARIN 40 MG/0.4 ML SYRINGE SUB-Q (08:36)
[2025-10-05] MEDS: NITROFURANTOIN MONOHYD MACROCR 100 MG CAP PO ×2 (08:37→20:43)
[2025-10-05] MEDS: METOPROLOL TARTRATE 25 MG TABLET PO ×2 (08:37→20:44)
[2025-10-05] MEDS: OLMESARTAN MEDOXOMIL 10 MG TABLET PO (08:37)
[2025-10-05] MEDS: FAMOTIDINE 20 MG TABLET PO ×2 (08:37→20:43)
[2025-10-05] MEDS: FERROUS SULFATE 325 MG TABLET BY MOUTH ×2 (14:25→18:00)
[2025-10-05 16:00] VITALS: BP 93/46; PULSE 84; RESP 18; TEMP 36.6; O2SAT 96
[2025-10-05] MEDS: ACETAMINOPHEN 325 MG TABLET 650 MG PO (18:04)
[2025-10-05] MEDS: ATORVASTATIN 40 MG TABLET PO (20:43)
[2025-10-05 20:44] VITALS: PULSE 72
[2025-10-05] MEDS: SENNA/DOCUSATE SODIUM TABLET 1 TAB PO (20:44)
[2025-10-06] VITALS: BP 114/63; PULSE 81; RESP 18; TEMP 36.3; O2SAT 95
[2025-10-06] MEDS: LEVOTHYROXINE SODIUM 88 MCG TABLET PO (06:38)
[2025-10-06 08:00] VITALS: BP 113/54; RESP 18; TEMP 36.3; O2SAT 96
[2025-10-06] MEDS: ENOXAPARIN 40 MG/0.4 ML SYRINGE SUB-Q (09:24)
[2025-10-06] MEDS: FAMOTIDINE 20 MG TABLET PO ×2 (09:25→21:49)
[2025-10-06] MEDS: METOPROLOL TARTRATE 25 MG TABLET PO ×2 (09:25→21:49)
[2025-10-06] MEDS: OLMESARTAN MEDOXOMIL 10 MG TABLET PO (09:25)
[2025-10-06] MEDS: NITROFURANTOIN MONOHYD MACROCR 100 MG CAP PO ×2 (09:27→21:49)
[2025-10-06] MEDS: ACETAMINOPHEN 325 MG TABLET 650 MG PO (10:37)
[2025-10-06 12:13] LABS: Hematocrit 43.6 % (35.0-42.0); Hemoglobin 13.0 g/dL (11.7-13.8); Mean Corpuscular HGB Conc 29.8 g/dL (32-36); Mean Corpuscular Hemoglobin 28.8 pg (27.0-31.0); Mean Corpuscular Volume 96.7 fL (78.0-102.0); Platelet Count Result 401 K/mm3 (150-420); Red Blood Count 4.51 M/mm3 (4.20-5.40); White Blood Count 6.0 K/mm3 (4.8-10.8)
[2025-10-06] MEDS: FERROUS SULFATE 325 MG TABLET BY MOUTH ×2 (12:17→16:30)
[2025-10-06 12:38] LABS: Alanine Aminotransferase 19 U/L (6-35); Albumin Level 4.2 g/dL (3.5-5.1); Alkaline Phosphatase 68 U/L (38-126); Anion Gap 13 mmol/L (4-12); Aspartate Amino Transferase 24 U/L (14-36); Bilirubin,Total 0.3 mg/dL (0.2-1.3); Blood Urea Nitrogen 36 mg/dL (7-17); Calcium 10.1 mg/dL (8.4-10.2); Carbon Dioxide 22 mmol/L (22-30); Chloride 105 mmol/L (98-107); Estimated CRCL calculation 27 ml/min; Estimated Glomerular Filt Rate 38; Glucose 122 mg/dL (65-110); Magnesium 2.2 mg/dL (1.6-2.3); Osmolality Calculated 299 mOsm/kg (285-295); Potassium 5.0 mmol/L (3.4-5.0); Sodium 140 mmol/L (137-145); Total Protein 7.0 g/dL (6.3-8.2)
[2025-10-06 14:34] VITALS: BMI 10.0
[2025-10-06 16:00] VITALS: BP 101/48; PULSE 79; RESP 18; TEMP 36.2; O2SAT 97
[2025-10-06] MEDS: ATORVASTATIN 40 MG TABLET PO (21:48)
[2025-10-06] MEDS: SENNA/DOCUSATE SODIUM TABLET 1 TAB PO (21:49)
[2025-10-06] MEDS: BACLOFEN 10 MG TABLET PO (21:49)
[2025-10-07] VITALS: BP 114/58; PULSE 70; RESP 16; TEMP 36.4; O2SAT 98
--- NOTE | 2025-10-07 03:35 | WNDPHOTO ---
PHOTO ONLY - See Nursing Notes and/ or assessments for documentation.
[2025-10-07] MEDS: LEVOTHYROXINE SODIUM 88 MCG TABLET PO (06:54)
--- NOTE | 2025-10-07 07:31 | P.PNIM_ITS ---
Progress Note: A&P Assessment and Plan (1) VRE (vancomycin resistant enterococcus) culture positive: Code(s): Z22.39 - Carrier of other specified bacterial diseases Status: Acute Assessment and Plan: patient's urinary culture came back with VRE from previous report she had been treated outpatient with oral antibiotic therapy and was asymptomatic during her admission at [facility]. * blood cultures pending * started patient on Macrobid p.o., stopped due to negative urine culture * pending blood cultures if positive will consult ID * contact isolation (2) Physical deconditioning: Code(s): R53.81 - Other malaise Status: Acute Assessment and Plan: Patient admitted to [facility] due to extended hospitalization after treatment for COVID and UTI * PT/OT * up to chair with every meal * fall risk (3) Risk for falls: Code(s): Z91.81 - History of falling Status: Acute Assessment and Plan: * fall precautions * ambulate with assistance * PT/OT (4) Iron deficiency anemia: Code(s): D50.9 - Iron deficiency anemia, unspecified Status: Acute Assessment and Plan: * Hgb stable * continued patient's ferrous sulfate (5) Hypertension: Code(s): I10 - Essential (primary) hypertension Status: Acute Assessment and Plan: * continue patient's metoprolol and olmesartan * monitor BP per unit protocol (6) HLD (hyperlipidemia): Code(s): E78.5 - Hyperlipidemia, unspecified Status: Acute Assessment and Plan: * continue atorvastatin (7) Hypothyroidism: Code(s): E03.9 - Hypothyroidism, unspecified Status: Acute Assessment and Plan: * continue patient's levothyroxine (8) GERD (gastroesophageal reflux disease): Code(s): K21.9 - Gastro-esophageal reflux disease without esophagitis Status: Acute Assessment and Plan: * continue patient's Pepcid (9) Restless legs syndrome: Code(s): G25.81 - Restless legs syndrome Status: Acute Assessment and Plan: * continue ropinirole (10) Constipation: Code(s): K59.00 - Constipation, unspecified Status: Acute Assessment and Plan: * continue MiraLax p.r.n. * senna/ docusate HS * encourage oral hydration and activity (11) ROMI (acute kidney injury): Code(s): N17.9 - Acute kidney failure, unspecified Status: Acute Assessment and Plan: Patients BUN and creatinine elevated on labs done 10/06 encourage patient to increase PO fluid intake recheck labs in a few days Plan Code status: Full code per patient DVT prophylaxis: Lovenox Stress ulcer prophylaxis: Pepcid home medication PT/OT notes: SWING Disposition: patient admitted to swing bed for continued strength and endurance training with physical and occupational therapy patient is from [place] her assisted living will need to be re-evaluated prior to discharge to return. Subjective Date/time seen: 10/07/25 07:31 Interval history: Patient seen for a follow up visit. Patient sitting up in chair, in no acute distress. Patient reports pain is controlled on current regimen. Patient is participating in rehab. Patient's creatinine and BUN elevated from baseline. Patient encouraged to drink PO fluids and will recheck BMP in a few days. Medications reviewed and all appear appropriate. Review of Systems Review of Systems: All systems reviewed & are unremarkable except as noted in HPI and below (Subjective) Exam Const: General: comfortable and no acute distress HENMT: Ears: TM's normal bilaterally Face/Nose/Sinus: Normal nares present Mouth: Yes moist mucous membranes Eyes: General: appearance normal, both eyes and all related structures Pupils: Equal, round and reactive pupils present Neck: Neck: supple Resp: Effort & Inspection: normal respiratory effort Auscultation: clear to auscultation bilaterally Cardio: Rate: regular rate Rhythm: regular rhythm GI: Inspection: non-distended Skin: General skin exam: normal color and no rashes or lesions noted Wounds: no wounds Other: deep tissue bruising Neuro: Cranial nerves: Yes Equal, round and reactive pupils present Speech: normal speech Motor exam (neuro): 5/5 motor strength present throughout Sensory Exam: normal sensation Other: Unable to assess gait Extrem: General: normal to inspection and no edema Psych: Mental Status: mental status grossly normal Affect: Sad affect present Other: withdrawn Objective Data Vital Signs Vital Signs: Vital Signs - 24 hr 10/06/25 08:00 10/06/25 16:00 10/07/25 00:00 Temperature 97.4 F L 97.2 F L 97.5 F L Pulse Rate 79 70 Respiratory Rate 18 18 16 Blood Pressure 113/54 L 101/48 L 114/58 L Pulse Oximetry 96 97 98 Oxygen Delivery Room Air Room Air Room Air Intake/Output Intake/Output: Intake & Output 10/04/25 10/05/25 10/06/25 10/07/25 23:59 23:59 23:59 23:59 Intake Total 0767 850 9766 100 Balance 0241 660 2682 100 Meds/Results Medications: Active Medications Generic Name Dose Route Start Last Admin Trade Name Freq PRN Reason Stop Dose Admin Acetaminophen 650 mg 09/30/25 19:43 10/06/25 10:37 Acetaminophen 325 Mg Tablet PO 650 mg Q6H PRN Administration fever or pain 1-3 Atorvastatin Calcium 40 mg 09/30/25 21:00 10/06/25 21:48 Atorvastatin 40 Mg Tablet PO 40 mg HS SILVIO Administration Baclofen 10 mg 10/06/25 11:38 10/06/25 21:49 Baclofen 10 Mg Tablet PO 10 mg Q8HR PRN Administration muscle spasms Diclofenac Sodium 1 applic 09/30/25 19:43 Diclofenac Sodium 1% 100 Gm Gel (*Bkc) TOPICAL TID PRN Pain Enoxaparin Sodium 40 mg 10/02/25 09:00 10/06/25 09:24 Enoxaparin 40 Mg/0.4 Ml Syringe SUB-Q 40 mg DAILY SILVIO Administration Famotidine 20 mg 10/01/25 09:00 10/06/25 21:49 Famotidine 20 Mg Tablet PO 20 mg Q12HR SILVIO Administration Ferrous Sulfate 325 mg 10/01/25 12:00 10/06/25 16:30 Ferrous Sulfate 325 Mg Tablet BY MOUTH 325 mg 1200,1700 SILVIO Administration Guaifenesin 200 mg 09/30/25 19:43 Guaifenesin 200 Mg/10 Ml Udc PO Q6H PRN Cough Levothyroxine Sodium 88 mcg 10/01/25 06:30 10/07/25 06:54 Levothyroxine Sodium 88 Mcg Tablet PO 88 mcg DAILY@0630 SILVIO Administration Metoprolol Tartrate 25 mg 10/01/25 09:00 10/06/25 21:49 Metoprolol Tartrate 25 Mg Tablet PO 25 mg Q12HR SILVIO Administration Nitrofurantoin Macrocrystals 100 mg 10/02/25 09:35 10/06/25 21:49 Nitrofurantoin Monohyd Macrocr 100 Mg Cap PO 100 mg Q12HR SILVIO Administration Olmesartan 10 mg 10/03/25 09:00 10/06/25 09:25 Olmesartan Medoxomil 10 Mg Tablet PO 10 mg DAILY SILVIO Administration Ondansetron HCl 4 mg 09/30/25 19:43 10/01/25 14:20 Ondansetron Hcl Odt 4 Mg Tablet PO 4 mg Q6H PRN Administration Nausea And Vomiting Polyethylene Glycol 17 gm 09/30/25 19:43 Polyethylene Glycol 3350 17 Gm Powd.Pack PO HS PRN Constipation Ropinirole HCl 0.25 mg 10/06/25 11:39 10/06/25 21:48 Ropinirole Hcl 0.25 Mg Tablet PO 0.25 mg TID PRN Administration Restless leg Senna/Docusate Sodium 1 tab 10/01/25 21:00 10/06/25 21:49 Senna/Docusate Sodium Tablet PO 1 tab HS SILVIO Administration Labs Labs: Laboratory Results - last 24 hr 10/06/25 11:54 WBC 6.0 RBC 4.51 Hgb 13.0 Hct 43.6 H MCV 96.7 MCH 28.8 MCHC 29.8 L RDW 14.3 Plt Count 401 MPV 9.4 Sodium 140 Potassium 5.0 Chloride 105 Carbon Dioxide 22 Anion Gap 13 H BUN 36 H Creatinine 1.33 H Estim Creat Clear Calc 27 Estimated GFR 38 L Glucose 122 H Calculated Osmolality 299 H Calcium 10.1 Magnesium 2.2 Total Bilirubin 0.3 AST 24 ALT 19 Alkaline Phosphatase 68 Total Protein 7.0 Albumin 4.2 Quality VTE Prophylaxis VTE prophylaxis: pharmacologic ordered -Patient's previous records reviewed on admission -ER notes reviewed in detail on admission -discussed all findings and current treatment plan with patient/Family/POA -Consultations reviewed for recommendations -Patient's disposition for safe discharge discussed with casework manager -radiology imaging, EKG and test results I have personally reviewed and interpreted unless otherwise specified Dictation performed by [employer] direct speech recognition software, therefore java mobile developer variants and typographical errors may occur.
[2025-10-07 08:00] VITALS: BP 105/50; PULSE 62; RESP 18; TEMP 36.1; O2SAT 96
[2025-10-07 09:01] VITALS: PULSE 65
[2025-10-07] MEDS: METOPROLOL TARTRATE 25 MG TABLET PO ×2 (09:01→21:33)
[2025-10-07] MEDS: ENOXAPARIN 40 MG/0.4 ML SYRINGE SUB-Q (09:01)
[2025-10-07] MEDS: FAMOTIDINE 20 MG TABLET PO ×2 (09:02→21:33)
[2025-10-07] MEDS: OLMESARTAN MEDOXOMIL 10 MG TABLET PO (09:02)
[2025-10-07] MEDS: NITROFURANTOIN MONOHYD MACROCR 100 MG CAP PO (10:33)
[2025-10-07] MEDS: FERROUS SULFATE 325 MG TABLET BY MOUTH ×2 (12:48→17:56)
[2025-10-07 16:00] VITALS: BP 109/87; PULSE 80; RESP 18; TEMP 36; O2SAT 97
[2025-10-07 21:33] VITALS: PULSE 70
[2025-10-07] MEDS: ATORVASTATIN 40 MG TABLET PO (21:33)
[2025-10-07] MEDS: BACLOFEN 10 MG TABLET PO (21:33)
[2025-10-08] VITALS: BP 114/48; PULSE 78; RESP 15; TEMP 36.5; O2SAT 97
[2025-10-08] MEDS: LEVOTHYROXINE SODIUM 88 MCG TABLET PO (06:29)
[2025-10-08 08:00] VITALS: BP 125/60; PULSE 72; RESP 16; TEMP 36.4; O2SAT 97
[2025-10-08 08:48] VITALS: PULSE 72
[2025-10-08] MEDS: FAMOTIDINE 20 MG TABLET PO ×2 (08:48→20:31)
[2025-10-08] MEDS: ENOXAPARIN 40 MG/0.4 ML SYRINGE SUB-Q (08:48)
[2025-10-08] MEDS: METOPROLOL TARTRATE 25 MG TABLET PO ×2 (08:48→20:30)
[2025-10-08] MEDS: OLMESARTAN MEDOXOMIL 10 MG TABLET PO (08:48)
[2025-10-08] MEDS: FERROUS SULFATE 325 MG TABLET BY MOUTH ×2 (12:15→17:00)
--- NOTE | 2025-10-08 14:18 | PC.NURSE ---
Today at 1300 pateint refused all medications.
[2025-10-08 16:00] VITALS: BP 125/50; PULSE 70; RESP 17; TEMP 36.7; O2SAT 97
[2025-10-08 20:00] VITALS: PULSE 78; RESP 16; O2SAT 95
[2025-10-08 20:30] VITALS: PULSE 78
[2025-10-08] MEDS: ATORVASTATIN 40 MG TABLET PO (20:30)
[2025-10-08] MEDS: BACLOFEN 10 MG TABLET PO (20:31)
[2025-10-09] VITALS: BP 137/59; PULSE 78; RESP 16; TEMP 36.7; O2SAT 95
[2025-10-09 08:00] VITALS: BP 130/74; PULSE 78; RESP 18; TEMP 36.1; O2SAT 98
--- NOTE | 2025-10-09 08:05 | P.PNIM_ITS ---
Progress Note: A&P Assessment and Plan (1) VRE (vancomycin resistant enterococcus) culture positive: Code(s): Z22.39 - Carrier of other specified bacterial diseases Status: Acute Assessment and Plan: patient's urinary culture came back with VRE from previous report she had been treated outpatient with oral antibiotic therapy and was asymptomatic during her admission at [facility]. * blood cultures pending * started patient on Macrobid p.o., stopped due to negative urine culture * pending blood cultures if positive will consult ID * contact isolation (2) Physical deconditioning: Code(s): R53.81 - Other malaise Status: Acute Assessment and Plan: Patient admitted to [facility] due to extended hospitalization after treatment for COVID and UTI * PT/OT * up to chair with every meal * fall risk * patient is refusing therapy at times, does not want to participate, encouragement provided to patient during visit. (3) Risk for falls: Code(s): Z91.81 - History of falling Status: Acute Assessment and Plan: * fall precautions * ambulate with assistance * PT/OT (4) Iron deficiency anemia: Code(s): D50.9 - Iron deficiency anemia, unspecified Status: Acute Assessment and Plan: * Hgb stable * continued patient's ferrous sulfate (5) Hypertension: Code(s): I10 - Essential (primary) hypertension Status: Acute Assessment and Plan: * continue patient's metoprolol and olmesartan * monitor BP per unit protocol (6) HLD (hyperlipidemia): Code(s): E78.5 - Hyperlipidemia, unspecified Status: Acute Assessment and Plan: * continue atorvastatin (7) Hypothyroidism: Code(s): E03.9 - Hypothyroidism, unspecified Status: Acute Assessment and Plan: * continue patient's levothyroxine (8) GERD (gastroesophageal reflux disease): Code(s): K21.9 - Gastro-esophageal reflux disease without esophagitis Status: Acute Assessment and Plan: * continue patient's Pepcid (9) Restless legs syndrome: Code(s): G25.81 - Restless legs syndrome Status: Acute Assessment and Plan: * continue ropinirole (10) Constipation: Code(s): K59.00 - Constipation, unspecified Status: Acute Assessment and Plan: * continue MiraLax p.r.n. * senna/ docusate HS * encourage oral hydration and activity (11) ROMI (acute kidney injury): Code(s): N17.9 - Acute kidney failure, unspecified Status: Acute Assessment and Plan: Patients BUN and creatinine elevated on labs done 10/06 some improvement noted today BUN 33, creatinine 1.33 encourage patient to increase PO fluid intake BMP in am Plan Code status: Full code per patient DVT prophylaxis: Lovenox Stress ulcer prophylaxis: Pepcid home medication PT/OT notes: SWING Disposition: patient admitted to swing bed for continued strength and endurance training with physical and occupational therapy patient is from [place] her assisted living will need to be re-evaluated prior to discharge to return. Subjective Date/time seen: 10/09/25 08:05 Interval history: Patient seen for a follow up visit. Patient sitting up in chair, in no acute distress. Patient will answer some questions today but appears to interact less during the visit. Discussed with patient the need to drink more PO fluids, monitor intake. Patient refused to work with therapy today. Repeat labs ordered for AM Review of Systems Review of Systems: All systems reviewed & are unremarkable except as noted in HPI and below (Subjective) Exam Const: General: comfortable and no acute distress HENMT: Ears: TM's normal bilaterally Face/Nose/Sinus: Normal nares present Mouth: Yes moist mucous membranes Eyes: General: appearance normal, both eyes and all related structures Pupils: Equal, round and reactive pupils present Neck: Neck: supple Resp: Effort & Inspection: normal respiratory effort Auscultation: clear to auscultation bilaterally Cardio: Rate: regular rate Rhythm: regular rhythm GI: Inspection: non-distended Skin: General skin exam: normal color and no rashes or lesions noted Wounds: no wounds Other: deep tissue bruising Neuro: Cranial nerves: Yes Equal, round and reactive pupils present Speech: normal speech Motor exam (neuro): 5/5 motor strength present throughout Sensory Exam: normal sensation Other: Unable to assess gait Extrem: General: normal to inspection and no edema Psych: Mental Status: mental status grossly normal Affect: Sad affect present Other: withdrawn Objective Data Vital Signs Vital Signs: Vital Signs - 24 hr 10/08/25 08:48 10/08/25 16:00 10/08/25 20:00 Temperature 98.0 F Pulse Rate 72 70 78 Respiratory Rate 17 16 Blood Pressure 125/50 L Pulse Oximetry 97 95 Oxygen Delivery Room Air Room Air 10/08/25 20:30 10/09/25 00:00 Temperature 98.0 F Pulse Rate 78 78 Respiratory Rate 16 Blood Pressure 137/59 L Pulse Oximetry 95 Oxygen Delivery Room Air Intake/Output Intake/Output: Intake & Output 10/06/25 10/07/25 10/08/25 10/09/25 23:59 23:59 23:59 23:59 Intake Total 1260 1060 800 200 Balance 1260 1060 800 200 Meds/Results Medications: Active Medications Generic Name Dose Route Start Last Admin Trade Name Freq PRN Reason Stop Dose Admin Acetaminophen 650 mg 09/30/25 19:43 10/06/25 10:37 Acetaminophen 325 Mg Tablet PO 650 mg Q6H PRN Administration fever or pain 1-3 Atorvastatin Calcium 40 mg 09/30/25 21:00 10/08/25 20:30 Atorvastatin 40 Mg Tablet PO 40 mg HS SILVIO Administration Baclofen 10 mg 10/06/25 11:38 10/08/25 20:31 Baclofen 10 Mg Tablet PO 10 mg Q8HR PRN Administration muscle spasms Diclofenac Sodium 1 applic 09/30/25 19:43 Diclofenac Sodium 1% 100 Gm Gel (*Bkc) TOPICAL TID PRN Pain Enoxaparin Sodium 40 mg 10/02/25 09:00 10/08/25 08:48 Enoxaparin 40 Mg/0.4 Ml Syringe SUB-Q 40 mg DAILY [facility] Administration Famotidine 20 mg 10/01/25 09:00 10/08/25 20:31 Famotidine 20 Mg Tablet PO 20 mg Q12HR [facility] Administration Ferrous Sulfate 325 mg 10/01/25 12:00 10/08/25 17:00 Ferrous Sulfate 325 Mg Tablet BY MOUTH 325 mg 1200,1700 [facility] Administration Guaifenesin 200 mg 09/30/25 19:43 Guaifenesin 200 Mg/10 Ml Udc PO Q6H PRN Cough Levothyroxine Sodium 88 mcg 10/01/25 06:30 10/09/25 06:32 Levothyroxine Sodium 88 Mcg Tablet PO Not Given DAILY@0630 [facility] Metoprolol Tartrate 25 mg 10/01/25 09:00 10/08/25 20:30 Metoprolol Tartrate 25 Mg Tablet PO 25 mg Q12HR [facility] Administration Olmesartan 10 mg 10/03/25 09:00 10/08/25 08:48 Olmesartan Medoxomil 10 Mg Tablet PO 10 mg DAILY [facility] Administration Ondansetron HCl 4 mg 09/30/25 19:43 10/01/25 14:20 Ondansetron Hcl Odt 4 Mg Tablet PO 4 mg Q6H PRN Administration Nausea And Vomiting Polyethylene Glycol 17 gm 09/30/25 19:43 Polyethylene Glycol 3350 17 Gm Powd.Pack PO HS PRN Constipation Ropinirole HCl 0.25 mg 10/06/25 11:39 10/08/25 20:31 Ropinirole Hcl 0.25 Mg Tablet PO 0.25 mg TID PRN Administration Restless leg Senna/Docusate Sodium 1 tab 10/01/25 21:00 10/08/25 20:31 Senna/Docusate Sodium Tablet PO Not Given HS [facility] Labs Labs: Laboratory Results - last 24 hr 10/06/25 11:54 WBC 6.0 RBC 4.51 Hgb 13.0 Hct 43.6 H MCV 96.7 MCH 28.8 MCHC 29.8 L RDW 14.3 Plt Count 401 MPV 9.4 Sodium 140 Potassium 5.0 Chloride 105 Carbon Dioxide 22 Anion Gap 13 H BUN 36 H Creatinine 1.33 H Estim Creat Clear Calc 27 Estimated GFR 38 L Glucose 122 H Calculated Osmolality 299 H Calcium 10.1 Magnesium 2.2 Total Bilirubin 0.3 AST 24 ALT 19 Alkaline Phosphatase 68 Total Protein 7.0 Albumin 4.2 Quality VTE Prophylaxis VTE prophylaxis: pharmacologic ordered -Patient's previous records reviewed on admission -ER notes reviewed in detail on admission -discussed all findings and current treatment plan with patient/Family/POA -Consultations reviewed for recommendations -Patient's disposition for safe discharge discussed with porter sample case -radiology imaging, EKG and test results I have personally reviewed and interpreted unless otherwise specified Dictation performed by [employer] direct speech recognition software, therefore tank car reconditioner variants and typographical errors may occur.
[2025-10-09] MEDS: ENOXAPARIN 40 MG/0.4 ML SYRINGE SUB-Q (08:38)
[2025-10-09 08:39] VITALS: PULSE 78
[2025-10-09] MEDS: FAMOTIDINE 20 MG TABLET PO ×2 (08:39→20:36)
[2025-10-09] MEDS: METOPROLOL TARTRATE 25 MG TABLET PO ×2 (08:39→20:35)
[2025-10-09] MEDS: OLMESARTAN MEDOXOMIL 10 MG TABLET PO (08:39)
[2025-10-09 08:48] LABS: Alanine Aminotransferase 18 U/L (6-35); Albumin Level 4.4 g/dL (3.5-5.1); Alkaline Phosphatase 71 U/L (38-126); Anion Gap 9 mmol/L (4-12); Aspartate Amino Transferase 25 U/L (14-36); Bilirubin,Total 0.5 mg/dL (0.2-1.3); Blood Urea Nitrogen 30 mg/dL (7-17); Calcium 9.9 mg/dL (8.4-10.2); Carbon Dioxide 26 mmol/L (22-30); Chloride 105 mmol/L (98-107); Estimated CRCL calculation 30 ml/min; Estimated Glomerular Filt Rate 43; Glucose 99 mg/dL (65-110); Osmolality Calculated 296 mOsm/kg (285-295); Potassium 4.7 mmol/L (3.4-5.0); Sodium 140 mmol/L (137-145); Total Protein 7.6 g/dL (6.3-8.2)
[2025-10-09 16:00] VITALS: BP 122/74; PULSE 74; RESP 18; TEMP 36.6; O2SAT 94
[2025-10-09] MEDS: FERROUS SULFATE 325 MG TABLET BY MOUTH (17:09)
--- NOTE | 2025-10-09 20:13 | PC.NURSE ---
Patient resting quietly in bed. Bed alarm on. No s/s of pain at this time. SR up x2, call light and belongings within reach.
[2025-10-09 20:35] VITALS: PULSE 70
[2025-10-09] MEDS: SENNA/DOCUSATE SODIUM TABLET 1 TAB PO (20:35)
[2025-10-09] MEDS: ATORVASTATIN 40 MG TABLET PO (20:35)
[2025-10-09] MEDS: ACETAMINOPHEN 325 MG TABLET 650 MG PO (20:36)
--- NOTE | 2025-10-09 22:02 | PC.NURSE ---
Patient resting quietly. Neck pillow on to support her neck. SR up x2. Call light and belongings within reach
--- NOTE | 2025-10-09 22:38 | PC.NURSE ---
Patiently sleeping. Nurse checked for incont, patient dry. Call light and belongings within reach.
[2025-10-10] VITALS: BP 97/42; PULSE 62; RESP 20; TEMP 36.7; O2SAT 96
--- NOTE | 2025-10-10 00:05 | PC.NURSE ---
Pt resting quietly in bed and no signs of discomfort noted.
--- NOTE | 2025-10-10 02:10 | PC.NURSE ---
Pt asleep and respirations are even and unlabored.
--- NOTE | 2025-10-10 04:12 | PC.NURSE ---
Pt asleep and no signs of discomfort noted.
[2025-10-10 06:15] LABS: Anion Gap 11 mmol/L (4-12); Blood Urea Nitrogen 41 mg/dL (7-17); Calcium 9.6 mg/dL (8.4-10.2); Carbon Dioxide 22 mmol/L (22-30); Chloride 108 mmol/L (98-107); Estimated CRCL calculation 27 ml/min; Estimated Glomerular Filt Rate 37; Glucose 93 mg/dL (65-110); Osmolality Calculated 302 mOsm/kg (285-295); Potassium 4.4 mmol/L (3.4-5.0); Sodium 141 mmol/L (137-145)
[2025-10-10] MEDS: LEVOTHYROXINE SODIUM 88 MCG TABLET PO (06:22)
--- NOTE | 2025-10-10 06:25 | PC.NURSE ---
Pt given Synthroid 88 mcg PO crushed in jelly. Pt incontinent of urine and a medium stool. Pt cleaned and changed and repositioned.
[2025-10-10 08:00] VITALS: BP 103/48; PULSE 60; RESP 16; TEMP 36.2; O2SAT 97
[2025-10-10 08:06] VITALS: PULSE 60
[2025-10-10] MEDS: FAMOTIDINE 20 MG TABLET PO ×2 (08:06→20:47)
[2025-10-10] MEDS: METOPROLOL TARTRATE 25 MG TABLET PO ×2 (08:06→20:47)
[2025-10-10] MEDS: OLMESARTAN MEDOXOMIL 10 MG TABLET PO (08:06)
[2025-10-10] MEDS: ENOXAPARIN 40 MG/0.4 ML SYRINGE SUB-Q (08:07)
[2025-10-10] MEDS: BACLOFEN 10 MG TABLET PO ×2 (08:07→20:48)
[2025-10-10] MEDS: SODIUM CHLORIDE 0.45% 1,000 ML 100 ML IV CONT (10:24)
[2025-10-10] MEDS: FERROUS SULFATE 325 MG TABLET BY MOUTH ×2 (11:12→16:27)
[2025-10-10] MEDS: ACETAMINOPHEN 325 MG TABLET 650 MG PO (13:14)
[2025-10-10 16:00] VITALS: BP 115/55; PULSE 57; RESP 16; TEMP 36.6; O2SAT 96
[2025-10-10 20:47] VITALS: PULSE 71
[2025-10-10] MEDS: ATORVASTATIN 40 MG TABLET PO (20:48)
[2025-10-10 23:01] VITALS: BP 120/47; PULSE 66; RESP 17; TEMP 36.6; O2SAT 97
--- NOTE | 2025-10-11 00:10 | PC.NURSE ---
Pt asleep and no signs of discomfort noted.
--- NOTE | 2025-10-11 02:10 | PC.NURSE ---
Pt resting quietly in bed and doesnt voice any c/o discomfort.
--- NOTE | 2025-10-11 04:20 | PC.NURSE ---
Pt asleep and no signs of discomfort noted.
--- NOTE | 2025-10-11 05:00 | PC.NURSE ---
Pt incontinent of a large amount of urine. Bed linens changed and pt cleaned, changed and repositioned to her side.
[2025-10-11] MEDS: LEVOTHYROXINE SODIUM 88 MCG TABLET PO (06:23)
--- NOTE | 2025-10-11 06:30 | PC.NURSE ---
Pt given Synthroid 88 mcg crushed and in jelly. Pt drank some water without difficulty.
[2025-10-11 07:10] LABS: Anion Gap 12 mmol/L (4-12); Blood Urea Nitrogen 32 mg/dL (7-17); Calcium 9.8 mg/dL (8.4-10.2); Carbon Dioxide 21 mmol/L (22-30); Chloride 108 mmol/L (98-107); Estimated CRCL calculation 33 ml/min; Estimated Glomerular Filt Rate 48; Glucose 91 mg/dL (65-110); Osmolality Calculated 298 mOsm/kg (285-295); Potassium 4.3 mmol/L (3.4-5.0); Sodium 141 mmol/L (137-145)
[2025-10-11 07:26] LABS: Free T4 Free Thyroxine 1.38 ng/dL (0.78-2.19)
[2025-10-11 07:27] LABS: Free T3 2.60 pg/mL (2.18-3.98)
[2025-10-11 08:00] VITALS: BP 106/49; PULSE 68; RESP 18; TEMP 36.1; O2SAT 96
[2025-10-11] MEDS: SODIUM CHLORIDE 0.45% 1,000 ML 100 ML IV CONT (08:11)
[2025-10-11] MEDS: FAMOTIDINE 20 MG TABLET PO ×2 (08:13→20:25)
[2025-10-11] MEDS: OLMESARTAN MEDOXOMIL 10 MG TABLET PO (08:13)
[2025-10-11] MEDS: ENOXAPARIN 40 MG/0.4 ML SYRINGE SUB-Q (08:13)
[2025-10-11 08:14] VITALS: PULSE 68
[2025-10-11] MEDS: METOPROLOL TARTRATE 25 MG TABLET PO ×2 (08:14→20:25)
[2025-10-11] MEDS: FERROUS SULFATE 325 MG TABLET BY MOUTH ×2 (11:28→17:13)
[2025-10-11] MEDS: ACETAMINOPHEN 325 MG TABLET 650 MG PO (13:20)
--- NOTE | 2025-10-11 13:29 | PC.NURSE ---
Tylenol given for groin pain
--- NOTE | 2025-10-11 13:54 | P.PNIM_ITS ---
Progress Note: A&P Assessment and Plan (1) ROMI (acute kidney injury): Code(s): N17.9 - Acute kidney failure, unspecified Status: Acute Assessment and Plan: Patients BUN and creatinine elevated on labs done 10/06 still improving BUN 32, creatinine 1.08 encourage patient to increase PO fluid intake additional IV fluids ordered BMP in am (2) VRE (vancomycin resistant enterococcus) culture positive: Code(s): Z22.39 - Carrier of other specified bacterial diseases Status: Acute Assessment and Plan: patient's urinary culture came back with VRE from previous report she had been treated outpatient with oral antibiotic therapy and was asymptomatic during her admission at [facility]. * blood cultures pending * started patient on Macrobid p.o., stopped due to negative urine culture * pending blood cultures if positive will consult ID * contact isolation (3) Physical deconditioning: Code(s): R53.81 - Other malaise Status: Acute Assessment and Plan: Patient admitted to [facility] bed due to extended hospitalization after treatment for COVID and UTI * PT/OT * up to chair with every meal * fall risk * patient is refusing therapy at times, does not want to participate, encouragement provided to patient during visit. * patient still requiring max assist and jill steady for transfers (4) Risk for falls: Code(s): Z91.81 - History of falling Status: Acute Assessment and Plan: * fall precautions * ambulate with assistance * PT/OT (5) Iron deficiency anemia: Code(s): D50.9 - Iron deficiency anemia, unspecified Status: Acute Assessment and Plan: * Hgb stable * continued patient's ferrous sulfate (6) Hypertension: Code(s): I10 - Essential (primary) hypertension Status: Acute Assessment and Plan: * continue patient's metoprolol and olmesartan * monitor BP per unit protocol (7) HLD (hyperlipidemia): Code(s): E78.5 - Hyperlipidemia, unspecified Status: Acute Assessment and Plan: * continue atorvastatin (8) Hypothyroidism: Code(s): E03.9 - Hypothyroidism, unspecified Status: Acute Assessment and Plan: * continue patient's levothyroxine * TSH, T3 and T4 checked and all WNL (9) GERD (gastroesophageal reflux disease): Code(s): K21.9 - Gastro-esophageal reflux disease without esophagitis Status: Acute Assessment and Plan: * continue patient's Pepcid (10) Restless legs syndrome: Code(s): G25.81 - Restless legs syndrome Status: Acute Assessment and Plan: * continue ropinirole (11) Constipation: Code(s): K59.00 - Constipation, unspecified Status: Acute Assessment and Plan: * continue MiraLax p.r.n. * senna/ docusate HS * encourage oral hydration and activity Plan Code status: Full code per patient DVT prophylaxis: Lovenox Stress ulcer prophylaxis: Pepcid home medication PT/OT notes: SWING Disposition: patient admitted to swing bed for continued strength and endurance training with physical and occupational therapy patient is from [place] her assisted living will need to be re-evaluated prior to discharge to return. Subjective Date/time seen: 10/11/25 13:54 Interval history: Patient seen for a follow up visit. Patient lying in bed, sleeping, in no acute distress. Patient is still requiring max assist and jill steady to transfer. Patient with poor PO intake. Kidney function with some improvement with IV fluids, additional IV fluids ordered with repeat labs in AM. Review of Systems Review of Systems: All systems reviewed & are unremarkable except as noted in HPI and below (Subjective) Exam Const: General: comfortable and no acute distress HENMT: Ears: TM's normal bilaterally Face/Nose/Sinus: Normal nares present Mouth: Yes moist mucous membranes Eyes: General: appearance normal, both eyes and all related structures Pupils: Equal, round and reactive pupils present Neck: Neck: supple Resp: Effort & Inspection: normal respiratory effort Auscultation: clear to auscultation bilaterally Cardio: Rate: regular rate Rhythm: regular rhythm GI: Inspection: non-distended Skin: General skin exam: normal color and no rashes or lesions noted Wounds: no wounds Other: deep tissue bruising Neuro: Cranial nerves: Yes Equal, round and reactive pupils present Speech: normal speech Motor exam (neuro): 5/5 motor strength present throughout Sensory Exam: normal sensation Other: Unable to assess gait Extrem: General: normal to inspection and no edema Psych: Mental Status: mental status grossly normal Affect: Sad affect pr esent Other: withdrawn Objective Data Vital Signs Vital Signs: Vital Signs - 24 hr 10/10/25 16:00 10/10/25 20:47 10/10/25 23:01 Temperature 97.9 F 97.8 F Pulse Rate 57 L 71 66 Respiratory Rate 16 17 Blood Pressure 115/55 L 120/47 L Pulse Oximetry 96 97 Oxygen Delivery Room Air Room Air 10/11/25 08:00 10/11/25 08:14 Temperature 96.9 F L Pulse Rate 68 68 Respiratory Rate 18 Blood Pressure 106/49 L Pulse Oximetry 96 Oxygen Delivery Room Air Intake/Output Intake/Output: Intake & Output 10/08/25 10/09/25 10/10/25 10/11/25 23:59 23:59 23:59 23:59 Intake Total 808 705 6452 125 Balance 109 491 7927 125 Meds/Results Medications: Active Medications Generic Name Dose Route Start Last Admin Trade Name Freq PRN Reason Stop Dose Admin Acetaminophen 650 mg 09/30/25 19:43 10/11/25 13:20 Acetaminophen 325 Mg Tablet PO 650 mg Q6H PRN Administration fever or pain 1-3 Atorvastatin Calcium 40 mg 09/30/25 21:00 10/10/25 20:48 Atorvastatin 40 Mg Tablet PO 40 mg HS SILVIO Administration Baclofen 10 mg 10/06/25 11:38 10/10/25 20:48 Baclofen 10 Mg Tablet PO 10 mg Q8HR PRN Administration muscle spasms Diclofenac Sodium 1 applic 09/30/25 19:43 Diclofenac Sodium 1% 100 Gm Gel (*Bkc) TOPICAL TID PRN Pain Enoxaparin Sodium 40 mg 10/02/25 09:00 10/11/25 08:13 Enoxaparin 40 Mg/0.4 Ml Syringe SUB-Q 40 mg DAILY SILVIO Administration Famotidine 20 mg 10/01/25 09:00 10/11/25 08:13 Famotidine 20 Mg Tablet PO 20 mg Q12HR SILVIO Administration Ferrous Sulfate 325 mg 10/09/25 17:00 10/11/25 11:28 Ferrous Sulfate 325 Mg Tablet BY MOUTH 325 mg BID@1200,1700 SILVIO Administration Guaifenesin 200 mg 09/30/25 19:43 Guaifenesin 200 Mg/10 Ml Udc PO Q6H PRN Cough Sodium Chloride 1,000 mls @ 100 mls/hr 10/11/25 07:25 10/11/25 08:11 Sodium Chloride 0.45% IV CONT 10/11/25 17:24 100 mls/hr .Q10H SILVIO Administration Levothyroxine Sodium 88 mcg 10/01/25 06:30 10/11/25 06:23 Levothyroxine Sodium 88 Mcg Tablet PO 88 mcg DAILY@0630 SILVIO Administration Metoprolol Tartrate 25 mg 10/01/25 09:00 10/11/25 08:14 Metoprolol Tartrate 25 Mg Tablet PO 25 mg Q12HR SILVIO Administration Olmesartan 10 mg 10/03/25 09:00 10/11/25 08:13 Olmesartan Medoxomil 10 Mg Tablet PO 10 mg DAILY SILVIO Administration Ondansetron HCl 4 mg 09/30/25 19:43 10/01/25 14:20 Ondansetron Hcl Odt 4 Mg Tablet PO 4 mg Q6H PRN Administration Nausea And Vomiting Polyethylene Glycol 17 gm 09/30/25 19:43 Polyethylene Glycol 3350 17 Gm Powd.Pack PO HS PRN Constipation Ropinirole HCl 0.25 mg 10/06/25 11:39 10/10/25 20:47 Ropinirole Hcl 0.25 Mg Tablet PO 0.25 mg TID PRN Administration Restless leg Senna/Docusate Sodium 1 tab 10/01/25 21:00 10/10/25 20:48 Senna/Docusate Sodium Tablet PO Not Given [facility] Labs Labs: Laboratory Results - last 24 hr 10/11/25 06:50 Sodium 141 Potassium 4.3 Chloride 108 H Carbon Dioxide 21 L Anion Gap 12 BUN 32 H Creatinine 1.08 H Estim Creat Clear Calc 33 Estimated GFR 48 L Glucose 91 Calculated Osmolality 298 H Calcium 9.8 Free T4 1.38 Free T3 pg/mL 2.60 Quality VTE Prophylaxis VTE prophylaxis: pharmacologic ordered -Patient's previous records reviewed on admission -ER notes reviewed in detail on admission -discussed all findings and current treatment plan with patient/Family/POA -Consultations reviewed for recommendations -Patient's disposition for safe discharge discussed with piano case maker -radiology imaging, EKG and test results I have personally reviewed and interpreted unless otherwise specified Dictation performed by [employer] direct speech recognition software, therefore public works laborer variants and typographical errors may occur.
[2025-10-11 16:00] VITALS: BP 108/50; PULSE 68; RESP 18; TEMP 36.1; O2SAT 95
[2025-10-11 20:25] VITALS: PULSE 64
[2025-10-11] MEDS: ATORVASTATIN 40 MG TABLET PO (20:25)
[2025-10-11] MEDS: BACLOFEN 10 MG TABLET PO (20:25)
[2025-10-11 23:52] VITALS: BP 122/62; PULSE 71; RESP 14; TEMP 36.5; O2SAT 97
--- NOTE | 2025-10-12 05:29 | PC.NURSE ---
Whole bed change completed. Pt cleansed w/bathing wipes and barrier/antifungal cream applied to macerated perianal area. Area showing healing, but is steaming cabinet tender on palpation when wiping. Pt has clean, dry gown w/dry sheets. Bed alarm on; side railsx3; near nurses station; night light on; and call light w/in reach for pt safety.
[2025-10-12] MEDS: LEVOTHYROXINE SODIUM 88 MCG TABLET PO (05:33)
[2025-10-12 06:39] LABS: Hematocrit 37.2 % (35.0-42.0); Hemoglobin 11.9 g/dL (11.7-13.8); Immature Granulocyte Percent A 0.2 % (0.0-0.0); Lymphocytes Absolute Auto 1.47 K/mm3 (1.10-4.50); Mean Corpuscular HGB Conc 32.0 g/dL (32-36); Mean Corpuscular Hemoglobin 28.7 pg (27.0-31.0); Mean Corpuscular Volume 89.6 fL (78.0-102.0); Nucleated Red Blood Cells Absolute Auto 0.00 K/mm3 (0.00-0.00); Nucleated Red Blood Cells Perc 0.0 % (0-0.0); Platelet Count Result 328 K/mm3 (150-420); Red Blood Count 4.15 M/mm3 (4.20-5.40); White Blood Count 6.1 K/mm3 (4.8-10.8)
[2025-10-12 06:52] LABS: Alanine Aminotransferase 14 U/L (6-35); Albumin Level 3.9 g/dL (3.5-5.1); Alkaline Phosphatase 67 U/L (38-126); Anion Gap 10 mmol/L (4-12); Aspartate Amino Transferase 21 U/L (14-36); Bilirubin,Total 0.4 mg/dL (0.2-1.3); Blood Urea Nitrogen 20 mg/dL (7-17); Calcium 9.9 mg/dL (8.4-10.2); Carbon Dioxide 24 mmol/L (22-30); Chloride 108 mmol/L (98-107); Estimated CRCL calculation 37 ml/min; Estimated Glomerular Filt Rate 55; Glucose 89 mg/dL (65-110); Osmolality Calculated 295 mOsm/kg (285-295); Potassium 4.0 mmol/L (3.4-5.0); Sodium 142 mmol/L (137-145); Total Protein 6.9 g/dL (6.3-8.2)
[2025-10-12 07:41] VITALS: PULSE 62
[2025-10-12] MEDS: ENOXAPARIN 40 MG/0.4 ML SYRINGE SUB-Q (07:41)
[2025-10-12] MEDS: OLMESARTAN MEDOXOMIL 10 MG TABLET PO (07:41)
[2025-10-12] MEDS: METOPROLOL TARTRATE 25 MG TABLET PO ×2 (07:41→21:12)
[2025-10-12] MEDS: FAMOTIDINE 20 MG TABLET PO ×2 (07:42→21:14)
[2025-10-12 07:53] VITALS: BP 116/59; PULSE 62; RESP 16; TEMP 36.5; O2SAT 97
[2025-10-12] MEDS: FERROUS SULFATE 325 MG TABLET BY MOUTH ×2 (11:31→16:16)
--- NOTE | 2025-10-12 13:04 | P.PNIM_ITS ---
Assessment and Plan Assessment and Plan (1) ROMI (acute kidney injury): Code(s): N17.9 - Acute kidney failure, unspecified Status: Acute Assessment and Plan: Patients BUN and creatinine elevated on labs done 10/06 encourage patient to increase PO fluid intake stop IV fluids improved BMP in am (2) VRE (vancomycin resistant enterococcus) culture positive: Code(s): Z22.39 - Carrier of other specified bacterial diseases Status: Acute Assessment and Plan: patient's urinary culture came back with VRE from previous report she had been treated outpatient with oral antibiotic therapy and was asymptomatic during her admission at [facility]. * blood cultures negative * started patient on Macrobid p.o., stopped due to negative urine culture * contact isolation * resolved (3) Physical deconditioning: Code(s): R53.81 - Other malaise Status: Acute Assessment and Plan: Patient admitted to [facility] bed due to extended hospitalization after treatment for COVID and UTI * PT/OT * up to chair with every meal * fall risk * patient is refusing therapy at times, does not want to participate, en couragement provided to patient during visit. * patient still requiring max assist and jill steady for transfers * family is requesting patient be given more time for therapy or transfer to SNF, discussed that patient may not qualify for additional time if not making progress and may need half-way on discharge (4) Risk for falls: Code(s): Z91.81 - History of falling Status: Acute Assessment and Plan: * fall precautions * ambulate with assistance * PT/OT (5) Iron deficiency anemia: Code(s): D50.9 - Iron deficiency anemia, unspecified Status: Acute Assessment and Plan: * Hgb stable * continued patient's ferrous sulfate (6) Hypertension: Code(s): I10 - Essential (primary) hypertension Status: Acute Assessment and Plan: * continue patient's metoprolol and olmesartan * monitor BP per unit protocol (7) HLD (hyperlipidemia): Code(s): E78.5 - Hyperlipidemia, unspecified Status: Acute Assessment and Plan: * continue atorvastatin (8) Hypothyroidism: Code(s): E03.9 - Hypothyroidism, unspecified Status: Acute Assessment and Plan: * continue patient's levothyroxine * TSH, T3 and T4 checked and all WNL (9) GERD (gastroesophageal reflux disease): Code(s): K21.9 - Gastro-esophageal reflux disease without esophagitis Status: Acute Assessment and Plan: * continue patient's Pepcid (10) Restless legs syndrome: Code(s): G25.81 - Restless legs syndrome Status: Acute Assessment and Plan: * continue ropinirole (11) Constipation: Code(s): K59.00 - Constipation, unspecified Status: Acute Assessment and Plan: * continue MiraLax p.r.n. * senna/ docusate HS * encourage oral hydration and activity Plan Code status: Full code per patient DVT prophylaxis: Lovenox Stress ulcer prophylaxis: Pepcid home medication PT/OT notes: SWING Disposition: patient admitted to swing bed for continued strength and endurance training with physical and occupational therapy patient is from [place] her assisted living will need to be re-evaluated prior to discharge to return. Patient still requiring max assist and jill steady for transfers. Patient will need NH placement on discharge. Subjective Date/time seen: 10/12/25 13:04 Interval history: Patient seen for a follow up visit. Patient lying in bed, in no acute distress. Patient denies acute pain. Patient's kidney function improved almost at baseline. IV fluids stopped. Patient encouraged to drink oral fluids. Patient had had decreased oral intake since admission and has not been making progress with therapy. I had a long discussion with patient's daughter and son regarding goals of care and plan for when patient is being discharged. Patient was living in an assisted living and is not going to be able to return to that level of care. Patient may qualify to transfer to a SNF for continued rehab, patient's daughter will ask PT if that is an option. Patient will need a nurisng home on discharge or around the clock care if taken home with a family member. Discussed the high risk for continued UTI's and dehydration if patient is not taking PO intake. Discussed hospice care as an option on discharge. Patient and family andrew a care plan meeting tomorrow with care coordination and therapy. Review of Systems Review of Systems: All systems reviewed & are unremarkable except as noted in HPI and below (Subjective) Exam Const: General: comfortable and no acute distress HENMT: Ears: TM's normal bilaterally Face/Nose/Sinus: Normal nares present Mouth: Yes moist mucous membranes Eyes: General: appearance normal, both eyes and all related structures Pupils: Equal, round and reactive pupils present Neck: Neck: supple Resp: Effort & Inspection: normal respiratory effort Auscultation: clear to auscultation bilaterally Cardio: Rate: regular rate Rhythm: regular rhythm GI: Inspection: non-distended Skin: General skin exam: normal color and no rashes or lesions noted Wounds: no wounds Other: deep tissue bruising Neuro: Cranial nerves: Yes Equal, round and reactive pupils present Speech: normal speech Motor exam (neuro): 5/5 motor strength present throughout Sensory Exam: normal sensation Other: Unable to assess gait Extrem: General: normal to inspection and no edema Psych: Mental Status: mental status grossly normal Affect: normal affect and Sad affect present Other: withdrawn Objective Data Vital Signs Vital Signs: Vital Signs - 24 hr 10/11/25 16:00 10/11/25 20:25 10/11/25 23:52 Temperature 97 F L 97.7 F Pulse Rate 68 64 71 Respiratory Rate 18 14 Blood Pressure 108/50 L 122/62 Pulse Oximetry 95 97 Oxygen Delivery Room Air Room Air 10/12/25 07:41 10/12/25 07:53 Temperature 97.7 F Pulse Rate 62 62 Respiratory Rate 16 Blood Pressure 116/59 L Pulse Oximetry 97 Oxygen Delivery Room Air Intake/Output Intake/Output: Intake & Output 10/09/25 10/10/25 10/11/25 10/12/25 23:59 23:59 23:59 23:59 Intake Total 780 1999 1525 280 Balance 780 1999 1525 280 Meds/Results Medications: Active Medications Generic Name Dose Route Start Last Admin Trade Name Freq PRN Reason Stop Dose Admin Acetaminophen 650 mg 09/30/25 19:43 10/11/25 13:20 Acetaminophen 325 Mg Tablet PO 650 mg Q6H PRN Administration fever or pain 1-3 Atorvastatin Calcium 40 mg 09/30/25 21:00 10/11/25 20:25 Atorvastatin 40 Mg Tablet PO 40 mg HS SILVIO Administration Baclofen 10 mg 10/06/25 11:38 10/11/25 20:25 Baclofen 10 Mg Tablet PO 10 mg Q8HR PRN Administration muscle spasms Diclofenac Sodium 1 applic 09/30/25 19:43 Diclofenac Sodium 1% 100 Gm Gel (*Bkc) TOPICAL TID PRN Pain Enoxaparin Sodium 40 mg 10/02/25 09:00 10/12/25 07:41 Enoxaparin 40 Mg/0.4 Ml Syringe SUB-Q 40 mg DAILY SILVIO Administration Famotidine 20 mg 10/01/25 09:00 10/12/25 07:42 Famotidine 20 Mg Tablet PO 20 mg Q12HR SILVIO Administration Ferrous Sulfate 325 mg 10/09/25 17:00 10/12/25 11:31 Ferrous Sulfate 325 Mg Tablet BY MOUTH 325 mg BID@1200,1700 SILVIO Administration Guaifenesin 200 mg 09/30/25 19:43 Guaifenesin 200 Mg/10 Ml Udc PO Q6H PRN Cough Levothyroxine Sodium 88 mcg 10/01/25 06:30 10/12/25 05:33 Levothyroxine Sodium 88 Mcg Tablet PO 88 mcg DAILY@0630 SILVIO Administration Metoprolol Tartrate 25 mg 10/01/25 09:00 10/12/25 07:41 Metoprolol Tartrate 25 Mg Tablet PO 25 mg Q12HR SILVIO Administration Olmesartan 10 mg 10/03/25 09:00 10/12/25 07:41 Olmesartan Medoxomil 10 Mg Tablet PO 10 mg DAILY SILVIO Administration Ondansetron HCl 4 mg 09/30/25 19:43 10/01/25 14:20 Ondansetron Hcl Odt 4 Mg Tablet PO 4 mg Q6H PRN Administration Nausea And Vomiting Polyethylene Glycol 17 gm 09/30/25 19:43 Polyethylene Glycol 3350 17 Gm Powd.Pack PO HS PRN Constipation Ropinirole HCl 0.25 mg 10/06/25 11:39 10/11/25 20:25 Ropinirole Hcl 0.25 Mg Tablet PO 0.25 mg TID PRN Administration Restless leg Senna/Docusate Sodium 1 tab 10/01/25 21:00 10/11/25 20:24 Senna/Docusate Sodium Tablet PO Not Given HS [facility] Labs Labs: Laboratory Results - last 24 hr 10/12/25 06:22 WBC 6.1 RBC 4.15 L Hgb 11.9 Hct 37.2 MCV 89.6 MCH 28.7 MCHC 32.0 RDW 13.8 Plt Count 328 MPV 9.4 Immature Gran % (Auto) 0.2 H Neut % (Auto) 62.4 Lymph % (Auto) 24.1 Mobile % (Auto) 9.3 Eos % (Auto) 3.3 Baso % (Auto) 0.7 Lymph # (Auto) 1.47 Mobile # (Auto) 0.57 Eos # (Auto) 0.20 Baso # (Auto) 0.04 Abs Immat Gran (auto) 0.01 H Absolute Neuts (auto) 3.81 Absolute Nucleated RBC 0.00 Nucleated RBC % 0.0 Sodium 142 Potassium 4.0 Chloride 108 H Carbon Dioxide 24 Anion Gap 10 BUN 20 H D Creatinine 0.97 Estim Creat Clear Calc 37 Estimated GFR 55 L Glucose 89 Calculated Osmolality 295 Calcium 9.9 Total Bilirubin 0.4 AST 21 ALT 14 Alkaline Phosphatase 67 Total Protein 6.9 Albumin 3.9 Quality VTE Prophylaxis VTE prophylaxis: pharmacologic ordered
[2025-10-12 16:00] VITALS: BP 118/58; PULSE 68; RESP 16; TEMP 36.1; O2SAT 96
[2025-10-12 21:12] VITALS: PULSE 79
[2025-10-12] MEDS: ATORVASTATIN 40 MG TABLET PO (21:12)
[2025-10-12] MEDS: BACLOFEN 10 MG TABLET PO (21:12)
[2025-10-12] MEDS: SENNA/DOCUSATE SODIUM TABLET 1 TAB PO (21:14)
[2025-10-13] VITALS: BP 130/58; PULSE 79; RESP 18; TEMP 36.2; O2SAT 96
[2025-10-13] MEDS: LEVOTHYROXINE SODIUM 88 MCG TABLET PO (06:28)
[2025-10-13 07:32] LABS: Hematocrit 38.4 % (35.0-42.0); Hemoglobin 12.4 g/dL (11.7-13.8); Immature Granulocyte Percent A 0.2 % (0.0-0.0); Lymphocytes Absolute Auto 1.42 K/mm3 (1.10-4.50); Mean Corpuscular HGB Conc 32.3 g/dL (32-36); Mean Corpuscular Hemoglobin 29.0 pg (27.0-31.0); Mean Corpuscular Volume 89.9 fL (78.0-102.0); Nucleated Red Blood Cells Absolute Auto 0.00 K/mm3 (0.00-0.00); Nucleated Red Blood Cells Perc 0.0 % (0-0.0); Platelet Count Result 326 K/mm3 (150-420); Red Blood Count 4.27 M/mm3 (4.20-5.40); White Blood Count 5.2 K/mm3 (4.8-10.8)
[2025-10-13 07:46] LABS: Alanine Aminotransferase 15 U/L (6-35); Albumin Level 4.0 g/dL (3.5-5.1); Alkaline Phosphatase 69 U/L (38-126); Anion Gap 8 mmol/L (4-12); Aspartate Amino Transferase 20 U/L (14-36); Bilirubin,Total 0.4 mg/dL (0.2-1.3); Blood Urea Nitrogen 16 mg/dL (7-17); Calcium 9.8 mg/dL (8.4-10.2); Carbon Dioxide 26 mmol/L (22-30); Chloride 106 mmol/L (98-107); Estimated CRCL calculation 37 ml/min; Estimated Glomerular Filt Rate 54; Glucose 95 mg/dL (65-110); Osmolality Calculated 291 mOsm/kg (285-295); Potassium 4.0 mmol/L (3.4-5.0); Sodium 140 mmol/L (137-145); Total Protein 7.1 g/dL (6.3-8.2)
[2025-10-13 08:00] VITALS: BP 124/74; PULSE 78; RESP 20; TEMP 36.6; O2SAT 97
[2025-10-13 08:41] VITALS: PULSE 78
[2025-10-13] MEDS: FAMOTIDINE 20 MG TABLET PO ×2 (08:41→20:39)
[2025-10-13] MEDS: METOPROLOL TARTRATE 25 MG TABLET PO ×2 (08:41→20:39)
[2025-10-13] MEDS: ENOXAPARIN 40 MG/0.4 ML SYRINGE SUB-Q (08:41)
[2025-10-13] MEDS: OLMESARTAN MEDOXOMIL 10 MG TABLET PO (08:41)
[2025-10-13] MEDS: FERROUS SULFATE 325 MG TABLET BY MOUTH ×2 (12:36→17:25)
[2025-10-13 16:00] VITALS: BP 104/56; PULSE 68; RESP 20; TEMP 36.6; O2SAT 96
[2025-10-13 20:39] VITALS: PULSE 86
[2025-10-13] MEDS: ATORVASTATIN 40 MG TABLET PO (20:39)
[2025-10-13] MEDS: SENNA/DOCUSATE SODIUM TABLET 1 TAB PO (20:39)
[2025-10-14] VITALS: BP 110/75; PULSE 86; RESP 14; TEMP 36.3; O2SAT 94
--- NOTE | 2025-10-14 05:15 | PC.NURSE ---
PATIENT INCONTINENT OF URINE AND STOOL. DEPENDS CHANGED. PATIENT REPOSITIONED ON BED. CALL LIGHT AND BEDSIDE TABLE WITHIN REACH
[2025-10-14] MEDS: LEVOTHYROXINE SODIUM 88 MCG TABLET PO (06:23)
[2025-10-14 08:00] VITALS: BP 120/50; PULSE 75; RESP 16; TEMP 36.2; O2SAT 97
[2025-10-14] MEDS: METOPROLOL TARTRATE 25 MG TABLET PO ×2 (08:43→20:44)
[2025-10-14] MEDS: ENOXAPARIN 40 MG/0.4 ML SYRINGE SUB-Q (08:43)
[2025-10-14] MEDS: FAMOTIDINE 20 MG TABLET PO ×2 (08:43→20:44)
[2025-10-14] MEDS: OLMESARTAN MEDOXOMIL 10 MG TABLET PO (08:43)
[2025-10-14] MEDS: ACETAMINOPHEN 325 MG TABLET 650 MG PO (10:44)
[2025-10-14] MEDS: FERROUS SULFATE 325 MG TABLET BY MOUTH ×2 (12:27→17:28)
[2025-10-14 16:00] VITALS: BP 128/64; PULSE 68; RESP 20; TEMP 36.6; O2SAT 98
[2025-10-14 20:44] VITALS: PULSE 68
[2025-10-14] MEDS: BACLOFEN 10 MG TABLET PO (20:44)
[2025-10-14] MEDS: ATORVASTATIN 40 MG TABLET PO (20:44)
[2025-10-14 23:14] VITALS: BP 104/43; PULSE 70; RESP 16; TEMP 36.3; O2SAT 96
[2025-10-15] MEDS: LEVOTHYROXINE SODIUM 88 MCG TABLET PO (05:30)
[2025-10-15 08:00] VITALS: BP 107/53; PULSE 72; RESP 16; TEMP 36.6; O2SAT 96
[2025-10-15 08:26] VITALS: PULSE 72
[2025-10-15] MEDS: FAMOTIDINE 20 MG TABLET PO ×2 (08:26→20:41)
[2025-10-15] MEDS: ENOXAPARIN 40 MG/0.4 ML SYRINGE SUB-Q (08:26)
[2025-10-15] MEDS: METOPROLOL TARTRATE 25 MG TABLET PO ×2 (08:26→20:41)
[2025-10-15] MEDS: OLMESARTAN MEDOXOMIL 10 MG TABLET PO (08:26)
[2025-10-15] MEDS: FERROUS SULFATE 325 MG TABLET BY MOUTH ×2 (11:07→17:34)
[2025-10-15 16:00] VITALS: BP 104/52; PULSE 64; RESP 16; TEMP 36.3; O2SAT 96
[2025-10-15] MEDS: ATORVASTATIN 40 MG TABLET PO (20:41)
[2025-10-15] MEDS: BACLOFEN 10 MG TABLET PO (20:41)
[2025-10-16] VITALS: BP 107/53; PULSE 70; RESP 15; TEMP 36.2; O2SAT 96
[2025-10-16] MEDS: LEVOTHYROXINE SODIUM 88 MCG TABLET PO (05:56)
[2025-10-16 08:00] VITALS: BP 139/62; PULSE 60; RESP 16; TEMP 35.9; O2SAT 98
[2025-10-16 08:02] VITALS: PULSE 60
[2025-10-16] MEDS: METOPROLOL TARTRATE 25 MG TABLET PO ×2 (08:02→21:24)
[2025-10-16] MEDS: BACLOFEN 10 MG TABLET PO ×2 (08:02→21:23)
[2025-10-16] MEDS: ENOXAPARIN 40 MG/0.4 ML SYRINGE SUB-Q (08:02)
[2025-10-16] MEDS: OLMESARTAN MEDOXOMIL 10 MG TABLET PO (08:02)
[2025-10-16] MEDS: FAMOTIDINE 20 MG TABLET PO ×2 (08:03→21:23)
[2025-10-16 09:53] LABS: Hematocrit 39.1 % (35.0-42.0); Hemoglobin 12.0 g/dL (11.7-13.8); Mean Corpuscular HGB Conc 30.7 g/dL (32-36); Mean Corpuscular Hemoglobin 28.9 pg (27.0-31.0); Mean Corpuscular Volume 94.2 fL (78.0-102.0); Platelet Count Result 357 K/mm3 (150-420); Red Blood Count 4.15 M/mm3 (4.20-5.40); White Blood Count 6.5 K/mm3 (4.8-10.8)
[2025-10-16 10:04] LABS: Alanine Aminotransferase 17 U/L (6-35); Albumin Level 4.0 g/dL (3.5-5.1); Alkaline Phosphatase 57 U/L (38-126); Anion Gap 10 mmol/L (4-12); Aspartate Amino Transferase 25 U/L (14-36); Bilirubin,Total 0.5 mg/dL (0.2-1.3); Blood Urea Nitrogen 23 mg/dL (7-17); Calcium 9.3 mg/dL (8.4-10.2); Carbon Dioxide 19 mmol/L (22-30); Chloride 110 mmol/L (98-107); Estimated CRCL calculation 33 ml/min; Estimated Glomerular Filt Rate 47; Glucose 158 mg/dL (65-110); Magnesium 2.0 mg/dL (1.6-2.3); Osmolality Calculated 294 mOsm/kg (285-295); Potassium 4.2 mmol/L (3.4-5.0); Sodium 139 mmol/L (137-145); Total Protein 7.0 g/dL (6.3-8.2)
--- NOTE | 2025-10-16 10:26 | P.PNIM_ITS ---
Assessment and Plan Assessment and Plan (1) Physical deconditioning: Code(s): R53.81 - Other malaise Status: Acute Assessment and Plan: Patient admitted to [facility] bed due to extended hospitalization after treatment for COVID and UTI * PT/OT * up to chair with every meal * fall risk * Likely need SNF do to slow progression (2) Risk for falls: Code(s): Z91.81 - History of falling Status: Acute Assessment and Plan: * fall precautions * ambulate with assistance * PT/OT (3) Iron deficiency anemia: Code(s): D50.9 - Iron deficiency anemia, unspecified Status: Acute Assessment and Plan: * Hgb stable * continued patient's ferrous sulfate (4) Hypertension: Code(s): I10 - Essential (primary) hypertension Status: Acute Assessment and Plan: * continue patient's metoprolol and olmesartan * monitor BP per unit protocol (5) HLD (hyperlipidemia): Code(s): E78.5 - Hyperlipidemia, unspecified Status: Acute Assessment and Plan: * continue atorvastatin (6) Hypothyroidism: Code(s): E03.9 - Hypothyroidism, unspecified Status: Acute Assessment and Plan: * continue patient's levothyroxine (7) GERD (gastroesophageal reflux disease): Code(s): K21.9 - Gastro-esophageal reflux disease without esophagitis Status: Acute Assessment and Plan: * continue patient's Pepcid (8) Restless legs syndrome: Code(s): G25.81 - Restless legs syndrome Status: Acute Assessment and Plan: * continue ropinirole (9) Constipation: Code(s): K59.00 - Constipation, unspecified Status: Acute Assessment and Plan: * continue MiraLax p.r.n. * senna/ docusate HS * encourage oral hydration and activity (10) VRE (vancomycin resistant enterococcus) culture positive: Code(s): Z22.39 - Carrier of other specified bacterial diseases Status: Resolved Assessment and Plan: RESOLVED patient's urinary culture came back with VRE from previous report she had been treated outpatient with oral antibiotic therapy and was asymptomatic during her admission at [facility]. * blood cultures pending * started patient on Macrobid p.o. * pending blood cultures if positive will consult ID * will get follow up UA * contact isolation (11) ROMI (acute kidney injury): Code(s): N17.9 - Acute kidney failure, unspecified Status: Acute Assessment and Plan: Patient CR 1.02 peaked at 1.35 was given fluids with improvement likely secondary to patient poor oral hydration intake * today 1.10 * Encourage water intake * F/U renal function in 3 days * avoid nephrotoxins Plan Code status: Full code per patient DVT prophylaxis: Lovenox Stress ulcer prophylaxis: Pepcid home medication PT/OT notes: SWING Disposition: patient admitted to swing bed for continued strength and endurance training with physical and occupational therapy patient is from [place] her assisted living will need to be re-evaluated prior to discharge to return. Will likely need SNF due to slow progression Medical Record Review I have reviewed the following patient records and this information was taken into consideration when formulating the assessment and plan.: previous labs, previous ER visits and previous hospitalizations Time Spent With Patient Time with patient: 15 - 25 minutes Subjective Date/time seen: 10/16/25 10:26 Interval history: Patient is an 84-year-old female admitted to [facility] for continued physical and occupational therapy after an extended position. initial goal was to attempt to return to her assisted living however there has been discussion that she need long-term care. 10/16/2025: patient is up in chair with no complaints reports her appetite has improved denies any chest pain, shortness a breath, nausea, vomiting difficulty defecating or voiding. patient slowly progressing however continues to require a jill steady and moderate assistance with transfers and ambulation. Review of Systems Review of Systems: All systems reviewed & are unremarkable except as noted in HPI and below (Subjective) Exam Const: General: comfortable and no acute distress HENMT: Ears: TM's normal bilaterally Face/Nose/Sinus: Normal nares present Mouth: Yes moist mucous membranes Eyes: General: appearance normal, both eyes and all related structures Pupils: Equal, round and reactive pupils present Neck: Neck: supple Resp: Effort & Inspection: normal respiratory effort Auscultation: clear to auscultation bilaterally Cardio: Rate: regular rate Rhythm: regular rhythm GI: Inspection: non-distended Skin: General skin exam: normal color and no rashes or lesions noted Wounds: no wounds Other: deep tissue bruising Neuro: Cranial nerves: Yes Equal, round and reactive pupils present Speech: normal speech Motor exam (neuro): 5/5 motor strength present throughout Sensory Exam: normal sensation Other: Unable to assess gait Extrem: General: normal to inspection and no edema Psych: Mental Status: mental status grossly normal Affect: normal affect and Sad affect present Other: withdrawn Objective Data Vital Signs Vital Signs: Vital Signs - 24 hr 10/15/25 16:00 10/16/25 00:00 10/16/25 08:00 Temperature 97.4 F L 97.2 F L Pulse Rate 64 70 60 Respiratory Rate 16 15 16 Blood Pressure 104/52 L 107/53 L Pulse Oximetry 96 96 98 Oxygen Delivery Room Air Room Air Room Air 10/16/25 08:00 10/16/25 08:02 Temperature 96.6 F L Pulse Rate 60 60 Respiratory Rate 16 Blood Pressure 139/62 Pulse Oximetry 98 Oxygen Delivery Room Air Intake/Output Intake/Output: Intake & Output 10/13/25 10/14/25 10/15/25 10/16/25 23:59 23:59 23:59 23:59 Intake Total 1200 1230 855 460 Balance 1200 1230 855 460 Meds/Results Medications: Active Medications Generic Name Dose Route Start Last Admin Trade Name Freq PRN Reason Stop Dose Admin Acetaminophen 650 mg 09/30/25 19:43 10/14/25 10:44 Acetaminophen 325 Mg Tablet PO 650 mg Q6H PRN Administration fever or pain 1-3 Atorvastatin Calcium 40 mg 09/30/25 21:00 10/15/25 20:41 Atorvastatin 40 Mg Tablet PO 40 mg HS SILVIO Administration Baclofen 10 mg 10/06/25 11:38 10/16/25 08:02 Baclofen 10 Mg Tablet PO 10 mg Q8HR PRN Administration muscle spasms Diclofenac Sodium 1 applic 09/30/25 19:43 Diclofenac Sodium 1% 100 Gm Gel (*Bkc) TOPICAL TID PRN Pain Enoxaparin Sodium 40 mg 10/02/25 09:00 10/16/25 08:02 Enoxaparin 40 Mg/0.4 Ml Syringe SUB-Q 40 mg DAILY SILVIO Administration Famotidine 20 mg 10/01/25 09:00 10/16/25 08:03 Famotidine 20 Mg Tablet PO 20 mg Q12HR SILVIO Administration Ferrous Sulfate 325 mg 10/09/25 17:00 10/15/25 17:34 Ferrous Sulfate 325 Mg Tablet BY MOUTH 325 mg BID@1200,1700 SILVIO Administration Guaifenesin 200 mg 09/30/25 19:43 Guaifenesin 200 Mg/10 Ml Udc PO Q6H PRN Cough Levothyroxine Sodium 88 mcg 10/01/25 06:30 10/16/25 05:56 Levothyroxine Sodium 88 Mcg Tablet PO 88 mcg DAILY@0630 SILVIO Administration Metoprolol Tartrate 25 mg 10/01/25 09:00 10/16/25 08:02 Metoprolol Tartrate 25 Mg Tablet PO 25 mg Q12HR SILVIO Administration Olmesartan 10 mg 10/03/25 09:00 10/16/25 08:02 Olmesartan Medoxomil 10 Mg Tablet PO 10 mg DAILY SILVIO Administration Ondansetron HCl 4 mg 09/30/25 19:43 10/01/25 14:20 Ondansetron Hcl Odt 4 Mg Tablet PO 4 mg Q6H PRN Administration Nausea And Vomiting Polyethylene Glycol 17 gm 09/30/25 19:43 Polyethylene Glycol 3350 17 Gm Powd.Pack PO HS PRN Constipation Ropinirole HCl 0.25 mg 10/06/25 11:39 10/16/25 08:02 Ropinirole Hcl 0.25 Mg Tablet PO 0.25 mg TID PRN Administration Restless leg Senna/Docusate Sodium 1 tab 10/01/25 21:00 10/15/25 20:42 Senna/Docusate Sodium Tablet PO Not Given HS SILVIO Labs Labs: Laboratory Results - last 24 hr 10/16/25 09:43 WBC 6.5 RBC 4.15 L Hgb 12.0 Hct 39.1 MCV 94.2 MCH 28.9 MCHC 30.7 L RDW 13.8 Plt Count 357 MPV 9.5 Sodium 139 Potassium 4.2 Chloride 110 H Carbon Dioxide 19 L Anion Gap 10 BUN 23 H Creatinine 1.10 H Estim Creat Clear Calc 33 Estimated GFR 47 L Glucose 158 H Calculated Osmolality 294 Calcium 9.3 Magnesium 2.0 Total Bilirubin 0.5 AST 25 ALT 17 Alkaline Phosphatase 57 Total Protein 7.0 Albumin 4.0 Attestation: I personally reviewed all lab results Quality VTE Prophylaxis VTE prophylaxis: pharmacologic ordered -Patient's previous records reviewed on admission -ER notes reviewed in detail on admission -discussed all findings and current treatment plan with patient/Family/POA -Consultations reviewed for recommendations -Patient's disposition for safe discharge discussed with returned case inspector -radiology imaging, EKG and test results I have personally reviewed and interpreted unless otherwise specified Dictation performed by [employer] direct speech recognition software, therefore work force advisor variants and typographical errors may occur. Hospitalist MIPS Advance Care Plan I have confirmed that the patient's Advanced Care Plan is present, code status is documented, or surrogate decision maker is listed in patient medical record.: Yes Medication Reconciliation I have utilized all available resources to obtain, update and review the patients current medications (includes all prescriptions, OTC, herbals, cannabis, and nutritional supplements).: Yes The patient is not eligible for med reconciliation; the patient is in a emergent medical situation where delaying treatment would jeopardize the patients health.: No
[2025-10-16] MEDS: FERROUS SULFATE 325 MG TABLET BY MOUTH ×2 (11:39→16:51)
[2025-10-16 16:00] VITALS: BP 106/47; PULSE 65; RESP 16; TEMP 36.1; O2SAT 97
[2025-10-16] MEDS: SENNA/DOCUSATE SODIUM TABLET 1 TAB PO (21:23)
[2025-10-16] MEDS: ATORVASTATIN 40 MG TABLET PO (21:23)
[2025-10-16 21:24] VITALS: PULSE 70
--- NOTE | 2025-10-16 21:58 | PC.NURSE ---
Patient sleeping. awakens for medication. No incont noted at this time. Call light and belongings within reach.
[2025-10-17] VITALS: BP 92/50; PULSE 78; RESP 16; TEMP 36.2; O2SAT 98
--- NOTE | 2025-10-17 00:20 | PC.NURSE ---
Pt asleep and no signs of discomfort noted. Respirations are even and unlabored.
--- NOTE | 2025-10-17 02:10 | PC.NURSE ---
Pt asleep and no signs of discomfort noted.
--- NOTE | 2025-10-17 04:03 | PC.NURSE ---
Pt asleep and no signs of discomfort noted.
--- NOTE | 2025-10-17 04:05 | PC.NURSE ---
Pt asleep and no signs of discomfort noted.
--- NOTE | 2025-10-17 06:04 | PC.NURSE ---
Pt incontinent of a large amount of urine. Pt cleaned, changed and repositioned.
[2025-10-17] MEDS: LEVOTHYROXINE SODIUM 88 MCG TABLET PO (06:17)
[2025-10-17 08:00] VITALS: BP 124/50; PULSE 58; RESP 17; TEMP 36.2; O2SAT 98
[2025-10-17] MEDS: BACLOFEN 10 MG TABLET PO (08:08)
[2025-10-17] MEDS: FAMOTIDINE 20 MG TABLET PO ×2 (08:08→20:44)
[2025-10-17] MEDS: OLMESARTAN MEDOXOMIL 10 MG TABLET PO (08:08)
[2025-10-17] MEDS: ENOXAPARIN 40 MG/0.4 ML SYRINGE SUB-Q (08:08)
[2025-10-17 08:09] VITALS: PULSE 58
[2025-10-17] MEDS: METOPROLOL TARTRATE 25 MG TABLET PO ×2 (08:09→20:44)
[2025-10-17] MEDS: FERROUS SULFATE 325 MG TABLET BY MOUTH ×2 (11:19→16:47)
[2025-10-17 16:00] VITALS: BP 105/48; PULSE 63; RESP 16; TEMP 36.2; O2SAT 99
[2025-10-17] MEDS: ACETAMINOPHEN 325 MG TABLET 650 MG PO (19:56)
[2025-10-17 20:44] VITALS: PULSE 70
[2025-10-17] MEDS: ATORVASTATIN 40 MG TABLET PO (20:44)
[2025-10-17] MEDS: SENNA/DOCUSATE SODIUM TABLET 1 TAB PO (20:44)
[2025-10-17 23:58] VITALS: BP 102/58; PULSE 70; RESP 16; TEMP 36.6; O2SAT 96
[2025-10-18] MEDS: LEVOTHYROXINE SODIUM 88 MCG TABLET PO (06:17)
[2025-10-18 07:46] LABS: Alanine Aminotransferase 16 U/L (6-35); Albumin Level 3.7 g/dL (3.5-5.1); Alkaline Phosphatase 60 U/L (38-126); Anion Gap 8 mmol/L (4-12); Aspartate Amino Transferase 27 U/L (14-36); Bilirubin,Total 0.2 mg/dL (0.2-1.3); Blood Urea Nitrogen 24 mg/dL (7-17); Calcium 9.4 mg/dL (8.4-10.2); Carbon Dioxide 24 mmol/L (22-30); Chloride 109 mmol/L (98-107); Estimated CRCL calculation 34 ml/min; Estimated Glomerular Filt Rate 49; Glucose 91 mg/dL (65-110); Magnesium 2.0 mg/dL (1.6-2.3); Osmolality Calculated 296 mOsm/kg (285-295); Potassium 4.5 mmol/L (3.4-5.0); Sodium 141 mmol/L (137-145); Total Protein 6.5 g/dL (6.3-8.2)
[2025-10-18 08:00] VITALS: BP 111/49; PULSE 58; RESP 16; TEMP 35.8; O2SAT 96
[2025-10-18 08:11] VITALS: PULSE 58
[2025-10-18] MEDS: METOPROLOL TARTRATE 25 MG TABLET PO ×2 (08:11→21:58)
[2025-10-18] MEDS: OLMESARTAN MEDOXOMIL 10 MG TABLET PO (08:11)
[2025-10-18] MEDS: FAMOTIDINE 20 MG TABLET PO ×2 (08:12→21:58)
[2025-10-18] MEDS: BACLOFEN 10 MG TABLET PO (08:12)
[2025-10-18] MEDS: ENOXAPARIN 40 MG/0.4 ML SYRINGE SUB-Q (08:12)
[2025-10-18] MEDS: FERROUS SULFATE 325 MG TABLET BY MOUTH ×2 (12:07→17:22)
[2025-10-18 16:00] VITALS: BP 107/54; PULSE 63; RESP 16; TEMP 36; O2SAT 97
[2025-10-18 21:58] VITALS: PULSE 60
[2025-10-18] MEDS: ATORVASTATIN 40 MG TABLET PO (21:58)
[2025-10-18] MEDS: SENNA/DOCUSATE SODIUM TABLET 1 TAB PO (21:58)
[2025-10-18] MEDS: ACETAMINOPHEN 325 MG TABLET 650 MG PO (21:59)
[2025-10-19] VITALS: BP 117/54; PULSE 73; RESP 18; TEMP 36.7; O2SAT 97
[2025-10-19] MEDS: LEVOTHYROXINE SODIUM 88 MCG TABLET PO (06:25)
[2025-10-19 06:51] LABS: Hematocrit 37.0 % (35.0-42.0); Hemoglobin 11.8 g/dL (11.7-13.8); Mean Corpuscular HGB Conc 31.9 g/dL (32-36); Mean Corpuscular Hemoglobin 29.1 pg (27.0-31.0); Mean Corpuscular Volume 91.4 fL (78.0-102.0); Platelet Count Result 327 K/mm3 (150-420); Red Blood Count 4.05 M/mm3 (4.20-5.40); White Blood Count 4.3 K/mm3 (4.8-10.8)
[2025-10-19 08:00] VITALS: BP 110/59; PULSE 64; RESP 18; TEMP 36.3; O2SAT 97
[2025-10-19 08:56] VITALS: PULSE 64
[2025-10-19] MEDS: OLMESARTAN MEDOXOMIL 10 MG TABLET PO (08:56)
[2025-10-19] MEDS: FAMOTIDINE 20 MG TABLET PO ×2 (08:56→21:53)
[2025-10-19] MEDS: METOPROLOL TARTRATE 25 MG TABLET PO ×2 (08:56→21:53)
[2025-10-19] MEDS: ENOXAPARIN 40 MG/0.4 ML SYRINGE SUB-Q (08:57)
--- NOTE | 2025-10-19 09:20 | P.PNIM_ITS ---
Assessment and Plan Assessment and Plan (1) Physical deconditioning: Code(s): R53.81 - Other malaise Status: Acute Assessment and Plan: Patient admitted to [facility] bed due to extended hospitalization after treatment for COVID and UTI * PT/OT * up to chair with every meal * fall risk * Likely need SNF do to slow progression (2) Risk for falls: Code(s): Z91.81 - History of falling Status: Acute Assessment and Plan: * fall precautions * ambulate with assistance * PT/OT (3) Iron deficiency anemia: Code(s): D50.9 - Iron deficiency anemia, unspecified Status: Acute Assessment and Plan: * Hgb stable * continued patient's ferrous sulfate (4) Hypertension: Code(s): I10 - Essential (primary) hypertension Status: Acute Assessment and Plan: * continue patient's metoprolol and olmesartan * monitor BP per unit protocol (5) HLD (hyperlipidemia): Code(s): E78.5 - Hyperlipidemia, unspecified Status: Acute Assessment and Plan: * continue atorvastatin (6) Hypothyroidism: Code(s): E03.9 - Hypothyroidism, unspecified Status: Acute Assessment and Plan: * continue patient's levothyroxine (7) GERD (gastroesophageal reflux disease): Code(s): K21.9 - Gastro-esophageal reflux disease without esophagitis Status: Acute Assessment and Plan: * continue patient's Pepcid (8) Restless legs syndrome: Code(s): G25.81 - Restless legs syndrome Status: Acute Assessment and Plan: * continue ropinirole (9) Constipation: Code(s): K59.00 - Constipation, unspecified Status: Acute Assessment and Plan: * continue MiraLax p.r.n. * senna/ docusate HS * encourage oral hydration and activity (10) VRE (vancomycin resistant enterococcus) culture positive: Code(s): Z22.39 - Carrier of other specified bacterial diseases Status: Resolved Assessment and Plan: RESOLVED patient's urinary culture came back with VRE from previous report she had been treated outpatient with oral antibiotic therapy and was asymptomatic during her admission at [facility]. * blood cultures pending * started patient on Macrobid p.o. * pending blood cultures if positive will consult ID * will get follow up UA * contact isolation (11) ROMI (acute kidney injury): Code(s): N17.9 - Acute kidney failure, unspecified Status: Acute Assessment and Plan: Patient CR 1.02 peaked at 1.35 was given fluids with improvement likely secondary to patient poor oral hydration intake * today 1.10 * Encourage water intake * F/U renal function in 3 days * avoid nephrotoxins Plan Code status: Full code per patient DVT prophylaxis: Lovenox Stress ulcer prophylaxis: Pepcid home medication PT/OT notes: SWING Disposition: patient admitted to swing bed for continued strength and endurance training with physical and occupational therapy patient is from [place] her assisted living will need to be re-evaluated prior to discharge to return. Will likely need SNF due to slow progression Time Spent With Patient Time with patient: 15 - 25 minutes Subjective Date/time seen: 10/19/25 09:20 Interval history: Patient is an 84-year-old female admitted to [facility] swing bed for continued physical and occupational therapy after an extended position. initial goal was to attempt to return to her assisted living however there has been discussion that she need long-term care. 10/19/2025: Patient up in chair with no complaints. Progressing slowly with PT/OT will likely need [facility] at this time. Labs reviewed and unremarkable, vitals stable. Review of Systems Review of Systems: All systems reviewed & are unremarkable except as noted in HPI and below (Subjective) Exam Const: General: comfortable and no acute distress HENMT: Ears: TM's normal bilaterally Face/Nose/Sinus: Normal nares present Mouth: Yes moist mucous membranes Eyes: General: appearance normal, both eyes and all related structures Pupils: Equal, round and reactive pupils present Neck: Neck: supple Resp: Effort & Inspection: normal respiratory effort Auscultation: clear to auscultation bilaterally Cardio: Rate: regular rate Rhythm: regular rhythm GI: Inspection: non-distended Skin: General skin exam: normal color and no rashes or lesions noted Wounds: no wounds Other: deep tissue bruising Neuro: Cranial nerves: Yes Equal, round and reactive pupils present Speech: normal speech Motor exam (neuro): 5/5 motor strength present throughout Sensory Exam: normal sensation Other: Unable to assess gait Extrem: General: normal to inspection and no edema Psych: Mental Status: mental status grossly normal Affect: normal affect and Sad affect present Other: withdrawn Objective Data Vital Signs Vital Signs: Vital Signs - 24 hr 10/18/25 16:00 10/18/25 21:58 10/19/25 00:00 Temperature 96.8 F L 98.0 F Pulse Rate 63 60 73 Respiratory Rate 16 18 Blood Pressure 107/54 L 117/54 L Pulse Oximetry 97 97 Oxygen Delivery Room Air Room Air 10/19/25 08:56 Temperature Pulse Rate 64 Respiratory Rate Blood Pressure Pulse Oximetry Oxygen Delivery Intake/Output Intake/Output: Intake & Output 10/16/25 10/17/25 10/18/25 10/19/25 23:59 23:59 23:59 23:59 Intake Total 2020 621 5536 300 Balance 8102 843 1176 300 Meds/Results Medications: Active Medications Generic Name Dose Route Start Last Admin Trade Name Freq PRN Reason Stop Dose Admin Acetaminophen 650 mg 09/30/25 19:43 10/18/25 21:59 Acetaminophen 325 Mg Tablet PO 650 mg Q6H PRN Administration fever or pain 1-3 Atorvastatin Calcium 40 mg 09/30/25 21:00 10/18/25 21:58 Atorvastatin 40 Mg Tablet PO 40 mg HS SILVIO Administration Baclofen 10 mg 10/06/25 11:38 10/18/25 08:12 Baclofen 10 Mg Tablet PO 10 mg Q8HR PRN Administration muscle spasms Diclofenac Sodium 1 applic 09/30/25 19:43 Diclofenac Sodium 1% 100 Gm Gel (*Bkc) TOPICAL TID PRN Pain Enoxaparin Sodium 40 mg 10/02/25 09:00 10/19/25 08:57 Enoxaparin 40 Mg/0.4 Ml Syringe SUB-Q 40 mg DAILY SILVIO Administration Famotidine 20 mg 10/01/25 09:00 10/19/25 08:56 Famotidine 20 Mg Tablet PO 20 mg Q12HR SILVIO Administration Ferrous Sulfate 325 mg 10/09/25 17:00 10/18/25 17:22 Ferrous Sulfate 325 Mg Tablet BY MOUTH 325 mg BID@1200,1700 SILVIO Administration Guaifenesin 200 mg 09/30/25 19:43 Guaifenesin 200 Mg/10 Ml Udc PO Q6H PRN Cough Levothyroxine Sodium 88 mcg 10/01/25 06:30 10/19/25 06:25 Levothyroxine Sodium 88 Mcg Tablet PO 88 mcg DAILY@0630 SILVIO Administration Metoprolol Tartrate 25 mg 10/01/25 09:00 10/19/25 08:56 Metoprolol Tartrate 25 Mg Tablet PO 25 mg Q12HR SILVIO Administration Olmesartan 10 mg 10/03/25 09:00 10/19/25 08:56 Olmesartan Medoxomil 10 Mg Tablet PO 10 mg DAILY SILVIO Administration Ondansetron HCl 4 mg 09/30/25 19:43 10/01/25 14:20 Ondansetron Hcl Odt 4 Mg Tablet PO 4 mg Q6H PRN Administration Nausea And Vomiting Polyethylene Glycol 17 gm 09/30/25 19:43 Polyethylene Glycol 3350 17 Gm Powd.Pack PO HS PRN Constipation Ropinirole HCl 0.25 mg 10/06/25 11:39 10/18/25 08:12 Ropinirole Hcl 0.25 Mg Tablet PO 0.25 mg TID PRN Administration Restless leg Senna/Docusate Sodium 1 tab 10/01/25 21:00 10/18/25 21:58 Senna/Docusate Sodium Tablet PO 1 tab HS SILVIO Administration Labs Labs: Laboratory Results - last 24 hr 10/19/25 06:45 WBC 4.3 L RBC 4.05 L Hgb 11.8 Hct 37.0 MCV 91.4 MCH 29.1 MCHC 31.9 L RDW 13.5 Plt Count 327 MPV 9.4 Attestation: I personally reviewed all lab results Quality VTE Prophylaxis VTE prophylaxis: pharmacologic ordered -Patient's previous records reviewed on admission -ER notes reviewed in detail on admission -discussed all findings and current treatment plan with patient/Family/POA -Consultations reviewed for recommendations -Patient's disposition for safe discharge discussed with wrapper caser -radiology imaging, EKG and test results I have personally reviewed and interpreted unless otherwise specified Dictation performed by [email or web address] direct speech recognition software, therefore scrap burner variants and typographical errors may occur. Hospitalist MIPS Advance Care Plan I have confirmed that the patient's Advanced Care Plan is present, code status is documented, or surrogate decision maker is listed in patient medical record.: Yes Medication Reconciliation I have utilized all available resources to obtain, update and review the patients current medications (includes all prescriptions, OTC, herbals, cannabis, and nutritional supplements).: Yes The patient is not eligible for med reconciliation; the patient is in a emergent medical situation where delaying treatment would jeopardize the patients health.: No
[2025-10-19] MEDS: FERROUS SULFATE 325 MG TABLET BY MOUTH ×2 (12:06→17:40)
[2025-10-19 16:40] VITALS: BP 102/54; PULSE 65; RESP 18; TEMP 36.1; O2SAT 97
[2025-10-19 21:53] VITALS: PULSE 62
[2025-10-19] MEDS: ATORVASTATIN 40 MG TABLET PO (21:53)
[2025-10-19] MEDS: SENNA/DOCUSATE SODIUM TABLET 1 TAB PO (21:53)
[2025-10-19] MEDS: ACETAMINOPHEN 325 MG TABLET 650 MG PO (21:54)
[2025-10-20] VITALS: BP 116/56; PULSE 65; RESP 16; TEMP 36.8; O2SAT 99
[2025-10-20] MEDS: LEVOTHYROXINE SODIUM 88 MCG TABLET PO (06:26)
[2025-10-20] MEDS: ACETAMINOPHEN 325 MG TABLET 650 MG PO (07:41)
[2025-10-20 07:45] VITALS: BP 116/60; PULSE 60; RESP 16; TEMP 35.5; O2SAT 97
[2025-10-20 08:35] VITALS: PULSE 60; RESP 16; O2SAT 97
[2025-10-20] MEDS: ENOXAPARIN 40 MG/0.4 ML SYRINGE SUB-Q (09:01)
[2025-10-20 09:02] VITALS: PULSE 60
[2025-10-20] MEDS: METOPROLOL TARTRATE 25 MG TABLET PO ×2 (09:02→20:44)
[2025-10-20] MEDS: FAMOTIDINE 20 MG TABLET PO ×2 (09:02→20:45)
[2025-10-20] MEDS: OLMESARTAN MEDOXOMIL 10 MG TABLET PO (09:02)
[2025-10-20 11:12] VITALS: BMI 10.0
[2025-10-20] MEDS: FERROUS SULFATE 325 MG TABLET BY MOUTH ×2 (12:54→18:03)
[2025-10-20 16:35] VITALS: BP 126/59; PULSE 68; RESP 16; TEMP 36.3; O2SAT 96
[2025-10-20 20:44] VITALS: PULSE 64
[2025-10-20] MEDS: BACLOFEN 10 MG TABLET PO (20:44)
[2025-10-20] MEDS: ATORVASTATIN 40 MG TABLET PO (20:44)
[2025-10-21] VITALS: BP 109/62; PULSE 69; RESP 17; TEMP 36.4; O2SAT 95
[2025-10-21] MEDS: LEVOTHYROXINE SODIUM 88 MCG TABLET PO (06:09)
[2025-10-21 07:42] VITALS: BP 117/53; PULSE 58; RESP 18; TEMP 36.4; O2SAT 97
--- NOTE | 2025-10-21 07:57 | P.PNIM_ITS ---
Assessment and Plan Assessment and Plan (1) Physical deconditioning: Code(s): R53.81 - Other malaise Status: Acute Assessment and Plan: Patient admitted to [facility] bed due to extended hospitalization after treatment for COVID and UTI * PT/OT * up to chair with every meal * fall risk * Likely need SNF due to slow progression * long conversation with daughter regarding discharge plan (2) Risk for falls: Code(s): Z91.81 - History of falling Status: Acute Assessment and Plan: * fall precautions * ambulate with assistance * PT/OT (3) Iron deficiency anemia: Code(s): D50.9 - Iron deficiency anemia, unspecified Status: Acute Assessment and Plan: * Hgb stable * continued patient's ferrous sulfate (4) Hypertension: Code(s): I10 - Essential (primary) hypertension Status: Acute Assessment and Plan: * continue patient's metoprolol and olmesartan * monitor BP per unit protocol (5) HLD (hyperlipidemia): Code(s): E78.5 - Hyperlipidemia, unspecified Status: Acute Assessment and Plan: * continue atorvastatin (6) Hypothyroidism: Code(s): E03.9 - Hypothyroidism, unspecified Status: Acute Assessment and Plan: * continue patient's levothyroxine (7) GERD (gastroesophageal reflux disease): Code(s): K21.9 - Gastro-esophageal reflux disease without esophagitis Status: Acute Assessment and Plan: * continue patient's Pepcid (8) Restless legs syndrome: Code(s): G25.81 - Restless legs syndrome Status: Acute Assessment and Plan: * continue ropinirole (9) Constipation: Code(s): K59.00 - Constipation, unspecified Status: Acute Assessment and Plan: * continue MiraLax p.r.n. * senna/ docusate HS * encourage oral hydration and activity (10) VRE (vancomycin resistant enterococcus) culture positive: Code(s): Z22.39 - Carrier of other specified bacterial diseases Status: Resolved Assessment and Plan: RESOLVED patient's urinary culture came back with VRE from previous report she had been treated outpatient with oral antibiotic therapy and was asymptomatic during her admission at [facility]. * blood cultures pending * started patient on Macrobid p.o. * pending blood cultures if positive will consult ID * will get follow up UA * contact isolation (11) ROMI (acute kidney injury): Code(s): N17.9 - Acute kidney failure, unspecified Status: Acute Assessment and Plan: Patient CR 1.02 peaked at 1.35 was given fluids with improvement likely secondary to patient poor oral hydration intake * today 1.10 * Encourage water intake * F/U renal function in 3 days * avoid nephrotoxins Plan Code status: Full code per patient DVT prophylaxis: Lovenox Stress ulcer prophylaxis: Pepcid home medication PT/OT notes: SWING Disposition: patient admitted to swing bed for continued strength and endurance training with physical and occupational therapy patient is from [facility] her assisted living will need to be re-evaluated prior to discharge to return. Will likely need SNF due to slow progression Subjective Date/time seen: 10/21/25 07:57 Interval history: Patient seen for a follow up visit. Patient sitting in a chair, in no acute distress. Patient denies acute pain. Patient is not participating with therapy on a regular basis. Patient uses the [facility] for transfers normally. Patient needs to discharge to a SNF at [facility] by Sunday. I had a long phone conversation with the daughter regarding discharge planning and daughter is very hesitent to make a decision despite extensive education r egarding patient's current status and discharge plans. Patient is almost out of SNF days with her insurance and has been accepted to SNF at [facility] with plans to discharge by Sunday. Patient will need to switch to LTC after SNF as she will need 24 hour care upon discharge. Review of Systems Review of Systems: All systems reviewed & are unremarkable except as noted in HPI and below (Subjective) Exam Const: General: comfortable and no acute distress HENMT: Ears: TM's normal bilaterally Face/Nose/Sinus: Normal nares present Mouth: Yes moist mucous membranes Eyes: General: appearance normal, both eyes and all related structures P upils: Equal, round and reactive pupils present Neck: Neck: supple Resp: Effort & Inspection: normal respiratory effort Auscultation: clear to auscultation bilaterally Cardio: Rate: regular rate Rhythm: regular rhythm GI: Inspection: non-distended Skin: General skin exam: normal color and no rashes or lesions noted Wounds: no wounds Other: deep tissue bruising Neuro: Cranial nerves: Yes Equal, round and reactive pupils present Speech: normal speech Motor exam (neuro): 5/5 motor strength present throughout Sensory Exam: normal sensation Other: Unable to assess gait Extrem: General: normal to inspection and no edema Psych: Mental Status: mental status grossly normal Affect: normal affect and Sad affect present Other: withdrawn Objective Data Vital Signs Vital Signs: Vital Signs - 24 hr 10/20/25 08:35 10/20/25 09:02 10/20/25 16:35 Temperature 97.4 F L Pulse Rate 60 60 68 Respiratory Rate 16 16 Blood Pressure 126/59 L Pulse Oximetry 97 96 Oxygen Delivery Room Air Room Air 10/20/25 20:44 10/21/25 00:00 10/21/25 07:42 Temperature 97.6 F 97.5 F L Pulse Rate 64 69 58 L Respiratory Rate 17 18 Blood Pressure 109/62 117/53 L Pulse Oximetry 95 97 Oxygen Delivery Room Air Room Air Intake/Output Intake/Output: Intake & Output 12/0710/19/25 10/20/25 10/21/25 23:59 23:59 23:59 23:59 Intake Total 1140 1450 1320 225 Balance 1140 1450 1320 225 Meds/Results Medications: Active Medications Generic Name Dose Route Start Last Admin Trade Name Freq PRN Reason Stop Dose Admin Acetaminophen 650 mg 09/30/25 19:43 10/20/25 07:41 Acetaminophen 325 Mg Tablet PO 650 mg Q6H PRN Administration fever or pain 1-3 Atorvastatin Calcium 40 mg 09/30/25 21:00 10/20/25 20:44 Atorvastatin 40 Mg Tablet PO 40 mg HS SILVIO Administration Baclofen 10 mg 10/06/25 11:38 10/20/25 20:44 Baclofen 10 Mg Tablet PO 10 mg Q8HR PRN Administration muscle spasms Diclofenac Sodium 1 applic 09/30/25 19:43 Diclofenac Sodium 1% 100 Gm Gel (*Bkc) TOPICAL TID PRN Pain Enoxaparin Sodium 40 mg 10/02/25 09:00 10/20/25 09:01 Enoxaparin 40 Mg/0.4 Ml Syringe SUB-Q 40 mg DAILY SILVIO Administration Famotidine 20 mg 10/01/25 09:00 10/20/25 20:45 Famotidine 20 Mg Tablet PO 20 mg Q12HR SILVIO Administration Ferrous Sulfate 325 mg 10/09/25 17:00 10/20/25 18:03 Ferrous Sulfate 325 Mg Tablet BY MOUTH 325 mg BID@1200,1700 SILVIO Administration Guaifenesin 200 mg 09/30/25 19:43 Guaifenesin 200 Mg/10 Ml Udc PO Q6H PRN Cough Levothyroxine Sodium 88 mcg 10/01/25 06:30 10/21/25 06:09 Levothyroxine Sodium 88 Mcg Tablet PO 88 mcg DAILY@0630 SILVIO Administration Metoprolol Tartrate 25 mg 10/01/25 09:00 10/20/25 20:44 Metoprolol Tartrate 25 Mg Tablet PO 25 mg Q12HR SILVIO Administration Olmesartan 10 mg 10/03/25 09:00 10/20/25 09:02 Olmesartan Medoxomil 10 Mg Tablet PO 10 mg DAILY SILVIO Administration Ondansetron HCl 4 mg 09/30/25 19:43 10/01/25 14:20 Ondansetron Hcl Odt 4 Mg Tablet PO 4 mg Q6H PRN Administration Nausea And Vomiting Polyethylene Glycol 17 gm 09/30/25 19:43 Polyethylene Glycol 3350 17 Gm Powd.Pack PO HS PRN Constipation Ropinirole HCl 0.25 mg 10/06/25 11:39 10/20/25 20:44 Ropinirole Hcl 0.25 Mg Tablet PO 0.25 mg TID PRN Administration Restless leg Senna/Docusate Sodium 1 tab 10/01/25 21:00 10/20/25 20:45 Senna/Docusate Sodium Tablet PO Not Given HS [facility] Labs Labs: Laboratory Results - last 24 hr 10/19/25 06:45 WBC 4.3 L RBC 4.05 L Hgb 11.8 Hct 37.0 MCV 91.4 MCH 29.1 MCHC 31.9 L RDW 13.5 Plt Count 327 MPV 9.4 Attestation: I personally reviewed all lab results Quality VTE Prophylaxis VTE prophylaxis: pharmacologic ordered
[2025-10-21 08:19] VITALS: PULSE 60
[2025-10-21] MEDS: ENOXAPARIN 40 MG/0.4 ML SYRINGE SUB-Q (08:19)
[2025-10-21] MEDS: OLMESARTAN MEDOXOMIL 10 MG TABLET PO (08:19)
[2025-10-21] MEDS: FAMOTIDINE 20 MG TABLET PO ×2 (08:19→20:33)
[2025-10-21] MEDS: METOPROLOL TARTRATE 25 MG TABLET PO ×2 (08:19→20:29)
[2025-10-21] MEDS: FERROUS SULFATE 325 MG TABLET BY MOUTH ×2 (13:07→17:15)
[2025-10-21 16:00] VITALS: BP 127/67; PULSE 60; RESP 18; TEMP 36; O2SAT 97
[2025-10-21 20:29] VITALS: PULSE 71
[2025-10-21] MEDS: SENNA/DOCUSATE SODIUM TABLET 1 TAB PO (20:29)
[2025-10-21] MEDS: BACLOFEN 10 MG TABLET PO (20:29)
[2025-10-21] MEDS: ACETAMINOPHEN 325 MG TABLET 650 MG PO (20:33)
[2025-10-21] MEDS: ATORVASTATIN 40 MG TABLET PO (20:33)
[2025-10-22] VITALS: BP 109/52; PULSE 71; RESP 16; TEMP 36.2; O2SAT 96
[2025-10-22] MEDS: LEVOTHYROXINE SODIUM 88 MCG TABLET PO (06:19)
[2025-10-22 08:00] VITALS: BP 115/57; PULSE 66; RESP 18; TEMP 35.9; O2SAT 97
[2025-10-22] MEDS: ENOXAPARIN 40 MG/0.4 ML SYRINGE SUB-Q (08:59)
[2025-10-22 09:00] VITALS: PULSE 66
[2025-10-22] MEDS: FAMOTIDINE 20 MG TABLET PO ×2 (09:00→20:44)
[2025-10-22] MEDS: METOPROLOL TARTRATE 25 MG TABLET PO ×2 (09:00→20:44)
[2025-10-22] MEDS: OLMESARTAN MEDOXOMIL 10 MG TABLET PO (09:00)
[2025-10-22] MEDS: FERROUS SULFATE 325 MG TABLET BY MOUTH ×2 (11:59→17:44)
[2025-10-22 16:00] VITALS: BP 132/53; PULSE 64; RESP 16; TEMP 36.9; O2SAT 96
[2025-10-22 20:44] VITALS: PULSE 70
[2025-10-22] MEDS: ATORVASTATIN 40 MG TABLET PO (20:44)
[2025-10-22] MEDS: BACLOFEN 10 MG TABLET PO (20:44)
[2025-10-22] MEDS: SENNA/DOCUSATE SODIUM TABLET 1 TAB PO (20:46)
[2025-10-22] MEDS: ACETAMINOPHEN 325 MG TABLET 650 MG PO (20:46)
[2025-10-23] VITALS: BP 124/46; PULSE 70; RESP 18; TEMP 36.2; O2SAT 96
[2025-10-23] MEDS: LEVOTHYROXINE SODIUM 88 MCG TABLET PO (06:36)
[2025-10-23 08:00] VITALS: BP 131/50; PULSE 63; RESP 18; TEMP 35.7; O2SAT 99
[2025-10-23 08:53] VITALS: PULSE 63
[2025-10-23] MEDS: OLMESARTAN MEDOXOMIL 10 MG TABLET PO (08:53)
[2025-10-23] MEDS: FAMOTIDINE 20 MG TABLET PO ×2 (08:53→20:34)
[2025-10-23] MEDS: ENOXAPARIN 40 MG/0.4 ML SYRINGE SUB-Q (08:53)
[2025-10-23] MEDS: METOPROLOL TARTRATE 25 MG TABLET PO ×2 (08:53→20:34)
[2025-10-23] MEDS: FERROUS SULFATE 325 MG TABLET BY MOUTH ×2 (12:07→16:08)
[2025-10-23 13:11] VITALS: BMI 10.0
--- NOTE | 2025-10-23 14:31 | P.PNIM_ITS ---
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 * daughter is touring facilities and patient will discharge once decision is m [facility] and patient is accepted * care coordination is working with family to assist in discharge planning (2) Risk for falls: Code(s): Z91.81 - History of falling Status: Acute Assessment and Plan: * fall precautions * ambulate with assistance * PT/OT (3) Iron deficiency anemia: Code(s): D50.9 - Iron deficiency anemia, unspecified Status: Acute Assessment and Plan: * Hgb stable * continued patient's ferrous sulfate (4) Hypertension: Code(s): I10 - Essential (primary) hypertension Status: Acute Assessment and Plan: * continue patient's metoprolol and olmesartan * monitor BP per unit protocol * blood pressures have been stable on review (5) HLD (hyperlipidemia): Code(s): E78.5 - Hyperlipidemia, unspecified Status: Acute Assessment and Plan: * continue atorvastatin L (6) Hypothyroidism: Code(s): E03.9 - Hypothyroidism, unspecified Status: Acute Assessment and Plan: * continue patient's levothyroxine (7) GERD (gastroesophageal reflux disease): Code(s): K21.9 - Gastro-esophageal reflux disease without esophagitis Status: Acute Assessment and Plan: * continue patient's Pepcid (8) Restless legs syndrome: Code(s): G25.81 - Restless legs syndrome Status: Acute Assessment and Plan: * continue ropinirole (9) Constipation: Code(s): K59.00 - Constipation, unspecified Status: Acute Assessment and Plan: * continue MiraLax p.r.n. * senna/ docusate HS * encourage oral hydration and activity (10) VRE (vancomycin resistant enterococcus) culture positive: Code(s): Z22.39 - Carrier of other specified bacterial diseases Status: Resolved Assessment and Plan: RESOLVED patient's urinary culture came back with VRE from previous report she had been treated outpatient with oral antibiotic therapy and was asymptomatic during her admission at [facility]. * blood cultures pending * started patient on Macrobid p.o. * pending blood cultures if positive will consult ID * will get follow up UA * contact isolation (11) ROMI (acute kidney injury): Code(s): N17.9 - Acute kidney failure, unspecified Status: Acute Assessment and Plan: Patient CR 1.02 peaked at 1.35 was given fluids with improvement likely secondary to patient poor oral hydration intake * Encourage water intake * F/U renal function in 3 days * avoid nephrotoxins * patients oral intake has been increasing * plan for next BMPon 10/25 Subjective Date/time seen: 10/23/25 14:31 Interval history: Patient seen for a follow up visit. Patient sitting up in the chair, in no acute distress. Patient denies acute pain. Patient is eating most of her meals, she is drinking more fluids. Patient participates with rehab about 50% of the time and is not making progress. Patient needs LTC and daughter is making arrangements. Patient continues PT/OT while she is a swing bed patient. Review of Systems Review of Systems: All systems reviewed & are unremarkable except as noted in HPI and below (Subjective) Exam Const: General: comfortable and no acute distress HENMT: Ears: TM's normal bilaterally Face/Nose/Sinus: Normal nares present Mouth: Yes moist mucous membranes Eyes: General: appearance normal, both eyes and all related structures Pupils: Equal, round and reactive pupils present Neck: Neck: supple Resp: Effort & Inspection: normal respiratory effort Auscultation: clear to auscultation bilaterally Cardio: Rate: regular rate Rhythm: regular rhythm GI: Inspection: non-distended GI Palp: Yes Soft to palpation Auscultation: normal bowel sounds Skin: General skin exam: normal color and no rashes or lesions noted Wounds: no wounds Other: deep tissue bruising Neuro: Cranial nerves: Yes Equal, round and reactive pupils present Speech: normal speech Motor exam (neuro): 5/5 motor strength present throughout Sensory Exam: normal sensation Other: Unable to assess gait Extrem: General: normal to inspection and no edema Psych: Mental Status: mental status grossly normal Affect: normal affect and Sad affect present Other: withdrawn Objective Data Vital Signs Vital Signs: Vital Signs - 24 hr 10/22/25 16:00 10/22/25 20:44 10/23/25 00:00 Temperature 98.4 F 97.2 F L Pulse Rate 64 70 70 Respiratory Rate 16 18 Blood Pressure 132/53 L 124/46 L Pulse Oximetry 96 96 Oxygen Delivery Room Air Room Air 10/23/25 08:00 10/23/25 08:53 Temperature 96.2 F L Pulse Rate 63 63 Respiratory Rate 18 Blood Pressure 131/50 L Pulse Oximetry 99 Oxygen Delivery Room Air Intake/Output Intake/Output: Intake & Output 10/20/25 10/21/25 10/22/25 10/23/25 23:59 23:59 23:59 23:59 Intake Total 1320 1245 850 840 Balance 1320 1245 850 840 Meds/Results Medications: Active Medications Generic Name Dose Route Start Last Admin Trade Name Freq PRN Reason Stop Dose Admin Acetaminophen 650 mg 09/30/25 19:43 10/22/25 20:46 Acetaminophen 325 Mg Tablet PO 650 mg Q6H PRN Administration fever or pain 1-3 Atorvastatin Calcium 40 mg 09/30/25 21:00 10/22/25 20:44 Atorvastatin 40 Mg Tablet PO 40 mg HS SILVIO Administration Baclofen 10 mg 10/06/25 11:38 10/22/25 20:44 Baclofen 10 Mg Tablet PO 10 mg Q8HR PRN Administration muscle spasms Diclofenac Sodium 1 applic 09/30/25 19:43 Diclofenac Sodium 1% 100 Gm Gel (*Bkc) TOPICAL TID PRN Pain Enoxaparin Sodium 40 mg 10/02/25 09:00 10/23/25 08:53 Enoxaparin 40 Mg/0.4 Ml Syringe SUB-Q 40 mg DAILY SILVIO Administration Famotidine 20 mg 10/01/25 09:00 10/23/25 08:53 Famotidine 20 Mg Tablet PO 20 mg Q12HR SILVIO Administration Ferrous Sulfate 325 mg 10/09/25 17:00 10/23/25 12:07 Ferrous Sulfate 325 Mg Tablet BY MOUTH 325 mg BID@1200,1700 [facility] Administration Guaifenesin 200 mg 09/30/25 19:43 Guaifenesin 200 Mg/10 Ml Udc PO Q6H PRN Cough Levothyroxine Sodium 88 mcg 10/01/25 06:30 10/23/25 06:36 Levothyroxine Sodium 88 Mcg Tablet PO 88 mcg DAILY@0630 SILVIO Administration Metoprolol Tartrate 25 mg 10/01/25 09:00 10/23/25 08:53 Metoprolol Tartrate 25 Mg Tablet PO 25 mg Q12HR SILVIO Administration Olmesartan 10 mg 10/03/25 09:00 10/23/25 08:53 Olmesartan Medoxomil 10 Mg Tablet PO 10 mg DAILY SILVIO Administration Ondansetron HCl 4 mg 09/30/25 19:43 10/01/25 14:20 Ondansetron Hcl Odt 4 Mg Tablet PO 4 mg Q6H PRN Administration Nausea And Vomiting Polyethylene Glycol 17 gm 09/30/25 19:43 Polyethylene Glycol 3350 17 Gm Powd.Pack PO HS PRN Constipation Ropinirole HCl 0.25 mg 10/06/25 11:39 10/22/25 20:44 Ropinirole Hcl 0.25 Mg Tablet PO 0.25 mg TID PRN Administration Restless leg Senna/Docusate Sodium 1 tab 10/01/25 21:00 10/22/25 20:46 Senna/Docusate Sodium Tablet PO 1 tab HS SILVIO Administration Labs Labs: Laboratory Results - last 24 hr 10/19/25 06:45 WBC 4.3 L RBC 4.05 L Hgb 11.8 Hct 37.0 MCV 91.4 MCH 29.1 MCHC 31.9 L RDW 13.5 Plt Count 327 MPV 9.4 Attestation: I personally reviewed all lab results Quality VTE Prophylaxis VTE prophylaxis: pharmacologic ordered
[2025-10-23 16:00] VITALS: BP 119/50; PULSE 62; RESP 16; TEMP 36.4; O2SAT 97
[2025-10-23 20:00] VITALS: PULSE 85; RESP 16; O2SAT 97
[2025-10-23 20:34] VITALS: PULSE 85
[2025-10-23] MEDS: ATORVASTATIN 40 MG TABLET PO (20:34)
[2025-10-23] MEDS: SENNA/DOCUSATE SODIUM TABLET 1 TAB PO (20:34)
[2025-10-23] MEDS: BACLOFEN 10 MG TABLET PO (20:34)
[2025-10-24] VITALS: BP 116/41; PULSE 72; RESP 18; TEMP 36.4; O2SAT 95
[2025-10-24] MEDS: LEVOTHYROXINE SODIUM 88 MCG TABLET PO (06:15)
[2025-10-24 07:35] VITALS: BP 122/63; PULSE 62; RESP 16; TEMP 35.9; O2SAT 97
[2025-10-24 08:25] VITALS: PULSE 62; RESP 16; O2SAT 97
[2025-10-24 08:58] VITALS: PULSE 62
[2025-10-24] MEDS: ENOXAPARIN 40 MG/0.4 ML SYRINGE SUB-Q (08:58)
[2025-10-24] MEDS: METOPROLOL TARTRATE 25 MG TABLET PO ×2 (08:58→20:19)
[2025-10-24] MEDS: OLMESARTAN MEDOXOMIL 10 MG TABLET PO (08:58)
[2025-10-24] MEDS: FAMOTIDINE 20 MG TABLET PO ×2 (08:58→20:20)
[2025-10-24] MEDS: FERROUS SULFATE 325 MG TABLET BY MOUTH ×2 (12:44→18:14)
[2025-10-24 16:40] VITALS: BP 111/52; PULSE 60; RESP 18; TEMP 36.2; O2SAT 96
[2025-10-24 20:19] VITALS: PULSE 74
[2025-10-24] MEDS: ATORVASTATIN 40 MG TABLET PO (20:19)
[2025-10-24] MEDS: BACLOFEN 10 MG TABLET PO (20:20)
[2025-10-24] MEDS: SENNA/DOCUSATE SODIUM TABLET 1 TAB PO (20:20)
[2025-10-25] VITALS: BP 109/53; PULSE 74; RESP 18; TEMP 36.5; O2SAT 98
[2025-10-25] MEDS: LEVOTHYROXINE SODIUM 88 MCG TABLET PO (06:17)
[2025-10-25 07:55] VITALS: BP 108/51; PULSE 59; RESP 18; TEMP 35.8; O2SAT 99
[2025-10-25 08:30] VITALS: PULSE 60; RESP 18; O2SAT 99
[2025-10-25 09:00] VITALS: PULSE 60
[2025-10-25] MEDS: FAMOTIDINE 20 MG TABLET PO ×2 (09:00→20:43)
[2025-10-25] MEDS: METOPROLOL TARTRATE 25 MG TABLET PO ×2 (09:00→20:42)
[2025-10-25] MEDS: OLMESARTAN MEDOXOMIL 10 MG TABLET PO (09:01)
[2025-10-25] MEDS: ENOXAPARIN 40 MG/0.4 ML SYRINGE SUB-Q (09:01)
[2025-10-25] MEDS: FERROUS SULFATE 325 MG TABLET BY MOUTH ×2 (13:11→16:33)
[2025-10-25 16:35] VITALS: BP 114/62; PULSE 69; RESP 16; TEMP 36.2; O2SAT 97
[2025-10-25 20:42] VITALS: PULSE 77
[2025-10-25] MEDS: BACLOFEN 10 MG TABLET PO (20:43)
[2025-10-25] MEDS: ATORVASTATIN 40 MG TABLET PO (20:43)
[2025-10-25] MEDS: SENNA/DOCUSATE SODIUM TABLET 1 TAB PO (20:43)
[2025-10-26] VITALS: BP 118/59; PULSE 77; RESP 18; TEMP 36.1; O2SAT 97
[2025-10-26] MEDS: LEVOTHYROXINE SODIUM 88 MCG TABLET PO (05:32)
[2025-10-26 08:00] VITALS: BP 119/55; PULSE 66; RESP 18; TEMP 35.8; O2SAT 94
[2025-10-26 09:07] VITALS: PULSE 66
[2025-10-26] MEDS: FAMOTIDINE 20 MG TABLET PO ×2 (09:07→21:54)
[2025-10-26] MEDS: ENOXAPARIN 40 MG/0.4 ML SYRINGE SUB-Q (09:07)
[2025-10-26] MEDS: OLMESARTAN MEDOXOMIL 10 MG TABLET PO (09:07)
[2025-10-26] MEDS: METOPROLOL TARTRATE 25 MG TABLET PO ×2 (09:07→21:51)
[2025-10-26] MEDS: FERROUS SULFATE 325 MG TABLET BY MOUTH ×2 (12:27→17:43)
[2025-10-26 16:00] VITALS: BP 110/62; PULSE 78; RESP 16; TEMP 36.4; O2SAT 99
[2025-10-26 21:51] VITALS: PULSE 74
[2025-10-26] MEDS: ACETAMINOPHEN 325 MG TABLET 650 MG PO (21:54)
[2025-10-26] MEDS: BACLOFEN 10 MG TABLET PO (21:54)
[2025-10-26] MEDS: SENNA/DOCUSATE SODIUM TABLET 1 TAB PO (21:54)
[2025-10-26] MEDS: ATORVASTATIN 40 MG TABLET PO (21:55)
[2025-10-27] VITALS: BP 90/52; PULSE 74; RESP 18; TEMP 36.6; O2SAT 95
[2025-10-27] MEDS: LEVOTHYROXINE SODIUM 88 MCG TABLET PO (05:09)
[2025-10-27 08:00] VITALS: BP 92/46; PULSE 74; RESP 18; TEMP 36.3; O2SAT 93
[2025-10-27 08:57] VITALS: PULSE 78
[2025-10-27] MEDS: ENOXAPARIN 40 MG/0.4 ML SYRINGE SUB-Q (08:57)
[2025-10-27] MEDS: METOPROLOL TARTRATE 25 MG TABLET PO ×2 (08:57→22:00)
[2025-10-27] MEDS: FAMOTIDINE 20 MG TABLET PO ×2 (08:58→22:00)
[2025-10-27] MEDS: OLMESARTAN MEDOXOMIL 10 MG TABLET PO (08:58)
--- NOTE | 2025-10-27 09:52 | P.PNIM_ITS ---
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 * daughter is touring facilities and patient will discharge once decision is [facility] and patient is accepted * care coordination is working with family to assist in discharge planning * patient issued discharge by insurance and will discharge to LTC at a facility vs home with family (2) Risk for falls: Code(s): Z91.81 - History of falling Status: Acute Assessment and Plan: * fall precautions * ambulate with assistance * PT/OT (3) Iron deficiency anemia: Code(s): D50.9 - Iron deficiency anemia, unspecified Status: Acute Assessment and Plan: * Hgb stable * continued patient's ferrous sulfate (4) Hypertension: Code(s): I10 - Essential (primary) hypertension Status: Acute Assessment and Plan: * continue patient's metoprolol and olmesartan * monitor BP per unit protocol * blood pressures have been stable on review (5) HLD (hyperlipidemia): Code(s): E78.5 - Hyperlipidemia, unspecified Status: Acute Assessment and Plan: * continue atorvastatin (6) Hypothyroidism: Code(s): E03.9 - Hypothyroidism, unspecified Status: Acute Assessment and Plan: * continue patient's levothyroxine (7) GERD (gastroesophageal reflux disease): Code(s): K21.9 - Gastro-esophageal reflux disease without esophagitis Status: Acute Assessment and Plan: * continue patient's Pepcid (8) Restless legs syndrome: Code(s): G25.81 - Restless legs syndrome Status: Acute Assessment and Plan: * continue ropinirole (9) Constipation: Code(s): K59.00 - Constipation, unspecified Status: Acute Assessment and Plan: * continue MiraLax p.r.n. * senna/ docusate HS * encourage oral hydration and activity (10) VRE (vancomycin resistant enterococcus) culture positive: Code(s): Z22.39 - Carrier of other specified bacterial diseases Status: Resolved Assessment and Plan: RESOLVED patient's urinary culture came back with VRE from previous report she had been treated outpatient with oral antibiotic therapy and was asymptomatic during her admission at [facility]. * blood cultures pending * started patient on Macrobid p.o. * pending blood cultures if positive will consult ID * will get follow up UA * contact isolation (11) ROMI (acute kidney injury): Code(s): N17.9 - Acute kidney failure, unspecified Status: Acute Assessment and Plan: Patient CR 1.02 peaked at 1.35 was given fluids with improvement likely secondary to patient poor oral hydration intake * Encourage water intake * F/U renal function in 3 days * avoid nephrotoxins * patients oral intake has been increasing * patient is now eating most of her meals and drinking fluids regularly Subjective Date/time seen: 10/27/25 09:52 Interval history: Patient seen for a follow up visit. Patient lying in bed, in no acute distress. Patient denies pain. Patient has a good appetite and is eating most of all meals and drinking adequate fluids. Patient is cooperative with care but still requires max assist x 2. Patient issued discharge by insurance and will discharge to a detention vs home with family on . Care coordination following and working with family on safe discharge plan. Review of Systems Review of Systems: All systems reviewed & are unremarkable except as noted in HPI and below (Subjective) Exam Const: General: comfortable and no acute distress HENMT: Ears: TM's normal bilaterally Face/Nose/Sinus: Normal nares present Mouth: Yes moist mucous membranes Eyes: General: appearance normal, both eyes and all related structures Pupils: Equal, round and reactive pupils present Neck: Neck: supple Resp: Effort & Inspection: normal respiratory effort Auscultation: clear to auscultation bilaterally Cardio: Rate: regular rate Rhythm: regular rhythm GI: Inspection: non-distended GI Palp: Yes Soft to palpation Auscult ation: normal bowel sounds Skin: General skin exam: normal color and no rashes or lesions noted Wounds: no wounds Other: deep tissue bruising Neuro: Cranial nerves: Yes Equal, round and reactive pupils present Speech: normal speech Motor exam (neuro): 5/5 motor strength present throughout Sensory Exam: normal sensation Other: Unable to assess gait Extrem: General: normal to inspection and no edema Psych: Mental Status: mental status grossly normal Affect: normal affect and Sad affect present Other: withdrawn Objective Data Vital Signs Vital Signs: Vital Signs - 24 hr 10/26/25 16:00 10/26/25 21:51 10/27/25 00:00 Temperature 97.5 F L 97.8 F Pulse Rate 78 74 74 Respiratory Rate 16 18 Blood Pressure 110/62 90/52 L Pulse Oximetry 99 95 Oxygen Delivery Room Air Room Air 10/27/25 08:00 10/27/25 08:57 Temperature 97.4 F L Pulse Rate 74 78 Respiratory Rate 18 Blood Pressure 92/46 L Pulse Oximetry 93 Oxygen Delivery Room Air Intake/Output Intake/Output: Intake & Output 10/24/25 10/25/25 10/26/25 10/27/25 23:59 23:59 23:59 23:59 Intake Total 1190 1320 1200 360 Balance 1190 1320 1200 360 Meds/Results Medications: Active Medications Generic Name Dose Route Start Last Admin Trade Name Freq PRN Reason Stop Dose Admin Acetaminophen 650 mg 09/30/25 19:43 10/26/25 21:54 Acetaminophen 325 Mg Tablet PO 650 mg Q6H PRN Administration fever or pain 1-3 Atorvastatin Calcium 40 mg 09/30/25 21:00 10/26/25 21:55 Atorvastatin 40 Mg Tablet PO 40 mg HS SILVIO Administration Baclofen 10 mg 10/06/25 11:38 10/26/25 21:54 Baclofen 10 Mg Tablet PO 10 mg Q8HR PRN Administration muscle spasms Diclofenac Sodium 1 applic 09/30/25 19:43 Diclofenac Sodium 1% 100 Gm Gel (*Bkc) TOPICAL TID PRN Pain Enoxaparin Sodium 40 mg 10/02/25 09:00 10/27/25 08:57 Enoxaparin 40 Mg/0.4 Ml Syringe SUB-Q 40 mg DAILY SILVIO Administration Famotidine 20 mg 10/01/25 09:00 10/27/25 08:58 Famotidine 20 Mg Tablet PO 20 mg Q12HR SILVIO Administration Ferrous Sulfate 325 mg 10/09/25 17:00 10/26/25 17:43 Ferrous Sulfate 325 Mg Tablet BY MOUTH 325 mg BID@1200,1700 SILVIO Administration Guaifenesin 200 mg 09/30/25 19:43 Guaifenesin 200 Mg/10 Ml Udc PO Q6H PRN Cough Levothyroxine Sodium 88 mcg 10/01/25 06:30 10/27/25 05:09 Levothyroxine Sodium 88 Mcg Tablet PO 88 mcg DAILY@0630 SILVIO Administration Metoprolol Tartrate 25 mg 10/01/25 09:00 10/27/25 08:57 Metoprolol Tartrate 25 Mg Tablet PO 25 mg Q12HR SILVIO Administration Olmesartan 10 mg 10/03/25 09:00 10/27/25 08:58 Olmesartan Medoxomil 10 Mg Tablet PO 10 mg DAILY SILVIO Administration Ondansetron HCl 4 mg 09/30/25 19:43 10/01/25 14:20 Ondansetron Hcl Odt 4 Mg Tablet PO 4 mg Q6H PRN Administration Nausea And Vomiting Polyethylene Glycol 17 gm 09/30/25 19:43 Polyethylene Glycol 3350 17 Gm Powd.Pack PO HS PRN Constipation Ropinirole HCl 0.25 mg 10/06/25 11:39 10/26/25 21:53 Ropinirole Hcl 0.25 Mg Tablet PO 0.25 mg TID PRN Administration Restless leg Senna/Docusate Sodium 1 tab 10/01/25 21:00 10/26/25 21:54 Senna/Docusate Sodium Tablet PO 1 tab HS SILVIO Administration Labs Labs: Laboratory Results - last 24 hr 10/19/25 06:45 WBC 4.3 L RBC 4.05 L Hgb 11.8 Hct 37.0 MCV 91.4 MCH 29.1 MCHC 31.9 L RDW 13.5 Plt Count 327 MPV 9.4 Attestation: I personally reviewed all lab results Quality VTE Prophylaxis VTE prophylaxis: pharmacologic ordered
[2025-10-27] MEDS: FERROUS SULFATE 325 MG TABLET BY MOUTH ×2 (12:14→16:46)
[2025-10-27 16:00] VITALS: BP 98/54; PULSE 76; RESP 20; TEMP 36.1; O2SAT 94
[2025-10-27 22:00] VITALS: PULSE 74
[2025-10-27] MEDS: ATORVASTATIN 40 MG TABLET PO (22:00)
[2025-10-27] MEDS: BACLOFEN 10 MG TABLET PO (22:00)
[2025-10-27] MEDS: SENNA/DOCUSATE SODIUM TABLET 1 TAB PO (22:14)
[2025-10-27] MEDS: ACETAMINOPHEN 325 MG TABLET 650 MG PO (22:14)
[2025-10-28] VITALS: BP 106/51; PULSE 74; RESP 18; TEMP 36.6; O2SAT 94
[2025-10-28] MEDS: LEVOTHYROXINE SODIUM 88 MCG TABLET PO (06:33)
[2025-10-28 08:00] VITALS: BP 130/54; PULSE 60; RESP 18; TEMP 36.4; O2SAT 97
[2025-10-28 08:51] VITALS: PULSE 60
[2025-10-28] MEDS: FAMOTIDINE 20 MG TABLET PO ×2 (08:51→19:20)
[2025-10-28] MEDS: METOPROLOL TARTRATE 25 MG TABLET PO ×2 (08:51→19:19)
[2025-10-28] MEDS: ENOXAPARIN 40 MG/0.4 ML SYRINGE SUB-Q (08:51)
[2025-10-28] MEDS: OLMESARTAN MEDOXOMIL 10 MG TABLET PO (08:51)
--- NOTE | 2025-10-28 10:46 | P.DS_ITS ---
DS: Admitting Diagnosis Discharge Date 10/28/2025 Admitting Diagnosis Rehab/weakness/Physical deconditioned DS: Discharge Diagnosis Discharge Diagnosis (1) Physical deconditioning: Code(s): R53.81 - Other malaise Status: Acute (2) Risk for falls: Code(s): Z91.81 - History of falling Status: Acute Assessment and Plan: * (3) Iron deficiency anemia: Code(s): D50.9 - Iron deficiency anemia, unspecified Status: Acute (4) Hypertension: Code(s): I10 - Essential (primary) hypertension Status: Acute Assessment and Plan: * (5) HLD (hyperlipidemia): Code(s): E78.5 - Hyperlipidemia, unspecified Status: Acute (6) Hypothyroidism: Code(s): E03.9 - Hypothyroidism, unspecified Status: Acute Assessment and Plan: * (7) GERD (gastroesophageal reflux disease): Code(s): K21.9 - Gastro-esophageal reflux disease without esophagitis Status: Acute Assessment and Plan: * (8) Restless legs syndrome: Code(s): G25.81 - Restless legs syndrome Status: Acute Assessment and Plan: * (9) Constipation: Code(s): K59.00 - Constipation, unspecified Status: Acute (10) VRE (vancomycin resistant enterococcus) culture positive: Code(s): Z22.39 - Carrier of other specified bacterial diseases Status: Resolved (11) ROMI (acute kidney injury): Code(s): N17.9 - Acute kidney failure, unspecified Status: Acute DS: Summary Hospital Course Reason for hospitalization: Rehab/Physical deconditionedWeakness Hospital Course: Admission: Patient is a 84-year-old female with H hypertension, hypothyroidism who was admitted to [facility] for physical and occupational therapy due to extended hospitalization for recent diagnosis of COVID, UTI, and generalized weakness. patient had completed her 5 day course of IV remdesivir and dexamethasone prior to arrival as well as being removed off isolation. Patient resides at [facility] however at time of discharge patient is still too weak to return and it was recommended patient go to swing bed for continued strength and endurance training. patient evaluated after admission still reporting generalized weakness but denied any chest pain, shortness breath, nausea, vomiting or any current pain, however did report some constipation. Hospital Course: Patient was admitted to swing bed for continued strength and endurance training with physical and occupational therapy patient is from [facility]. Patient progressed slowly with PT/OT and recommended that she would require more care then could be offered at the assisted living facility. Patient was still requiring a jill study and was having difficulty following commands and hand placement continued to require moderate to maximum assistance with transfers and mobility. Patient had been accepted at multiple [facility] however at this time patient and family chose home with family. Status at Discharge Functional status at discharge: uses cane/walker Overall status at discharge: patient is back to baseline Time Spent with Patient Time attestation: Total time spent providing and/or coordinating discharge services: Time spent: Greater than 30 minutes Exam Const: General: comfortable and no acute distress HENMT: Ears: TM's normal bilaterally Face/Nose/Sinus: Normal nares present Mouth: Yes moist mucous membranes Eyes: General: appearance normal, both eyes and all related structures Pupils: Equal, round and reactive pupils present Neck: Neck: supple Resp: Effort & Inspection: normal respiratory effort Auscultation: clear to auscultation bilaterally Cardio: Rate: regular rate Rhythm: regular rhythm GI: Inspection: non-distended Skin: General skin exam: normal color and no rashes or lesions noted Wounds: no wounds Other: deep tissue bruising Neuro: Cranial nerves: Yes Equal, round and reactive pupils present Speech: normal speech Motor exam (neuro): 5/5 motor strength present throughout Sensory Exam: normal sensation Other: Unable to assess gait Extrem: General: normal to inspection and no edema Psych: Mental Status: mental status grossly normal Affect: normal affect and Sad affect present Other: withdrawn Discharge Plan Discharge Attending physician on discharge: Evans Morales Consulting providers: Mariza Rodrigues Discharging Clinician: Mariza Rodrigues Anticipated Discharge Date/Time: 10/28/25 10:53 Patient Disposition: Home Activity: as tolerated Diet: as tolerated Discharge Instructions: 1). Weakness/Unsteady gait * Encourage ambulation as tolerated * Fall precautions remove trip hazards such as rugs from area * Follow-up with Primary care in 2 to 4 weeks How can you care for yourself at home? ? Keep track of any new symptoms or changes in your symptoms. ? Rest until you feel better. ? Be safe with medicines. Take your medicines exactly as prescribed. Call your doctor if you think you are having a problem with your medicine. ? Do not drive after taking a prescription pain medicine. ? Ensure to follow-up with primary care physician as indicated and provide updated medication list provided to you at discharge. When should you call for help? Call 911 anytime you think you may need emergency care. For example, call if: ? You passed out (lost consciousness). Call your doctor now or seek immediate medical care if: ? You have new symptoms like fever, difficulty breathing, Chest pain, vomiting, or rash. ? You have new or different pain. ? You are confused and are having trouble thinking clearly. ? Your symptoms are getting worse. Watch closely for changes in your health, and be sure to contact your doctor if: ? You do not get better as expected. Patient Instructions: Antibiotic Form, Baclofen (By mouth), Anemia (DC), Fall Prevention (DC) Patient Language: Khmer Stand Alone Forms: General Discharge Information Follow-up/Referrals: Dhiraj,James Smith [Other] - 4 Weeks Discharge Medications: New sennosides-docusate sodium [Senokot-S] 8.6-50 mg Tablet 1 tab PO HS Qty: 30 0RF baclofen 10 mg Tablet 10 mg PO Q8HR PRN (Reason: muscle spasms) Qty: 30 0RF Continued acetaminophen 325 mg capsule 650 mg PO Q6H PRN (Reason: fever or pain) ropinirole 0.25 mg tablet 0.25 mg PO HS ondansetron 4 mg tablet,disintegrating 4 mg PO Q6H PRN (Reason: nausea and vomiting) omeprazole 20 mg capsule,delayed release(DR/EC) 20 mg PO DAILY olmesartan 5 mg tablet 10 mg PO DAILY polyethylene glycol 3350 [ClearLax] 17 gram/dose powder 17 g PO HS PRN (Reason: constipation) metoprolol tartrate 25 mg tablet 25 mg PO BID levothyroxine [Levo-T] 50 mcg tablet 88 mcg PO DAILY ferrous sulfate [FeroSul] 325 mg (65 mg iron) tablet 325 mg PO BID famotidine 20 mg tablet 20 mg PO BID atorvastatin [Lipitor] 40 mg tablet 40 mg PO HS guaifenesin [Mucus-Chest Congestion] 100 mg/5 mL liquid 200 mg PO Q6H PRN (Reason: cough) diclofenac sodium 1 % gel 1 g topical TID PRN (Reason: pain) Rx Instructions: apply to single elbow, wrist or hand; for hand includes palm/fingers/back of hand Date of admission: 09/30/25 19:16 Primary Care Provider: Dhiraj,James Smith Admitting Provider: Evans Morales Attending physician on admission: Evans Morales Condition: Stable Quality VTE Prophylaxis VTE prophylaxis: pharmacologic ordered -Patient's previous records reviewed on admission -ER notes reviewed in detail on admission -discussed all findings and current treatment plan with patient/Family/POA -Consultations reviewed for recommendations -Patient's disposition for safe discharge discussed with case management manager -radiology imaging, EKG and test results I have personally reviewed and interpreted unless otherwise specified Dictation performed by [employer] direct speech recognition software, therefore dry house attendant variants and typographical errors may occur. Hospitalist MIPS Heart Failure (Exclusion) Patient has history of Heart Transplant or Left Ventricular Assistive Device?: No IF YES, STOP HERE Heart Failure (Qualifier) Patient has current or prior documentation of LVEF less than or equal to 40%, or mod/servere depressed LVSF?: No IF NO, STOP HERE
[2025-10-28] MEDS: FERROUS SULFATE 325 MG TABLET BY MOUTH ×2 (12:47→17:42)
[2025-10-28 16:00] VITALS: BP 115/58; PULSE 63; RESP 18; TEMP 37.1; O2SAT 96
--- NOTE | 2025-10-28 16:11 | PCPTNOTE ---
Attempted to see Mrs. Pepe twice this afternoon for PT visits. She refused treatment both times. Pt is scheduled to discharge with family this evening. Beatrice Uribe PT, DPT
[2025-10-28 19:19] VITALS: PULSE 80
[2025-10-28] MEDS: ACETAMINOPHEN 325 MG TABLET 650 MG PO (19:20)
[2025-10-28] MEDS: SENNA/DOCUSATE SODIUM TABLET 1 TAB PO (19:21)
[2025-10-28] MEDS: ATORVASTATIN 40 MG TABLET PO (19:21)
--- NOTE | 2025-10-28 21:13 | PC.NURSE ---
Pt transferred from chair to wheelchair via gait belt and 1 assist. Wheeled down to car w/pt's daughter and pt tolerated transfer well. Pt transferred to car w/assistance from me and daughter.
--- NOTE | 2025-10-28 21:15 | PC.NURSE ---
adjuster and inspector Beth Varghese went over discharge paperwork; including new medication list thoroughly w/the the pt's daughter as pt was being transferred to wheelchair.
--- NOTE | 2025-10-30 09:27 | PC.NURSE ---
Follow up call made, doing well per daughter, eating well, taking medications, mobility is still the problem, however her brother helps her to move her, did have a question on how long the referral was for [facility], referred to Care coordination this questions and Cody Grider will call her back.
== END 2025-10-28 21:00 | disposition home or self-care (01) | DRG 948 ==
PROVIDERS: Nurse Practitioner Adult Health; Nurse Practitioner Family; Admitting Provider Internal Medicine; Visit Provider Internal Medicine
DX: R53.1 Weakness (principal); N17.9 Acute kidney failure, unspecified; Z87.440 Personal history of urinary (tract) infections; Z86.16 Personal history of COVID-19; D50.9 Iron deficiency anemia, unspecified; E78.5 Hyperlipidemia, unspecified; E03.9 Hypothyroidism, unspecified; G25.81 Restless legs syndrome; I10 Essential (primary) hypertension; K59.00 Constipation, unspecified; K21.9 Gastro-esophageal reflux disease without esophagitis; Z91.81 History of falling; Z22.39 Carrier of other specified bacterial diseases
CPT/HCPCS: 36415; 80048; 80053; 81001; 83735; 84439; 84481; 85025; 85027; 87040; 87086; 97110; 97161; 97165; 97530; 97535; A9270; J1650